=== PATIENT | female | born 1945 | race Caucasian/White ===

== ENCOUNTER → 2016-02-26 | Outpatient (CLI) | payer MEDICARE, OTHER ==
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
== END | disposition home or self-care (01) ==
LOC: RADXRMAIN 16:19
PROVIDERS: ATTEND Family Medicine
DX: M47.814 Spondylosis without myelopathy or radiculopathy, thoracic region (principal); M46.84 Other specified inflammatory spondylopathies, thoracic region; M41.84 Other forms of scoliosis, thoracic region
CPT/HCPCS: 72072

== ENCOUNTER → 2016-06-02 | Outpatient (CLI) | payer MEDICARE, OTHER ==
[~2016-06-02] MED LIST: DENOSUMAB 60 MG/ML 1 ML SYRINGE SQ ONE
[2016-06-02 11:10] VITALS: BP 132/60; PULSE 73; RESP 20; TEMP 98.3
== END | disposition home or self-care (01) ==
LOC: PROCWHC3 10:52
PROVIDERS: ATTEND Family Medicine
DX: M81.0 Age-related osteoporosis without current pathological fracture (principal)
CPT/HCPCS: 96372; J0897

== ENCOUNTER → 2016-07-07 | Outpatient (CLI) | payer MEDICARE, OTHER ==
--- NOTE | 2016-07-07 09:02 | NM ---
EXAMINATION TYPE: NM hepatobiliary w EF DATE OF EXAM: 07/07/2016 8:53 AM COMPARISON: 07/21/2015 HISTORY: Right upper quadrant TECHNIQUE: After the intravenous administration of 5.5 mCi Tc 99m Mebrofenin and 8 ounces of ensure p colby hepatobiliary scintigraphy is performed. Immediate images post injection. FINDINGS: There is satisfactory initial accumulation of tracer by the liver. The gallbladder is visualized wit hin 15 minutes. The small bowel activity is noted within 60 minutes. At one hour 8 ounces of oral e nsure plus is given to mimic CCK and gallbladder ejection fraction is calculated at 76 %, in the norm al range. Therefore there is no scintigraphic evidence of cystic or common bile duct obstruction to suggest acute cholecystitis or gallbladder dyskinesia. IMPRESSION: Exam is within normal limits.
== END | disposition home or self-care (01) ==
LOC: RADNMMAIN 06:58
PROVIDERS: ATTEND Family Medicine
DX: R10.11 Right upper quadrant pain (principal)
CPT/HCPCS: 78226; A9537

== ENCOUNTER → 2016-10-03 | Outpatient (CLI) | payer MEDICARE, OTHER ==
--- NOTE | 2016-10-03 13:52 | XR ---
Right knee HISTORY: Right knee pain 3 views of the right knee No comparisons Joint space loss, marginal spurring present in the medial compartment. The patella is high riding. Mani ne mineralization mildly reduced. Alignment is maintained. Marginal spurring also present at the oliver lla posteriorly. The IMPRESSION: Patella alexia, correlate to exclude patellar tendon disruption. Osteoarthritis. Osteopenia .
== END | disposition home or self-care (01) ==
LOC: RADXRMAIN 10:40
PROVIDERS: ATTEND Family Medicine
DX: M17.11 Unilateral primary osteoarthritis, right knee (principal); M85.88 Other specified disorders of bone density and structure, other site

== ENCOUNTER → 2016-12-23 | Outpatient (CLI) | payer MEDICARE, OTHER ==
--- NOTE | 2016-12-23 16:50 | XR ---
EXAMINATION TYPE: XR wrist complete RT DATE OF EXAM: 12/23/2016 COMPARISON: NONE HISTORY: Wrist pain TECHNIQUE: 4 views FINDINGS: There is moderate narrowing and spurring at the first carpometacarpal joint. I see no fract ure nor dislocation. Radiocarpal joint is intact. IMPRESSION: Moderate osteoarthritis at the first carpometacarpal joint. No sign of inflammatory arthr itis.
== END ==
LOC: RADXRMAIN 16:28
PROVIDERS: ATTEND Family Medicine
DX: M19.031 Primary osteoarthritis, right wrist (principal)

== ENCOUNTER → 2016-12-26 | Outpatient (CLI) | payer MEDICARE, OTHER ==
--- NOTE | 2016-12-27 11:57 | MM ---
Reason for exam: screening (asymptomatic). Last mammogram was performed 1 year ago. History: Patient is postmenopausal. Physical Findings: A clinical breast exam by your physician is recommended on an annual basis and results should be correlated with mammographic findings. MG 3D Screening Mammo W/Cad Bilateral CC and MLO view(s) were taken. Prior study comparison: December 25, 2015, bilateral MG 3d screening mammo w/cad. December 19, 2014, bilateral MG screening mammo w CAD. The breast tissue is extremely dense which could obscure a lesion on mammography. Finding: There are typically benign round, regional and diffuse/scattered calcifications in both breasts. There is no discrete abnormality. ASSESSMENT: Benign, BI-RAD 2 RECOMMENDATION: Routine screening mammogram of both breasts in 1 year.
== END | disposition home or self-care (01) ==
LOC: RADMAMWWP 11:16
PROVIDERS: ATTEND Family Medicine
DX: Z12.31 Encounter for screening mammogram for malignant neoplasm of breast (principal)
CPT/HCPCS: 77063; G0202

== ENCOUNTER 2017-06-07 14:21 | Emergency (ER) | payer MEDICARE, OTHER ==
[2017-06-07 14:49] VITALS: TEMP 98
[2017-06-07] MEDS ORDERED: SODIUM CHLORIDE 0.9% 500 ML IV STA (15:34)
[2017-06-07] MEDS ORDERED: RX INFO: IV CONTRAST WAS GIVEN 1 EACH MISC MISCELLANE PRN (15:59)
[2017-06-07 16:08] LABS: Basophils % (A) 1 %; Eosinophils # (A) 0.1 k/uL (0-0.7); Eosinophils % (A) 2 %; HCT 40.1 % (34.0-46.0); HGB 13.2 gm/dL (11.4-16.0); Lymphocytes % (A) 16 %; MCH 29.9 pg (25.0-35.0); MCHC 32.9 g/dL (31.0-37.0); MCV 90.8 fL (80.0-100.0); Mean Platelet Volume 7.6; Monocytes # (A) 0.5 k/uL (0-1.0); Monocytes % (A) 9 %; Neutrophils % (A) 69 %; Platelet Count 230 k/uL (150-450); RBC 4.42 m/uL (3.80-5.40); RDW 13.2 % (11.5-15.5); WBC 5.8 k/uL (3.8-10.6)
[2017-06-07 16:18] LABS: ALT 29 U/L (9-52); AST 21 U/L (14-36); Albumin 4.2 g/dL (3.5-5.0); Alkaline Phosphatase 52 U/L (38-126); Amylase 111 U/L (30-110); Anion Gap 13 mmol/L; Blood Urea Nitrogen 16 mg/dL (7-17); Calcium 9.3 mg/dL (8.4-10.2); Carbon Dioxide 26 mmol/L (22-30); Chloride 105 mmol/L (98-107); Glucose 134 mg/dL (74-99); Lipase 107 U/L (23-300); Potassium 3.8 mmol/L (3.5-5.1); Sodium 144 mmol/L (137-145); Total Bilirubin 0.3 mg/dL (0.2-1.3); Total Protein 6.7 g/dL (6.3-8.2)
[2017-06-07 16:22] LABS: Partial Thromboplastin Time 24.1 sec (22.0-30.0); Prothrombin Time 9.8 sec (9.0-12.0)
--- NOTE | 2017-06-07 17:03 | CT ---
EXAMINATION TYPE: CT abdomen pelvis w con DATE OF EXAM: 06/07/2017 COMPARISON: NONE HISTORY: Patient poor historian. Pain. CT DLP: 737 mGycm Automated exposure control for dose reduction was used. TECHNIQUE: Helical acquisition of images was performed from the lung bases through the pelvis. CONTRAST: Performed without Oral Contrast and with IV Contrast, patient injected with 100 mL of Isovue 300. FINDINGS: Lung bases are clear of consolidation. Heart size is normal. There is no pleural effusion. There is n o pericardial effusion. There is a small hiatal hernia. There are 2 small cysts in the right and left lobe of the liver that measure less than 1 cm. The bili melva tree is mildly enlarged. Gallbladder is not dilated. Pancreatic duct is large and measures 4.5 mm . The common bile duct measures 6 to 7 mm. There appears to be an unusually large pancreatic head but without evidence of a mass. The head extends laterally to the right side to the anterior aspect of t he right kidney. The location of the duodenum is not clear. There is no adrenal mass. Kidneys show satisfactory contrast opacification. There is no hydronephrosi s. There appears to be left renal parapelvic cysts. There is a 1 sign of air cortical cyst in the ant erior right kidney. The delayed images show no evidence of renal obstruction. There is minimal athero matous change in the abdominal aorta. There is no evidence of aneurysm. I see no retroperitoneal judd opathy. There is very little intra-abdominal fat. I see no evidence of a bowel obstruction. There is some retained fecal material in the right colon. Bladder distends smoothly. There is no evidence of a pelvic mass. Uterus is anteverted. There are spondylotic changes in the lumbar spine there is a mild retrolisthesis at L2-3. I see no spinal stenosis. There is no ascites. 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 D UODENUM IS THOUGHT TO BE ALSO IN THE RIGHT LATERAL POSITION. THERE IS MILD ECTASIA OF THE PANCREATIC DUCT AND THE COMMON BILE DUCT AND THE MILD OBSTRUCTION IS POSSIBLE. I DO NOT SEE AN OBSTRUCTING LESIO N. MRCP MIGHT BE USEFUL FOR FURTHER EVALUATION IF BILIARY PATHOLOGY IS SUSPECTED. SMALL HIATAL HERNIA.
[2017-06-07 17:11] VITALS: BP 157/72; PULSE 81; RESP 16
[2017-06-07 17:23] LABS: Appearance,Urine Clear (Clear); Bilirubin,Urine Negative (Negative); Blood,Urine Negative (Negative); Color,Urine Colorless; Glucose,Urine (UA) Negative (Negative); Ketones,Urine Negative (Negative); Leukocyte Esterase,Urine Negative (Negative); Nitrite,Urine Negative (Negative); PH, Urine 7.5 (5.0-8.0); Protein,Urine Negative (Negative); Specific Gravity,Urine 1.015 (1.001-1.035); Urobilinogen,Urine <2.0 mg/dL (<2.0)
--- NOTE | 2017-06-07 17:25 | ED ---
Abdominal Pain HPI - General Chief Complaint: Abdominal Pain Stated Complaint: Allergic reaction Time Seen by Provider: 06/07/17 15:30 Source: patient, RN notes reviewed Mode of arrival: wheelchair Limitations: no limitations - History of Present Illness Initial Comments: This is a 72-year-old female presents emergency department concerns of possible ALLERGIC reaction. Patient states that she received Prolin injection today with states is his third time she received this injection. She states that she developed some nausea 40 minutes after. She denies any chest pain shortness breath. She states she took her Carafate and which she takes for her ulcers and states it helped. She states that she has complaints of upper abdominal pressure and distention. She denies any diarrhea, constipation, fever, chills, headache, dizziness. Patient states that she sees Dr. Landin and GI for her stomach issues. - Related Data Home Medications Medication Instructions Recorded Confirmed Docusate [Colace] 200 mg PO HS 12/03/15 06/07/17 Lubiprostone [Amitiza] 24 mcg PO DAILY 12/03/15 06/07/17 Wheat Dextrin [Benefiber] 1 packet PO DAILY 12/03/15 06/07/17 Acetaminophen Tab [Tylenol] 500 mg PO Q6H PRN 06/02/16 06/07/17 Albuterol Sulfate [Proair Hfa] 1 - 2 puff INHALATION RT-QID PRN 06/02/16 Diclofenac Epolamine [Flector 1.3% 1 patch TRANSDERM DAILY 06/02/16 06/07/17 Patch] Lidocaine HCl [Aspercreme] 1 applic TOPICAL DAILY PRN 06/02/16 06/07/17 Menthol [Biofreeze] 1 applic TOPICAL DAILY PRN 06/02/16 06/07/17 Sucralfate [Carafate] 1 gm PO QID 06/02/16 06/07/17 sitaGLIPtin [Januvia] 100 mg PO DAILY 06/02/16 06/07/17 Blue Emu Cream 1 applic TOPICAL DAILY PRN 01/19/17 06/07/17 metFORMIN HCL ER [Glucophage Xr] 500 mg PO DAILY 01/19/17 06/07/17 Allergies Allergy/AdvReac Type Severity Reaction Status Date / Time moxifloxacin [From Avelox] AdvReac Nausea Verified 06/07/17 16:03 nitrofurantoin AdvReac Nausea Verified 06/07/17 16:03 Penicillins AdvReac Nausea Verified 06/07/17 16:03 Review of Systems ROS Statement: Those systems with pertinent positive or pertinent negative responses have been documented in the HPI. ROS Other: All systems not noted in ROS Statement are negative. Past Medical History Past Medical History: Asthma, Diabetes Mellitus, GERD/Reflux, Rheumatoid Arthritis (RA) Additional Past Medical History / Comment(s): stomach ulcers History of Any Multi-Drug Resistant Organisms: None Reported Past Surgical History: Orthopedic Surgery Additional Past Surgical History / Comment(s): epidural injections, Past Anesthesia/Blood Transfusion Reactions: No Reported Reaction Past Psychological History: No Psychological Hx Reported Smoking Status: Never smoker Past Alcohol Use History: None Reported Past Drug Use History: None Reported General Exam Limitations: no limitations General appearance: alert, in no apparent distress ENT exam: Present: normal exam, mucous membranes moist Neck exam: Present: normal inspection. Absent: tenderness, meningismus, lymphadenopathy Respiratory exam: Present: normal lung sounds bilaterally. Absent: respiratory distress, wheezes, rales, rhonchi, stridor Cardiovascular Exam: Present: regular rate, normal rhythm, normal heart sounds. Absent: systolic murmur, diastolic murmur, rubs, gallop, clicks GI/Abdominal exam: Present: soft, tenderness (Mild epigastric), normal bowel sounds. Absent: distended, guarding, rebound, rigid Back exam: Absent: CVA tenderness (R), CVA tenderness (L) Course Vital Signs 06/07/17 06/07/17 14:45 17:11 Temperature 98.0 F Pulse Rate 87 81 Respiratory 20 16 Rate Blood Pressure 149/70 157/72 O2 Sat by Pulse 97 97 Oximetry Medical Decision Making - Medical Decision Making 72-year-old female presented unresponsive for concerns for possible ALLERGIC reaction, abdominal pain and nausea. Patient has unremarkable CT she has not required any medications in the emergency department. CT shows some changes surrounding her pancreas region. Case is discussed with Dr. Wolfe patient will follow-up with Dr. Landin and Dr. Mcnair. Return parameters were discussed. - Lab Data Result diagrams: 06/07/17 15:56 06/07/17 15:56 Lab Results 06/07/17 06/07/17 06/07/17 Range/Units 15:56 15:56 15:56 WBC 5.8 (3.8-10.6) k/uL RBC 4.42 (3.80-5.40) m/uL Hgb 13.2 (11.4-16.0) gm/dL Hct 40.1 (34.0-46.0) % MCV 90.8 (80.0-100.0) fL MCH 29.9 (25.0-35.0) pg MCHC 32.9 (31.0-37.0) g/dL RDW 13.2 (11.5-15.5) % Plt Count 230 (150-450) k/uL Neutrophils % 69 % Lymphocytes % 16 % Monocytes % 9 % Eosinophils % 2 % Basophils % 1 % Neutrophils # 4.0 (1.3-7.7) k/uL Lymphocytes # 1.0 (1.0-4.8) k/uL Monocytes # 0.5 (0-1.0) k/uL Eosinophils # 0.1 (0-0.7) k/uL Basophils # 0.0 (0-0.2) k/uL PT 9.8 (9.0-12.0) sec INR 1.0 (<1.2) APTT 24.1 (22.0-30.0) sec Sodium 144 (137-145) mmol/L Potassium 3.8 (3.5-5.1) mmol/L Chloride 105 (98-107) mmol/L Carbon Dioxide 26 (22-30) mmol/L Anion Gap 13 mmol/L BUN 16 (7-17) mg/dL Creatinine 0.50 L (0.52-1.04) mg/dL Est GFR (CKD-EPI)AfAm >90 (>60 ml/min/1.73 sqM) Est GFR (CKD-EPI)NonAf >90 (>60 ml/min/1.73 sqM) Glucose 134 H (74-99) mg/dL Calcium 9.3 (8.4-10.2) mg/dL Total Bilirubin 0.3 (0.2-1.3) mg/dL AST 21 (14-36) U/L ALT 29 (9-52) U/L Alkaline Phosphatase 52 (38-126) U/L Total Protein 6.7 (6.3-8.2) g/dL Albumin 4.2 (3.5-5.0) g/dL Amylase 111 H (30-110) U/L Lipase 107 (23-300) U/L Disposition Clinical Impression: Abdominal pain Disposition: HOME SELF-CARE Condition: Stable Instructions: Abdominal Pain (ED) Additional Instructions: Please return to the Emergency Department if symptoms worsen or any other concerns. Is patient prescribed a controlled substance at d/c from ED?: No Referrals: Cooper Randall DO [Primary Care Provider] - 1-2 days Khai Landin MD [Medical Doctor] - 1-2 days Bi Amor MD [STAFF PHYSICIAN] - 1-2 days Time of Disposition: 17:25
== END 2017-06-07 17:56 | disposition home or self-care (01) ==
LOC: EC 14:21
DX: R10.13 Epigastric pain (principal); R14.0 Abdominal distension (gaseous); E11.9 Type 2 diabetes mellitus without complications; Z88.0 Allergy status to penicillin; Z88.1 Allergy status to other antibiotic agents; Z87.11 Personal history of peptic ulcer disease; Z79.84 Long term (current) use of oral hypoglycemic drugs; Z79.4 Long term (current) use of insulin; Z79.899 Other long term (current) drug therapy
CPT/HCPCS: 36415; 80053; 82150; 83690; 85025; 85610; 85730; 81003; 74177; 99284; Q9967

== ENCOUNTER → 2017-06-07 | Outpatient (CLI) | payer MEDICARE, OTHER ==
[~2017-06-07] MED LIST changes: +DENOSUMAB 60 MG/ML 1 ML SYRINGE SQ NR; -DENOSUMAB 60 MG/ML 1 ML SYRINGE SQ ONE
[2017-06-07 10:48] VITALS: BP 139/62; PULSE 73; RESP 16; TEMP 98.2
== END | disposition home or self-care (01) ==
LOC: PROCWHC3 10:37
PROVIDERS: ATTEND Family Medicine
DX: M81.0 Age-related osteoporosis without current pathological fracture (principal)
CPT/HCPCS: 96372

== ENCOUNTER → 2017-07-07 | Outpatient (CLI) | payer MEDICARE, OTHER ==
--- NOTE | 2017-07-07 13:06 | MR ---
MRCP HISTORY: Abnormal CT abdomen pelvis, R 93.8 Multiplanar multisequence imaging through the biliary system, three-dimensional reconstructions perfo rmed on an alternate workstation There is motion on the exam. Multiple cystic foci again noted within the liver. Gallbladder shows no stone. There is ectatic pancreatic duct in the head region, central biliary system also shows an ecta tic focus possibly due to local stenosis at the level of a fold of the common bile duct, no evident s tone. Left sided biliary system is somewhat more ectatic than the right, findings compatible with cho ledochal cyst. Scoliotic curvature present in the visualized spine. There is no evident pancreatic he ad mass. Cystic focus present in the kidney on the right. IMPRESSION: There is extensive motion on the exam. 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
== END | disposition home or self-care (01) ==
LOC: RADMRIMAIN 09:06
PROVIDERS: ATTEND Internal Medicine Gastroenterology
DX: K86.89 Other specified diseases of pancreas (principal)
CPT/HCPCS: 74181

== ENCOUNTER → 2017-09-27 | Outpatient (CLI) | payer MEDICARE, OTHER ==
--- NOTE | 2017-09-27 13:20 | XR ---
EXAMINATION TYPE: XR Hip Bilateral Complete DATE OF EXAM: 09/27/2017 COMPARISON: NONE HISTORY: Pain TECHNIQUE: 2 views submitted FINDINGS: There is no evidence of erosive change or acute fracture. Moderate concentric narrowing of the joint space on the right and mild narrowing on the left. IMPRESSION: 1. No evidence of acute fracture or dislocation. 2. Arthritic changes. If symptoms persist consider MRI.
== END | disposition home or self-care (01) ==
LOC: RADXRMAIN 11:51
PROVIDERS: ATTEND Family Medicine
DX: M16.0 Bilateral primary osteoarthritis of hip (principal)
CPT/HCPCS: 73521

== ENCOUNTER → 2017-10-06 | Outpatient (CLI) | payer MEDICARE, OTHER ==
--- NOTE | 2017-10-06 17:18 | XR ---
Right knee HISTORY: Right knee pain 3 views of the right knee Correlation prior exam 10/03/2016 Osteoarthritic changes are present. Marginal spurring present tricompartmentally. Patella shows yonatan l position. No evident joint effusion. IMPRESSION: Osteoarthritis.
== END | disposition home or self-care (01) ==
LOC: RADXRMAIN 15:17
PROVIDERS: ATTEND Family Medicine
DX: M17.11 Unilateral primary osteoarthritis, right knee (principal)

== ENCOUNTER → 2017-11-27 | Outpatient (CLI) | payer MEDICARE, OTHER ==
[~2017-11-27] MED LIST changes: -DENOSUMAB 60 MG/ML 1 ML SYRINGE SQ NR; +DENOSUMAB 60 MG/ML 1 ML SYRINGE SQ ONE
[2017-11-27 12:41] VITALS: BP 131/69; PULSE 80; RESP 16; TEMP 97.8
== END | disposition home or self-care (01) ==
LOC: PROCWHC3 12:17
PROVIDERS: ATTEND Family Medicine
DX: M81.0 Age-related osteoporosis without current pathological fracture (principal)
CPT/HCPCS: 96372; J0897

== ENCOUNTER → 2018-01-10 | Outpatient (CLI) | payer MEDICARE, OTHER ==
--- NOTE | 2018-01-12 12:15 | MM ---
Reason for exam: screening (asymptomatic). Last mammogram was performed 1 year ago. History: Patient is postmenopausal. Physical Findings: A clinical breast exam by your physician is recommended on an annual basis and results should be correlated with mammographic findings. MG 3D Screening Mammo W/Cad Bilateral CC and MLO view(s) were taken. Prior study comparison: December 26, 2016, bilateral MG 3d screening mammo w/cad. December 25, 2015, bilateral MG 3d screening mammo w/cad. The breast tissue is extremely dense which could obscure a lesion on mammography. There are benign appearing bilateral calcifications similar to priors. No suspicious abnormality. No significant changes when compared with prior studies. ASSESSMENT: Benign, BI-RAD 2 RECOMMENDATION: Routine screening mammogram of both breasts in 1 year.
== END ==
LOC: RADMAMWWP 13:41
PROVIDERS: ATTEND Family Medicine
DX: Z12.31 Encounter for screening mammogram for malignant neoplasm of breast (principal)
CPT/HCPCS: 77063; 77067

== ENCOUNTER → 2018-05-30 | Outpatient (CLI) | payer MEDICARE, OTHER ==
[2018-05-30 11:21] VITALS: BP 125/89; PULSE 80; RESP 16; TEMP 97.5
== END ==
LOC: PROCWHC3 11:07
PROVIDERS: ATTEND Family Medicine
DX: M81.0 Age-related osteoporosis without current pathological fracture (principal)
CPT/HCPCS: 96372; J0897

== ENCOUNTER → 2018-06-09 | Outpatient (CLI) | payer MEDICARE, OTHER ==
--- NOTE | 2018-06-09 14:15 | MR ---
EXAMINATION TYPE: MR lumbar spine wo con DATE OF EXAM: 06/09/2018 COMPARISON: CT lumbar spine 05/12/2018 HISTORY: LBP, LLE radiculopathy x 2-3 yrs TECHNIQUE: Multiplanar, multisequence images of the lumbar spine were acquired. L1-L2: Broad-based posterior disc bulge causes mild anterior mass effect on the thecal sac. There is some facet arthropathy. Some right-sided foraminal encroachment may be contributed by the scoliosis. No significant central stenosis. L2-L3: Minimal retrolisthesis L2-3 is noted, there is mild central stenosis contributed by facet arth ropathy and posterior broad-based disc bulge, endplate extension causing anterior mass effect on the thecal sac. There is some right-sided foraminal encroachment greater than left. L3-L4: Broad-based posterior disc bulge causes anterior mass effect on the thecal sac. Facet arthropa thy with hypertrophy ligamentum flavum causes posterior lateral mass effect on the thecal sac. No sig nificant central stenosis or foraminal encroachment. L4-L5: Hypertrophic changes at the facets causes posterior lateral mass effect on the thecal sac, the re is a broad-based posterior disc bulge resulting in a trefoil appearance of the thecal sac. Minimal anterolisthesis grade 1 at L4-5 contributes to cause some mild central stenosis. No significant fora stephani encroachment. L5-S1: Facet arthropathy changes with hypertrophy of the ligamentum flavum noted, there is broad-base d posterior disc bulge causing mild anterior mass effect on the thecal sac. No significant central st enosis or foraminal encroachment. Lumbar segments are intact. No paraspinal masses are identified. Conus medullaris has a normal appe arance. There is a scoliotic curvature present as noted on prior CT. L3 sclerotic lesion seen on CT s hows intermediate to low signal on T1-weighted images, increased signal on T2-weighted sequences and is indeterminate. IMPRESSION: Nonaggressive appearance to the lesion at the L3 vertebral body, follow-up could be performed to asse ss for stability. Multilevel degenerative disc disease, facet arthropathy, foraminal encroachment as described, there is a scoliosis.
== END ==
LOC: RADMRIMAIN 11:10
PROVIDERS: ATTEND Family Medicine
DX: M51.16 Intervertebral disc disorders with radiculopathy, lumbar region (principal); M46.96 Unspecified inflammatory spondylopathy, lumbar region; M41.9 Scoliosis, unspecified
CPT/HCPCS: 72148

== ENCOUNTER 2018-06-30 14:30 | Emergency (ER) | payer MEDICARE, OTHER ==
[2018-06-30 14:34] VITALS: RESP 18
--- NOTE | 2018-06-30 15:02 | ED ---
General Adult HPI <Jaxson Gamboa - Last Filed: 06/30/18 16:40> - General Source: patient, RN notes reviewed Mode of arrival: ambulatory Limitations: physical limitation <Axel Guidry - Last Filed: 06/30/18 18:33> - General Chief complaint: Nausea/Vomiting/Diarrhea Stated complaint: Constipated Time Seen by Provider: 06/30/18 14:39 - History of Present Illness Initial comments: 73-year-old female with a past medical history of asthma, diabetes, GERD, rheumatoid arthritis presents to the emergency department for a chief complaint of abdominal pain. Patient states that she feels constipated but she did have a small bowel movement earlier today. Patient states that she has had left lower quadrant pain since that time. States she feels like she has to have another bowel movement but cannot do so. Denies any nausea or vomiting. Denies any urinary symptoms. Denies any fevers or chills.Patient has no other complaints at this time including shortness of breath, chest pain, nausea or vomiting, headache, or visual changes. (Axel Guidry) - Related Data Home Medications Medication Instructions Recorded Confirmed Docusate [Colace] 200 mg PO HS 12/03/15 05/30/18 Acetaminophen Tab [Tylenol] 500 mg PO Q6H PRN 06/02/16 05/30/18 Albuterol Sulfate [Proair Hfa] 1 - 2 puff INHALATION RT-QID PRN 06/02/16 05/30/18 Diclofenac Epolamine [Flector 1.3% 1 patch TRANSDERM DAILY 06/02/16 05/30/18 Patch] Lidocaine HCl [Aspercreme] 1 applic TOPICAL DAILY PRN 06/02/16 05/30/18 Menthol [Biofreeze] 1 applic TOPICAL DAILY PRN 06/02/16 05/30/18 Sucralfate [Carafate] 1 gm PO QID 06/02/16 05/30/18 sitaGLIPtin [Januvia] 100 mg PO DAILY 06/02/16 05/30/18 Blue Emu Cream 1 applic TOPICAL DAILY PRN 01/19/17 05/30/18 metFORMIN HCL ER [Glucophage Xr] 500 mg PO DAILY 01/19/17 05/30/18 Lubiprostone [Amitiza] 24 mcg PO Q7D 05/12/18 05/30/18 Omeprazole [PriLOSEC] 20 mg PO DAILY PRN 05/12/18 05/30/18 Previous Rx's Medication Instructions Recorded Cyclobenzaprine [Flexeril] 10 mg PO TID PRN #15 tab 05/12/18 Allergies Allergy/AdvReac Type Severity Reaction Status Date / Time moxifloxacin [From Avelox] AdvReac Nausea Verified 06/30/18 14:34 nitrofurantoin AdvReac Nausea Verified 06/30/18 14:34 Penicillins AdvReac Nausea Verified 06/30/18 14:34 Review of Systems ROS Other: All systems not noted in ROS Statement are negative. <Jaxson Gamboa - Last Filed: 06/30/18 16:40> ROS Other: All systems not noted in ROS Statement are negative. <Axel Guidry - Last Filed: 06/30/18 18:33> ROS Statement: Those systems with pertinent positive or pertinent negative responses have been documented in the HPI. Past Medical History Past Medical History: Asthma, Diabetes Mellitus, GERD/Reflux, Rheumatoid Arthritis (RA) Additional Past Medical History / Comment(s): stomach ulcers. OSTEOPOROSIS. History of Any Multi-Drug Resistant Organisms: None Reported Past Surgical History: Orthopedic Surgery Additional Past Surgical History / Comment(s): epidural injections, Past Anesthesia/Blood Transfusion Reactions: No Reported Reaction Past Psychological History: No Psychological Hx Reported Smoking Status: Never smoker Past Alcohol Use History: None Reported Past Drug Use History: None Reported <Axel Guidry P - Last Filed: 06/30/18 18:33> General Exam Limitations: physical limitation General appearance: alert, in no apparent distress Head exam: Present: atraumatic, normocephalic, normal inspection Eye exam: Present: normal appearance, PERRL, EOMI. Absent: scleral icterus, conjunctival injection, periorbital swelling ENT exam: Present: normal exam, mucous membranes moist Neck exam: Present: normal inspection, full ROM. Absent: tenderness, meningismus, lymphadenopathy Respiratory exam: Present: normal lung sounds bilaterally. Absent: respiratory distress, wheezes, rales, rhonchi, stridor Cardiovascular Exam: Present: regular rate, normal rhythm, normal heart sounds. Absent: systolic murmur, diastolic murmur, rubs, gallop, clicks GI/Abdominal exam: Present: soft, tenderness (Left lower quadrant abdominal tenderness. No tenderness of the upper abdomen.), normal bowel sounds. Absent: distended, guarding, rebound, rigid Rectal exam: Present: normal inspection, normal rectal tone. Absent: fecal impaction (No fecal impaction noted) Back exam: Absent: CVA tenderness (R), CVA tenderness (L) Neurological exam: Present: alert, oriented X3, CN II-XII intact Psychiatric exam: Present: normal affect, normal mood <Axel Guidry - Last Filed: 06/30/18 18:33> Course <Jaxson Gamboa - Last Filed: 06/30/18 16:40> Vital Signs 06/30/18 14:32 Temperature 98.5 F Pulse Rate 94 Respiratory 18 Rate Blood Pressure 168/74 O2 Sat by Pulse 98 Oximetry - Reevaluation(s) Reevaluation #1: 06/30/18 16:40 SHARI supervision: I personally evaluate this case and do agree with the assessment and plan patient is evidence of constipation and lab work was reviewed no definite acute findings x-ray shows evidence of increased fecal burden. (Jaxson Finch) Medical Decision Making - Lab Data Result diagrams: 06/30/18 15:08 06/30/18 15:08 <Jaxson Gamboa - Last Filed: 06/30/18 16:40> - Lab Data Result diagrams: 06/30/18 15:08 06/30/18 15:08 <Axel Guidry - Last Filed: 06/30/18 18:33> - Medical Decision Making 73-year-old female presents to the emergency room for chief lab lower abdominal pain. States she does feel constipated although did have a small bowel movement yesterday. Patient is passing gas. Exam does reveal left lower quadrant tenderness without rebound or guarding. No upper abdominal tenderness. Rectal exam performed, no evidence of fecal impaction although there is soft stool noted in the rectum. CBC and CMP are unremarkable. Glucose is 232, patient is a type II diabetic. Urine is negative. CT shows extensive fecal burden which is consistent with prior CTs one year ago with mild ductal dilation although no evidence of obstruction. Small bowel feces sign throughout also indicative of overall increased transit time and ileus. Appearance of gastric wall thickening and edema. I did discuss this with patient she will follow up with primary care. No vomiting, tolerating oral intake. CT also shows a redemonstration of pancreatic and common bile duct prominence, periampullary mass is difficult to exclude. Also spoke with patient about this and she will follow up with primary care. Amylase and lipase are normal. Patient was given an enema and did have significant bowel movement, feeling much better at this time. Discussed following up for decreased transit time with primary care. Patient will continue to take her stool softener home and eat a high-fiber diet. She'll return here if she has any worsening symptoms. (Axel Guidry) - Lab Data Lab Results 06/30/18 06/30/18 06/30/18 Range/Units 15:08 15:08 Unknown WBC 5.5 (3.8-10.6) k/uL RBC 4.21 (3.80-5.40) m/uL Hgb 12.3 (11.4-16.0) gm/dL Hct 37.8 (34.0-46.0) % MCV 89.7 (80.0-100.0) fL MCH 29.3 (25.0-35.0) pg MCHC 32.7 (31.0-37.0) g/dL RDW 13.4 (11.5-15.5) % Plt Count 308 (150-450) k/uL Neutrophils % 71 % Lymphocytes % 15 % Monocytes % 9 % Eosinophils % 1 % Basophils % 1 % Neutrophils # 3.9 (1.3-7.7) k/uL Lymphocytes # 0.8 L (1.0-4.8) k/uL Monocytes # 0.5 (0-1.0) k/uL Eosinophils # 0.1 (0-0.7) k/uL Basophils # 0.0 (0-0.2) k/uL Sodium 137 (137-145) mmol/L Potassium 4.9 (3.5-5.1) mmol/L Chloride 106 (98-107) mmol/L Carbon Dioxide 24 (22-30) mmol/L Anion Gap 7 mmol/L BUN 12 (7-17) mg/dL Creatinine 0.35 L (0.52-1.04) mg/dL Est GFR (CKD-EPI)AfAm >90 (>60 ml/min/1.73 sqM) Est GFR (CKD-EPI)NonAf >90 (>60 ml/min/1.73 sqM) Glucose 232 H (74-99) mg/dL Calcium 9.2 (8.4-10.2) mg/dL Total Bilirubin 0.7 (0.2-1.3) mg/dL AST 24 (14-36) U/L ALT 24 (9-52) U/L Alkaline Phosphatase 48 (38-126) U/L Total Protein 7.0 (6.3-8.2) g/dL Albumin 4.2 (3.5-5.0) g/dL Amylase 62 (30-110) U/L Lipase 75 (23-300) U/L Urine Color Colorless Urine Appearance Clear (Clear) Urine pH 6.5 (5.0-8.0) Ur Specific [place] 1.001 (1.001-1.035) Urine Protein Negative (Negative) Urine Glucose (UA) Negative (Negative) Urine Ketones Negative (Negative) Urine Blood Negative (Negative) Urine Nitrite Negative (Negative) Urine Bilirubin Negative (Negative) Urine Urobilinogen <2.0 (<2.0) mg/dL Ur Leukocyte Esterase Small H (Negative) Urine WBC 1 (0-5) /hpf Ur Squamous Epith Cells <1 (0-4) /hpf Disposition <Jaxson Gamboa - Last Filed: 06/30/18 16:40> Is patient prescribed a controlled substance at d/c from ED?: No Time of Disposition: 18:23 <Axel Guidry - Last Filed: 06/30/18 18:33> Clinical Impression: Constipation Disposition: HOME SELF-CARE Condition: Good Instructions (If sedation given, give patient instructions): Constipation (ED), High Fiber Diet (ED) Additional Instructions: Please eat a diet high in fiber. Please continue to take your stool softener. Follow up with primary care for your CT results and constipation. Return to the ER if you have any worsening symptoms. Referrals: Cooper Randall DO [Primary Care Provider] - 1-2 days
[2018-06-30 15:28] LABS: Basophils % (A) 1 %; Eosinophils # (A) 0.1 k/uL (0-0.7); Eosinophils % (A) 1 %; HCT 37.8 % (34.0-46.0); HGB 12.3 gm/dL (11.4-16.0); Lymphocytes # (A) 0.8 k/uL (1.0-4.8); Lymphocytes % (A) 15 %; MCH 29.3 pg (25.0-35.0); MCHC 32.7 g/dL (31.0-37.0); MCV 89.7 fL (80.0-100.0); Mean Platelet Volume 6.9; Monocytes # (A) 0.5 k/uL (0-1.0); Monocytes % (A) 9 %; Neutrophils # (A) 3.9 k/uL (1.3-7.7); Neutrophils % (A) 71 %; Platelet Count 308 k/uL (150-450); RBC 4.21 m/uL (3.80-5.40); RDW 13.4 % (11.5-15.5); WBC 5.5 k/uL (3.8-10.6)
[2018-06-30 15:33] LABS: ALT 24 U/L (9-52); AST 24 U/L (14-36); Albumin 4.2 g/dL (3.5-5.0); Alkaline Phosphatase 48 U/L (38-126); Amylase 62 U/L (30-110); Anion Gap 7 mmol/L; Blood Urea Nitrogen 12 mg/dL (7-17); Calcium 9.2 mg/dL (8.4-10.2); Carbon Dioxide 24 mmol/L (22-30); Chloride 106 mmol/L (98-107); Glucose 232 mg/dL (74-99); Lipase 75 U/L (23-300); Potassium 4.9 mmol/L (3.5-5.1); Sodium 137 mmol/L (137-145); Total Bilirubin 0.7 mg/dL (0.2-1.3)
[2018-06-30 15:48] LABS: Appearance,Urine Clear (Clear); Bilirubin,Urine Negative (Negative); Blood,Urine Negative (Negative); Color,Urine Colorless; Glucose,Urine (UA) Negative (Negative); Ketones,Urine Negative (Negative); Leukocyte Esterase,Urine Small (Negative); Nitrite,Urine Negative (Negative); PH, Urine 6.5 (5.0-8.0); Protein,Urine Negative (Negative); Specific Gravity,Urine 1.001 (1.001-1.035); Squamous Epithelial Cell,Urine <1 /hpf (0-4); Urobilinogen,Urine <2.0 mg/dL (<2.0); WBC,Urine 1 /hpf (0-5)
--- NOTE | 2018-06-30 16:14 | CT ---
EXAMINATION TYPE: CT abdomen pelvis w con DATE OF EXAM: 06/30/2018 HISTORY: Constipation CT DLP: 447.9mGycm Automated Exposure Control for Dose Reduction was Utilized. CONTRAST: CT scan of the abdomen and pelvis is performed with IV Contrast, patient injected with 90 mL of Isovu e 300. COMPARISON: 06/07/2017 FINDINGS: LUNG BASES: No significant abnormality is appreciated. LIVER/GB: There are scattered too small to accurately characterize hypoattenuated hepatic lesions. No cholelithiasis is seen. PANCREAS: Pancreatic ductal prominence is redemonstrated. SPLEEN: No significant abnormality is seen. ADRENALS: No significant abnormality is seen. 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 Otherwise the kidneys enhance symmetrically. BOWEL: There is a large degree colonic fecal stasis with mild dilatation of the rectum. However the r emainder of the large and small bowel are nondilated. Small bowel feces sign is seen throughout the n early the entirety of the small bowel. UTERUS/ADNEXA: No gross abnormality seen. LYMPH NODES: Evaluation for adenopathy is markedly limited given lack of oral contrast and paucity of intra-abdominal fat as well as opposing bowel loops throughout the abdomen. No greater than 1cm abdo stephani or pelvic lymph nodes are appreciated. OSSEOUS STRUCTURES: Scoliosis and multilevel degenerative change of the spine is again noted. Retroli sthesis of L2 on L3. OTHER: Inguinal canals are patulous with underlying bowel abutting the patulous canals. Mild atherosc lerosis is seen of the abdominal aorta and its branches. IMPRESSION: 1. Extensive fecal burden as seen on the prior of 06/07/2017 with mild rectal dilatation although no e vidence of obstruction. Small bowel feces sign is seen throughout also indicative of overall increase d transit time and ileus. There is appearance of gastric wall thickening and edema and etiologies inc lude infiltrative process or gastritis. Small hiatal hernia. 2. Redemonstration of pancreatic and common bile ductal prominence as seen on the prior MRCP and CT o f 07/07/2017 and 06/07/2017 respectively. Periampullary mass is difficult to exclude.
[2018-06-30 18:47] VITALS: BP 143/66; PULSE 90; TEMP 98.3
== END 2018-06-30 18:47 | disposition home or self-care (01) ==
LOC: EC 14:30
DX: K59.00 Constipation, unspecified (principal); E11.9 Type 2 diabetes mellitus without complications; J45.909 Unspecified asthma, uncomplicated; K21.9 Gastro-esophageal reflux disease without esophagitis; M06.9 Rheumatoid arthritis, unspecified; Z79.899 Other long term (current) drug therapy; Z79.84 Long term (current) use of oral hypoglycemic drugs; Z88.0 Allergy status to penicillin; Z88.1 Allergy status to other antibiotic agents
CPT/HCPCS: 36415; 80053; 82150; 83690; 85025; 81001; 74177; 99284; Q9967

== ENCOUNTER 2018-07-12 08:03 | Emergency (ER) | payer MEDICARE, OTHER ==
[2018-07-12 08:15] VITALS: TEMP 97.4
[2018-07-12] MEDS ORDERED: ONDANSETRON 4 MG/2 ML VIAL IVP STA (08:59)
[2018-07-12] MEDS ORDERED: SODIUM CHLORIDE 0.9% 1,000 ML IV STA ×2 (08:59)
[2018-07-12] MEDS ORDERED: KETOROLAC 30 MG/ML 1 ML VIAL IVP STA (08:59)
[2018-07-12] MEDS ORDERED: MORPHINE SULFATE 4 MG/ML SYRINGE IV STA (08:59)
[2018-07-12 09:18] LABS: Basophils % (A) 1 %; Eosinophils % (A) 1 %; HCT 40.1 % (34.0-46.0); HGB 12.7 gm/dL (11.4-16.0); Lymphocytes # (A) 0.6 k/uL (1.0-4.8); Lymphocytes % (A) 15 %; MCH 28.9 pg (25.0-35.0); MCHC 31.7 g/dL (31.0-37.0); MCV 91.3 fL (80.0-100.0); Mean Platelet Volume 7.1; Monocytes # (A) 0.3 k/uL (0-1.0); Monocytes % (A) 9 %; Neutrophils # (A) 2.8 k/uL (1.3-7.7); Neutrophils % (A) 71 %; Platelet Count 179 k/uL (150-450); RDW 13.7 % (11.5-15.5)
[2018-07-12 09:30] LABS: Appearance,Urine Clear (Clear); Bilirubin,Urine Negative (Negative); Blood,Urine Negative (Negative); Color,Urine Colorless; Glucose,Urine (UA) Negative (Negative); Hyaline Casts,Urine 1 /lpf (0-2); Ketones,Urine Negative (Negative); Leukocyte Esterase,Urine Small (Negative); Mucus,Urine Rare /hpf; Nitrite,Urine Negative (Negative); PH, Urine 5.5 (5.0-8.0); Protein,Urine Negative (Negative); RBC,Urine 1 /hpf (0-5); Specific Gravity,Urine 1.006 (1.001-1.035); Squamous Epithelial Cell,Urine 4 /hpf (0-4); Urobilinogen,Urine <2.0 mg/dL (<2.0); WBC,Urine 2 /hpf (0-5)
[2018-07-12 09:30] LABS: ALT 30 U/L (9-52); AST 19 U/L (14-36); Albumin 4.2 g/dL (3.5-5.0); Alkaline Phosphatase 55 U/L (38-126); Amylase 43 U/L (30-110); Anion Gap 7 mmol/L; Blood Urea Nitrogen 14 mg/dL (7-17); Calcium 9.2 mg/dL (8.4-10.2); Carbon Dioxide 26 mmol/L (22-30); Chloride 105 mmol/L (98-107); Glucose 231 mg/dL (74-99); Lipase 35 U/L (23-300); Potassium 3.9 mmol/L (3.5-5.1); Sodium 138 mmol/L (137-145); Total Bilirubin 0.5 mg/dL (0.2-1.3); Total Protein 6.7 g/dL (6.3-8.2)
--- NOTE | 2018-07-12 10:10 | XR ---
EXAMINATION TYPE: XR KUB DATE OF EXAM: 07/12/2018 9:45 AM CLINICAL HISTORY: Left lower quadrant abdominal pain TECHNIQUE: Single upright image of the abdomen is obtained. COMPARISON: CT abdomen pelvis dated 06/30/2018 FINDINGS: Again there is an extensive colonic fecal burden. No dilated large or small bowel. There is an acute levoscoliosis of the thoracolumbar junction and extensive degenerative changes of the spine . Right greater than left femoral acetabular arthropathy is seen. Lung bases are clear. No suspicious consolidation within the abdomen or pelvis are seen. No pneumoperitoneum. IMPRESSION: There remains extensive fecal burden as seen on the prior CT of 06/30/2018. No dilated bow el, nonobstructive bowel gas pattern.
--- NOTE | 2018-07-12 10:16 | ED ---
Abdominal Pain HPI - General Chief Complaint: Abdominal Pain Stated Complaint: Abd Pain Time Seen by Provider: 07/12/18 08:37 Source: patient, RN notes reviewed, old records reviewed Mode of arrival: wheelchair Limitations: no limitations - History of Present Illness Initial Comments: Patient is a 73-year-old female present to member today with complaints of lower abdominal pain and a left-sided shooting pain for the past 2-3 days. She was seen in emergency department. So for similar complaints. At that time she's on have significant fecal burn. She received enema at that time had symptoms improve. She did have a hard stool today per she does report she has frequent habit of self disimpaction. Patient states that she has no other symptoms. Denies any fevers or chills. - Related Data Home Medications Medication Instructions Recorded Confirmed Docusate [Colace] 200 mg PO HS 12/03/15 07/12/18 Acetaminophen Tab [Tylenol] 500 mg PO Q6H PRN 06/02/16 07/12/18 Albuterol Sulfate [Proair Hfa] 1 - 2 puff INHALATION RT-QID PRN 06/02/16 07/12/18 Diclofenac Epolamine [Flector 1.3% 1 patch TRANSDERM DAILY 06/02/16 07/12/18 Patch] Lidocaine HCl [Aspercreme] 1 applic TOPICAL DAILY PRN 06/02/16 07/12/18 Menthol [Biofreeze] 1 applic TOPICAL DAILY PRN 06/02/16 07/12/18 Sucralfate [Carafate] 1 gm PO QID 06/02/16 07/12/18 sitaGLIPtin [Januvia] 100 mg PO DAILY 06/02/16 07/12/18 Blue Emu Cream 1 applic TOPICAL DAILY PRN 01/19/17 07/12/18 metFORMIN HCL ER [Glucophage Xr] 500 mg PO DAILY 01/19/17 07/12/18 Lubiprostone [Amitiza] 24 mcg PO Q7D 05/12/18 07/12/18 Omeprazole [PriLOSEC] 20 mg PO DAILY PRN 05/12/18 07/12/18 Previous Rx's Medication Instructions Recorded Sennosides/Docusate Sodium [Colace 1 each PO BID #10 tablet 07/12/18 2-in-1 Tablet] Allergies Allergy/AdvReac Type Severity Reaction Status Date / Time moxifloxacin [From Avelox] AdvReac Nausea Verified 07/12/18 08:34 nitrofurantoin AdvReac Nausea Verified 07/12/18 08:34 Penicillins AdvReac Nausea Verified 07/12/18 08:34 Review of Systems ROS Statement: Those systems with pertinent positive or pertinent negative responses have been documented in the HPI. ROS Other: All systems not noted in ROS Statement are negative. Past Medical History Past Medical History: Asthma, Diabetes Mellitus, GERD/Reflux, Rheumatoid Arthritis (RA) Additional Past Medical History / Comment(s): stomach ulcers. OSTEOPOROSIS. History of Any Multi-Drug Resistant Organisms: None Reported Past Surgical History: Orthopedic Surgery Additional Past Surgical History / Comment(s): epidural injections, Past Anesthesia/Blood Transfusion Reactions: No Reported Reaction Past Psychological History: No Psychological Hx Reported Smoking Status: Never smoker Past Alcohol Use History: None Reported Past Drug Use History: None Reported General Exam - General Exam Comments Initial Comments: This is a 73-year-old female. Alert and oriented. No significant distress. General: Well appearing, well nourished, in no distress. Oriented x 3, normal mood and affect . Ambulating without difficulty. Skin: Good turgor, no rash, unusual bruising or prominent lesions Hair: Normal texture and distribution. HEENT: Head: Normocephalic, atraumatic, no visible or palpable masses, depressions, or scaring. Eyes: Visual acuity intact, conjunctiva clear, sclera non-icteric, EOM intact, PERRL. Ears: EACs clear, TMs translucent & cone of light visualized. hearing intact. Nose: No external lesions, mucosa non-inflamed, septum and turbinates normal Mouth: Mucous membranes moist, no mucosal lesions. Teeth/Gums: No obvious caries or periodontal disease. No gingival inflammation or significant resorption. Pharynx: Mucosa non-inflamed, no tonsillar hypertrophy or exudate Neck: Supple, without lesions, bruits, or adenopathy, thyroid non-enlarged and non-tender Heart: No cardiomegaly or thrills; regular rate and rhythm, no murmur or gallop Lungs: Clear to auscultation and percussion Abdomen: Bowel sounds normal, and had some firmness and minimal tenderness over the left lower quadrant. Back: Spine normal without deformity or tenderness, no CVA tenderness Rectal: Normal sphincter tone, no hemorrhoids or masses palpable. No significant fecal impaction. Extremities: No amputations or deformities, cyanosis, edema or varicosities, peripheral pulses intact Musculoskeletal: Normal gait and station. No misalignment, asymmetry, crepitation, defects, tenderness, masses, effusions, decreased range of motion, instability, atrophy or abnormal strength or tone in the head, neck, spine, ribs, pelvis or extremities. Neurologic: CN 2-12 normal. Sensation to pain, touch, and proprioception normal. DTRs normal in upper and lower extremities. No pathologic reflexes. Psychiatric: Oriented X3, intact recent and remote memory, judgment and insight, normal mood and affect. Limitations: no limitations Course Vital Signs 07/12/18 07/12/18 08:13 10:13 Temperature 97.4 F L Pulse Rate 96 90 Respiratory 18 18 Rate Blood Pressure 135/73 129/68 O2 Sat by Pulse 99 98 Oximetry Medical Decision Making - Medical Decision Making Patient is a 73-year-old female presents emergency department today for evaluation complaints of left lower quadrant abdominal pain. Patient has had no fevers or chills Patient seen emergency department today last 2 weeks ago for constipation was given an enema. She states she is managed small bowel movement since that time, she often has to disimpact herself. On rectal exam she does cardozo ve no significant fecal rectal impaction this time. She is given enema did have a small bowel movement. I give the Patient magnesium citrate, she states she would like to go home to try to have a bowel movement. Her blood work was reviewed and unremarkable. Patient will be discharged at this time with close follow-up with PCP. Discussion is to take daily stool softeners as well. All questions answered return parameters were discussed. - Lab Data Result diagrams: 07/12/18 08:30 07/12/18 08:30 Lab Results 07/12/18 07/12/18 07/12/18 Range/Units 08:00 08:30 08:30 WBC 4.0 (3.8-10.6) k/uL RBC 4.40 (3.80-5.40) m/uL Hgb 12.7 (11.4-16.0) gm/dL Hct 40.1 (34.0-46.0) % MCV 91.3 (80.0-100.0) fL MCH 28.9 (25.0-35.0) pg MCHC 31.7 (31.0-37.0) g/dL RDW 13.7 (11.5-15.5) % Plt Count 179 (150-450) k/uL Neutrophils % 71 % Lymphocytes % 15 % Monocytes % 9 % Eosinophils % 1 % Basophils % 1 % Neutrophils # 2.8 (1.3-7.7) k/uL Lymphocytes # 0.6 L (1.0-4.8) k/uL Monocytes # 0.3 (0-1.0) k/uL Eosinophils # 0.0 (0-0.7) k/uL Basophils # 0.0 (0-0.2) k/uL Sodium 138 (137-145) mmol/L Potassium 3.9 (3.5-5.1) mmol/L Chloride 105 (98-107) mmol/L Carbon Dioxide 26 (22-30) mmol/L Anion Gap 7 mmol/L BUN 14 (7-17) mg/dL Creatinine 0.44 L (0.52-1.04) mg/dL Est GFR (CKD-EPI)AfAm >90 (>60 ml/min/1.73 sqM) Est GFR (CKD-EPI)NonAf >90 (>60 ml/min/1.73 sqM) Glucose 231 H (74-99) mg/dL Calcium 9.2 (8.4-10.2) mg/dL Total Bilirubin 0.5 (0.2-1.3) mg/dL AST 19 (14-36) U/L ALT 30 (9-52) U/L Alkaline Phosphatase 55 (38-126) U/L Total Protein 6.7 (6.3-8.2) g/dL Albumin 4.2 (3.5-5.0) g/dL Amylase 43 (30-110) U/L Lipase 35 (23-300) U/L Urine Color Colorless Urine Appearance Clear (Clear) Urine pH 5.5 (5.0-8.0) Ur Specific [place] 1.006 (1.001-1.035) Urine Protein Negative (Negative) Urine Glucose (UA) Negative (Negative) Urine Ketones Negative (Negative) Urine Blood Negative (Negative) Urine Nitrite Negative (Negative) Urine Bilirubin Negative (Negative) Urine Urobilinogen <2.0 (<2.0) mg/dL Ur Leukocyte Esterase Small H (Negative) Urine RBC 1 (0-5) /hpf Urine WBC 2 (0-5) /hpf Ur Squamous Epith Cells 4 (0-4) /hpf Hyaline Casts 1 (0-2) /lpf Urine Mucus Rare H (None) /hpf Disposition Clinical Impression: Constipation Disposition: HOME SELF-CARE Condition: Good Instructions (If sedation given, give patient instructions): Constipation (ED) Additional Instructions: Patient advised to take stool softeners daily, follow-up with a primary care physician. Return to the emergency department if any alarming signs or symptoms occur. Prescriptions: Sennosides/Docusate Sodium [Colace 2-in-1 Tablet] 1 each PO BID #10 tablet Is patient prescribed a controlled substance at d/c from ED?: No Referrals: Cooper Randall DO [Primary Care Provider] - 1-2 days Time of Disposition: 12:24
[2018-07-12] MEDS ORDERED: MAGNESIUM CITRATE 296 ML BOTTLE PO ONE (10:44)
[2018-07-12] MEDS ORDERED: NA PHOS,M-B/NA PHOS,DI-BA 133 ML ENEMA RECTAL STA (11:25)
[2018-07-12 12:51] VITALS: BP 130/78; PULSE 88; RESP 16
== END 2018-07-12 12:52 | disposition home or self-care (01) ==
LOC: EC 08:03
DX: K59.00 Constipation, unspecified (principal); J45.909 Unspecified asthma, uncomplicated; E11.9 Type 2 diabetes mellitus without complications; M06.9 Rheumatoid arthritis, unspecified; M81.0 Age-related osteoporosis without current pathological fracture; Z87.19 Personal history of other diseases of the digestive system; Z98.890 Other specified postprocedural states; Z79.1 Long term (current) use of non-steroidal anti-inflammatories (NSAID); Z79.84 Long term (current) use of oral hypoglycemic drugs; Z79.899 Other long term (current) drug therapy; Z88.0 Allergy status to penicillin; Z88.1 Allergy status to other antibiotic agents
CPT/HCPCS: 36415; 80053; 82150; 83690; 85025; 81001; 87086; 74018; 99284; 96374; 96375 ×2; 96361 ×3; J2270; J2405; J1885

== ENCOUNTER 2018-07-14 19:35 | Emergency (ER) | payer MEDICARE, OTHER ==
[2018-07-14 19:45] VITALS: RESP 18; TEMP 98.9
[2018-07-14 21:06] LABS: Basophils % (A) 1 %; Eosinophils # (A) 0.1 k/uL (0-0.7); Eosinophils % (A) 2 %; HCT 37.8 % (34.0-46.0); HGB 12.1 gm/dL (11.4-16.0); Lymphocytes % (A) 21 %; MCV 90.6 fL (80.0-100.0); Mean Platelet Volume 7.1; Monocytes # (A) 0.5 k/uL (0-1.0); Monocytes % (A) 9 %; Neutrophils # (A) 3.1 k/uL (1.3-7.7); Neutrophils % (A) 63 %; Platelet Count 171 k/uL (150-450); RBC 4.18 m/uL (3.80-5.40); RDW 13.7 % (11.5-15.5); WBC 4.9 k/uL (3.8-10.6)
[2018-07-14 21:20] LABS: ALT 31 U/L (9-52); AST 29 U/L (14-36); Albumin 4.2 g/dL (3.5-5.0); Alkaline Phosphatase 51 U/L (38-126); Anion Gap 7 mmol/L; Blood Urea Nitrogen 9 mg/dL (7-17); Calcium 8.8 mg/dL (8.4-10.2); Carbon Dioxide 21 mmol/L (22-30); Chloride 110 mmol/L (98-107); Glucose 149 mg/dL (74-99); Sodium 138 mmol/L (137-145); Total Bilirubin 0.5 mg/dL (0.2-1.3); Total Protein 6.9 g/dL (6.3-8.2)
[2018-07-14 21:29] LABS: Potassium 4.2 mmol/L (3.5-5.1)
--- NOTE | 2018-07-14 21:30 | XR ---
EXAMINATION TYPE: XR KUB DATE OF EXAM: 07/14/2018 8:51 PM CLINICAL HISTORY: Constipation and abdominal pain. TECHNIQUE: Two Upright KUB images of the abdomen are obtained. COMPARISON: Abdominal x-ray from [address] abdomen and pelvis from 2 weeks ago.. FINDINGS: Scattered gas is seen in non-distended small bowel loops. Gas and fecal material is seen in non-distended colon. Some prominence of fecal material throughout the colon remains present. No pneu moperitoneum is seen. No suspicious calcifications. Scoliotic curvature is redemonstrated. Moderate t o severe axial joint space loss right hip is again seen. IMPRESSION: Overall nonobstructive bowel gas pattern. Moderate diffuse colonic fecal stasis felt rem ains present.
[2018-07-14] MEDS ORDERED: DOCUSATE 283 MG/5 ML ENEMA RECTAL STA (22:01)
--- NOTE | 2018-07-14 23:26 | ED ---
General Adult HPI - General Chief complaint: Abdominal Pain Stated complaint: Constipated Time Seen by Provider: 07/14/18 19:50 Source: patient, RN notes reviewed, old records reviewed Mode of arrival: ambulatory Limitations: no limitations - History of Present Illness Initial comments: 73-year-old female patient past medical history including asthma, diabetes, GERD, rheumatoid arthritis presents to ED with constipation. Patient reports that this is a recurrent complaint. Patient was recently seen here 2 days ago for this problem. Patient states that she has not had a bowel movement last 2 days. Patient reports that she has had a sensation of abdominal fullness. Patient denies any other complaints. Systemic: Pt denies fatigue, myalgia, fever/chills, rash. Pt denies weakness, night sweats, weight loss. Neuro: Pt denies headache, visual disturbances, syncope or pre-syncope. HEENT: Pt denies ocular discharge or irritation, otalgia, rhinorrhea, pharyngitis or notable lymphadenopathy. Cardiopulmonary: Pt denies chest pain, SOB, heart palpitations, dyspnea on exertion. Abdominal/GI: Pt denies abdominal pain, n/v/d. : Pt denies dysuria, burning w/ urination, frequency/urgency. Denies new onset urinary or bowel incontinence. MSK: Pt denies myalgia, loss of strength or function in extremities. Neuro: Pt denies new onset weakness, paresthesias. - Related Data Home Medications Medication Instructions Recorded Confirmed Docusate [Colace] 200 mg PO HS 12/03/15 07/12/18 Acetaminophen Tab [Tylenol] 500 mg PO Q6H PRN 06/02/16 07/12/18 Albuterol Sulfate [Proair Hfa] 1 - 2 puff INHALATION RT-QID PRN 06/02/16 07/12/18 Diclofenac Epolamine [Flector 1.3% 1 patch TRANSDERM DAILY 06/02/16 07/12/18 Patch] Lidocaine HCl [Aspercreme] 1 applic TOPICAL DAILY PRN 06/02/16 07/12/18 Menthol [Biofreeze] 1 applic TOPICAL DAILY PRN 06/02/16 07/12/18 Sucralfate [Carafate] 1 gm PO QID 06/02/16 07/12/18 sitaGLIPtin [Januvia] 100 mg PO DAILY 06/02/16 07/12/18 Blue Emu Cream 1 applic TOPICAL DAILY PRN 01/19/17 07/12/18 metFORMIN HCL ER [Glucophage Xr] 500 mg PO DAILY 01/19/17 07/12/18 Lubiprostone [Amitiza] 24 mcg PO Q7D 05/12/18 07/12/18 Omeprazole [PriLOSEC] 20 mg PO DAILY PRN 05/12/18 07/12/18 Previous Rx's Medication Instructions Recorded Sennosides/Docusate Sodium [Colace 1 each PO BID #10 tablet 07/12/18 2-in-1 Tablet] Allergies Allergy/AdvReac Type Severity Reaction Status Date / Time moxifloxacin [From Avelox] AdvReac Nausea Verified 07/14/18 19:45 nitrofurantoin AdvReac Nausea Verified 07/14/18 19:45 Penicillins AdvReac Nausea Verified 07/14/18 19:45 Review of Systems ROS Statement: Those systems with pertinent positive or pertinent negative responses have been documented in the HPI. ROS Other: All systems not noted in ROS Statement are negative. Past Medical History Past Medical History: Asthma, Diabetes Mellitus, GERD/Reflux, Rheumatoid Arthritis (RA) Additional Past Medical History / Comment(s): stomach ulcers. OSTEOPOROSIS. History of Any Multi-Drug Resistant Organisms: None Reported Past Surgical History: Orthopedic Surgery Additional Past Surgical History / Comment(s): epidural injections, Past Anesthesia/Blood Transfusion Reactions: No Reported Reaction Past Psychological History: No Psychological Hx Reported Smoking Status: Never smoker Past Alcohol Use History: None Reported Past Drug Use History: None Reported General Exam - General Exam Comments Initial Comments: Constitutional: NAD, AOX3, Pt has pleasant affect. HEENT: NC/AT, trachea midline, neck supple, no lymphadenopathy. Posterior pharynx non erythematous, without exudates. External ears appear normal, without discharge. Mucous membranes moist. Eyes PERRLA, EOM intact. There is no scleral icterus. No pallor noted. Cardiopulmonary: RRR, no murmurs, rubs or gallops, no JVD noted. Lungs CTAB in anterior and posterior parekh. No peripheral edema. Abdominal exam: Abdomen soft and non-distended. Abdomen non-tender to palpation in all 4 quadrants. Bowel sounds active in LLQ. No hepatosplenomegaly. No ecchymosis Neuro: CN II-XII grossly intact. No nuchal rigidity. MSK: No posterior calf tenderness bilaterally, homans sign negative bilaterally. Posterior tibialis and radial pulse +2 bilaterally. Sensation intact in upper and lower extremities. Full active ROM in upper and lower extremities, 5/5 stregnth. Limitations: no limitations Course Vital Signs 07/14/18 19:40 Temperature 98.9 F Pulse Rate 100 Respiratory 18 Rate Blood Pressure 146/82 O2 Sat by Pulse 96 Oximetry Medical Decision Making - Medical Decision Making 73-year-old female patient past medical history including asthma, diabetes, GERD, rheumatoid arthritis presents to ED with constipation. Patient reports that this is a recurrent complaint. Patient was recently seen here 2 days ago for this problem. Patient states that she has not had a bowel movement last 2 days. Patient reports that she has had a sensation of abdominal fullness. Patient denies any other complaints. Patient has signs stable, afebrile. Physical exam did not display acute pathology. Laboratory Investigations reveal non-impressive CBC, CMP. KUB displayed nonobjective bowel gas pattern, moderate diffuse colonic fecal stasis. Patient was administered a Therevac. Patient did have a bowel movement ED. Patient discharged with follow-up with primary care provider in 1-2 days. Patient return to ER if condition worsens. Case discussed with Dr. Edge. - Lab Data Result diagrams: 07/14/18 20:44 07/14/18 20:44 Lab Results 07/14/18 07/14/18 Range/Units 20:44 20:44 WBC 4.9 (3.8-10.6) k/uL RBC 4.18 (3.80-5.40) m/uL Hgb 12.1 (11.4-16.0) gm/dL Hct 37.8 (34.0-46.0) % MCV 90.6 (80.0-100.0) fL MCH 29.0 (25.0-35.0) pg MCHC 32.0 (31.0-37.0) g/dL RDW 13.7 (11.5-15.5) % Plt Count 171 (150-450) k/uL Neutrophils % 63 % Lymphocytes % 21 % Monocytes % 9 % Eosinophils % 2 % Basophils % 1 % Neutrophils # 3.1 (1.3-7.7) k/uL Lymphocytes # 1.0 (1.0-4.8) k/uL Monocytes # 0.5 (0-1.0) k/uL Eosinophils # 0.1 (0-0.7) k/uL Basophils # 0.0 (0-0.2) k/uL Sodium 138 (137-145) mmol/L Potassium 4.2 (3.5-5.1) mmol/L Chloride 110 H (98-107) mmol/L Carbon Dioxide 21 L (22-30) mmol/L Anion Gap 7 mmol/L BUN 9 (7-17) mg/dL Creatinine 0.39 L (0.52-1.04) mg/dL Est GFR (CKD-EPI)AfAm >90 (>60 ml/min/1.73 sqM) Est GFR (CKD-EPI)NonAf >90 (>60 ml/min/1.73 sqM) Glucose 149 H (74-99) mg/dL Calcium 8.8 (8.4-10.2) mg/dL Total Bilirubin 0.5 (0.2-1.3) mg/dL AST 29 (14-36) U/L ALT 31 (9-52) U/L Alkaline Phosphatase 51 (38-126) U/L Total Protein 6.9 (6.3-8.2) g/dL Albumin 4.2 (3.5-5.0) g/dL Disposition Clinical Impression: Constipation Disposition: HOME SELF-CARE Condition: Stable Instructions (If sedation given, give patient instructions): Constipation (ED) Additional Instructions: Patient to adhere to previously discussed treatment plan and will take medication(s) as directed. Patient to follow up with PCP in 1-2 days. Patient to return to ED if symptoms do not improve. Follow up with primary care provider in 1-2 days. Return to ER condition worsens. Is patient prescribed a controlled substance at d/c from ED?: No Referrals: Cooper Randall DO [Primary Care Provider] - 1-2 days
[2018-07-15 06:53] VITALS: BP 133/65; PULSE 71
== END 2018-07-15 01:00 | disposition home or self-care (01) ==
LOC: EC 19:35
DX: K59.00 Constipation, unspecified (principal); E11.9 Type 2 diabetes mellitus without complications; J45.909 Unspecified asthma, uncomplicated; K21.9 Gastro-esophageal reflux disease without esophagitis; Z79.84 Long term (current) use of oral hypoglycemic drugs; Z79.899 Other long term (current) drug therapy; Z88.0 Allergy status to penicillin; Z88.1 Allergy status to other antibiotic agents
CPT/HCPCS: 36415; 74018; 80053; 85025; 99284

== ENCOUNTER → 2018-07-20 | Outpatient (CLI) | payer MEDICARE, OTHER ==
--- NOTE | 2018-07-21 15:56 | XR ---
EXAMINATION TYPE: XR KUB DATE OF EXAM: 07/20/2018 COMPARISON: 07/14/2018 HISTORY: Constipation TECHNIQUE: 2 views upright FINDINGS: There is no sign of intestinal obstruction or pneumoperitoneum. Fecal pattern is normal. Virgen ng bases are clear. There are no pathologic calcifications over the kidneys. IMPRESSION: Nonacute abdomen. No change.
== END ==
LOC: RADXRMAIN 15:59
PROVIDERS: ATTEND Family Medicine
DX: K59.00 Constipation, unspecified (principal)
CPT/HCPCS: 74018

== ENCOUNTER 2018-09-28 22:13 | Emergency (ER) | payer MEDICARE, OTHER ==
[2018-09-28 22:18] VITALS: BP 151/74; PULSE 81; RESP 18; TEMP 97.7
--- NOTE | 2018-09-28 22:40 | ED ---
Nausea/Vomiting/Diarrhea HPI - General Chief complaint: Nausea/Vomiting/Diarrhea Stated complaint: constipation Time Seen by Provider: 09/28/18 22:23 Source: patient Mode of arrival: ambulatory Limitations: no limitations - History of Present Illness Initial comments: 73-year-old female patient presents to the emergency department today for evaluation of frequent bowel movements. Patient states that she generally has constipation and does take stool softeners daily. States that she did do a suppository this morning. States that she started to have frequent soft bowel movements around 12:30 this afternoon. States she has had 5-6 episodes since then. States she did take an antidiarrheal medication but continued to have bowel movements or she presented here for further evaluation. Patient states that she did take her stool softeners today. She denies any abdominal pain, fever, or chills with this. Denies any nausea or vomiting. States she is tolerating food without difficulty. Patient denies any recent rash, shortness breath, chest pain, back pain, numbness, tingling, dizziness, weakness, hematuria, dysuria, urinary urgency, urinary frequency, headache, visual changes, or any other complaints. - Related Data Home Medications Medication Instructions Recorded Confirmed Docusate [Colace] 200 mg PO HS 12/03/15 07/12/18 Acetaminophen Tab [Tylenol] 500 mg PO Q6H PRN 06/02/16 07/12/18 Albuterol Sulfate [Proair Hfa] 1 - 2 puff INHALATION RT-QID PRN 06/02/16 07/12/18 Diclofenac Epolamine [Flector 1.3% 1 patch TRANSDERM DAILY 06/02/16 07/12/18 Patch] Lidocaine HCl [Aspercreme] 1 applic TOPICAL DAILY PRN 06/02/16 07/12/18 Menthol [Biofreeze] 1 applic TOPICAL DAILY PRN 06/02/16 07/12/18 Sucralfate [Carafate] 1 gm PO QID 06/02/16 07/12/18 sitaGLIPtin [Januvia] 100 mg PO DAILY 06/02/16 07/12/18 Blue Emu Cream 1 applic TOPICAL DAILY PRN 01/19/17 07/12/18 metFORMIN HCL ER [Glucophage Xr] 500 mg PO DAILY 01/19/17 07/12/18 Lubiprostone [Amitiza] 24 mcg PO Q7D 05/12/18 07/12/18 Omeprazole [PriLOSEC] 20 mg PO DAILY PRN 05/12/18 07/12/18 Previous Rx's Medication Instructions Recorded Sennosides/Docusate Sodium [Colace 1 each PO BID #10 tablet 07/12/18 2-in-1 Tablet] Allergies Allergy/AdvReac Type Severity Reaction Status Date / Time moxifloxacin [From Avelox] AdvReac Nausea Verified 09/28/18 22:17 nitrofurantoin AdvReac Nausea Verified 09/28/18 22:17 Penicillins AdvReac Nausea Verified 09/28/18 22:17 Review of Systems ROS Statement: Those systems with pertinent positive or pertinent negative responses have been documented in the HPI. ROS Other: All systems not noted in ROS Statement are negative. Past Medical History Past Medical History: Asthma, Diabetes Mellitus, GERD/Reflux, Rheumatoid Arthritis (RA) Additional Past Medical History / Comment(s): stomach ulcers. OSTEOPOROSIS. History of Any Multi-Drug Resistant Organisms: None Reported Past Surgical History: Orthopedic Surgery Additional Past Surgical History / Comment(s): epidural injections, Past Anesthesia/Blood Transfusion Reactions: No Reported Reaction Past Psychological History: No Psychological Hx Reported Smoking Status: Never smoker Past Alcohol Use History: None Reported Past Drug Use History: None Reported General Exam Limitations: no limitations General appearance: alert, in no apparent distress, other (This is a well- developed, well-nourished elderly female patient in no acute distress. Vital signs upon presentation are temperature 97.7F, pulse 81, respirations 18, blood pressure 151/74, pulse ox 99% on room air.) Eye exam: Present: normal appearance, PERRL, EOMI. Absent: scleral icterus, conjunctival injection, periorbital swelling ENT exam: Present: normal exam, normal oropharynx, mucous membranes moist Respiratory exam: Present: normal lung sounds bilaterally. Absent: respiratory distress, wheezes, rales, rhonchi, stridor Cardiovascular Exam: Present: regular rate, normal rhythm, normal heart sounds. Absent: systolic murmur, diastolic murmur, rubs, gallop, clicks GI/Abdominal exam: Present: soft, normal bowel sounds. Absent: distended, tenderness, guarding, rebound, rigid Neurological exam: Present: alert, oriented X3, CN II-XII intact Psychiatric exam: Present: normal affect, normal mood Skin exam: Present: warm, dry, intact, normal color. Absent: rash Course Vital Signs 09/28/18 22:14 Temperature 97.7 F Pulse Rate 81 Respiratory 18 Rate Blood Pressure 151/74 O2 Sat by Pulse 99 Oximetry Medical Decision Making - Medical Decision Making 73-year-old female patient presented to the emergency department today for evaluation of increased frequency and bowel movements. Patient admitted to taking a suppository this morning for constipation which prompted increase in bowel movements. She also took her two stool softeners today. Patient did take an antidiarrheal, but it did not slow bowel movements so she presented here. Patient is not nauseous or vomiting. Abdomen is soft and non-tender. She is afebrile. Symptoms are most likely related to misuse of laxatives. She is instructed to discontinue use of antidiarrheals and stool softeners. She is i nstructed to increase fluids. She is instructed to follow up with her primary care physician for recheck in 1-2 days. Return parameters were discussed in detail. She verbalizes understanding and agrees with this plan. Disposition Clinical Impression: Diarrhea Disposition: HOME SELF-CARE Condition: Good Instructions (If sedation given, give patient instructions): Acute Diarrhea (ED) Additional Instructions: Avoid taking stool softener until your bowel movements slow down. Do not take antidiarrheal medications unless bowel movements are frequent and watery. Follow up with your primary care physician for recheck in 1-2 days. Return to the emergency department for any new, worsening, or concerning symptoms. Is patient prescribed a controlled substance at d/c from ED?: No Referrals: Ursula Heller MD [REFERRING] - 1-2 days Time of Disposition: 22:39
== END 2018-09-28 23:07 | disposition home or self-care (01) ==
LOC: EC 22:13
DX: R19.7 Diarrhea, unspecified (principal); J45.909 Unspecified asthma, uncomplicated; E11.9 Type 2 diabetes mellitus without complications; K21.9 Gastro-esophageal reflux disease without esophagitis; M06.9 Rheumatoid arthritis, unspecified; Z79.1 Long term (current) use of non-steroidal anti-inflammatories (NSAID); Z79.84 Long term (current) use of oral hypoglycemic drugs; Z79.899 Other long term (current) drug therapy; Z88.1 Allergy status to other antibiotic agents; Z88.0 Allergy status to penicillin
CPT/HCPCS: 99283

== ENCOUNTER 2018-10-01 06:18 | Emergency (ER) | payer MEDICARE, OTHER ==
[2018-10-01 06:25] VITALS: RESP 16
[2018-10-01] MEDS ORDERED: SODIUM CHLORIDE 0.9% 500 ML 500 ML IV STA (06:38)
[2018-10-01 06:59] LABS: Basophils % (A) 0 %; Eosinophils # (A) 0.1 k/uL (0-0.7); Eosinophils % (A) 1 %; HCT 38.4 % (34.0-46.0); HGB 12.8 gm/dL (11.4-16.0); Lymphocytes # (A) 0.8 k/uL (1.0-4.8); Lymphocytes % (A) 15 %; MCH 30.2 pg (25.0-35.0); MCHC 33.3 g/dL (31.0-37.0); MCV 90.7 fL (80.0-100.0); Mean Platelet Volume 7.5; Monocytes # (A) 0.5 k/uL (0-1.0); Monocytes % (A) 11 %; Neutrophils # (A) 3.5 k/uL (1.3-7.7); Neutrophils % (A) 70 %; Platelet Count 259 k/uL (150-450); RBC 4.24 m/uL (3.80-5.40); RDW 14.8 % (11.5-15.5)
--- NOTE | 2018-10-01 06:59 | ED ---
General Adult HPI - General Source: patient, RN notes reviewed Mode of arrival: ambulatory Limitations: physical limitation <Axel Guidry - Last Filed: 10/01/18 08:51> <Jaxson Gamboa - Last Filed: 10/01/18 09:32> - General Chief complaint: Abdominal Pain Stated complaint: Diarrhea Time Seen by Provider: 10/01/18 06:26 - History of Present Illness Initial comments: 73-year-old female with a past medical history of asthma, diabetes, GERD presents to the emergency department for a chief complaint of diarrhea. States that she has had about 3-4 episodes of diarrhea per day. States that when she is having the diarrhea she has pain in her generalized abdomen but denies pain otherwise. States that she has started to take Amitiza over the past several weeks because of her chronic constipation. States that she has also taken enemas over the past couple days and stool softeners. Patient states she is not sure what to take at this time and would like a recommendation between hematochezia, stool softeners, and an enema. Patient has no other complaints at this time including shortness of breath, chest pain, nausea or vomiting, headache, or visual changes. (Axel Guidry) - Related Data Home Medications Medication Instructions Recorded Confirmed Docusate [Colace] 200 mg PO HS 12/03/15 10/01/18 Acetaminophen Tab [Tylenol] 500 mg PO Q6H PRN 06/02/16 10/01/18 Albuterol Sulfate [Proair Hfa] 1 - 2 puff INHALATION RT-QID PRN 06/02/1609/13 Diclofenac Epolamine [Flector 1.3% 1 patch TRANSDERM DAILY 06/02/16 10/01/18 Patch] Lidocaine HCl [Aspercreme] 1 applic TOPICAL DAILY PRN 06/02/16 10/01/18 Menthol [Biofreeze] 1 applic TOPICAL DAILY PRN 06/02/16 10/01/18 Sucralfate [Carafate] 1 gm PO QID 06/02/16 10/01/18 sitaGLIPtin [Januvia] 100 mg PO DAILY 06/02/16 10/01/18 Blue Emu Cream 1 applic TOPICAL DAILY PRN 01/19/17 10/01/18 metFORMIN HCL ER [Glucophage Xr] 500 mg PO BID 01/19/17 10/01/18 Lubiprostone [Amitiza] 24 mcg PO DAILY 05/12/18 10/01/18 Omeprazole [PriLOSEC] 20 mg PO DAILY PRN 05/12/18 10/01/18 Linagliptin [Tradjenta] 5 mg PO DAILY 10/01/18 10/01/18 Allergies Allergy/AdvReac Type Severity Reaction Status Date / Time moxifloxacin [From Avelox] AdvReac Nausea Verified 10/01/18 07:12 nitrofurantoin AdvReac Nausea Verified 10/01/18 07:12 Penicillins AdvReac Nausea Verified 10/01/18 07:12 Review of Systems ROS Other: All systems not noted in ROS Statement are negative. <Axel Guidry - Last Filed: 10/01/18 08:51> ROS Other: All systems not noted in ROS Statement are negative. <Jaxson Gamboa - Last Filed: 10/01/18 09:32> ROS Statement: Those systems with pertinent positive or pertinent negative responses have been documented in the HPI. Past Medical History Past Medical History: Asthma, Diabetes Mellitus, GERD/Reflux, Rheumatoid Arthritis (RA) Additional Past Medical History / Comment(s): stomach ulcers. OSTEOPOROSIS. History of Any Multi-Drug Resistant Organisms: None Reported Past Surgical History: Orthopedic Surgery Additional Past Surgical History / Comment(s): epidural injections, Past Anesthesia/Blood Transfusion Reactions: No Reported Reaction Past Psychological History: No Psychological Hx Reported Smoking Status: Never smoker Past Alcohol Use History: None Reported Past Drug Use History: None Reported <Axel Guidry - Last Filed: 10/01/18 08:51> General Exam Limitations: physical limitation General appearance: alert, in no apparent distress Head exam: Present: atraumatic, normocephalic, normal inspection Eye exam: Present: normal appearance, PERRL, EOMI. Absent: scleral icterus, conjunctival injection, periorbital swelling ENT exam: Present: normal exam, mucous membranes moist Neck exam: Present: normal inspection, full ROM. Absent: tenderness, meningismus, lymphadenopathy Respiratory exam: Present: normal lung sounds bilaterally. Absent: respiratory distress, wheezes, rales, rhonchi, stridor Cardiovascular Exam: Present: regular rate, normal rhythm, normal heart sounds. Absent: systolic murmur, diastolic murmur, rubs, gallop, clicks GI/Abdominal exam: Present: soft, normal bowel sounds. Absent: distended, tenderness (No tenderness noted of the abdomen.), guarding, rebound, rigid Neurological exam: Present: alert Psychiatric exam: Present: normal affect, normal mood <Axel Guidry - Last Filed: 10/01/18 08:51> Course <Jaxson Gamboa - Last Filed: 10/01/18 09:32> Vital Signs 10/01/18 10/01/18 10/01/18 06:21 07:15 09:28 Temperature 97.6 F 98.0 F Pulse Rate 76 83 80 Respiratory 16 16 16 Rate Blood Pressure 157/86 149/68 139/76 O2 Sat by Pulse 100 99 100 Oximetry - Reevaluation(s) Reevaluation #1: 10/01/18 09:31 PA supervision: I personally evaluate this case and did review all pertinent and imaging and lab work. I agree with the assessment and plan. (Jaxson Gamboa) Medical Decision Making - Lab Data Result diagrams: 10/01/18 06:48 10/01/18 06:48 <Axel Guidry - Last Filed: 10/01/18 08:51> - Lab Data Result diagrams: 10/01/18 06:48 10/01/18 06:48 <Jaxson Gamboa - Last Filed: 10/01/18 09:32> - Medical Decision Making 73-year-old female who chronically struggles with constipation presents for diarrhea. States she has had about 3-4 episodes of diarrhea per day. States that when she is having the diarrhea she has some generalized abdomen pain but denies pain otherwise. On exam abdomen is soft and nontender. CBC CMP unremarkable. Patient has a glucose of 29, history of diabetes. Given 500 and monos of fluid. Amylase and lipase somewhat elevated, 150 and 445 respectively. Patient has had an elevated amylase in the past. She denies any nausea or vomiting. CT exam on 06/30/2018 showed There was redemonstration of pancreatic and common bile ductal prominence. Patient was educated about this and told to f/u for this and have repeat lab work for this done by primary care. X-ray shows a moderate to large stool burden and, likely having overflow diarrhea. I did attempt to disimpact patient however no hard stool palpated. Patient was given a milk of molasses enema and did have a small to medium-sized bowel movement. Patient will continue to use her at home enemas as well as her Brian brandi which she has stopped using. She will follow up with primary care who has been facilitating this care for chronic constipation. She also has an appointment with Dr. Quick next month that she will follow up with. She will return if she has any worsening symptoms. (Axel Guidry) - Lab Data Lab Results 10/01/18 10/01/18 10/01/18 Range/Units 06:48 06:48 07:38 WBC 5.0 (3.8-10.6) k/uL RBC 4.24 (3.80-5.40) m/uL Hgb 12.8 (11.4-16.0) gm/dL Hct 38.4 (34.0-46.0) % MCV 90.7 (80.0-100.0) fL MCH 30.2 (25.0-35.0) pg MCHC 33.3 (31.0-37.0) g/dL RDW 14.8 (11.5-15.5) % Plt Count 259 (150-450) k/uL Neutrophils % 70 % Lymphocytes % 15 % Monocytes % 11 % Eosinophils % 1 % Basophils % 0 % Neutrophils # 3.5 (1.3-7.7) k/uL Lymphocytes # 0.8 L (1.0-4.8) k/uL Monocytes # 0.5 (0-1.0) k/uL Eosinophils # 0.1 (0-0.7) k/uL Basophils # 0.0 (0-0.2) k/uL Sodium 139 (137-145) mmol/L Potassium 3.7 (3.5-5.1) mmol/L Chloride 104 (98-107) mmol/L Carbon Dioxide 26 (22-30) mmol/L Anion Gap 9 mmol/L BUN 13 (7-17) mg/dL Creatinine 0.45 L (0.52-1.04) mg/dL Est GFR (CKD-EPI)AfAm >90 (>60 ml/min/1.73 sqM) Est GFR (CKD-EPI)NonAf >90 (>60 ml/min/1.73 sqM) Glucose 209 H (74-99) mg/dL Calcium 9.5 (8.4-10.2) mg/dL Magnesium 1.7 (1.6-2.3) mg/dL Total Bilirubin 0.4 (0.2-1.3) mg/dL AST 13 L (14-36) U/L ALT 29 (9-52) U/L Alkaline Phosphatase 54 (38-126) U/L Total Protein 6.6 (6.3-8.2) g/dL Albumin 4.0 (3.5-5.0) g/dL Amylase 158 H (30-110) U/L Lipase 445 H (23-300) U/L Urine Color Colorless Urine Appearance Clear (Clear) Urine pH 6.5 (5.0-8.0) Ur Specific [place] 1.003 (1.001-1.035) Urine Protein Negative (Negative) Urine Glucose (UA) Negative (Negative) Urine Ketones Negative (Negative) Urine Blood Negative (Negative) Urine Nitrite Negative (Negative) Urine Bilirubin Negative (Negative) Urine Urobilinogen <2.0 (<2.0) mg/dL Ur Leukocyte Esterase Negative (Negative) Disposition Is patient prescribed a controlled substance at d/c from ED?: No Time of Disposition: 08:55 <Axel Guidry - Last Filed: 10/01/18 08:51> <Jaxson Gamboa - Last Filed: 10/01/18 09:32> Clinical Impression: Constipation Disposition: HOME SELF-CARE Condition: Good Instructions (If sedation given, give patient instructions): Constipation (ED), High Fiber Diet (ED) Additional Instructions: Please continue bowel regimen at home. Please follow-up with your primary care provider as soon as possible. Make sure to have pancreatic enzymes repeated. If you have worsening symptoms such as nausea vomiting, severe abdominal pain, or unable to pass gas return immediately to the emergency department. Referrals: Cooper Randall DO [Primary Care Provider] - 1-2 days
--- NOTE | 2018-10-01 07:05 | XR ---
EXAMINATION TYPE: XR KUB DATE OF EXAM: 10/01/2018 CLINICAL DATA: 73-year-old female with abdominal pain, [facility] COMPARISON: 07/20/2018 FINDINGS: Supine imaging of the limited for assessment of free air. No dilated small bowel loops. Moderate to l arge stool burden seen throughout the abdomen. Multiple pelvic phlebolith. Levoconvex scoliosis of th e lumbar spine. Degenerative change at the right hip. IMPRESSION: Moderate to large stool burden. Correlate for constipation. Overall nonobstructive bowel gas pattern.
[2018-10-01 07:09] LABS: ALT 29 U/L (9-52); AST 13 U/L (14-36); African American GFR (CKD) >90 (>60 ml/min/1.73 sqM); Alkaline Phosphatase 54 U/L (38-126); Amylase 158 U/L (30-110); Anion Gap 9 mmol/L; Blood Urea Nitrogen 13 mg/dL (7-17); Calcium 9.5 mg/dL (8.4-10.2); Carbon Dioxide 26 mmol/L (22-30); Chloride 104 mmol/L (98-107); Glucose 209 mg/dL (74-99); Magnesium 1.7 mg/dL (1.6-2.3); Non-African American GFR(CKD) >90 (>60 ml/min/1.73 sqM); Potassium 3.7 mmol/L (3.5-5.1); Sodium 139 mmol/L (137-145); Total Bilirubin 0.4 mg/dL (0.2-1.3); Total Protein 6.6 g/dL (6.3-8.2)
[2018-10-01 08:25] LABS: Appearance,Urine Clear (Clear); Bilirubin,Urine Negative (Negative); Blood,Urine Negative (Negative); Color,Urine Colorless; Glucose,Urine (UA) Negative (Negative); Ketones,Urine Negative (Negative); Leukocyte Esterase,Urine Negative (Negative); Nitrite,Urine Negative (Negative); PH, Urine 6.5 (5.0-8.0); Protein,Urine Negative (Negative); Specific Gravity,Urine 1.003 (1.001-1.035); Urobilinogen,Urine <2.0 mg/dL (<2.0)
[2018-10-01 09:30] VITALS: BP 139/76; PULSE 80; TEMP 98
== END 2018-10-01 09:31 | disposition home or self-care (01) ==
LOC: EC 06:18
DX: K59.00 Constipation, unspecified (principal); R74.8 Abnormal levels of other serum enzymes; J45.909 Unspecified asthma, uncomplicated; E11.9 Type 2 diabetes mellitus without complications; K21.9 Gastro-esophageal reflux disease without esophagitis; Z88.0 Allergy status to penicillin; Z88.1 Allergy status to other antibiotic agents; Z79.1 Long term (current) use of non-steroidal anti-inflammatories (NSAID); Z79.84 Long term (current) use of oral hypoglycemic drugs; Z79.899 Other long term (current) drug therapy; Z87.39 Personal history of other diseases of the musculoskeletal system and connective tissue
CPT/HCPCS: 36415; 74018; 80053; 81003; 82150; 83690; 83735; 85025; 99284

== ENCOUNTER → 2018-10-19 | Outpatient (CLI) | payer MEDICARE, OTHER ==
--- NOTE | 2018-10-19 14:32 | US ---
EXAMINATION TYPE: US abdomen APPY DATE OF EXAM: 10/19/2018 COMPARISON: NONE CLINICAL HISTORY: R10.11 RUQ pain. RLQ pain APPENDIX. Is the appendix seen in its entirety from the proximal cecum to distal end: No Is the appendix compressible: Yes Does the appendix wall appear hypervascular: No Is an appendicolith present: no Is there inflammatory changes or free fluid present: No Appendix is not seen in its entirety due to overlying bowel gas. IMPRESSION: Only partial visualization of the appendix. The visualized portions appear compressible and unremarkable. No secondary signs of appendicitis/no free fluid or right lower quadrant adenopathy .
== END | disposition home or self-care (01) ==
LOC: RADUSWWP 13:54
PROVIDERS: ATTEND Family Medicine
DX: R10.11 Right upper quadrant pain (principal); Z88.2 Allergy status to sulfonamides; Z88.1 Allergy status to other antibiotic agents; Z88.0 Allergy status to penicillin; Z91.041 Radiographic dye allergy status
CPT/HCPCS: 76705

== ENCOUNTER 2018-11-09 06:54 | Day surgery (SDC) | payer MEDICARE, OTHER ==
[2018-11-07 11:50] VITALS: BMI 20.3
[~2018-11-09 06:54] MED LIST changes: -DENOSUMAB 60 MG/ML 1 ML SYRINGE SQ ONE; +LACTATED RINGERS 1,000 ML IV SCH
[2018-11-09 07:17] VITALS: TEMP 97.5
[2018-11-09] MEDS ORDERED: LIDOCAINE 1% 20 ML VIAL (10MG/ML) FOR IV START INTRADERMA ONE (07:24)
[2018-11-09] MEDS ORDERED: DEXAMETHASONE SOD PHOSPHATE 10 MG/ML 1 ML VIAL IV ONE (07:25)
[2018-11-09] MEDS ORDERED: ONDANSETRON 4 MG/2 ML VIAL IVP ONE (07:25)
[2018-11-09 07:26] LABS: Glucose,Whole Blood 105 mg/dL (75-99)
[2018-11-09] MEDS ORDERED: LIDOCAINE 1% INJ 10MG/ML (20 ML MDV) ONE (07:38)
[2018-11-09] MEDS ORDERED: PROPOFOL 10 MG/ML 20 ML VIAL IV ONE (07:38)
--- NOTE | 2018-11-09 09:20 | P.PCN ---
Date of Procedure: 11/09/18 Procedure(s) Performed: Brief history: Patient is a pleasant 73-year-old white female, scheduled for an elective upper endoscopy as well as colonoscopy as a part of evaluation of abdominal pain, change in bowel habits and intermittent nausea vomiting. Recent CT of abdomen and pelvis showed dilated rectum. Procedure performed: Esophagogastroduodenoscopy with biopsy Colonoscopy Preoperative diagnosis: Abdominal pain Change in bowel habits Weight loss Anesthesia: MAC Procedure: After informed consent was obtained from the patient was brought into the endoscopy unit and IV sedation was administered by anesthesia under continuous monitoring. Initially upper endoscopy was done. The Olympus GF 160 video endoscope was inserted inserted into the mouth and esophagus intubated without any difficulty and was gradually advanced into the stomach and duodenum and carefully examined. The bulb and second part of the duodenum appeared normal. The scope was then withdrawn into the stomach adequately insufflated with air and upon careful examination the antrum had mild gastritis and biopsies were d one from this area. The body, cardia and fundus appeared normal. The scope was then withdrawn into the esophagus. The GE junction was located at 40 cm to the incisors. Small sliding Hiatal hernia noted. It appeared regular with no erythema erosions or ulcerations. Rest of the esophagus appeared normal. Patient tolerated the procedure well. At this time the patient continued to remain sedation. Initial digital rectal examination was normal. Olympus CF 160 video colonoscope was then inserted into the rectum and gradually advanced to the cecum without any difficulty. Careful examination was performed as the scope was gradually being withdrawn. The prep was excellent. The cecum, ascending colon, transverse colon, descending colon, sigmoid colon and rectum appeared normal. Retroflexion was performed in the rectum and no lesions were noted. Scattered sigmoid diverticulosis seen. Patient tolerated the procedure well. Impression: 1. Upper endoscopy revealed small hiatal hernia and mild antral gastritis 2. Colonoscopy revealed scattered sigmoid diverticulosis but no evidence of colorectal neoplasia Recommendations: Findings of this examination were discussed with the patient as well as her family. She was advised to follow with the biopsy results. She will continue with Amitiza for the chronic constipation in addition to MiraLAX as needed. She will be seen in office in 3-4 weeks
[2018-11-09 09:22] VITALS: BP 123/69; PULSE 78; RESP 16
== END 2018-11-09 08:54 | disposition home or self-care (01) ==
LOC: ORWHC2ENDO 06:54
PROVIDERS: ATTEND Internal Medicine Gastroenterology
DX: K29.50 Unspecified chronic gastritis without bleeding (principal); K44.9 Diaphragmatic hernia without obstruction or gangrene; K57.30 Diverticulosis of large intestine without perforation or abscess without bleeding; Z88.0 Allergy status to penicillin; Z79.84 Long term (current) use of oral hypoglycemic drugs; Z79.899 Other long term (current) drug therapy; Z88.1 Allergy status to other antibiotic agents; J45.909 Unspecified asthma, uncomplicated; E11.9 Type 2 diabetes mellitus without complications; M06.9 Rheumatoid arthritis, unspecified; K21.9 Gastro-esophageal reflux disease without esophagitis
CPT/HCPCS: 88305; 45378; 43239; J1100; J2405; J2001; J2704

== ENCOUNTER → 2018-11-13 | Outpatient (CLI) | payer MEDICARE, OTHER ==
--- NOTE | 2018-11-13 18:08 | BD ---
EXAMINATION TYPE: Axial Bone Density DATE OF EXAM: 11/13/2018 COMPARISON: 09/10/2010 CLINICAL HISTORY: Height: 57 IN Weight: 89 LBS FRAX RISK QUESTIONS: History of Fracture in Adulthood: YES LT FOOT AGE 72 RISK FACTORS HISTORY OF: Family History of Osteoporosis: YES FATHER, BROTHERS (4), SISTERS(2) Active: MODERATE Diet low in dairy products/other sources of calcium: YES Postmenopausal woman: AGE 47 Lost more than 2 inches in height since high school: YES 4" MEDICATIONS: Osteoporosis Medications: Which medication: Prolia How Lon YEARS Additional Medications: PROLIA INJECTIONS EVERY 6 MONTHS, METFORMIN, PRILOSEC, FLECTOR PATCH, STOOL S OFTENER, AMITIZA, SUCRALFATER,TREDGENTA EXAM MEASUREMENTS: Bone mineral densitometry was performed using the ParasitX System. Bone mineral density as measured about the Lumbar spine is: ----- L1-L4(G/cm2): 1.247 T Score Values are as follows: ----- L2: -0.1 ----- L3: 1.6 ----- L4: 0.7 ----- L1-L4: 0.6 Bone mineral density has: Increased 6.9% since study of: 09/10/2010 Bone mineral density about the R hip (g/cm2): 0.845 Bone mineral density about the L hip (g/cm2): 0.797 T Score values are as follows: -----R Neck: -1.4 -----L Neck: -1.7 -----R Total: -1.3 -----L Total: -1.2 Bone mineral density has: Decreased -3.6% since study of: 09/10/2010 IMPRESSION: Osteopenia (T Score between -2.5 and -1). There is slightly increased risk of fracture and the patient may be considered for treatment. Re-Screen 2-5 years. NOTE: T-SCORE=SD OF THE YOUNG ADULT MEAN.
== END | disposition home or self-care (01) ==
LOC: RADBDWWP 10:34
PROVIDERS: ATTEND Family Medicine
DX: Z13.820 Encounter for screening for osteoporosis (principal); M85.80 Other specified disorders of bone density and structure, unspecified site
CPT/HCPCS: 77080

== ENCOUNTER → 2018-11-20 | Outpatient (CLI) | payer MEDICARE, OTHER ==
[2018-11-20 17:54] LABS: African American GFR (CKD) 106.3 (60.0-200.0); Albumin/Globulin Ratio 2.22 (1.60-3.17); BUN/Creat Ratio 18.33 Ratio (12.00-20.00); Calcium 8.4 mg/dL (8.7-10.3); Globulin 1.8 g/dL (1.6-3.3); Potassium 3.8 mmol/L (3.5-5.5); Total Bilirubin 0.5 mg/dL (0.2-1.2); Total Protein 5.8 g/dL (6.2-8.2)
[2018-11-20 17:55] LABS: Chol/HDL Ratio 2.29
== END | disposition home or self-care (01) ==
LOC: LABWHC1 08:17
PROVIDERS: ATTEND Internal Medicine Endocrinology, Diabetes & Metabolism
DX: E11.65 Type 2 diabetes mellitus with hyperglycemia (principal)
CPT/HCPCS: 36415; 80053; 80061; 82043; 82570; 83036; 84443

== ENCOUNTER → 2018-12-03 | Outpatient (CLI) | payer MEDICARE, OTHER ==
[~2018-12-03] MED LIST changes: +DENOSUMAB 60 MG/ML 1 ML SYRINGE SQ ONE; -LACTATED RINGERS 1,000 ML IV SCH
[2018-12-03 13:34] VITALS: BP 134/67; PULSE 86; RESP 18; TEMP 97.9
== END | disposition home or self-care (01) ==
LOC: PROCWHC3 13:27
PROVIDERS: ATTEND Family Medicine
DX: M81.0 Age-related osteoporosis without current pathological fracture (principal)
CPT/HCPCS: 96372; J0897

== ENCOUNTER 2018-12-11 00:19 | Emergency (ER) | payer MEDICARE, OTHER ==
[2018-12-11 00:35] VITALS: RESP 18
[2018-12-11 00:50] LABS: Appearance,Urine Clear (Clear); Bilirubin,Urine Negative (Negative); Blood,Urine Negative (Negative); Color,Urine Colorless; Glucose,Urine (UA) Negative (Negative); Ketones,Urine Negative (Negative); Leukocyte Esterase,Urine Negative (Negative); Nitrite,Urine Negative (Negative); Protein,Urine Negative (Negative); Specific Gravity,Urine 1.002 (1.001-1.035); Urobilinogen,Urine <2.0 mg/dL (<2.0)
--- NOTE | 2018-12-11 01:47 | XR ---
EXAMINATION TYPE: XR KUB DATE OF EXAM: 12/11/2018 COMPARISON: 10/01/2018 HISTORY: Abdominal pain TECHNIQUE: Single view upright FINDINGS: There is no sign of intestinal obstruction or pneumoperitoneum. Fecal pattern is fairly nor mal. There is no sign of a mass. Lung bases are clear. There are no pathologic calcifications over th e kidneys. There is lumbar levoscoliosis. IMPRESSION: Nonacute abdomen. There is decreased fecal material compared to old exam.
[2018-12-11 02:00] LABS: ALT 31 U/L (9-52); AST 22 U/L (14-36); African American GFR (CKD) >90 (>60 ml/min/1.73 sqM); Albumin 4.2 g/dL (3.5-5.0); Alkaline Phosphatase 63 U/L (38-126); Amylase 83 U/L (30-110); Anion Gap 8 mmol/L; Blood Urea Nitrogen 13 mg/dL (7-17); Calcium 9.3 mg/dL (8.4-10.2); Carbon Dioxide 25 mmol/L (22-30); Chloride 105 mmol/L (98-107); Glucose 221 mg/dL (74-99); Potassium 3.8 mmol/L (3.5-5.1); Sodium 138 mmol/L (137-145); Total Bilirubin 0.4 mg/dL (0.2-1.3)
[2018-12-11 02:03] LABS: Basophils % (A) 0 %; Eosinophils # (A) 0.1 k/uL (0-0.7); Eosinophils % (A) 1 %; HCT 38.7 % (34.0-46.0); HGB 12.9 gm/dL (11.4-16.0); Lymphocytes # (A) 0.9 k/uL (1.0-4.8); Lymphocytes % (A) 16 %; MCH 30.6 pg (25.0-35.0); MCHC 33.4 g/dL (31.0-37.0); MCV 91.8 fL (80.0-100.0); Mean Platelet Volume 6.2; Monocytes # (A) 0.5 k/uL (0-1.0); Monocytes % (A) 9 %; Neutrophils # (A) 3.9 k/uL (1.3-7.7); Neutrophils % (A) 71 %; Platelet Count 217 k/uL (150-450); RBC 4.21 m/uL (3.80-5.40); RDW 13.2 % (11.5-15.5); WBC 5.5 k/uL (3.8-10.6)
[2018-12-11] MEDS ORDERED: ACETAMINOPHEN TAB 500 MG TAB PO STA (02:30)
[2018-12-11 02:50] VITALS: BP 142/74; PULSE 84; TEMP 98
--- NOTE | 2018-12-11 02:52 | ED ---
Abdominal Pain HPI - General Chief Complaint: Abdominal Pain Stated Complaint: Abdominal Pain Time Seen by Provider: 12/11/18 01:12 Source: patient Mode of arrival: ambulatory Limitations: no limitations - History of Present Illness Initial Comments: 73-year-old female patient presents to the emergency department today for evaluation of right lower quadrant abdominal pain. Patient states the pain started earlier today. States she does have issues with chronic constipation and abdominal pain. States she did give herself an enema and had a large bowel movement but the pain persisted so she presented here for further evaluation. Patient denies any nausea or vomiting with this. Denies fever or chills. Denies any hematuria, dysuria, urinary frequency, urinary urgency. Patient denies any recent rash, shortness breath, chest pain, back pain, numbness, tingling, dizziness, weakness, headache, visual changes, or any other complaints. - Related Data Home Medications Medication Instructions Recorded Confirmed Docusate [Colace] 200 mg PO HS PRN 12/03/15 12/03/18 Acetaminophen Tab [Tylenol] 500 mg PO Q6H PRN 06/02/16 12/03/18 Albuterol Sulfate [Proair Hfa] 1 - 2 puff INHALATION RT-QID PRN 06/02/1612/03 Lidocaine HCl [Aspercreme] 1 applic TOPICAL DAILY PRN 06/02/16 12/03/18 Menthol [Biofreeze] 1 applic TOPICAL DAILY PRN 06/02/16 12/03/18 Sucralfate [Carafate] 1 gm PO QID 06/02/16 12/03/18 sitaGLIPtin [Januvia] 100 mg PO DAILY 06/02/16 12/03/18 Blue Emu Cream 1 applic TOPICAL DAILY PRN 01/19/17 12/03/18 metFORMIN HCL ER [Glucophage Xr] 500 mg PO BID 01/19/17 12/03/18 Lubiprostone [Amitiza] 24 mcg PO DAILY PRN 05/12/18 12/03/18 Omeprazole [PriLOSEC] 20 mg PO DAILY PRN 05/12/18 12/03/18 Allergies Allergy/AdvReac Type Severity Reaction Status Date / Time moxifloxacin [From Avelox] AdvReac Nausea Verified 12/03/18 13:31 nitrofurantoin AdvReac Nausea Verified 12/03/18 13:31 Penicillins AdvReac Nausea Verified 12/03/18 13:31 Review of Systems ROS Statement: Those systems with pertinent positive or pertinent negative responses have been documented in the HPI. ROS Other: All systems not noted in ROS Statement are negative. Past Medical History Past Medical History: Asthma, Diabetes Mellitus, GERD/Reflux, Rheumatoid Arthri tis (RA) Additional Past Medical History / Comment(s): stomach ulcers. OSTEOPOROSIS. History of Any Multi-Drug Resistant Organisms: None Reported Past Surgical History: Orthopedic Surgery Additional Past Surgical History / Comment(s): epidural injections, Past Anesthesia/Blood Transfusion Reactions: No Reported Reaction Past Psychological History: No Psychological Hx Reported Smoking Status: Never smoker Past Alcohol Use History: None Reported Past Drug Use History: None Reported - Past Family History Mother Family Medical History: No Reported History General Exam Limitations: no limitations General appearance: alert, in no apparent distress, other (Physical well- developed, well-nourished elderly female patient in no acute distress. Vital signs upon presentation are temperature 98.3F, pulse 94, respirations 18, blood pressure 148/83, pulse ox 99% on room air.) Eye exam: Present: normal appearance, PERRL, EOMI. Absent: scleral icterus, conjunctival injection, periorbital swelling ENT exam: Present: normal exam, normal oropharynx, mucous membranes moist Respiratory exam: Present: normal lung sounds bilaterally. Absent: respiratory distress, wheezes, rales, rhonchi, stridor Cardiovascular Exam: Present: regular rate, normal rhythm, normal heart sounds. Absent: systolic murmur, diastolic murmur, rubs, gallop, clicks GI/Abdominal exam: Present: soft, normal bowel sounds. Absent: distended, tenderness, guarding, rebound, rigid Neurological exam: Present: alert, oriented X3, CN II-XII intact Psychiatric exam: Present: normal affect, normal mood Skin exam: Present: warm, dry, intact, normal color. Absent: rash Course Vital Signs 12/11/18 12/11/18 00:30 02:49 Temperature 98.3 F 98 F Pulse Rate 94 84 Respiratory 18 18 Rate Blood Pressure 148/83 142/74 O2 Sat by Pulse 99 99 Oximetry Medical Decision Making - Medical Decision Making 73-year-old female patient presents to the emergency department today for evaluation of right lower quadrant abdominal pain. Physical examination revealed soft nontender abdomen. No CVA tenderness. Labs reviewed and were unremarkable. Normal white blood cell count. She is afebrile satisfactory vital signs. She'll be discharged home to follow-up with her primary care physician for recheck in 1-2 days. Return parameters discussed in detail. She verbalizes understanding and agrees with this plan. - Lab Data Result diagrams: 12/11/18 01:35 12/11/18 01:35 Lab Results 12/11/18 12/11/18 12/11/18 Range/Units 00:35 01:35 01:35 WBC 5.5 (3.8-10.6) k/uL RBC 4.21 (3.80-5.40) m/uL Hgb 12.9 (11.4-16.0) gm/dL Hct 38.7 (34.0-46.0) % MCV 91.8 (80.0-100.0) fL MCH 30.6 (25.0-35.0) pg MCHC 33.4 (31.0-37.0) g/dL RDW 13.2 (11.5-15.5) % Plt Count 217 (150-450) k/uL Neutrophils % 71 % Lymphocytes % 16 % Monocytes % 9 % Eosinophils % 1 % Basophils % 0 % Neutrophils # 3.9 (1.3-7.7) k/uL Lymphocytes # 0.9 L (1.0-4.8) k/uL Monocytes # 0.5 (0-1.0) k/uL Eosinophils # 0.1 (0-0.7) k/uL Basophils # 0.0 (0-0.2) k/uL Sodium 138 (137-145) mmol/L Potassium 3.8 (3.5-5.1) mmol/L Chloride 105 (98-107) mmol/L Carbon Dioxide 25 (22-30) mmol/L Anion Gap 8 mmol/L BUN 13 (7-17) mg/dL Creatinine 0.42 L (0.52-1.04) mg/dL Est GFR (CKD-EPI)AfAm >90 (>60 ml/min/1.73 sqM) Est GFR (CKD-EPI)NonAf >90 (>60 ml/min/1.73 sqM) Glucose 221 H (74-99) mg/dL Calcium 9.3 (8.4-10.2) mg/dL Total Bilirubin 0.4 (0.2-1.3) mg/dL AST 22 (14-36) U/L ALT 31 (9-52) U/L Alkaline Phosphatase 63 (38-126) U/L Total Protein 7.0 (6.3-8.2) g/dL Albumin 4.2 (3.5-5.0) g/dL Amylase 83 (30-110) U/L Lipase 56 (23-300) U/L Urine Color Colorless Urine Appearance Clear (Clear) Urine pH 6.0 (5.0-8.0) Ur Specific Paton 1.002 (1.001-1.035) Urine Protein Negative (Negative) Urine Glucose (UA) Negative (Negative) Urine Ketones Negative (Negative) Urine Blood Negative (Negative) Urine Nitrite Negative (Negative) Urine Bilirubin Negative (Negative) Urine Urobilinogen <2.0 (<2.0) mg/dL Ur Leukocyte Esterase Negative (Negative) - Radiology Data Radiology results: report reviewed, image reviewed KUB x-ray is obtained. Report was reviewed in its entirety. Impression by Dr. You shows nonacute abdomen. There is decreased a material compared to old exam. Disposition Clinical Impression: Abdominal pain Disposition: HOME SELF-CARE Condition: Good Instructions (If sedation given, give patient instructions): Abdominal Pain (ED) Additional Instructions: Increase fluids. Rest. Follow-up through primary care physician for recheck in 1-2 days. Return to the emergency department immediately for any new, worsening, or concerning symptoms. Is patient prescribed a controlled substance at d/c from ED?: No Referrals: Cooper Randall DO [Primary Care Provider] - 1-2 days Time of Disposition: 02:52
== END 2018-12-11 03:00 | disposition home or self-care (01) ==
LOC: EC 00:19
DX: R10.31 Right lower quadrant pain (principal); J45.909 Unspecified asthma, uncomplicated; E11.9 Type 2 diabetes mellitus without complications; K21.9 Gastro-esophageal reflux disease without esophagitis; Z79.84 Long term (current) use of oral hypoglycemic drugs; Z79.899 Other long term (current) drug therapy; Z88.0 Allergy status to penicillin; Z88.1 Allergy status to other antibiotic agents; Z87.19 Personal history of other diseases of the digestive system
CPT/HCPCS: 36415; 74018; 80053; 81003; 82150; 83690; 85025; 99284

== ENCOUNTER → 2019-03-06 | Outpatient (CLI) | payer MEDICARE, OTHER ==
--- NOTE | 2019-03-07 13:33 | MM ---
Reason for exam: screening (asymptomatic). Last mammogram was performed 1 year and 2 months ago. History: Patient is postmenopausal. Physical Findings: A clinical breast exam by your physician is recommended on an annual basis and results should be correlated with mammographic findings. MG 3D Screening Mammo W/Cad Bilateral CC and MLO view(s) were taken. Prior study comparison: January 10, 2018, bilateral MG 3d screening mammo w/cad. December 26, 2016, bilateral MG 3d screening mammo w/cad. The breast tissue is extremely dense which could obscure a lesion on mammography. No significant changes when compared with prior studies. ASSESSMENT: Benign, BI-RAD 2 RECOMMENDATION: Routine screening mammogram of both breasts in 1 year.
== END | disposition home or self-care (01) ==
LOC: RADMAMWWP 08:08
PROVIDERS: ATTEND Family Medicine
DX: Z12.31 Encounter for screening mammogram for malignant neoplasm of breast (principal)
CPT/HCPCS: 77063; 77067

== ENCOUNTER 2019-06-19 15:03 | Emergency (ER) | payer MEDICARE ==
[2019-06-19 15:09] VITALS: BP 147/72; PULSE 87; RESP 18; TEMP 97.9
--- NOTE | 2019-06-19 16:17 | ED ---
Recheck HPI - General Chief Complaint: Recheck/Abnormal Lab/Rx Stated Complaint: Infection Time Seen by Provider: 06/19/19 15:18 Source: patient Mode of arrival: ambulatory Limitations: no limitations - History of Present Illness Initial Comments: 74-year-old female patient presents to the emergency department today for evaluation of a wound to the left hand. Patient states that on Monday she cut her hand. States she was seen and evaluated at [facility]. States that they did not do any stitches but instructed her regarding wound care and discharged her. Patient comes in today wondering if she should've had stitches put in. The states that the area seems to be healing. She has been applying Neosporin ointment and keeping it clean. She denies any pain to the hand. Denies any swelling. States his been red but the redness is improving. She denies any drainage from the cut. Patient denies any headache, neck pain, back pain, chest pain, shortness of breath, dizziness, weakness, abdominal pain, nausea, vomiting, or difficulties with bowel movements or urination. - Related Data Home Medications Medication Instructions Recorded Confirmed Docusate [Colace] 200 mg PO HS PRN 12/03/15 12/03/18 Acetaminophen Tab [Tylenol] 500 mg PO Q6H PRN 06/02/16 12/03/18 Albuterol Sulfate [Proair Hfa] 1 - 2 puff INHALATION RT-QID PRN 06/02/16 12/03/18 Lidocaine HCl [Aspercreme] 1 applic TOPICAL DAILY PRN 06/02/16 12/03/18 Menthol [Biofreeze] 1 applic TOPICAL DAILY PRN 06/02/16 12/03/18 Sucralfate [Carafate] 1 gm PO QID 06/02/16 12/03/18 sitaGLIPtin [Januvia] 100 mg PO DAILY 06/02/16 12/03/18 Blue Emu Cream 1 applic TOPICAL DAILY PRN 01/19/17 12/03/18 metFORMIN HCL ER [Glucophage Xr] 500 mg PO BID 01/19/17 12/03/18 Lubiprostone [Amitiza] 24 mcg PO DAILY PRN 05/12/18 12/03/18 Omeprazole [PriLOSEC] 20 mg PO DAILY PRN 05/12/18 12/03/18 Allergies Allergy/AdvReac Type Severity Reaction Status Date / Time moxifloxacin [From Avelox] AdvReac Nausea Verified 06/19/19 15:09 nitrofurantoin AdvReac Nausea Verified 06/19/19 15:09 Penicillins AdvReac Nausea Verified 06/19/19 15:09 Review of Systems ROS Statement: Those systems with pertinent positive or pertinent negative responses have been documented in the HPI. ROS Other: All systems not noted in ROS Statement are negative. Past Medical History Past Medical History: Asthma, Diabetes Mellitus, GERD/Reflux, Rheumatoid Arthritis (RA) Additional Past Medical History / Comment(s): stomach ulcers. OSTEOPOROSIS. History of Any Multi-Drug Resistant Organisms: None Reported Past Surgical History: Orthopedic Surgery Additional Past Surgical History / Comment(s): epidural injections, Past Anesthesia/Blood Transfusion Reactions: No Reported Reaction Past Psychological History: No Psychological Hx Reported Smoking Status: Never smoker Past Alcohol Use History: None Reported Past Drug Use History: None Reported - Past Family History Mother Family Medical History: No Reported History General Exam Limitations: no limitations General appearance: alert, in no apparent distress, other (This is a well- developed, well-nourished adult female patient in no acute distress. Vital signs upon presentation are temperature is 97.9F, pulse 87, respirations 18, blood pressure 147/72, pulse ox 98% on room air.) Respiratory exam: Present: normal lung sounds bilaterally. Absent: respiratory distress, wheezes, rales, rhonchi, stridor Cardiovascular Exam: Present: regular rate, normal rhythm, normal heart sounds. Absent: systolic murmur, diastolic murmur, rubs, gallop, clicks Extremities exam: Present: full ROM, normal capillary refill, other (There is a tiny flap laceration measuring less than half centimeter to the left hand over the CP joint. There is mild surrounding erythema which patient states is improving. No drainage. No warmth, no swelling. Skin is otherwise pink, warm, dry. Cap refills less than 3 seconds. Radial pulses 2+ and equal b ilaterally.). Absent: normal inspection, tenderness, pedal edema, joint swelling, calf tenderness Neurological exam: Present: alert, oriented X3, CN II-XII intact Psychiatric exam: Present: normal affect, normal mood Skin exam: Present: warm, dry, intact, normal color. Absent: rash Course Vital Signs 06/19/19 15:04 Temperature 97.9 F Pulse Rate 87 Respiratory 18 Rate Blood Pressure 147/72 O2 Sat by Pulse 98 Oximetry Medical Decision Making - Medical Decision Making 74-year-old female patient presented to the emergency department today for evaluation of wound to the left hand. Physical examination reveals a small flap laceration with no signs or symptoms of infection. Patient was concerned he may need stitches however I explained to her that over 24 hours he would not do sutures. She is educated regarding wound care. She'll be discharged to follow up with the primary care physician for recheck in 1-2 days. Return parameters were discussed in detail. She verbalizes understanding and agrees with this plan. Disposition Clinical Impression: Open wound of left hand Disposition: HOME SELF-CARE Condition: Good Instructions (If sedation given, give patient instructions): Acute Wound Care (ED) Additional Instructions: Keep wound clean and dry. Cleanse twice daily with warm water and antibacterial soap. Continue to apply antibiotic ointment. Follow-up through primary care physician for recheck in 1-2 days. Return to the emergency department immediately for any new, worsening, or concerning symptoms. Is patient prescribed a controlled substance at d/c from ED?: No Referrals: Cooper Randall DO [Primary Care Provider] - 1-2 days Time of Disposition: 16:17
== END 2019-06-19 16:26 | disposition home or self-care (01) ==
LOC: EC 15:03
DX: S61.412A Laceration without foreign body of left hand, initial encounter (principal); J45.909 Unspecified asthma, uncomplicated; E11.9 Type 2 diabetes mellitus without complications; M81.0 Age-related osteoporosis without current pathological fracture; M06.9 Rheumatoid arthritis, unspecified; Z79.51 Long term (current) use of inhaled steroids; Z79.84 Long term (current) use of oral hypoglycemic drugs; Z79.899 Other long term (current) drug therapy; Z88.1 Allergy status to other antibiotic agents; Z88.0 Allergy status to penicillin; W45.8XXA Other foreign body or object entering through skin, initial encounter
CPT/HCPCS: 99282

== ENCOUNTER 2019-06-29 09:54 | Emergency (ER) | payer MEDICARE ==
[2019-06-29 10:04] VITALS: BP 113/66; PULSE 84; RESP 18; TEMP 98
--- NOTE | 2019-06-29 10:25 | ED ---
Recheck HPI - General Chief Complaint: Recheck/Abnormal Lab/Rx Stated Complaint: Constipated Time Seen by Provider: 06/29/19 10:06 Source: patient Mode of arrival: ambulatory Limitations: no limitations - History of Present Illness Initial Comments: 74-year-old feel presenting today for chief complaint of concern for constipation. Patient states that she felt as though she was slightly distended a few days prior she states however she had a very large bowel movement she was concerned she was still, constipated after that and proceed to give herself a daily enema for the past 2 days, and Monday. Patient denies any bloody or dark tarry stools. Patient denies any abdominal pain or vomiting. Patient denies any additional complaints. Patient states she feels she gets obsessed with her BM sometimes and checks her rectum by sticking her fingers into it. Patient has no additional complaints, upon arrival she appears well no distress. VS within acceptable limits. - Related Data Home Medications Medication Instructions Recorded Confirmed Docusate [Colace] 200 mg PO HS PRN 12/03/15 12/03/18 Acetaminophen Tab [Tylenol] 500 mg PO Q6H PRN 06/02/16 12/03/18 Albuterol Sulfate [Proair Hfa] 1 - 2 puff INHALATION RT-QID PRN 06/02/16 12/03/18 Lidocaine HCl [Aspercreme] 1 applic TOPICAL DAILY PRN 06/02/16 12/03/18 Menthol [Biofreeze] 1 applic TOPICAL DAILY PRN 06/02/16 12/03/18 Sucralfate [Carafate] 1 gm PO QID 06/02/16 12/03/18 sitaGLIPtin [Januvia] 100 mg PO DAILY 06/02/16 12/03/18 Blue Emu Cream 1 applic TOPICAL DAILY PRN 01/19/17 12/03/18 metFORMIN HCL ER [Glucophage Xr] 500 mg PO BID 01/19/17 12/03/18 Lubiprostone [Amitiza] 24 mcg PO DAILY PRN 05/12/18 12/03/18 Omeprazole [PriLOSEC] 20 mg PO DAILY PRN 05/12/18 12/03/18 Previous Rx's Medication Instructions Recorded Docusate [Colace] 100 mg PO DAILY 5 Days #5 capsule 06/29/19 Allergies Allergy/AdvReac Type Severity Reaction Status Date / Time moxifloxacin [From Avelox] AdvReac Nausea Verified 06/29/19 10:04 nitrofurantoin AdvReac Nausea Verified 06/29/19 10:04 Penicillins AdvReac Nausea Verified 06/29/19 10:04 Review of Systems ROS Statement: Those systems with pertinent positive or pertinent negative responses have been documented in the HPI. ROS Other: All systems not noted in ROS Statement are negative. Past Medical History Past Medical History: Asthma, Diabetes Mellitus, GERD/Reflux, Rheumatoid Arthritis (RA) Additional Past Medical History / Comment(s): stomach ulcers. OSTEOPOROSIS. History of Any Multi-Drug Resistant Organisms: None Reported Past Surgical History: Orthopedic Surgery Additional Past Surgical History / Comment(s): epidural injections, Past Anesthesia/Blood Transfusion Reactions: No Reported Reaction Past Psychological History: No Psychological Hx Reported Smoking Status: Never smoker Past Alcohol Use History: None Reported Past Drug Use History: None Reported - Past Family History Mother Family Medical History: No Reported History General Exam - General Exam Comments Initial Comments: General: The patient is awake and alert, in no distress Eye: +3 mm pupils are equal, round and reactive to light, extra-ocular movements are intact. No nystagmus. There is normal conjunctiva bilaterally. No signs of icterus. Cardiovascular: There is a regular rate and rhythm. No murmur, rub or gallop is appreciated. Respiratory: Lungs are clear to auscultation, respirations are non-labored, breath sounds are equal. No wheezes, stridor, rales, or rhonchi. Gastrointestinal: Soft, non-distended, non-tender abdomen without masses or organomegaly noted. There is no rebound or guarding present. Rectal exam, no stool ball, no blood/or melena noted. Musculoskeletal: Normal ROM, no tenderness. Strength 5/5. Sensation intact. Radial pulses equal bilaterally 2+. Neurological: A&O x 3. CN II-XII intact grossly, There are no obvious motor or sensory deficits. Coordination appears grossly intact. Speech is normal. Skin: Skin is warm and dry and no rashes or lesions are noted. Psychiatric: Cooperative, appropriate mood & affect Limitations: no limitations Course Vital Signs 06/29/19 09:58 Temperature 98 F Pulse Rate 84 Respiratory 18 Rate Blood Pressure 113/66 O2 Sat by Pulse 97 Oximetry Medical Decision Making - Medical Decision Making 74-year-old female presents today for chief complaint of constipation. KUB no acute process, non obstructive pattern. Patient abdominal and rectal exam benign. Recommended PCP f/u, discontinuation of self examinations/enemas for now. Prescribed stool softener. Patient case discussed with Dr. Siegel who is agreeable to discharge at this time. Disposition Clinical Impression: Large stool Disposition: HOME SELF-CARE Condition: Good Instructions (If sedation given, give patient instructions): Constipation (ED), High Fiber Diet (ED) Additional Instructions: Please use medication as discussed. Please follow-up with family doctor in the next 2 days. Please return to emergency room if the symptoms increase or worsen or for any other concerns. Prescriptions: Docusate [Colace] 100 mg PO DAILY 5 Days #5 capsule Is patient prescribed a controlled substance at d/c from ED?: No Referrals: Cooper Randall DO [Primary Care Provider] - 1-2 days Time of Disposition: 10:38
--- NOTE | 2019-06-29 10:31 | XR ---
EXAMINATION TYPE: XR KUB , ONE VIEW DATE OF EXAM ORDERED: 06/29/2019 HISTORY: pt suspects constipation. COMPARISON: Previous study dated 12/11/2018. FINDINGS: There is a moderate S-shaped scoliosis convex to the right knee thoracic region and to the left in the lumbar region. Lung bases are clear. Within the abdomen, the abdominal gas pattern is normal. There is no evidence of obstruction or free air. No unusual calcifications are seen. No unusual collection of feces is seen. There are degenerati ve changes in the right hip. IMPRESSION: NO ACUTE INTRA-ABDOMINAL ABNORMALITY.
== END 2019-06-29 10:41 | disposition home or self-care (01) ==
LOC: EC 09:54
DX: R19.5 Other fecal abnormalities (principal); E11.9 Type 2 diabetes mellitus without complications; K21.9 Gastro-esophageal reflux disease without esophagitis; J45.909 Unspecified asthma, uncomplicated; Z79.51 Long term (current) use of inhaled steroids; Z79.84 Long term (current) use of oral hypoglycemic drugs; Z79.899 Other long term (current) drug therapy; Z88.0 Allergy status to penicillin; Z88.1 Allergy status to other antibiotic agents
CPT/HCPCS: 74018; 99283

== ENCOUNTER 2019-07-01 19:13 | Emergency (ER) | payer MEDICARE ==
[2019-07-01 19:18] VITALS: BP 135/72; PULSE 94; RESP 18; TEMP 97.9
--- NOTE | 2019-07-01 19:28 | ED ---
Recheck HPI - General Chief Complaint: Recheck/Abnormal Lab/Rx Stated Complaint: Hemorroids Time Seen by Provider: 07/01/19 19:20 Source: patient Mode of arrival: ambulatory Limitations: no limitations - History of Present Illness Initial Comments: 74-year-old female presented for rectal pain. Patient states she discussed her rectal pain with her primary care provider today and was told to come to ER as they were closing. Patient denies any bloody stools she provide a stool sample that was brown and formed. Patient states that she gave herself another enema today patient appears obsessed with bowel movements as well as self JAMARI. Patient has no complaints of lightheadedness, dizzness, vomiting or diarrhea. patient has been having bowel movements daily with self enema. Remaining ROS (-) Patient appears well nontoxic. No distress. BP stable, HR WNL, well appearing. - Related Data Home Medications Medication Instructions Recorded Confirmed Docusate [Colace] 200 mg PO HS PRN 12/03/15 12/03/18 Acetaminophen Tab [Tylenol] 500 mg PO Q6H PRN 06/02/16 12/03/18 Albuterol Sulfate [Proair Hfa] 1 - 2 puff INHALATION RT-QID PRN 06/02/16 12/03/18 Lidocaine HCl [Aspercreme] 1 applic TOPICAL DAILY PRN 06/02/16 12/03/18 Menthol [Biofreeze] 1 applic TOPICAL DAILY PRN 06/02/16 12/03/18 Sucralfate [Carafate] 1 gm PO QID 06/02/16 12/03/18 sitaGLIPtin [Januvia] 100 mg PO DAILY 06/02/16 12/03/18 Blue Emu Cream 1 applic TOPICAL DAILY PRN 01/19/17 12/03/18 metFORMIN HCL ER [Glucophage Xr] 500 mg PO BID 01/19/17 12/03/18 Lubiprostone [Amitiza] 24 mcg PO DAILY PRN 05/12/18 12/03/18 Omeprazole [PriLOSEC] 20 mg PO DAILY PRN 05/12/18 12/03/18 Previous Rx's Medication Instructions Recorded Docusate [Colace] 100 mg PO DAILY 5 Days #5 capsule 06/29/19 Phenyleph/Pramoxin/Glycr/W.pet 1 applic RECTAL HS 7 Days #51 gm 07/01/19 [Preparation H Cream] Allergies Allergy/AdvReac Type Severity Reaction Status Date / Time moxifloxacin [From Avelox] AdvReac Nausea Verified 07/01/19 19:18 nitrofurantoin AdvReac Nausea Verified 07/01/19 19:18 Penicillins AdvReac Nausea Verified 07/01/19 19:18 Review of Systems ROS Statement: Those systems with pertinent positive or pertinent negative responses have been documented in the HPI. ROS Other: All systems not noted in ROS Statement are negative. Past Medical History Past Medical History: Asthma, Diabetes Mellitus, GERD/Reflux, Rheumatoid Arthritis (RA) Additional Past Medical History / Comment(s): stomach ulcers. OSTEOPOROSIS. History of Any Multi-Drug Resistant Organisms: None Reported Past Surgical History: Orthopedic Surgery Additional Past Surgical History / Comment(s): epidural injections, Past Anesthesia/Blood Transfusion Reactions: No Reported Reaction Past Psychological History: No Psychological Hx Reported Smoking Status: Never smoker Past Alcohol Use History: None Reported Past Drug Use History: None Reported - Past Family History Mother Family Medical History: No Reported History General Exam - General Exam Comments Initial Comments: General: The patient is awake and alert, in no distress, and does not appear acutely ill. Eye: Pupils are equal, round and reactive to light, extra-ocular movements are intact. No nystagmus. There is normal conjunctiva bilaterally. No signs of icterus. Gastrointestinal: Soft, non-distended, non-tender abdomen without masses or organomegaly noted. There is no rebound or guarding present. Rectal exam, no noted thrombosed hemorrhoids, external reveal pink, small flesh colored. Musculoskeletal: Normal ROM, no tenderness. Strength 5/5. Sensation intact. Radial pulses equal bilaterally 2+. Neurological: A&O x 3. CN II-XII intact grossly, There are no obvious motor or sensory deficits. Coordination appears grossly intact. Speech is normal. Skin: Skin is warm and dry and no rashes or lesions are noted. Psychiatric: Cooperative, appropriate mood & affect, normal judgment. Limitations: no limitations Course Vital Signs 07/01/19 19:14 Temperature 97.9 F Pulse Rate 94 Respiratory 18 Rate Blood Pressure 135/72 O2 Sat by Pulse 98 Oximetry Medical Decision Making - Medical Decision Making 74yo female presenting for possible hemorrhoids. No evidence of thrombosed hemorrhoids. Patient has no melanotic or bloody stools. COntinue to do self enem a despite recommendation to discontinue which could be attributed to patient pain. Provided preparation H for external hemorrhoids and recommended GI f/u for colonocopy and primary care f/u. Disposition Clinical Impression: Chronic rectal pain, External hemorrhoid Disposition: HOME SELF-CARE Condition: Good Instructions (If sedation given, give patient instructions): Hemorrhoids (ED) Additional Instructions: Please use medication as discussed. Please follow-up with family doctor in the next 2 days. Recommend colonoscopy routine outpatient. Please return to emergency room if the symptoms increase or worsen or for any other concerns. Prescriptions: Phenyleph/Pramoxin/Glycr/W.pet [Preparation H Cream] 1 applic RECTAL HS 7 Days #51 gm Is patient prescribed a controlled substance at d/c from ED?: No Referrals: Cooper Randall DO [Primary Care Provider] - 1-2 days Time of Disposition: 19:28
== END 2019-07-01 19:42 | disposition home or self-care (01) ==
LOC: EC 19:13
DX: K64.4 Residual hemorrhoidal skin tags (principal); G89.29 Other chronic pain; J45.909 Unspecified asthma, uncomplicated; E11.9 Type 2 diabetes mellitus without complications; K21.9 Gastro-esophageal reflux disease without esophagitis; M06.9 Rheumatoid arthritis, unspecified; M81.0 Age-related osteoporosis without current pathological fracture; Z79.51 Long term (current) use of inhaled steroids; Z79.84 Long term (current) use of oral hypoglycemic drugs; Z79.899 Other long term (current) drug therapy; Z88.0 Allergy status to penicillin; Z88.1 Allergy status to other antibiotic agents; Z87.19 Personal history of other diseases of the digestive system
CPT/HCPCS: 99282

== ENCOUNTER → 2019-08-15 | Outpatient (CLI) | payer MEDICARE ==
[2019-08-15 14:23] VITALS: BP 116/71; PULSE 90; RESP 16; TEMP 98.6
== END | disposition home or self-care (01) ==
LOC: PROCWHC3 14:11
PROVIDERS: ATTEND Family Medicine
DX: M81.0 Age-related osteoporosis without current pathological fracture (principal)
CPT/HCPCS: 96372; J0897

== ENCOUNTER 2019-10-31 15:39 | Emergency (ER) | payer MEDICARE ==
[2019-10-31 15:44] VITALS: BP 119/64; PULSE 88; RESP 18; TEMP 98.4
--- NOTE | 2019-10-31 16:12 | ED ---
Abdominal Pain HPI - General Source: patient Mode of arrival: ambulatory Limitations: no limitations <Bryan Preciado - Last Filed: 10/31/19 19:09> <Tabitha Moya - Last Filed: 11/01/19 18:31> - General Chief Complaint: Abdominal Pain Stated Complaint: Cant control bladder and bowels Time Seen by Provider: 10/31/19 16:11 - History of Present Illness Initial Comments: Patient is 74-year-old female with history of IBS presenting to the emergency room with a chief complaint of diarrhea. She reports 2 days ago she was constipated and went to [facility] when she was discharged with magnesium citrate. Patient reports several hours later she developed diarrhea which helped alleviate some of her symptoms. Patient states afterwards she became constipated again and used an enema this morning. She reports after the enema she developed profuse diarrhea. She reports using Pepto-Bismol but it is not helping. Patient states now she is having some incontinence due to the diarrhea. She denies any hematochezia. States it is somewhat difficult for her to alternate between opposite extremes. (Bryan Preciado) - Related Data Home Medications Medication Instructions Recorded Confirmed Docusate [Colace] 200 mg PO HS PRN 12/03/15 08/15/19 Acetaminophen Tab [Tylenol] 500 mg PO Q6H PRN 06/02/16 08/15/19 Albuterol Sulfate [Proair Hfa] 1 - 2 puff INHALATION RT-QID PRN 06/02/16 08/15/19 Lidocaine HCl [Aspercreme] 1 applic TOPICAL DAILY PRN 06/02/16 08/15/19 Menthol [Biofreeze] 1 applic TOPICAL DAILY PRN 06/02/16 08/15/19 Sucralfate [Carafate] 1 gm PO QID 06/02/16 08/15/19 Blue Emu Cream 1 applic TOPICAL DAILY PRN 01/19/17 08/15/19 metFORMIN HCL ER [Glucophage Xr] 500 mg PO BID 01/19/17 08/15/19 Lubiprostone [Amitiza] 24 mcg PO DAILY PRN 05/12/18 08/15/19 Omeprazole [PriLOSEC] 20 mg PO DAILY PRN 05/12/18 08/15/19 Stegluromet 1 tablet PO DAILY 08/15/19 08/15/19 Previous Rx's Medication Instructions Recorded Docusate [Colace] 100 mg PO DAILY 5 Days #5 capsule 06/29/19 Phenyleph/Pramoxin/Glycr/W.pet 1 applic RECTAL HS 7 Days #51 gm 07/01/19 [Preparation H Cream] Allergies Allergy/AdvReac Type Severity Reaction Status Date / Time moxifloxacin [From Avelox] AdvReac Nausea Verified 10/31/19 15:42 nitrofurantoin AdvReac Nausea Verified 10/31/19 15:42 Penicillins AdvReac Nausea Verified 10/31/19 15:42 Review of Systems ROS Other: All systems not noted in ROS Statement are negative. <Bryan Preciado - Last Filed: 10/31/19 19:09> ROS Other: All systems not noted in ROS Statement are negative. <Tabitha Moya - Last Filed: 11/01/19 18:31> ROS Statement: Those systems with pertinent positive or pertinent negative responses have been documented in the HPI. Past Medical History Past Medical History: Asthma, Diabetes Mellitus, GERD/Reflux, Rheumatoid Arthrit is (RA) Additional Past Medical History / Comment(s): stomach ulcers. OSTEOPOROSIS. History of Any Multi-Drug Resistant Organisms: None Reported Past Surgical History: Orthopedic Surgery Additional Past Surgical History / Comment(s): epidural injections, Past Anesthesia/Blood Transfusion Reactions: No Reported Reaction Past Psychological History: No Psychological Hx Reported Past Alcohol Use History: None Reported Past Drug Use History: None Reported - Past Family History Mother Family Medical History: No Reported History <Bryan Preciado - Last Filed: 10/31/19 19:09> General Exam Limitations: no limitations <Bryan Preciado - Last Filed: 10/31/19 19:09> Course Vital Signs 10/31/19 15:42 Temperature 98.4 F Pulse Rate 88 Respiratory 18 Rate Blood Pressure 119/64 O2 Sat by Pulse 99 Oximetry Medical Decision Making - Lab Data Result diagrams: 10/31/19 16:47 10/31/19 16:47 <Bryan Preciado - Last Filed: 10/31/19 19:09> - Lab Data Result diagrams: 10/31/19 16:47 10/31/19 16:47 <Tabitha Moya - Last Filed: 11/01/19 18:31> - Medical Decision Making Patient is 74-year-old female presenting to the emergency department with a chief complaint of abdominal pain. Patient has history of IBS with alternating episodes of constipation and diarrhea. This seems to be diarrhea today. Patient is nontender on the abdomen to palpation. No CVA tenderness. She does have some dry mucous membranes. BUN slightly elevated 29. UA is unremarkable aside from elevated glucose. She is diabetic. KUB shows moderate constipation but no signs of obstruction. She is passing gas. I advised the patient to follow with a GI specialist. Strict return parameters were thoroughly discussed the patient is understanding and agreeable. Case discussed with physician. (Bryan Preciado) I was available for consultation in the emergency department. The history and physical exam were done by the midlevel provider. I was consulted for this patients care. I reviewed the case with the midlevel provider and based on their presentation of the patient, I agree with the assessment, medical decision making and plan of care as documented. Chart was dictated using [employer] dictation software. Attempts were made to correct any dictation errors however some typographical errors may persist. Patient was seen during a national state of emergency due to the Covid-19 pandemic. (Tabitha Moya) - Lab Data Lab Results 10/31/19 10/31/19 10/31/19 Range/Units 16:47 16:47 17:33 WBC 4.8 (3.8-10.6) k/uL RBC 4.38 (3.80-5.40) m/uL Hgb 12.9 (11.4-16.0) gm/dL Hct 40.3 (34.0-46.0) % MCV 92.1 (80.0-100.0) fL MCH 29.5 (25.0-35.0) pg MCHC 32.0 (31.0-37.0) g/dL RDW 13.2 (11.5-15.5) % Plt Count 218 (150-450) k/uL Neutrophils % 71 % Lymphocytes % 12 % Monocytes % 12 % Eosinophils % 1 % Basophils % 1 % Neutrophils # 3.4 (1.3-7.7) k/uL Lymphocytes # 0.6 L (1.0-4.8) k/uL Monocytes # 0.6 (0-1.0) k/uL Eosinophils # 0.1 (0-0.7) k/uL Basophils # 0.0 (0-0.2) k/uL Sodium 136 L (137-145) mmol/L Potassium 4.1 (3.5-5.1) mmol/L Chloride 102 (98-107) mmol/L Carbon Dioxide 24 (22-30) mmol/L Anion Gap 10 mmol/L BUN 19 H (7-17) mg/dL Creatinine 0.44 L (0.52-1.04) mg/dL Est GFR (CKD-EPI)AfAm >90 (>60 ml/min/1.73 sqM) Est GFR (CKD-EPI)NonAf >90 (>60 ml/min/1.73 sqM) Glucose 228 H (74-99) mg/dL Calcium 9.2 (8.4-10.2) mg/dL Total Bilirubin 0.5 (0.2-1.3) mg/dL AST 30 (14-36) U/L ALT 31 (4-34) U/L Alkaline Phosphatase 59 (38-126) U/L Total Protein 6.8 (6.3-8.2) g/dL Albumin 4.2 (3.5-5.0) g/dL Lipase 72 (23-300) U/L Urine Color Colorless Urine Appearance Clear (Clear) Urine pH 6.5 (5.0-8.0) Ur Specific [place] 1.007 (1.001-1.035) Urine Protein Negative (Negative) Urine Glucose (UA) 4+ H (Negative) Urine Ketones Negative (Negative) Urine Blood Negative (Negative) Urine Nitrite Negative (Negative) Urine Bilirubin Negative (Negative) Urine Urobilinogen <2.0 (<2.0) mg/dL Ur Leukocyte Esterase Negative (Negative) Disposition Is patient prescribed a controlled substance at d/c from ED?: No Time of Disposition: 18:18 <Bryan Preciado - Last Filed: 10/31/19 19:09> <Tabitha Moya - Last Filed: 11/01/19 18:31> Clinical Impression: Diarrhea, Abdominal pain, Constipation Disposition: HOME SELF-CARE Condition: Stable Instructions (If sedation given, give patient instructions): Abdominal Pain (ED) Additional Instructions: Follow with a GI specialist. Follow a bananas, rice, applesauce and toast diet. Return to emergency department if symptoms worsen. Referrals: Cooper Randall DO [Primary Care Provider] - 1-2 days June Barillas MD [STAFF PHYSICIAN] - 1-2 days
[2019-10-31] MEDS ORDERED: SODIUM CHLORIDE 0.9% 1,000 ML IV STA (16:23)
[2019-10-31 16:54] LABS: Basophils % (A) 1 %; Eosinophils # (A) 0.1 k/uL (0-0.7); Eosinophils % (A) 1 %; HCT 40.3 % (34.0-46.0); HGB 12.9 gm/dL (11.4-16.0); Lymphocytes # (A) 0.6 k/uL (1.0-4.8); Lymphocytes % (A) 12 %; MCH 29.5 pg (25.0-35.0); MCV 92.1 fL (80.0-100.0); Mean Platelet Volume 7.5; Monocytes # (A) 0.6 k/uL (0-1.0); Monocytes % (A) 12 %; Neutrophils # (A) 3.4 k/uL (1.3-7.7); Neutrophils % (A) 71 %; Platelet Count 218 k/uL (150-450); RBC 4.38 m/uL (3.80-5.40); RDW 13.2 % (11.5-15.5); WBC 4.8 k/uL (3.8-10.6)
--- NOTE | 2019-10-31 17:46 | XR ---
EXAMINATION TYPE: XR KUB DATE OF EXAM: 10/31/2019 COMPARISON: 06/29/2019 HISTORY: Abdominal pain TECHNIQUE: Single view FINDINGS: A single view upright shows no evidence of free air. There is some retained fecal material in the large bowel. There is no evidence of a mass. There is mild lumbar levoscoliosis. IMPRESSION: Mild constipation. Nonacute abdomen. No adverse change.
[2019-10-31 17:50] LABS: ALT 31 U/L (4-34); AST 30 U/L (14-36); African American GFR (CKD) >90 (>60 ml/min/1.73 sqM); Albumin 4.2 g/dL (3.5-5.0); Alkaline Phosphatase 59 U/L (38-126); Anion Gap 10 mmol/L; Blood Urea Nitrogen 19 mg/dL (7-17); Calcium 9.2 mg/dL (8.4-10.2); Carbon Dioxide 24 mmol/L (22-30); Chloride 102 mmol/L (98-107); Glucose 228 mg/dL (74-99); Lipase 72 U/L (23-300); Non-African American GFR(CKD) >90 (>60 ml/min/1.73 sqM); Potassium 4.1 mmol/L (3.5-5.1); Sodium 136 mmol/L (137-145); Total Bilirubin 0.5 mg/dL (0.2-1.3); Total Protein 6.8 g/dL (6.3-8.2)
[2019-10-31 17:51] LABS: Appearance,Urine Clear (Clear); Bilirubin,Urine Negative (Negative); Blood,Urine Negative (Negative); Color,Urine Colorless; Glucose,Urine (UA) 4+ (Negative); Ketones,Urine Negative (Negative); Leukocyte Esterase,Urine Negative (Negative); Nitrite,Urine Negative (Negative); PH, Urine 6.5 (5.0-8.0); Protein,Urine Negative (Negative); Specific Gravity,Urine 1.007 (1.001-1.035); Urobilinogen,Urine <2.0 mg/dL (<2.0)
== END 2019-10-31 18:57 | disposition home or self-care (01) ==
LOC: EC 15:39
DX: K59.00 Constipation, unspecified (principal); K58.0 Irritable bowel syndrome with diarrhea; R79.89 Other specified abnormal findings of blood chemistry; E11.9 Type 2 diabetes mellitus without complications; J45.909 Unspecified asthma, uncomplicated; K21.9 Gastro-esophageal reflux disease without esophagitis; M06.9 Rheumatoid arthritis, unspecified; M81.0 Age-related osteoporosis without current pathological fracture; Z79.51 Long term (current) use of inhaled steroids; Z79.84 Long term (current) use of oral hypoglycemic drugs; Z79.899 Other long term (current) drug therapy; Z88.0 Allergy status to penicillin; Z88.1 Allergy status to other antibiotic agents
CPT/HCPCS: 36415; 74018; 80053; 81003; 83690; 85025; 96360; 96361; 99284

== ENCOUNTER → 2020-04-10 | Outpatient (CLI) | payer MEDICARE ==
[~2020-04-10] MED LIST changes: +DENOSUMAB 60 MG/ML 1 ML SYRINGE SQ NR; -DENOSUMAB 60 MG/ML 1 ML SYRINGE SQ ONE
[2020-04-10 13:59] VITALS: BP 152/77; PULSE 97; RESP 16; TEMP 97.9
== END | disposition home or self-care (01) ==
LOC: PROCWHC3 13:46
PROVIDERS: ATTEND Family Medicine
DX: M81.0 Age-related osteoporosis without current pathological fracture (principal)
CPT/HCPCS: 96372; J0897

== ENCOUNTER → 2020-04-10 | Outpatient (CLI) | payer MEDICARE ==
--- NOTE | 2020-04-14 08:54 | MM ---
Reason for exam: screening (asymptomatic). Last mammogram was performed 1 year and 1 month ago. History: Patient is postmenopausal. Physical Findings: A clinical breast exam by your physician is recommended on an annual basis and results should be correlated with mammographic findings. MG 3D Screening Mammo W/Cad Bilateral CC and MLO view(s) were taken. Prior study comparison: March 06, 2019, bilateral MG 3d screening mammo w/cad. January 10, 2018, bilateral MG 3d screening mammo w/cad. The breast tissue is extremely dense which could obscure a lesion on mammography. Stable regional punctate calcifications bilaterally. Oil cyst calcifications on the right. No significant changes when compared with prior studies. ASSESSMENT: Benign, BI-RAD 2 RECOMMENDATION: Routine screening mammogram of both breasts in 1 year. Patient should continue monthly self breast exams. A negative report should not preclude additional follow up of suspicious palpable abnormalities.
== END | disposition home or self-care (01) ==
LOC: RADMAMWWP 14:05
PROVIDERS: ATTEND Family Medicine
DX: Z12.31 Encounter for screening mammogram for malignant neoplasm of breast (principal); Z80.3 Family history of malignant neoplasm of breast
CPT/HCPCS: 77063; 77067

== ENCOUNTER → 2020-10-09 | Outpatient (CLI) | payer MEDICARE ==
[~2020-10-09] MED LIST changes: -DENOSUMAB 60 MG/ML 1 ML SYRINGE SQ NR; +DENOSUMAB 60 MG/ML 1 ML SYRINGE SQ ONE
[2020-10-09 10:16] VITALS: BP 122/58; PULSE 86; RESP 16; TEMP 98.4
== END ==
LOC: PROCWHC3 09:59
PROVIDERS: ATTEND Family Medicine
DX: M81.0 Age-related osteoporosis without current pathological fracture (principal)
CPT/HCPCS: 96372; J0897

== ENCOUNTER → 2020-12-18 | Outpatient (CLI) | payer MEDICARE ==
--- NOTE | 2020-12-18 15:19 | XR ---
Bilateral hips HISTORY:M25.551 M25.552 bilateral hip pain 2 views of each hip submitted Correlation to prior exam 09/27/2017 There is concentric narrowing of the joint space on the right, some mild marginal spurring is present bilaterally. Bone mineralization, joint spaces and alignment are stable. IMPRESSION: Mild osteoarthritic changes
== END | disposition home or self-care (01) ==
LOC: RADXRMAIN 09:26
PROVIDERS: ATTEND Family Medicine
DX: M16.0 Bilateral primary osteoarthritis of hip (principal)
CPT/HCPCS: 73521

== ENCOUNTER → 2021-04-15 | Outpatient (CLI) | payer MEDICARE ==
[~2021-04-15] MED LIST changes: +DENOSUMAB 60 MG/ML 1 ML SYRINGE SQ NR; -DENOSUMAB 60 MG/ML 1 ML SYRINGE SQ ONE
[2021-04-15 09:53] VITALS: BP 136/71; PULSE 82; RESP 16; TEMP 97.7
== END ==
LOC: PROCWHC3 09:24
PROVIDERS: ATTEND Family Medicine
DX: M81.0 Age-related osteoporosis without current pathological fracture (principal); Z88.1 Allergy status to other antibiotic agents; Z88.0 Allergy status to penicillin
CPT/HCPCS: 96372; J0897

== ENCOUNTER → 2021-10-19 | Outpatient (CLI) | payer MEDICARE ==
[2021-10-19 10:28] VITALS: BP 128/68; PULSE 105; RESP 16; TEMP 98.3
== END ==
LOC: PROCWHC3 10:04
PROVIDERS: ATTEND Family Medicine
DX: M81.0 Age-related osteoporosis without current pathological fracture (principal); Z88.0 Allergy status to penicillin; Z88.1 Allergy status to other antibiotic agents
CPT/HCPCS: 96372; J0897

== ENCOUNTER 2021-11-06 06:09 | Emergency (ER) | payer MEDICARE ==
[2021-11-06] MEDS ORDERED: ACETAMINOPHEN TAB 325 MG TAB PO STA (06:12)
--- NOTE | 2021-11-06 06:27 | ED ---
Fall HPI - General Chief Complaint: Fall Stated Complaint: fall Time Seen by Provider: 11/06/21 06:11 Source: patient, EMS, RN notes reviewed Mode of arrival: EMS Limitations: no limitations - History of Present Illness Initial Comments: This is a 76-year-old female who presents to the emergency department for a fall. She was using her walker to go to the bathroom this morning, when she lost her balance and fell backwards. She hit the back of her head and is currently complaining of pain to the head and right hip. She did not lose consciousness or have any dizziness prior to the fall. She is not taking any blood thinners. EMS did note a 2 inch laceration to the back of her head and bleeding was controlled by the time they arrived. Denies any fevers, chills, sore throat, cough, dyspnea, chest pain, palpitations, abdominal pain, nausea, vomiting, diarrhea, or back pain. MD Complaint: fall Fall From: standing When Fall Occurred: 1 hour [employer] Fall Witnessed: no Place Fall Occurred: home Loss of Consciousness: none Symptoms Prior to Fall: none Location: head, pelvis Context: tripped/slipped - Related Data Home Medications Medication Instructions Recorded Confirmed Docusate [Colace] 200 mg PO HS PRN 12/03/15 10/19/21 Acetaminophen Tab [Tylenol] 500 mg PO Q6H PRN 06/02/16 10/19/21 Albuterol Sulfate [Proair Hfa] 1 - 2 puff INHALATION RT-QID PRN 06/02/16 10/19/21 Menthol [Biofreeze] 1 applic TOPICAL DAILY PRN 06/02/16 10/19/21 Sucralfate [Carafate] 1 gm PO QID 06/02/16 10/19/21 lidocaine HCL [Aspercreme] 1 applic TOPICAL DAILY PRN 06/02/16 10/19/21 Blue Emu Cream 1 applic TOPICAL DAILY PRN 01/19/17 10/19/21 metFORMIN HCL ER [Glucophage Xr] 500 mg PO BID 01/19/17 10/19/21 Lubiprostone [Amitiza] 24 mcg PO DAILY PRN 05/12/18 10/19/21 Omeprazole [PriLOSEC] 20 mg PO DAILY PRN 05/12/18 10/19/21 Stegluromet 1 tablet PO DAILY 08/15/19 10/19/21 Acetaminophen Tab [Tylenol Tab] 1,000 mg PO Q6HR PRN 02/19/21 10/19/21 Albuterol Inhaler [Ventolin Hfa 2 puff INHALATION RT-Q6H PRN 02/19/21 10/19/21 Inhaler] Sucralfate [Carafate] 1 gm PO ACHS 02/19/21 10/19/21 metFORMIN HCL ER [Glucophage XR] 500 mg PO BID 02/19/21 10/19/21 Previous Rx's Medication Instructions Recorded Docusate [Colace] 100 mg PO DAILY 5 Days #5 capsule 06/29/19 Phenyleph/Pramoxin/Glycr/W.pet 1 applic RECTAL HS 7 Days #51 gm 07/01/19 [Preparation H Cream] Miconazole Nitrate [Miconazole 1 applic TOPICAL BID #30 gram 11/06/21 Nitrate 2%] Mupirocin 2% Oint [Bactroban 2% 1 applic TOPICAL TID #22 gm 11/06/21 Oint] Allergies Allergy/AdvReac Type Severity Reaction Status Date / Time moxifloxacin [From Avelox] AdvReac Nausea Verified 11/06/21 06:14 nitrofurantoin AdvReac Nausea Verified 11/06/21 06:14 Penicillins AdvReac Nausea Verified 11/06/21 06:14 Review of Systems ROS Statement: Those systems with pertinent positive or pertinent negative responses have been documented in the HPI. ROS Other: All systems not noted in ROS Statement are negative. Past Medical History Past Medical History: Asthma, Diabetes Mellitus, GERD/Reflux, Rheumatoid Arth ritis (RA) Additional Past Medical History / Comment(s): scoliosis History of Any Multi-Drug Resistant Organisms: None Reported Past Surgical History: Orthopedic Surgery Additional Past Surgical History / Comment(s): foot surgery, epidural shots Past Anesthesia/Blood Transfusion Reactions: No Reported Reaction Past Psychological History: No Psychological Hx Reported Smoking Status: Never smoker - Past Family History Mother Family Medical History: No Reported History General Exam Limitations: no limitations General appearance: alert, in no apparent distress Head exam: Present: normocephalic, other (4 cm laceration to the occiput. No active bleeding.) Neck exam: Present: normal inspection. Absent: tenderness, meningismus, lymphadenopathy Respiratory exam: Present: normal lung sounds bilaterally. Absent: respiratory distress, wheezes, rales, rhonchi, stridor Cardiovascular Exam: Present: regular rate, normal rhythm, normal heart sounds. Absent: systolic murmur, diastolic murmur, rubs, gallop, clicks Extremities exam: Present: other (Tenderness to palpation of the superior most aspect of the right femur. No obvious deformities. There is no shortening or rotation of the leg.) Neurological exam: Present: alert, oriented X3, CN II-XII intact Psychiatric exam: Present: normal affect, normal mood Skin exam: Present: warm, dry, other (7 cm area of raw skin on the right buttocks. There is no drainage or ulceration.) Course Vital Signs 11/06/21 06:10 Temperature 97.9 F Pulse Rate 93 Respiratory 22 Rate Blood Pressure 154/90 O2 Sat by Pulse 96 Oximetry Procedures - Laceration Laceration #1 Consent Obtained: verbal consent Indication: laceration Site: other (head) Size (cm): 4 Description: linear Depth: simple, single layer Sedation/Analgesia: none Size of Sutures: other (abelardo) Number of Sutures: 2 Medical Decision Making - Medical Decision Making This is a 76-year-old female who presents to the emergency department for a fall. Computed tomography scan of the brain and C-spine and x-ray of the right hip for obtained. Computed tomography scan revealed no acute irregularities and the c-collar was subsequently removed. She was given Tylenol and [place] in the emergency department. The laceration to the occiput was repaired with 2 abelardo. X-ray of the right hip obtained revealing no acute irregularities. Patient was able to ambulate prior to discharge. She also made note of an open area of skin near the buttocks. This is not an open wound that would require o ral antibiotics. Mupirocin was applied to the area and it was covered accordingly. This is most likely due to irritation, possibly from urine, as she does wear an incontinence pad. There could be a fungal or bacterial component to this. Prescription for miconazole and mupirocin ointment prescribed for the patient to apply twice daily for the next 1-2 weeks to see if that offers any improvement. Also instructed her to keep the area covered to prevent any further irritation. She can alternate with ibuprofen and Tylenol as needed for any pain. Also advised she apply ice to the head and hip for 15-20 minutes every 2-3 hours. She is instructed to return in 7-10 days for staple removal. Return precautions reviewed in depth, the patient is instructed to return to the emergency department with any new, worsening, or concerning symptoms. Patient verbalized understanding. This case was discussed in detail with the attending ED physician. Presentation, findings, and treatment plan discussed in detail as well. - Radiology Data Radiology results: report reviewed, image reviewed Disposition Clinical Impression: Laceration, Fall, Skin irritation Disposition: HOME SELF-CARE Instructions (If sedation given, give patient instructions): Fall Prevention for Older Adults (ED), Staple Care (ED), Hip Pain (ED) Additional Instructions: Return to the emergency department with any new, worsening, or concerning symptoms and in 7-10 days for removal of your abelardo. Continue to take Tylenol as needed for pain relief. You can apply ice to your hip and head for 15-20 minutes every 2-3 hours. Apply both creams to the affected area daily if you can and keep the area covered to prevent further irritation. Try to have someone help you change the dressing, or make sure you are laying down when you do it. If you are not able to change it daily because you do not have help, that is okay. Have your primary care provider reevaluate this area during your follow-up next week. Follow up with your primary care provider as scheduled next week. Prescriptions: Mupirocin 2% Oint [Bactroban 2% Oint] 1 applic TOPICAL TID #22 gm Miconazole Nitrate [Miconazole Nitrate 2%] 1 applic TOPICAL BID #30 gram Is patient prescribed a controlled substance at d/c from ED?: No Referrals: Cooper Randall DO [Primary Care Provider] - 1-2 days
[2021-11-06] MEDS ORDERED: HYDROcodone/APAP 5-325MG 1 EACH TAB PO STA (06:58)
--- NOTE | 2021-11-06 07:30 | XR ---
EXAMINATION TYPE: XR Hip Complete RT DATE OF EXAM: 11/06/2021 CLINICAL HISTORY: pain TECHNIQUE: AP and frogleg views of the right hip are obtained. COMPARISON: None. FINDINGS: There is no acute fracture/dislocation evident. Moderate degenerative joint space narrowin g. The overlying soft tissue appears unremarkable. IMPRESSION: 1. There is no acute fracture or dislocation. ICD 10 NO FRACTURE, INITIAL EVALUATION
--- NOTE | 2021-11-06 07:30 | CT ---
EXAMINATION TYPE: CT brain dhara hendrickson con DATE OF EXAM: 11/06/2021 COMPARISON: 02/19/2021 HISTORY: Fall CT DLP: 1202.[address] of the brain was performed. The ventricles, basal cisterns and sulci overlying the cerebral convexities demonstrate mild enlargem ent. There is no evidence for intracranial hemorrhage or sulcal effacement. There is decreased attenuatio n about the periventricular white matter and deep white matter of both cerebral hemispheres, compatib le with chronic small vessel ischemia. No mass effects are seen. If symptoms persist consider MRI. Osseous calvarium is intact. IMPRESSION: 1. Age related atrophic and chronic small vessel ischemic change without acute intracranial process seen at this time. CT Cervical Spine: Unenhanced CT of the cervical spine was performed with bone and soft tissue window settings submitted . Coronal and sagittal reconstruction is obtained. There is normal alignment and prevertebral soft tissues. No evidence for acute cervical fracture . Scattered degenerative disc disease and spondylosis. Biapical scarring. IMPRESSION: 1. No evidence for acute fracture or subluxation of the cervical spine.
[2021-11-06] MEDS ORDERED: BACITRACIN OINT 1 EACH PACKET TOPICAL ONE (07:45)
[2021-11-06 22:40] VITALS: BP 98/53; PULSE 88; RESP 18; TEMP 98
== END 2021-11-06 09:17 | disposition home or self-care (01) ==
LOC: EC 06:09
DX: S01.01XA Laceration without foreign body of scalp, initial encounter (principal); L98.9 Disorder of the skin and subcutaneous tissue, unspecified; M25.551 Pain in right hip; J45.909 Unspecified asthma, uncomplicated; E11.9 Type 2 diabetes mellitus without complications; K21.9 Gastro-esophageal reflux disease without esophagitis; M06.9 Rheumatoid arthritis, unspecified; Z79.84 Long term (current) use of oral hypoglycemic drugs; Z79.899 Other long term (current) drug therapy; Z88.1 Allergy status to other antibiotic agents; Z88.0 Allergy status to penicillin; W01.10XA Fall on same level from slipping, tripping and stumbling with subsequent striking against unspecified object, initial encounter; Y92.009 Unspecified place in unspecified non-institutional (private) residence as the place of occurrence of the external cause
CPT/HCPCS: 12002; 70450; 72125; 73502; 99284

== ENCOUNTER 2021-11-11 15:16 | Inpatient (IN) | payer MEDICARE ==
[2021-11-11] MEDS ORDERED: NITROGLYCERIN SL TABS 0.4 MG TAB SUBLINGUAL STA ×2 (15:48→16:30)
[2021-11-11] MEDS ORDERED: SODIUM CHLORIDE 0.9% 500 ML 500 ML IV STA (15:48)
[2021-11-11] MEDS ORDERED: KETOROLAC 15 MG/ML 1 ML VIAL IVP STA (16:03)
--- NOTE | 2021-11-11 16:04 | ED ---
General Adult HPI - General Chief complaint: Chest Pain Stated complaint: Chest Pain Time Seen by Provider: 11/11/21 15:17 Source: patient, EMS, RN notes reviewed, old records reviewed Mode of arrival: EMS Limitations: no limitations - History of Present Illness Initial comments: Patient is a 76-year-old female with past medical history remarkable for a nxiety, diverticulosis, asthma, diabetes, acid reflux who presents emergency Department complaining of chest pain. Patient states the chest pain began while she was on her way to the doctor's office approximately 2.5-3 hours prior to arrival. She states it started at approximately 12:30 or 1 PM. States it is substernal. Described as a pressure/squeezing sensation. Has not had that pain previously. States she was anxious but is uncertain if that is what caused it. Denies any shortness of breath with it. Endorses possible diaphoresis with the pain initially. Denies lightheadedness, blurry vision. Denies any fevers, chills. Has been having an increased nonproductive cough over the last few days as well. No fevers or sick contacts. Patient states over the last few days she has noticed that she is been having some mild left lower quadrant abdominal discomfort as well as diarrhea. Denies any urinary complaints. Denies any vaginal discharge or bleeding. States her stool is loose, brown and nonbloody. No nausea or vomiting. No history cardiac disease. No history of cardiac anant nts. Patient did receive aspirin as well as a nitro tablet by EMS. She states her pain is improved but is uncertain if it was the medications that caused it or time. - Related Data Home Medications Medication Instructions Recorded Confirmed Albuterol Inhaler [Ventolin Hfa 2 puff INHALATION RT-QID PRN 02/19/21 11/11/21 Inhaler] Sucralfate [Carafate] 1 gm PO ACHS 02/19/21 11/11/21 metFORMIN HCL ER [Glucophage XR] 500 mg PO QID 02/19/21 11/11/21 Atorvastatin [Lipitor] 20 mg PO DAILY 11/11/21 11/11/21 Cyclobenzaprine [Flexeril] 5 mg PO BID PRN 11/11/21 11/11/21 Diclofenac Sodium Gel [Voltaren 2 - 4 gm TOPICAL TID PRN 11/11/21 11/11/21 Gel] Estradiol Cream [Estrace Cream 1 gm VAGINAL TUTH 11/11/21 11/11/21 0.01%] Insulin Glargine/Lixisenatide 25 units SQ DAILY 11/11/21 11/11/21 [Soliqua 100 Unit-33 Mcg/ml Pen] Miconazole Nitrate [Miconazole 1 applic TOPICAL BID 11/11/21 11/11/21 Nitrate 2%] Mupirocin 2% Oint [Bactroban 2% 1 applic TOPICAL TID 11/11/21 11/11/21 Oint] Pioglitazone [Actos] 15 mg PO DAILY 11/11/21 11/11/21 Allergies Allergy/AdvReac Type Severity Reaction Status Date / Time moxifloxacin [From Avelox] AdvReac Nausea Verified 11/11/21 18:20 nitrofurantoin AdvReac Nausea Verified 11/11/21 18:20 Penicillins AdvReac Nausea Verified 11/11/21 18:20 Review of Systems ROS Statement: Those systems with pertinent positive or pertinent negative responses have been documented in the HPI. Review of Systems: CONST: Denies fever EYES: Denies blurry vision ENT: Denies nasal congestion C/V: Endorses chest pain RESP: Denies shortness of breath GI: Endorses left lower quadrant abdominal pain : Denies dysuria SKIN: Right Buttock pressure ulcer MSK: Denies joint pain. NEURO: Denies headache ROS Other: All systems not noted in ROS Statement are negative. Past Medical History Past Medical History: Asthma, Diabetes Mellitus, GERD/Reflux, Rheumatoid Arthritis (RA) Additional Past Medical History / Comment(s): scoliosis History of Any Multi-Drug Resistant Organisms: None Reported Past Surgical History: Orthopedic Surgery Additional Past Surgical History / Comment(s): foot surgery, epidural shots Past Anesthesia/Blood Transfusion Reactions: No Reported Reaction Past Psychological History: No Psychological Hx Reported Smoking Status: Never smoker - Past Family History Mother Family Medical History: No Reported History General Exam - General Exam Comments Initial Comments: General: Appears in no acute distress. HEAD: Normal with no signs of head trauma. EYES: PERRLA, EOMI, conjunctiva normal, no discharge. ENT: Hearing grossly intact, normal oropharynx. RESPIRATORY: Clear breath sounds bilaterally. No wheezes, rales, or rhonchi. C/V: Regular rate and rhythm. S1 and S2 auscultated, no edema, peripheral pulses 2+ and intact throughout. chest pain is nonreproducible on palpation. ABD: Abdomen is soft, nondistended. Mild tenderness to palpation in left lower quadrant. No guarding. No peritoneal signs. No rebound tenderness. EXT: Normal range of motion, no obvious deformity SKIN: Stage I to 2 pressure ulcer over the right buttock. Clean. No signs of infection. NEURO: Alert and oriented x 4. Cranial nerves II-XII intact. No focal sensory or strength deficits. Limitations: no limitations Course Vital Signs 11/11/21 11/11/21 11/11/21 15:19 15:59 16:09 Temperature 98 F Pulse Rate 83 81 94 Respiratory 16 17 15 Rate Blood Pressure 123/60 117/65 124/55 O2 Sat by Pulse 96 100 Oximetry 11/11/21 16:30 Temperature Pulse Rate 83 Respiratory 16 Rate Blood Pressure 121/59 O2 Sat by Pulse Oximetry Medical Decision Making - Medical Decision Making Based on the patient's presentation and physical exam, I'm concerned for possible cardiopulmonary etiology for her current symptoms. Cannot rule out intra-abdominal pathology with her history of diverticulosis, diarrhea, muscle quadrant abdominal pain as well. We will obtain abdominal as well as cardiovascular labs. EKG and chest x-ray will be obtained. CT will be obtained in the abdomen. Patient has already received treatment with 324 mg of aspirin from EMS en route to the hospital. She'll be administered additional nitro glycerin tablets to evaluate for an effect on her chest pain. Toradol will be administered for left lower quadrant abdominal pain after the nitro tablets.. She'll be given a small fluid bolus as well. She was in agreement with this kathleen n. Vital signs are within normal limits. EKG shows no signs of acute ischemia.Patient's chest x-ray shows a questionable pneumonia in the left medial lung base. Laboratory studies were remarkable for a normocytic anemia with hemoglobin of 11.0. Troponin is undetectable. Covid is negative. Urine is pending at this time. CT abdomen and pelvis was obtained and did not show any signs of acute intra-abdominal process. Patient does have findings concerning for a pneumonia in the left lung base. I updated the patient. Following 2 nitroglycerin tablets, she states that her pain in her chest is completely resolved. Cardiac workup otherwise is unremarkable. I did discuss with her that due to her response to nitro, as well as findings of pneumonia on exam, would like to admitted to the hospital for cardiac monitoring. She'll be started on a heparin drip at this time over concern for possible ACS as the cause of her chest pain. Cardiology will be consulted. She was in agreement this plan. Echo was ordered. She'll be started on antibiotics for her pneumonia, she is having mild congestion and mild cough. No fevers. She was in agreement this plan. Nitropaste was placed. I spoke with the admitting physician, Dr. Brown who accepted the patient. Patient was therefore admitted to a telemetry bed in stable condition. We will trend the troponin. Patient is requesting wound care consult for her noninfected decubitus ulcer, she does not have much help at home. Also social work consult was placed. - Lab Data Result diagrams: 11/11/21 16:12 11/11/21 16:12 Lab Results 11/11/21 11/11/21 11/11/21 Range/Units 16:12 16:12 16:12 WBC 5.1 (3.8-10.6) k/uL RBC 3.62 L (3.80-5.40) m/uL Hgb 11.0 L (11.4-16.0) gm/dL Hct 33.0 L (34.0-46.0) % MCV 91.1 (80.0-100.0) fL MCH 30.4 (25.0-35.0) pg MCHC 33.3 (31.0-37.0) g/dL RDW 12.9 (11.5-15.5) % Plt Count 347 (150-450) k/uL MPV 7.7 Neutrophils % (Manual) 74 % Lymphocytes % (Manual) 15 % Monocytes % (Manual) 11 % Neutrophils # (Manual) 3.77 (1.3-7.7) k/uL Lymphocytes # (Manual) 0.77 L (1.0-4.8) k/uL Monocytes # (Manual) 0.56 (0-1.0) k/uL Nucleated RBCs 0 (0-0) /100 WBC Manual Slide Review Performed RBC Morphology Normal PT 10.5 (9.0-12.0) sec INR 1.0 (<1.2) APTT 23.3 (22.0-30.0) sec Sodium 137 (137-145) mmol/L Potassium 3.6 (3.5-5.1) mmol/L Chloride 101 (98-107) mmol/L Carbon Dioxide 26 (22-30) mmol/L Anion Gap 10 mmol/L BUN 24 H (7-17) mg/dL Creatinine 0.50 L (0.52-1.04) mg/dL Est GFR (CKD-EPI)AfAm >90 (>60 ml/min/1.73 sqM) Est GFR (CKD-EPI)NonAf >90 (>60 ml/min/1.73 sqM) Glucose 197 H (74-99) mg/dL Plasma Lactic Acid Nate (0.7-2.0) mmol/L Calcium 9.0 (8.4-10.2) mg/dL Magnesium 1.7 (1.6-2.3) mg/dL Total Bilirubin 0.2 (0.2-1.3) mg/dL AST 25 (14-36) U/L ALT 38 H (4-34) U/L Alkaline Phosphatase 77 (38-126) U/L Troponin I (0.000-0.034) ng/mL NT-Pro-B Natriuret Pep pg/mL Total Protein 5.6 L (6.3-8.2) g/dL Albumin 3.1 L (3.5-5.0) g/dL Amylase 57 (30-110) U/L Lipase 89 (23-300) U/L Coronavirus (PCR) (Not Detectd) 11/11/21 11/11/21 11/11/21 Range/Units 16:12 16:12 16:12 WBC (3.8-10.6) k/uL RBC (3.80-5.40) m/uL Hgb (11.4-16.0) gm/dL Hct (34.0-46.0) % MCV (80.0-100.0) fL MCH (25.0-35.0) pg MCHC (31.0-37.0) g/dL RDW (11.5-15.5) % Plt Count (150-450) k/uL MPV Neutrophils % (Manual) % Lymphocytes % (Manual) % Monocytes % (Manual) % Neutrophils # (Manual) (1.3-7.7) k/uL Lymphocytes # (Manual) (1.0-4.8) k/uL Monocytes # (Manual) (0-1.0) k/uL Nucleated RBCs (0-0) /100 WBC Manual Slide Review RBC Morphology PT (9.0-12.0) sec INR (<1.2) APTT (22.0-30.0) sec Sodium (137-145) mmol/L Potassium (3.5-5.1) mmol/L Chloride (98-107) mmol/L Carbon Dioxide (22-30) mmol/L Anion Gap mmol/L BUN (7-17) mg/dL Creatinine (0.52-1.04) mg/dL Est GFR (CKD-EPI)AfAm (>60 ml/min/1.73 sqM) Est GFR (CKD-EPI)NonAf (>60 ml/min/1.73 sqM) Glucose (74-99) mg/dL Plasma Lactic Acid Nate (0.7-2.0) mmol/L Calcium (8.4-10.2) mg/dL Magnesium (1.6-2.3) mg/dL Total Bilirubin (0.2-1.3) mg/dL AST (14-36) U/L ALT (4-34) U/L Alkaline Phosphatase (38-126) U/L Troponin I <0.012 (0.000-0.034) ng/mL NT-Pro-B Natriuret Pep 79 pg/mL Total Protein (6.3-8.2) g/dL Albumin (3.5-5.0) g/dL Amylase (30-110) U/L Lipase (23-300) U/L Coronavirus (PCR) Not Detected (Not Detectd) 11/11/21 Range/Units 16:12 WBC (3.8-10.6) k/uL RBC (3.80-5.40) m/uL Hgb (11.4-16.0) gm/dL Hct (34.0-46.0) % MCV (80.0-100.0) fL MCH (25.0-35.0) pg MCHC (31.0-37.0) g/dL RDW (11.5-15.5) % Plt Count (150-450) k/uL MPV Neutrophils % (Manual) % Lymphocytes % (Manual) % Monocytes % (Manual) % Neutrophils # (Manual) (1.3-7.7) k/uL Lymphocytes # (Manual) (1.0-4.8) k/uL Monocytes # (Manual) (0-1.0) k/uL Nucleated RBCs (0-0) /100 WBC Manual Slide Review RBC Morphology PT (9.0-12.0) sec INR (<1.2) APTT (22.0-30.0) sec Sodium (137-145) mmol/L Potassium (3.5-5.1) mmol/L Chloride (98-107) mmol/L Carbon Dioxide (22-30) mmol/L Anion Gap mmol/L BUN (7-17) mg/dL Creatinine (0.52-1.04) mg/dL Est GFR (CKD-EPI)AfAm (>60 ml/min/1.73 sqM) Est GFR (CKD-EPI)NonAf (>60 ml/min/1.73 sqM) Glucose (74-99) mg/dL Plasma Lactic Acid Nate 0.9 (0.7-2.0) mmol/L Calcium (8.4-10.2) mg/dL Magnesium (1.6-2.3) mg/dL Total Bilirubin (0.2-1.3) mg/dL AST (14-36) U/L ALT (4-34) U/L Alkaline Phosphatase (38-126) U/L Troponin I (0.000-0.034) ng/mL NT-Pro-B Natriuret Pep pg/mL Total Protein (6.3-8.2) g/dL Albumin (3.5-5.0) g/dL Amylase (30-110) U/L Lipase (23-300) U/L Coronavirus (PCR) (Not Detectd) - EKG Data -: EKG Interpreted by Me EKG Comments: 12-lead Electrocardiogram Interpretation Note EKG was reviewed and interpreted by myself. 12-lead ECG performed at 1536 is interpreted by me as revealing normal sinus rhythm at a rate of 76 beats per minute. Corbin is normal. IN interval is 152 ms, QRS duration is 83 ms, QTc is 318 ms.. There were no ST or T wave abnormalities to suggest myocardial ischemia or injury. R wave progression across the precordium was satisfactory. By my interpretation this EKG is non-diagnostic for acute ischemia. Disposition Clinical Impression: Chest pain, Pneumonia, Sacral wound Disposition: ADMITTED IP TO THIS HOSP Condition: Stable Time of Disposition: 18:00
[2021-11-11 16:29] LABS: ALT 38 U/L (4-34); AST 25 U/L (14-36); African American GFR (CKD) >90 (>60 ml/min/1.73 sqM); Albumin 3.1 g/dL (3.5-5.0); Alkaline Phosphatase 77 U/L (38-126); Amylase 57 U/L (30-110); Anion Gap 10 mmol/L; Blood Urea Nitrogen 24 mg/dL (7-17); Carbon Dioxide 26 mmol/L (22-30); Chloride 101 mmol/L (98-107); Glucose 197 mg/dL (74-99); Lipase 89 U/L (23-300); Magnesium 1.7 mg/dL (1.6-2.3); Non-African American GFR(CKD) >90 (>60 ml/min/1.73 sqM); Potassium 3.6 mmol/L (3.5-5.1); Sodium 137 mmol/L (137-145); Total Bilirubin 0.2 mg/dL (0.2-1.3); Total Protein 5.6 g/dL (6.3-8.2)
[2021-11-11 16:31] LABS: Partial Thromboplastin Time 23.3 sec (22.0-30.0); Prothrombin Time 10.5 sec (9.0-12.0)
[2021-11-11 16:32] LABS: MCH 30.4 pg (25.0-35.0); MCHC 33.3 g/dL (31.0-37.0); MCV 91.1 fL (80.0-100.0); Mean Platelet Volume 7.7; Platelet Count 347 k/uL (150-450); RBC 3.62 m/uL (3.80-5.40); RDW 12.9 % (11.5-15.5); WBC 5.1 k/uL (3.8-10.6)
--- NOTE | 2021-11-11 16:55 | XR ---
EXAMINATION TYPE: XR chest 2V DATE OF EXAM: 11/11/2021 COMPARISON: NONE HISTORY: Shortness of breath TECHNIQUE: Frontal and lateral views of the chest are obtained. FINDINGS: Scattered senescent parenchymal changes noted. Hyperinflation compatible with COPD. Strandy density left medial lung base may reflect atelectasis or developing infiltrate. Small left-si ded effusion. Heart size is stable. Mediastinal structures are stable and grossly unremarkable. No evidence for hilar prominence. Degenerative changes dorsal spine. IMPRESSION: 1. Strandy density left medial lung base may reflect atelectasis or developing infiltrate. Small left -sided effusion.
[2021-11-11 17:24] LABS: Lymphocytes # (M) 0.77 k/uL (1.0-4.8); Monocytes # (M) 0.56 k/uL (0-1.0); Neutrophils # (M) 3.77 k/uL (1.3-7.7); Neutrophils % (M) 74 %; Nucleated Red Blood Cells 0 /100 WBC (0-0); Total Cells Counted 100
[2021-11-11 17:25] LABS: RBC Morphology Normal
--- NOTE | 2021-11-11 17:57 | CT ---
EXAMINATION TYPE: CT abdomen pelvis w con DATE OF EXAM: 11/11/2021 HISTORY: LLQ pain, diarrhea CT DLP: 462.1mGycm Automated Exposure Control for Dose Reduction was Utilized. CONTRAST: CT scan of the abdomen and pelvis is performed with IV Contrast, patient injected with 100 mL of Isovue 300. COMPARISON: 06/30/2018 FINDINGS: LUNG BASES: Throughout the visualized left lung base there are multifocal ill-defined opacities consi stent with a clinical diagnosis of multifocal bronchopneumonia. Would recommend follow-up until resol ution. LIVER/GB: No significant abnormality is appreciated. PANCREAS: No significant abnormality is seen. SPLEEN: No significant abnormality is seen. ADRENALS: No significant abnormality is seen. KIDNEYS AND URETERS AND BLADDER: No significant abnormality is seen. Moderate urinary bladder distent ion noted. BOWEL: The unopacified loops of bowel do not allow adequate visualization. No definite acute bowel pr ocess. However, diverticulitis can't be present in this setting. Would consider oral contrast and del ayed CT or x-ray imaging to follow the oral contrast transit. UTERUS/ADNEXA: No gross abnormality seen. LYMPH NODES: No greater than 1cm abdominal or pelvic lymph nodes are appreciated. OSSEOUS STRUCTURES: No significant abnormality is seen. OTHER: No acute vascular finding. IMPRESSION: 1. Prominent left lung base pneumonia pattern. 2. No definite acute abdominal process. However, bowel incontinence as above.
[2021-11-11] MEDS ORDERED: NITROGLYCERIN OINT 1 INCH/GM PACKET TOPICAL STA (17:58)
[2021-11-11] MEDS ORDERED: HEPARIN SODIUM 1,000 UN/ML (10ML VL) IV PRN (17:58)
[2021-11-11] MEDS ORDERED: HEPARIN SODIUM 1,000 UN/ML (10ML VL) IV ONE (17:58)
[2021-11-11] MEDS ORDERED: HEPARIN SOD,PORK IN 0.45% NACL 25,000 UNIT in 0.45% NACL 1 250ML.BAG IV SCH (18:00)
[2021-11-11] MEDS ORDERED: NALOXONE 0.4 MG/ML 1 ML VIAL IV PRN (18:02)
[2021-11-11 18:41] LABS: Appearance,Urine Clear (Clear); Bilirubin,Urine Negative (Negative); Blood,Urine Negative (Negative); Color,Urine Yellow; Glucose,Urine (UA) 2+ (Negative); Ketones,Urine Negative (Negative); Leukocyte Esterase,Urine Negative (Negative); Nitrite,Urine Negative (Negative); Protein,Urine Trace (Negative); Urobilinogen,Urine <2.0 mg/dL (<2.0)
[2021-11-11] MEDS ORDERED: ALBUTEROL NEBULIZED 2.5 MG/3 ML INHALATION PRN (18:46)
[2021-11-11] MEDS: SODIUM CHLORIDE 0.9% 1,000 ML IV SCH (18:57)
[2021-11-11] MEDS: AZITHROMYCIN 500 MG in SODIUM CHLORIDE 0.9% 250 ML IVPB SCH ×3 (20:48→23:30)
[2021-11-11] MEDS: metFORMIN 500 MG TAB PO SCH (23:30)
[2021-11-12] MEDS ORDERED: AMINOPHYLLINE 500 MG/20 ML VIAL IV PRN (08:52)
[2021-11-12] MEDS ORDERED: CAFFEINE CITRATE 60 MG/3 ML VIAL IV PRN (08:52)
[2021-11-12] MEDS ORDERED: REGADENOSON 0.4 MG/5 ML SYRINGE IV PRN (08:52)
[2021-11-12 09:18] LABS: INR 0.9 (<1.2); Partial Thromboplastin Time 25.3 sec (22.0-30.0); Prothrombin Time 10.1 sec (9.0-12.0)
--- NOTE | 2021-11-12 09:26 | P.CRDCN ---
History of Present Illness Consult date: 11/12/21 History of present illness: HISTORY OF PRESENT ILLNESS: This is a 76-year-old female with a past medical history significant for moderate aortic regurgitation, diabetes, aortic aneurysm, and chronic lower extremity edema. Patient follows in the office with Dr. Grady. We have been asked to see the patient in consultation for chest pain. Patient examined at the bedside. Patient reports she was at her PCP office yesterday when she developed chest pain. She states she has been having chest pain on and off for a couple days. It is non-exertional. She reports the pain is a pressure type sensation and also achy at times. She reports occasional radiation of the pain to the left arm and neck. She is chest pain free at the time of examination this morning. * EKG reveals sinus mechanism with no signs of acute ischemia * Chest xray: strandy density left medial lung base may reflect atelectasis or developing infiltrate. Small left-sided effusion * CT abdomen pelvis: Prominent left lung base pneumonia pattern. No definite acute abdominal process. * Laboratory data: WBC 5.1. Hemoglobin 11.0. Platelet count 347. Sodium 137. Potassium 3.6. BUN 24. Creatinine 0.5. Troponin negative 3. ProBNP 79. * Current home cardiac medications include Lipitor 20 mg daily * Most recent echocardiogram obtained in November 2020 revealed ejection fraction 55%, mild LVH, moderate aortic regurgitation, mild mitral regurgitation, mild tricuspid regurgitation * Patient underwent Lexiscan stress test in December 2019 with no reversible ischemia noted. * Cardiac catheterization history: No previous records REVIEW OF SYSTEMS: At the time of my exam: CONSTITUTIONAL: Denies fever or chills. HEENT: Denies blurred vision, vision changes, or eye pain. Denies hemoptysis CARDIOVASCULAR: Denies chest pain. Denies orthopnea. Denies PND. Denies palpitations RESPIRATORY: Denies shortness of breath. GASTROINTESTINAL: Denies abdominal pain. Denies nausea or vomiting. HEMATOLOGIC: Denies bleeding disorders. GENITOURINARY: Denies any blood in urine. SKIN: Denies pruitis. Denies rash. PHYSICAL EXAM: VITAL SIGNS: Reviewed. GENERAL: Well-developed in no acute distress. HEENT: Head is normocephalic. Pupils are equal, round. Sclerae anicteric. Mucous membranes of the mouth are moist. Neck supple. No JVD or thyromegaly LUNGS: Respirations even and unlabored. Lungs essentially clear to auscultation bilaterally. HEART: Regular rate and rhythm. S1 and S2 heard. ABDOMEN: Soft. Nondistended. Nontender. EXTREMITIES: Normal range of motion. No clubbing or cyanosis. Peripheral pulses intact. No lower extremity edema NEUROLOGIC: Awake and alert. Oriented x 3. ASSESSMENT: Chest pain, troponins negative 3 History of ascending aortic aneurysm Diabetes Hyperlipidemia Moderate aortic regurgitation PLAN: An acute coronary event has been ruled out Resume home cardiac medications Patient to undergo Ada scan stress test to assess for ischemia Further recommendations pending patient course Nurse practitioner note has been reviewed by physician. Signing provider agrees with the documented findings, assessment, and plan of care. Past Medical History Past Medical History: Asthma, Diabetes Mellitus, GERD/Reflux, Rheumatoid Arthritis (RA) Additional Past Medical History / Comment(s): scoliosis History of Any Multi-Drug Resistant Organisms: None Reported Past Surgical History: Orthopedic Surgery Additional Past Surgical History / Comment(s): foot surgery, epidural shots Past Anesthesia/Blood Transfusion Reactions: No Reported Reaction Past Psychological History: No Psychological Hx Reported Smoking Status: Never smoker - Past Family History Mother Family Medical History: No Reported History Medications and Allergies Home Medications Medication Instructions Recorded Confirmed Type Albuterol Inhaler [Ventolin Hfa 2 puff INHALATION RT-QID PRN 02/19/21 11/11/21 History Inhaler] Sucralfate [Carafate] 1 gm PO ACHS 02/19/21 11/11/21 History metFORMIN HCL ER [Glucophage XR] 500 mg PO QID 02/19/21 11/11/21 History Atorvastatin [Lipitor] 20 mg PO DAILY 11/11/21 11/11/21 History Cyclobenzaprine [Flexeril] 5 mg PO BID PRN 11/11/21 11/11/21 History Diclofenac Sodium Gel [Voltaren 2 - 4 gm TOPICAL TID PRN 11/11/21 11/11/21 History Gel] Estradiol Cream [Estrace Cream 1 gm VAGINAL TUTH 11/11/21 11/11/21 History 0.01%] Insulin Glargine/Lixisenatide 25 units SQ DAILY 11/11/21 11/11/21 History [Soliqua 100 Unit-33 Mcg/ml Pen] Miconazole Nitrate [Miconazole 1 applic TOPICAL BID 11/11/21 11/11/21 History Nitrate 2%] Mupirocin 2% Oint [Bactroban 2% 1 applic TOPICAL TID 11/11/21 11/11/21 History Oint] Pioglitazone [Actos] 15 mg PO DAILY 11/11/21 11/11/21 History Allergies Allergy/AdvReac Type Severity Reaction Status Date / Time moxifloxacin [From Avelox] AdvReac Nausea Verified 11/11/21 18:20 nitrofurantoin AdvReac Nausea Verified 11/11/21 18:20 Penicillins AdvReac Nausea Verified 11/11/21 18:20 Physical Exam Vitals: Vital Signs Temp Pulse Resp BP Pulse Ox 11/11/21 19:15 80 121/53 97 11/11/21 16:30 83 16 121/59 11/11/21 16:09 94 15 124/55 11/11/21 15:59 81 17 117/65 100 11/11/21 15:19 98 F 83 16 123/60 96 Intake and Output 11/11/21 11/12/21 11/12/21 22:59 06:59 14:59 Other: Weight 39.009 kg Results 11/11/21 16:12 11/11/21 16:12 Cardiac Enzymes 11/11/21 11/11/21 11/11/21 Range/Units 16:12 16:12 20:45 AST 25 (14-36) U/L Troponin I <0.012 <0.012 (0.000-0.034) ng/mL 11/12/21 Range/Units 00:34 AST (14-36) U/L Troponin I <0.012 (0.000-0.034) ng/mL Coagulation 11/11/21 11/12/21 Range/Units 16:12 00:34 PT 10.5 (9.0-12.0) sec APTT 23.3 26.7 (22.0-30.0) sec CBC 11/11/21 Range/Units 16:12 WBC 5.1 (3.8-10.6) k/uL RBC 3.62 L (3.80-5.40) m/uL Hgb 11.0 L (11.4-16.0) gm/dL Hct 33.0 L (34.0-46.0) % Plt Count 347 (150-450) k/uL Comprehensive Metabolic Panel 11/11/21 Range/Units 16:12 Sodium 137 (137-145) mmol/L Potassium 3.6 (3.5-5.1) mmol/L Chloride 101 (98-107) mmol/L Carbon Dioxide 26 (22-30) mmol/L BUN 24 H (7-17) mg/dL Creatinine 0.50 L (0.52-1.04) mg/dL Glucose 197 H (74-99) mg/dL Calcium 9.0 (8.4-10.2) mg/dL AST 25 (14-36) U/L ALT 38 H (4-34) U/L Alkaline Phosphatase 77 (38-126) U/L Total Protein 5.6 L (6.3-8.2) g/dL Albumin 3.1 L (3.5-5.0) g/dL Current Medications Generic Name Dose Route Start Last Admin Trade Name Freq PRN Reason Stop Dose Admin Acetaminophen 650 mg 11/11/21 18:02 Acetaminophen Tab 325 Mg Tab PO Q6HR PRN Mild Pain or Fever > 100.5 Albuterol Sulfate 2.5 mg 11/11/21 18:46 Albuterol Nebulized 2.5 Mg/3 Ml INHALATION RT-QID PRN Shortness Of Breath Atorvastatin Calcium 20 mg 11/12/21 09:00 Atorvastatin 20 Mg Tab PO DAILY ARLIN Cyclobenzaprine HCl 5 mg 11/11/21 18:46 Cyclobenzaprine 5 Mg Tab PO BID PRN Muscle Spasm Heparin Sodium (Porcine) 0 unit 11/11/21 17:58 Heparin Sodium 1,000 Un/Ml (10ml Vl) IV PER PROTOCOL PRN Low PTT Protocol Heparin Sodium/Sodium Chloride 250 mls @ 4.681 mls/hr 11/11/21 18:00 11/11/21 19:06 25,000 unit/ Sodium Chloride IV 12 units/kg/hr .Q24H ARLIN 4.681 mls/hr Administration Protocol 12 UNITS/KG/HR Ceftriaxone Sodium 2 gm/ 50 mls @ 100 mls/hr 11/11/21 18:30 11/11/21 18:57 Sodium Chloride IVPB 100 mls/hr Q24H ARLIN Administration Protocol Azithromycin 500 mg/ Sodium 250 mls @ 250 mls/hr 11/11/21 19:00 11/11/21 23 :30 Chloride IVPB 11/13/21 19:59 250 mls/hr Q24H ARLIN Administration Protocol Sodium Chloride 1,000 mls @ 100 mls/hr 11/11/21 18:15 11/11/21 18:57 Saline 0.9% IV 100 mls/hr .Q10H ARLIN Administration Metformin HCl 500 mg 11/11/21 22:00 11/11/21 23:30 Metformin 500 Mg Tab PO 500 mg QID ARLIN Administration Naloxone HCl 0.2 mg 11/11/21 18:02 Naloxone 0.4 Mg/Ml 1 Ml Vial IV Q2M PRN Opioid Reversal Non-Formulary Medication 25 units 11/12/21 09:00 Insulin Glargine/Lixisenatide [Soliqua 100 Unit-33 Mcg/Ml Pen] SQ DAILY ARLIN Intake and Output 11/11/21 11/12/21 11/12/21 22:59 06:59 14:59 Other: Weight 39.009 kg 11/11/21 16:12 11/11/21 16:12
--- NOTE | 2021-11-12 09:45 | P.CONS ---
History of Present Illness - Reason for Consult Consult date: 11/12/21 wound care - History of Present Illness This is a 76-year-old patient with a past medical history significant for asthma diabetes GERD rheumatoid arthritis. Patient is being seen in the ER for a nonhealing ulceration to the right buttocks. Patient states that she was utilizing a pain patch where she was putting tape onto secure the edges and skin was pulled off when she removed it. Patient has a nonhealing ulceration with fatty layer exposure to the right buttocks measuring approximately 2 x 3 x 0.1 cm Slough and nonviable tissue present to the wound bed with minimal granulation. The wound edges are attached to the wound base there is no tunneling or undermining noted. Review Of Systems: Constitutional: No fever, no chills, no night sweats. No weight change. No weakness, fatigue or lethargy. No daytime sleepiness. Integumentary:reports wounds, no lesions. No rash or pruritus. No unusual bruising. No change in hair or nails. Physical exam: General Appearance: Alert, cooperative, no distress, appears stated age. Skin: See HPI all other Skin color, texture, tugor normal, no rashes or lesions. Neurologic: Alert oriented x3 Assessment: 1. Nonhealing ulceration with fatty layer exposure right buttocks 2. Diabetes with skin ulceration Plan: 1. Apply triad and I will order some gauze to the site changing daily. Thank you for the consultation any questions please contact the wound care [facility] note has been reviewed and discussed with Dr. Bowden and the impression and plan of care has been directed as dictated. Past Medical History Past Medical History: Asthma, Diabetes Mellitus, GERD/Reflux, Rheumatoid Arthritis (RA) Additional Past Medical History / Comment(s): scoliosis History of Any Multi-Drug Resistant Organisms: None Reported Past Surgical History: Orthopedic Surgery Additional Past Surgical History / Comment(s): foot surgery, epidural shots Past Anesthesia/Blood Transfusion Reactions: No Reported Reaction Past Psychological History: No Psychological Hx Reported Smoking Status: Never smoker - Past Family History Mother Family Medical History: No Reported History Medications and Allergies Home Medications Medication Instructions Recorded Confirmed Type Albuterol Inhaler [Ventolin Hfa 2 puff INHALATION RT-QID PRN 02/19/21 11/11/21 History Inhaler] Sucralfate [Carafate] 1 gm PO ACHS 02/19/21 11/11/21 History metFORMIN HCL ER [Glucophage XR] 500 mg PO QID 02/19/21 11/11/21 History Atorvastatin [Lipitor] 20 mg PO DAILY 11/11/21 11/11/21 History Cyclobenzaprine [Flexeril] 5 mg PO BID PRN 11/11/21 11/11/21 History Diclofenac Sodium Gel [Voltaren 2 - 4 gm TOPICAL TID PRN 11/11/21 11/11/21 History Gel] Estradiol Cream [Estrace Cream 1 gm VAGINAL TUTH 11/11/21 11/11/21 History 0.01%] Insulin Glargine/Lixisenatide 25 units SQ DAILY 11/11/21 11/11/21 History [Soliqua 100 Unit-33 Mcg/ml Pen] Miconazole Nitrate [Miconazole 1 applic TOPICAL BID 11/11/21 11/11/21 History Nitrate 2%] Mupirocin 2% Oint [Bactroban 2% 1 applic TOPICAL TID 11/11/21 11/11/21 History Oint] Pioglitazone [Actos] 15 mg PO DAILY 11/11/21 11/11/21 History Allergies Allergy/AdvReac Type Severity Reaction Status Date / Time moxifloxacin [From Avelox] AdvReac Nausea Verified 11/11/21 18:20 nitrofurantoin AdvReac Nausea Verified 11/11/21 18:20 Penicillins AdvReac Nausea Verified 11/11/21 18:20 Physical Exam Vitals: Vital Signs Temp Pulse Pulse Resp BP BP Pulse Ox 11/12/21 08:57 97.8 F 72 18 136/71 98 11/11/21 19:15 80 121/53 97 11/11/21 16:30 83 16 121/59 11/11/21 16:09 94 15 124/55 11/11/21 15:59 81 17 117/65 100 11/11/21 15:19 98 F 83 16 123/60 96 Intake and Output 11/11/21 11/12/21 11/12/21 22:59 06:59 14:59 Other: Weight 39.009 kg 39.009 kg Results CBC & Chem 7: 11/11/21 16:12 11/11/21 16:12 Labs: Abnormal Lab Results - Last 24 Hours (Table) 11/11/21 11/11/21 11/11/21 Range/Units 16:12 16:12 Unknown RBC 3.62 L (3.80-5.40) m/uL Hgb 11.0 L (11.4-16.0) gm/dL Hct 33.0 L (34.0-46.0) % Lymphocytes # (Manual) 0.77 L (1.0-4.8) k/uL BUN 24 H (7-17) mg/dL Creatinine 0.50 L (0.52-1.04) mg/dL Glucose 197 H (74-99) mg/dL ALT 38 H (4-34) U/L Total Protein 5.6 L (6.3-8.2) g/dL Albumin 3.1 L (3.5-5.0) g/dL Ur Specific [place] 1.050 H (1.001-1.035) Urine Protein Trace H (Negative) Urine Glucose (UA) 2+ H (Negative) Assessment and Plan (1) Non-pressure chronic ulcer of buttock with fat layer exposed Current Visit: Yes Status: Acute Code(s): L98.412 - NON-PRESSURE CHRONIC ULCER OF BUTTOCK WITH FAT LAYER EXPOSED SNOMED Code(s): 067843339 (2) Type 2 diabetes mellitus with other skin ulcer Current Visit: Yes Status: Acute Code(s): E11.622 - TYPE 2 DIABETES MELLITUS WITH OTHER SKIN ULCER; L98.499 - NON-PRESSURE CHRONIC ULCER OF SKIN OF SITES W UNSP SEVERITY SNOMED Code(s): 777649586
[2021-11-12 10:30] LABS: Basophils # (A) 0.04 X 10*3/uL (0.00-0.10); Basophils % (A) 0.7 %; Eosinophils # (A) 0.09 X 10*3/uL (0.04-0.35); Eosinophils % (A) 1.5 %; HCT 36.9 % (37.2-46.3); HGB 11.7 g/dL (12.0-15.0); Immature Grans, Automated 0.3 %; Lymphocytes # (A) 0.92 X 10*3/uL (0.90-5.00); MCH 29.8 pg (27.0-32.0); MCHC 31.7 g/dL (32.0-37.0); MCV 94.1 fL (80.0-97.0); Mean Platelet Volume 9.9 fL (9.5-12.2); Monocytes # (A) 0.51 X 10*3/uL (0.20-1.00); Monocytes % (A) 8.3 %; NRBC Per 100 WBC 0 /100 WBCS (0.0-0.0); Neutrophils # (A) 4.54 X 10*3/uL (1.80-7.70); Neutrophils % (A) 74.2 %; Platelet Count 372 X 10*3/uL (140-440); RBC 3.92 X 10*6/uL (4.10-5.20); RDW 13.3 % (11.5-14.5); WBC 6.12 X 10*3/uL (4.50-10.00)
[2021-11-12 10:50] LABS: African American GFR (CKD) 118.9 (60.0-200.0); Anion Gap 11.1 mmol/L (10.00-18.00); BUN/Creat Ratio 33.25 Ratio (12.00-20.00); Blood Urea Nitrogen 13.3 mg/dL (9.0-27.0); Calcium 8.2 mg/dL (8.7-10.3); Carbon Dioxide 26.9 mmol/L (20.0-27.5); Non-African American GFR(CKD) 102.6 (60.0-200.0); Potassium 3.6 mmol/L (3.5-5.5)
[2021-11-12] MEDS: ACETAMINOPHEN TAB 325 MG TAB PO PRN ×2 (11:14→20:22)
[2021-11-12] MEDS: NON FORMULARY DRUG (Insulin Glargine/Lixisenatide [Soliqua 100 Unit-33 Mcg/Ml Pen] 3 ML In SQ SCH (11:48)
--- NOTE | 2021-11-12 13:00 | CA ---
Transthoracic Echo Report Name: Pamela Encinas Age: 76 Gender: F : 1945 Exam Date: 11/12/2021 08:28 Exam Location: [facility] Ht (in): 58 Wt (lb): 86 Ordering Physician: Carey Salmon Attending/Referring Phys: [id number], Viky [employer] Technician Tigist Coleman RDCS Procedure CPT: Indications: LV function Cardiac Hx: Technical Quality: Fair Contrast 1: Total Dose (mL): Contrast 2: Total Dose (mL): MEASUREMENTS (Male / Female) Normal Values 2D ECHO LV Diastolic Diameter PLAX 4.1 cm 4.2 - 5.9 / 3.9 - 5.3 cm LV Systolic Diameter PLAX 2.4 cm IVS Diastolic Thickness 1.1 cm 0.6 - 1.0 / 0.6 - 0.9 cm LVPW Diastolic Thickness 1.1 cm 0.6 - 1.0 / 0.6 - 0.9 cm LV Relative Wall Thickness 0.5 RV Internal Dim ED PLAX 3.4 cm LA Volume 38.1 cm??? 18 - 58 / 22 - 52 cm??? M-MODE Aortic Root Diameter MM 2.4 cm LA Systolic Diameter MM 3.0 cm LA Ao Ratio MM 1.2 AV Cusp Separation MM 1.8 cm DOPPLER AV Peak Velocity 117.9 cm/s AV Peak Gradient 5.6 mmHg AI Peak Velocity 352.3 cm/s AI Peak Gradient 49.6 mmHg AI Pressure Half Time 334.5 ms LVOT Peak Velocity 96.7 cm/s LVOT Peak Gradient 3.7 mmHg MV Area PHT 4.4 cm??? Mitral E Point Velocity 70.3 cm/s Mitral A Point Velocity 108.4 cm/s Mitral E to A Ratio 0.6 MV Deceleration Time 173.5 ms TR Peak Velocity 357.1 cm/s TR Peak Gradient 51.0 mmHg Right Ventricular Systolic Press 51.9 mmHg FINDINGS Left Ventricle Mildly increased left ventricular wall thickness. Normal left ventricular systolic function with no obvious regional wall motion abnormalities. Left ventricular ejection fraction is estimated at 55-60 %. Right Ventricle Mild right ventricular dilatation. Moderate to severe pulmonary hypertension. Right Atrium Normal right atrial size. Left Atrium Normal left atrial size. Mitral Valve Structurally normal mitral valve. Mild mitral annular calcification. Trace to mild mitral regurgitation. Aortic Valve Trileaflet aortic valve. [id number] aortic regurgitation. Aortic valve sclerosis. Tricuspid Valve Structurally normal tricuspid valve. [id number] tricuspid regurgitation. Pulmonic Valve Trace pulmonic regurgitation. Pericardium No pericardial effusion. Aorta Mildly dilated proximal ascending aorta (tube). CONCLUSIONS Normal left ventricular dimension and systolic function Trileaflet aortic valve with [id number] aortic insufficiency Previewed by: Dr. Rey Harden MD (Electronically Signed) Final Date: 12 November 2021 12:59
[2021-11-12 13:41] LABS: Glucose,Whole Blood 195 mg/dL (70-110)
[2021-11-12] MEDS: ATORVASTATIN 20 MG TAB PO SCH (13:43)
[2021-11-12] MEDS: metFORMIN 500 MG TAB PO SCH ×4 (13:43→22:19)
--- NOTE | 2021-11-12 13:53 | NM ---
EXAMINATION TYPE: NM stress lexiscan cardiolite DATE OF EXAM: 11/12/2021 COMPARISON: NONE HISTORY: Chest pain TECHNIQUE: After the intravenous administration of 9.7 mCi Tc 99m Sestamibi - Cardiolite resting SPE CT images acquired 55 minutes post injection. The patient received 0.4mg Lexiscan, 23 mCi Tc 99m Sestamibi - Stress images obtained 35 minutes post injection FINDINGS: Review of stress and rest SPECT images demonstrates decreased uptake along the inferior wall left joey tricle extending into the inferolateral and inferoseptal locations towards the apex. The horizontal long axis shows some questionable decreased uptake along the cardiac apex on stress as compared to re st images towards inferior wall not well demonstrated on additional imaging planes. Gated analysis s hows normal wall motion with an estimated left ventricular ejection fraction of 72 %. Gut activity is present on the exam. IMPRESSION: No definite scintigraphic evidence for reversible ischemia with findings described above noted in onl y one of the imaging planes. Findings consistent with previous infarct. Correlate with echocardiograp hic studies for elevated ejection fraction
[2021-11-12 17:48] LABS: Glucose,Whole Blood 266 mg/dL (70-110)
[2021-11-12] MEDS: SODIUM CHLORIDE 0.9% 1,000 ML IV SCH ×2 (18:13→18:14)
[2021-11-12] MEDS: HYDROPHILIC CREAM 180 GM TUBE TOPICAL SCH (18:13)
[2021-11-12] MEDS: AZITHROMYCIN 500 MG TAB PO SCH (20:22)
[2021-11-12 21:03] LABS: Glucose,Whole Blood 260 mg/dL (70-110)
[2021-11-13] MEDS: SODIUM CHLORIDE 0.9% 1,000 ML IV SCH ×3 (00:43→20:46)
[2021-11-13 08:30] LABS: Glucose,Whole Blood 257 mg/dL (70-110)
[2021-11-13] MEDS ORDERED: DEXTROSE 50% SYRINGE 50 ML IVP PRN ×2 (09:04)
[2021-11-13] MEDS ORDERED: LOPERAMIDE 2 MG CAP PO STA (09:07)
--- NOTE | 2021-11-13 09:16 | P.HPIM ---
History of Present Illness H&P Date: 11/12/21 Chief Complaint: Chest pain 76-year-old female with past medical history remarkable for anxiety, diverticulosis, asthma, diabetes, acid reflux who presents emergency Department complaining of chest pain. Patient states the chest pain began while she was on her way to the doctor's office approximately 2.5-3 hours prior to arrival. She states it started at approximately 12:30 or 1 PM. States it is substernal. Described as a pressure/squeezing sensation. Has not had that pain previously. States she was anxious but is uncertain if that is what caused it. Denies any shortness of breath with it. Endorses possible diaphoresis with the pain initially. Denies lightheadedness, blurry vision. Denies any fevers, chills. Has been having an increased nonproductive cough over the last few days as well. No fevers or sick contacts. Patient states over the last few days she has noticed that she is been having some mild left lower quadrant abdominal discomfort as well as diarrhea. Denies any urinary complaints. Denies any vaginal discharge or bleeding. States her stool is loose, brown and nonbloody. No nausea or vomiting. No history cardiac disease. No history of cardiac stents. Patient did receive aspirin as well as a nitro tablet by EMS. She states her pain is improved but is uncertain if it was the medications that caused it or time. * EKG reveals sinus mechanism with no signs of acute ischemia * Chest xray: strandy density left medial lung base may reflect atelectasis or developing infiltrate. Small left-sided effusion * CT abdomen pelvis: Prominent left lung base pneumonia pattern. No definite acute abdominal process. * Laboratory data: WBC 5.1. Hemoglobin 11.0. Platelet count 347. Sodium 137. Potassium 3.6. BUN 24. Creatinine 0.5. Troponin negative 3. ProBNP 79. Review of Systems REVIEW OF SYSTEMS: CONSTITUTIONAL: No fever, no malaise, no fatigue. HEENT: No recent visual problems or hearing problems. Denied any sore throat. CARDIOVASCULAR: chest pain PULMONARY: No shortness of breath, no cough, no hemoptysis. GASTROINTESTINAL: No diarrhea, no nausea, no vomiting, no abdominal pain. NEUROLOGICAL: No headaches, no weakness, no numbness. HEMATOLOGICAL: Denies any bleeding or petechiae. GENITOURINARY: Denies any burning micturition, frequency, or urgency. MUSCULOSKELETAL/RHEUMATOLOGICAL: Denies any joint pain, swelling, or any muscle pain. ENDOCRINE: Denies any polyuria or polydipsia. The rest of the 14-point review of systems is negative. Past Medical History Past Medical History: Asthma, Diabetes Mellitus, GERD/Reflux, Rheumatoid Arthritis (RA) Additional Past Medical History / Comment(s): scoliosis History of Any Multi-Drug Resistant Organisms: None Reported Past Surgical History: Orthopedic Surgery Additional Past Surgical History / Comment(s): foot surgery, epidural shots Past Anesthesia/Blood Transfusion Reactions: No Reported Reaction Past Psychological History: No Psychological Hx Reported Smoking Status: Never smoker - Past Family History Mother Family Medical History: No Reported History Medications and Allergies Home Medications Medication Instructions Recorded Confirmed Type Albuterol Inhaler [Ventolin Hfa 2 puff INHALATION RT-QID PRN 02/19/21 11/11/21 History Inhaler] Sucralfate [Carafate] 1 gm PO ACHS 02/19/21 11/11/21 History metFORMIN HCL ER [Glucophage XR] 500 mg PO QID 02/19/21 11/11/21 History Atorvastatin [Lipitor] 20 mg PO DAILY 11/11/21 11/11/21 History Cyclobenzaprine [Flexeril] 5 mg PO BID PRN 11/11/21 11/11/21 History Diclofenac Sodium Gel [Voltaren 2 - 4 gm TOPICAL TID PRN 11/11/21 11/11/21 History Gel] Estradiol Cream [Estrace Cream 1 gm VAGINAL TUTH 11/11/21 11/11/21 History 0.01%] Insulin Glargine/Lixisenatide 25 units SQ DAILY 11/11/21 11/11/21 History [Soliqua 100 Unit-33 Mcg/ml Pen] Miconazole Nitrate [Miconazole 1 applic TOPICAL BID 11/11/21 11/11/21 History Nitrate 2%] Mupirocin 2% Oint [Bactroban 2% 1 applic TOPICAL TID 11/11/21 11/11/21 History Oint] Pioglitazone [Actos] 15 mg PO DAILY 11/11/21 11/11/21 History Allergies Allergy/AdvReac Type Severity Reaction Status Date / Time moxifloxacin [From Avelox] AdvReac Nausea Verified 11/11/21 18:20 nitrofurantoin AdvReac Nausea Verified 11/11/21 18:20 Penicillins AdvReac Nausea Verified 11/11/21 18:20 Physical Exam Vitals: Vital Signs Temp Pulse Pulse Resp BP BP Pulse Ox 11/12/21 08:57 97.8 F 72 18 136/71 98 11/11/21 19:15 80 121/53 97 11/11/21 16:30 83 16 121/59 11/11/21 16:09 94 15 124/55 11/11/21 15:59 81 17 117/65 100 11/11/21 15:19 98 F 83 16 123/60 96 Intake and Output 11/11/21 11/12/21 11/12/21 22:59 06:59 14:59 Other: # Voids 1 Weight 39.009 kg 39.009 kg GENERAL: Well-developed in no acute distress. HEENT: Head is normocephalic. Pupils are equal, round. Sclerae anicteric. Mucous membranes of the mouth are moist. Neck supple. No JVD or thyromegaly LUNGS: Respirations even and unlabored. Lungs essentially clear to auscultation bilaterally. HEART: Regular rate and rhythm. S1 and S2 heard. ABDOMEN: Soft. Nondistended. Nontender. EXTREMITIES: Normal range of motion. No clubbing or cyanosis. Peripheral pulses intact. No lower extremity edema NEUROLOGIC: Awake and alert. Oriented x 3. Results CBC & Chem 7: 11/12/21 08:22 11/12/21 08:22 Labs: Abnormal Lab Results - Last 24 Hours (Table) 11/11/21 11/11/21 11/11/21 Range/Units 16:12 16:12 Unknown RBC 3.62 L (3.80-5.40) m/uL Hgb 11.0 L (11.4-16.0) gm/dL Hct 33.0 L (34.0-46.0) % MCHC (32.0-37.0) g/dL Lymphocytes # (Manual) 0.77 L (1.0-4.8) k/uL Sodium (135-145) mmol/L BUN 24 H (7-17) mg/dL Creatinine 0.50 L (0.52-1.04) mg/dL BUN/Creatinine Ratio (12.00-20.00) Ratio Glucose 197 H (74-99) mg/dL Calcium (8.7-10.3) mg/dL ALT 38 H (4-34) U/L Total Protein 5.6 L (6.3-8.2) g/dL Albumin 3.1 L (3.5-5.0) g/dL Ur Specific [place] 1.050 H (1.001-1.035) Urine Protein Trace H (Negative) Urine Glucose (UA) 2+ H (Negative) 11/12/21 11/12/21 Range/Units 08:22 08:22 RBC 3.92 L (3.80-5.40) m/uL Hgb 11.7 L (11.4-16.0) gm/dL Hct 36.9 L (34.0-46.0) % MCHC 31.7 L (32.0-37.0) g/dL Lymphocytes # (Manual) (1.0-4.8) k/uL Sodium 146 H (135-145) mmol/L BUN (7-17) mg/dL Creatinine 0.4 L (0.52-1.04) mg/dL BUN/Creatinine Ratio 33.25 H (12.00-20.00) Ratio Glucose 146 H (74-99) mg/dL Calcium 8.2 L (8.7-10.3) mg/dL ALT (4-34) U/L Total Protein (6.3-8.2) g/dL Albumin (3.5-5.0) g/dL Ur Specific [place] (1.001-1.035) Urine Protein (Negative) Urine Glucose (UA) (Negative) Assessment and Plan Assessment: 1. Chest pain rule out acute coronary syndrome - Patient will be admitted to telemetry; we will monitor EKG and trend troponin - Recent echocardiogram was completed and November 2020 which revealed EF of 55%, mild LVH, moderate aortic regurgitation, mild mitral regurgitation, mild tricuspid regurgitation; recommend repeat echocardiogram - We will continue with home statin therapy; aspirin - Consult cardiology for further recommendations 2. Mild hyponatremia; sodium at 146 upon admission; encouraged patient for increased oral intake; renal function is stable 3. Hyperglycemia without acidosis/diabetes mellitus; continue with home dose of insulin glargine; monitor Accu-Cheks every before meals and at bedtime with insulin sliding scale 4. Left Basilar pneumonia; patient remains on IV Rocephin and azithromycin; we will monitor CBC, CRP and pro-calcitonin 5. Asthma; not in exacerbation; continue with home inhaler therapy 6. History of rheumatoid arthritis; continue with volteran gel and muscle relaxers DVT Ppx; SCDs CODE STATUS; full code
[2021-11-13] MEDS: NON FORMULARY DRUG (Insulin Glargine/Lixisenatide [Soliqua 100 Unit-33 Mcg/Ml Pen] 3 ML In SQ SCH (09:29)
[2021-11-13] MEDS: ATORVASTATIN 20 MG TAB PO SCH (09:36)
[2021-11-13] MEDS: INSULIN ASPART (NovoLOG) 100 UNIT/ML VIAL SQ SCH ×4 (09:36→22:04)
[2021-11-13] MEDS: HYDROPHILIC CREAM 180 GM TUBE TOPICAL SCH (09:37)
[2021-11-13] MEDS: metFORMIN 500 MG TAB PO SCH (10:00)
[2021-11-13 11:12] LABS: Basophils % (A) 1 %; Eosinophils # (A) 0.1 k/uL (0-0.7); Eosinophils % (A) 1 %; HCT 39.9 % (34.0-46.0); HGB 12.4 gm/dL (11.4-16.0); Hypochromasia Slight; Lymphocytes # (A) 0.5 k/uL (1.0-4.8); Lymphocytes % (A) 9 %; MCHC 31.1 g/dL (31.0-37.0); Mean Platelet Volume 7.5; Monocytes # (A) 0.5 k/uL (0-1.0); Monocytes % (A) 9 %; Neutrophils # (A) 4.3 k/uL (1.3-7.7); Neutrophils % (A) 77 %; Platelet Count 335 k/uL (150-450); RBC 4.14 m/uL (3.80-5.40); RDW 12.8 % (11.5-15.5); WBC 5.6 k/uL (3.8-10.6)
[2021-11-13 11:25] LABS: African American GFR (CKD) >90 (>60 ml/min/1.73 sqM); Anion Gap 9 mmol/L; Blood Urea Nitrogen 11 mg/dL (7-17); Carbon Dioxide 25 mmol/L (22-30); Chloride 102 mmol/L (98-107); Glucose 357 mg/dL (74-99); Non-African American GFR(CKD) >90 (>60 ml/min/1.73 sqM); Potassium 3.7 mmol/L (3.5-5.1); Sodium 136 mmol/L (137-145)
[2021-11-13 11:31] LABS: MCV 96.4 fL (80.0-100.0)
[2021-11-13 12:20] LABS: Glucose,Whole Blood 328 mg/dL (70-110)
[2021-11-13 12:49] VITALS: BMI 18.6
[2021-11-13 17:13] LABS: Glucose,Whole Blood 364 mg/dL (70-110)
[2021-11-13] MEDS: AZITHROMYCIN 500 MG TAB PO SCH (20:45)
[2021-11-13] MEDS: ACETAMINOPHEN TAB 325 MG TAB PO PRN (20:45)
[2021-11-13 21:53] LABS: Glucose,Whole Blood 312 mg/dL (70-110)
[2021-11-14] MEDS: ACETAMINOPHEN TAB 325 MG TAB PO PRN ×2 (03:53→21:04)
[2021-11-14] MEDS: SODIUM CHLORIDE 0.9% 1,000 ML IV SCH ×2 (05:41→13:26)
[2021-11-14 08:12] LABS: Glucose,Whole Blood 265 mg/dL (70-110)
[2021-11-14] MEDS: INSULIN ASPART (NovoLOG) 100 UNIT/ML VIAL SQ SCH ×4 (09:12→23:51)
[2021-11-14] MEDS: ATORVASTATIN 20 MG TAB PO SCH (09:13)
[2021-11-14] MEDS: NON FORMULARY DRUG (Insulin Glargine/Lixisenatide [Soliqua 100 Unit-33 Mcg/Ml Pen] 3 ML In SQ SCH (09:13)
[2021-11-14] MEDS: HYDROPHILIC CREAM 180 GM TUBE TOPICAL SCH (09:13)
[2021-11-14 09:35] LABS: Basophils # (A) 0.03 X 10*3/uL (0.00-0.10); Basophils % (A) 0.5 %; Eosinophils # (A) 0.12 X 10*3/uL (0.04-0.35); Eosinophils % (A) 1.9 %; HCT 33.7 % (37.2-46.3); HGB 11.5 g/dL (12.0-15.0); Immature Grans, Automated 0.6 %; Lymphocytes # (A) 0.86 X 10*3/uL (0.90-5.00); Lymphocytes % (A) 13.6 %; MCHC 34.1 g/dL (32.0-37.0); MCV 90.8 fL (80.0-97.0); Mean Platelet Volume 10.1 fL (9.5-12.2); Monocytes # (A) 0.61 X 10*3/uL (0.20-1.00); Monocytes % (A) 9.7 %; NRBC Per 100 WBC 0 /100 WBCS (0.0-0.0); Neutrophils # (A) 4.66 X 10*3/uL (1.80-7.70); Neutrophils % (A) 73.7 %; Platelet Count 315 X 10*3/uL (140-440); RBC 3.71 X 10*6/uL (4.10-5.20); WBC 6.32 X 10*3/uL (4.50-10.00)
[2021-11-14 09:51] LABS: African American GFR (CKD) 121.2 (60.0-200.0); Anion Gap 10.4 mmol/L (10.00-18.00); BUN/Creat Ratio 43.39 Ratio (12.00-20.00); Blood Urea Nitrogen 16.4 mg/dL (9.0-27.0); Calcium 8.2 mg/dL (8.7-10.3); Carbon Dioxide 21.8 mmol/L (20.0-27.5); Non-African American GFR(CKD) 104.5 (60.0-200.0); Potassium 4.4 mmol/L (3.5-5.5)
--- NOTE | 2021-11-14 10:51 | P.PN ---
Subjective Progress Note Date: 11/13/21 Principal diagnosis: Chest pain; -acute coronary syndrome ruled out Hyponatremia Left basilar pneumonia Hyperglycemia 76-year-old female with past medical history remarkable for anxiety, diverticulosis, asthma, diabetes, acid reflux who presents emergency Department complaining of chest pain. Patient states the chest pain began while she was on her way to the doctor's office approximately 2.5-3 hours prior to arrival. She states it started at approximately 12:30 or 1 PM. States it is substernal. Described as a pressure/squeezing sensation. Has not had that pain previously. States she was anxious but is uncertain if that is what caused it. Denies any shortness of breath with it. Endorses possible diaphoresis with the pain initially. Denies lightheadedness, blurry vision. Denies any fevers, chills. Has been having an increased nonproductive cough over the last few days as well. No fevers or sick contacts. Patient states over the last few days she has noticed that she is been having some mild left lower quadrant abdominal discomfort as well as diarrhea. Denies any urinary complaints. Denies any vaginal discharge or bleeding. States her stool is loose, brown and nonbloody. No nausea or vomiting. No history cardiac disease. No history of cardiac stents. Patient did receive aspirin as well as a nitro tablet by EMS. She st ates her pain is improved but is uncertain if it was the medications that caused it or time. * EKG reveals sinus mechanism with no signs of acute ischemia * Chest xray: strandy density left medial lung base may reflect atelectasis or developing infiltrate. Small left-sided effusion * CT abdomen pelvis: Prominent left lung base pneumonia pattern. No definite acute abdominal process. * Laboratory data: WBC 5.1. Hemoglobin 11.0. Platelet count 347. Sodium 137. Potassium 3.6. BUN 24. Creatinine 0.5. Troponin negative 3. ProBNP 79. Objective - Vital Signs Vital signs: Vital Signs Temp 97.9 F 11/13/21 02:20 Pulse 81 11/13/21 02:20 Resp 18 11/13/21 02:20 BP 148/66 11/13/21 02:20 Pulse Ox 97 11/13/21 02:20 FiO2 21 11/12/21 19:35 Intake & Output 11/12/21 11/13/21 11/13/21 18:59 06:59 18:59 Weight 39.009 kg Other: Voiding Method Bedside Commode # Voids 1 4 - Exam GENERAL: Well-developed in no acute distress. HEENT: Head is normocephalic. Pupils are equal, round. Sclerae anicteric. Mucous membranes of the mouth are moist. Neck supple. No JVD or thyromegaly LUNGS: Respirations even and unlabored. Lungs essentially clear to auscultation bilaterally. HEART: Regular rate and rhythm. S1 and S2 heard. ABDOMEN: Soft. Nondistended. Nontender. EXTREMITIES: Normal range of motion. No clubbing or cyanosis. Peripheral pulses intact. No lower extremity edema NEUROLOGIC: Awake and alert. Oriented x 3. - Labs CBC & Chem 7: 11/14/21 06:09 11/14/21 06:09 Labs: Abnormal Lab Results - Last 24 Hours (Table) 11/12/21 11/12/21 11/12/21 Range/Units 08:22 08:22 13:40 RBC 3.92 L (4.10-5.20) X 10*6/uL Hgb 11.7 L (12.0-15.0) g/dL Hct 36.9 L (37.2-46.3) % MCHC 31.7 L (32.0-37.0) g/dL Sodium 146 H (135-145) mmol/L Creatinine 0.4 L (0.6-1.5) mg/dL BUN/Creatinine Ratio 33.25 H (12.00-20.00) Ratio Glucose 146 H (70-110) mg/dL POC Glucose (mg/dL) 195 H (70-110) mg/dL Calcium 8.2 L (8.7-10.3) mg/dL 11/12/21 11/12/21 11/13/21 Range/Units 17:46 21:02 08:29 RBC (4.10-5.20) X 10*6/uL Hgb (12.0-15.0) g/dL Hct (37.2-46.3) % MCHC (32.0-37.0) g/dL Sodium (135-145) mmol/L Creatinine (0.6-1.5) mg/dL BUN/Creatinine Ratio (12.00-20.00) Ratio Glucose (70-110) mg/dL POC Glucose (mg/dL) 266 H 260 H 257 H (70-110) mg/dL Calcium (8.7-10.3) mg/dL Microbiology - Last 24 Hours (Table) 11/11/21 19:00 Blood Culture - Preliminary Blood No Growth after 24 hours 11/11/21 19:15 Blood Culture - Preliminary Blood No Growth after 24 hours Assessment and Plan Assessment: 1. Chest pain rule out acute coronary syndrome - Patient will be admitted to telemetry; we will monitor EKG and trend troponin - Recent echocardiogram was completed and November 2020 which revealed EF of 55%, mild LVH, moderate aortic regurgitation, mild mitral regurgitation, mild tricuspid regurgitation; recommend repeat echocardiogram - We will continue with home statin therapy; aspirin - Consult cardiology for further recommendations 2. Mild hyponatremia; sodium at 146 upon admission; encouraged patient for increased oral intake; renal function is stable 3. Hyperglycemia without acidosis/diabetes mellitus; continue with home dose of insulin glargine; monitor Accu-Cheks every before meals and at bedtime with insulin sliding scale 4. Left Basilar pneumonia; patient remains on IV Rocephin and azithromycin; we will monitor CBC, CRP and pro-calcitonin 5. Asthma; not in exacerbation; continue with home inhaler therapy 6. History of rheumatoid arthritis; continue with volteran gel and muscle relaxers DVT Ppx; SCDs CODE STATUS; full code
[2021-11-14 12:19] LABS: Glucose,Whole Blood 251 mg/dL (70-110)
--- NOTE | 2021-11-14 14:41 | P.PN ---
Subjective Progress Note Date: 11/14/21 Principal diagnosis: Chest pain; -acute coronary syndrome ruled out Hyponatremia Left basilar pneumonia Hyperglycemia 76-year-old female with past medical history remarkable for anxiety, diverticulosis, asthma, diabetes, acid reflux who presents emergency Department complaining of chest pain. Patient states the chest pain began while she was on her way to the doctor's office approximately 2.5-3 hours prior to arrival. She states it started at approximately 12:30 or 1 PM. States it is substernal. Described as a pressure/squeezing sensation. Has not had that pain previously. States she was anxious but is uncertain if that is what caused it. Denies any shortness of breath with it. Endorses possible diaphoresis with the pain initially. Denies lightheadedness, blurry vision. Denies any fevers, chills. Has been having an increased nonproductive cough over the last few days as well. No fevers or sick contacts. Patient states over the last few days she has noticed that she is been having some mild left lower quadrant abdominal discomfort as well as diarrhea. Denies any urinary complaints. Denies any vaginal discharge or bleeding. States her stool is loose, brown and nonbloody. No nausea or vomiting. No history cardiac disease. No history of cardiac stents. Patient did receive aspirin as well as a nitro tablet by EMS. She st ates her pain is improved but is uncertain if it was the medications that caused it or time. * EKG reveals sinus mechanism with no signs of acute ischemia * Chest xray: strandy density left medial lung base may reflect atelectasis or developing infiltrate. Small left-sided effusion * CT abdomen pelvis: Prominent left lung base pneumonia pattern. No definite acute abdominal process. * Laboratory data: WBC 5.1. Hemoglobin 11.0. Platelet count 347. Sodium 137. Potassium 3.6. BUN 24. Creatinine 0.5. Troponin negative 3. ProBNP 79. 11/14/2021 Patient is seen and evaluated resting comfortably in bed; denies any specific complaints Vital signs are reviewed and remained stable Lab review shows a WBC of 6.3, hemoglobin of 11.5, sodium 136 count has involvement 4, blood glucose remains elevated above 250 Patient remains on IV antibiotics for community-acquired pneumonia; continues to complain of marked weakness; PT is consulted for evaluation for transition of ca re Objective - Vital Signs Vital signs: Vital Signs Temp 97.4 F L 11/14/21 08:00 Pulse 77 11/14/21 08:00 Resp 16 11/14/21 08:00 BP 115/70 11/14/21 08:00 Pulse Ox 97 11/14/21 08:00 FiO2 21 11/12/21 19:35 Intake & Output 11/13/21 11/14/21 11/14/21 18:59 06:59 18:59 Intake Total 476 Balance 476 Weight 39.009 kg Intake: Oral 476 Other: Voiding Method Bedside Commode # Voids 2 2 # Bowel Movements 4 - Exam GENERAL: Well-developed in no acute distress. HEENT: Head is normocephalic. Pupils are equal, round. Sclerae anicteric. Mucous membranes of the mouth are moist. Neck supple. No JVD or thyromegaly LUNGS: Respirations even and unlabored. Lungs essentially clear to auscultation bilaterally. HEART: Regular rate and rhythm. S1 and S2 heard. ABDOMEN: Soft. Nondistended. Nontender. EXTREMITIES: Normal range of motion. No clubbing or cyanosis. Peripheral pulses intact. No lower extremity edema NEUROLOGIC: Awake and alert. Oriented x 3. - Labs CBC & Chem 7: 11/14/21 06:09 11/14/21 06:09 Labs: Abnormal Lab Results - Last 24 Hours (Table) 11/13/21 11/13/21 11/13/21 Range/Units 10:32 10:32 10:32 RBC (4.10-5.20) X 10*6/uL Hgb (12.0-15.0) g/dL Hct (37.2-46.3) % Lymphocytes # 0.5 L (1.0-4.8) k/uL Sodium 136 L (137-145) mmol/L Creatinine 0.37 L (0.52-1.04) mg/dL BUN/Creatinine Ratio (12.00-20.00) Ratio Glucose 357 H (74-99) mg/dL POC Glucose (mg/dL) (70-110) mg/dL Calcium 8.0 L (8.4-10.2) mg/dL Procalcitonin 0.11 H (0.02-0.09) ng/mL 11/13/21 11/13/21 11/13/21 Range/Units 12:18 17:12 21:52 RBC (4.10-5.20) X 10*6/uL Hgb (12.0-15.0) g/dL Hct (37.2-46.3) % Lymphocytes # (1.0-4.8) k/uL Sodium (137-145) mmol/L Creatinine (0.52-1.04) mg/dL BUN/Creatinine Ratio (12.00-20.00) Ratio Glucose (74-99) mg/dL POC Glucose (mg/dL) 328 H 364 H 312 H (70-110) mg/dL Calcium (8.4-10.2) mg/dL Procalcitonin (0.02-0.09) ng/mL 11/14/21 11/14/21 11/14/21 Range/Units 06:09 06:09 08:11 RBC 3.71 L (4.10-5.20) X 10*6/uL Hgb 11.5 L (12.0-15.0) g/dL Hct 33.7 L (37.2-46.3) % Lymphocytes # 0.86 L (1.0-4.8) k/uL Sodium (137-145) mmol/L Creatinine 0.4 L (0.52-1.04) mg/dL BUN/Creatinine Ratio 43.39 H (12.00-20.00) Ratio Glucose 293 H (74-99) mg/dL POC Glucose (mg/dL) 265 H (70-110) mg/dL Calcium 8.2 L (8.4-10.2) mg/dL Procalcitonin (0.02-0.09) ng/mL Microbiology - Last 24 Hours (Table) 11/11/21 19:00 Blood Culture - Preliminary Blood No Growth after 48 hours 11/11/21 19:15 Blood Culture - Preliminary Blood No Growth after 48 hours Assessment and Plan Assessment: 1. Chest pain rule out acute coronary syndrome - Patient will be admitted to telemetry; we will monitor EKG and trend troponin - Recent echocardiogram was completed and November 2020 which revealed EF of 55%, mild LVH, moderate aortic regurgitation, mild mitral regurgitation, mild tricuspid regurgitation; recommend repeat echocardiogram - We will continue with home statin therapy; aspirin - Consult cardiology for further recommendations 2. Mild hyponatremia; sodium at 146 upon admission; encouraged patient for increased oral intake; renal function is stable 3. Hyperglycemia without acidosis/diabetes mellitus; continue with home dose of insulin glargine; monitor Accu-Cheks every before meals and at bedtime with insulin sliding scale 4. Left Basilar pneumonia; patient remains on IV Rocephin and azithromycin; we will monitor CBC, CRP and pro-calcitonin 5. Asthma; not in exacerbation; continue with home inhaler therapy 6. History of rheumatoid arthritis; continue with volteran gel and muscle relaxers DVT Ppx; SCDs CODE STATUS; full code
[2021-11-14 17:04] LABS: Glucose,Whole Blood 341 mg/dL (70-110)
[2021-11-14 20:47] LABS: Glucose,Whole Blood 483 mg/dL (70-110)
[2021-11-15] MEDS: ACETAMINOPHEN TAB 325 MG TAB PO PRN ×3 (04:50→22:54)
[2021-11-15] MEDS: SODIUM CHLORIDE 0.9% 1,000 ML IV SCH ×3 (04:51→21:34)
[2021-11-15 08:38] LABS: Glucose,Whole Blood 264 mg/dL (70-110)
[2021-11-15] MEDS: INSULIN ASPART (NovoLOG) 100 UNIT/ML VIAL SQ SCH ×4 (08:54→21:25)
[2021-11-15] MEDS: NON FORMULARY DRUG (Insulin Glargine/Lixisenatide [Soliqua 100 Unit-33 Mcg/Ml Pen] 3 ML In SQ SCH (10:48)
[2021-11-15] MEDS: ATORVASTATIN 20 MG TAB PO SCH (10:50)
[2021-11-15] MEDS: HYDROPHILIC CREAM 180 GM TUBE TOPICAL SCH (10:50)
[2021-11-15 13:16] LABS: Glucose,Whole Blood 352 mg/dL (70-110)
[2021-11-15 16:57] LABS: Glucose,Whole Blood 319 mg/dL (70-110)
[2021-11-15] MEDS ORDERED: INSULIN ASPART (NovoLOG) 100 UNIT/ML VIAL SQ SCH (17:30)
[2021-11-15] MEDS: CEFDINIR 300 MG CAP PO SCH (20:26)
[2021-11-15 21:02] LABS: Glucose,Whole Blood 265 mg/dL (70-110)
--- NOTE | 2021-11-16 02:40 | P.PN ---
Subjective Progress Note Date: 11/15/21 Principal diagnosis: Chest pain; -acute coronary syndrome ruled out Hyponatremia Left basilar pneumonia Hyperglycemia 76-year-old female with past medical history remarkable for anxiety, diverticulosis, asthma, diabetes, acid reflux who presents emergency Department complaining of chest pain. Patient states the chest pain began while she was on her way to the doctor's office approximately 2.5-3 hours prior to arrival. She states it started at approximately 12:30 or 1 PM. States it is substernal. Described as a pressure/squeezing sensation. Has not had that pain previously. States she was anxious but is uncertain if that is what caused it. Denies any shortness of breath with it. Endorses possible diaphoresis with the pain initially. Denies lightheadedness, blurry vision. Denies any fevers, chills. Has been having an increased nonproductive cough over the last few days as well. No fevers or sick contacts. Patient states over the last few days she has noticed that she is been having some mild left lower quadrant abdominal discomfort as well as diarrhea. Denies any urinary complaints. Denies any vaginal discharge or bleeding. States her stool is loose, brown and nonbloody. No nausea or vomiting. No history cardiac disease. No history of cardiac stents. Patient did receive aspirin as well as a nitro tablet by EMS. She states her pain is improved but is uncertain if it was the medications that caused it or time. * EKG reveals sinus mechanism with no signs of acute ischemia * Chest xray: strandy density left medial lung base may reflect atelectasis or developing infiltrate. Small left-sided effusion * CT abdomen pelvis: Prominent left lung base pneumonia pattern. No definite acute abdominal process. * Laboratory data: WBC 5.1. Hemoglobin 11.0. Platelet count 347. Sodium 137. Potassium 3.6. BUN 24. Creatinine 0.5. Troponin negative 3. ProBNP 79. 11/14/2021 Patient is seen and evaluated resting comfortably in bed; denies any specific complaints Vital signs are reviewed and remained stable Lab review shows a WBC of 6.3, hemoglobin of 11.5, sodium 136 count has involvement 4, blood glucose remains elevated above 250 Patient remains on IV antibiotics for community-acquired pneumonia; continues to complain of marked weakness; PT is consulted for evaluation for transition of care 11/15/2021 Patient is currently lying in the bed. Awake alert and oriented. Complains of soreness in the buttock ulcers. Wound care is following. No chest pain or shortness of breath. No nausea vomiting abdominal pain or diarrhea. Otherwise patient is still hyperglycemic and preprandial insulin was added. Continue with Levemir 25 units s daily. Patient has been afebrile. No cough or sputum production. Continue Omnicef 300 mg twice daily for possible pneumonia. PT OT is following and possible discharge to rehab. Laboratory data reviewed. Objective - Vital Signs Vital signs: Vital Signs Temp 98.6 F 11/15/21 15:00 Pulse 92 11/15/21 15:00 Resp 16 11/15/21 15:00 BP 104/62 11/15/21 15:00 Pulse Ox 96 11/15/21 15:00 FiO2 21 11/12/21 19:35 Intake & Output 11/15/21 11/15/21 11/16/21 06:59 18:59 06:59 Intake Total 1422 Balance 1422 Intake: Oral 1422 Other: Voiding Method Toilet Bedside Commode # Voids 3 1 - Exam - Exam GENERAL: Well-developed in no acute distress. HEENT: Head is normocephalic. Pupils are equal, round. Sclerae anicteric. Mucous membranes of the mouth are moist. Neck supple. No JVD or thyromegaly LUNGS: Respirations even and unlabored. Lungs essentially clear to auscultation bilaterally. HEART: Regular rate and rhythm. S1 and S2 heard. ABDOMEN: Soft. Nondistended. Nontender. EXTREMITIES: Normal range of motion. No clubbing or cyanosis. Peripheral pulses intact. No lower extremity edema NEUROLOGIC: Awake and alert. Oriented x 3. - Labs CBC & Chem 7: 11/14/21 06:09 11/14/21 06:09 Labs: Abnormal Lab Results - Last 24 Hours (Table) 11/15/21 11/15/21 11/15/21 Range/Units 08:36 13:15 16:56 POC Glucose (mg/dL) 264 H 352 H 319 H (70-110) mg/dL 11/15/21 Range/Units 21:01 POC Glucose (mg/dL) 265 H (70-110) mg/dL Microbiology - Last 24 Hours (Table) 11/11/21 19:15 Blood Culture - Preliminary Blood No Growth after 96 hours 11/11/21 19:00 Blood Culture - Preliminary Blood No Growth after 96 hours Assessment and Plan Assessment: 1. Chest pain ruled out acute coronary syndrome - Patient will be admitted to telemetry; we will monitor EKG and trend troponin - Recent echocardiogram was completed and November 2020 which revealed EF of 55%, mild LVH, moderate aortic regurgitation, mild mitral regurgitation, mild tricuspid regurgitation; recommend repeat echocardiogram - We will continue with home statin therapy; aspirin - s/p negative lexiscan scan test 2. Mild hypernatremia; sodium at 146 upon admission; encouraged patient for increased oral intake; renal function is stable 3. Hyperglycemia without acidosis/diabetes mellitus; continue with home dose of insulin glargine; monitor Accu-Cheks every before meals and at bedtime with insulin sliding scale 4. Left Basilar pneumonia; patient remains on IV Rocephin and azithromycin; changed to omnicef 5. Asthma; not in exacerbation; continue with home inhaler therapy 6. History of rheumatoid arthritis; continue with volteran gel and muscle relaxers DVT Ppx; SCDs CODE STATUS; full code PT/OT anticipate discharge to rehab Time with Patient: Greater than 30
[2021-11-16 07:35] LABS: Glucose,Whole Blood 288 mg/dL (70-110)
[2021-11-16] MEDS: INSULIN ASPART (NovoLOG) 100 UNIT/ML VIAL SQ SCH ×7 (08:39→21:04)
[2021-11-16 09:24] LABS: African American GFR (CKD) 118.9 (60.0-200.0); Anion Gap 9.4 mmol/L (10.00-18.00); BUN/Creat Ratio 44.25 Ratio (12.00-20.00); Blood Urea Nitrogen 17.7 mg/dL (9.0-27.0); Carbon Dioxide 22.6 mmol/L (20.0-27.5); Non-African American GFR(CKD) 102.6 (60.0-200.0); Potassium 4.3 mmol/L (3.5-5.5)
[2021-11-16 09:27] LABS: Basophils # (A) 0.03 X 10*3/uL (0.00-0.10); Basophils % (A) 0.5 %; Eosinophils # (A) 0.11 X 10*3/uL (0.04-0.35); Eosinophils % (A) 1.8 %; HCT 34.1 % (37.2-46.3); HGB 11.9 g/dL (12.0-15.0); Immature Grans, Automated 0.5 %; Lymphocytes # (A) 0.85 X 10*3/uL (0.90-5.00); Lymphocytes % (A) 13.5 %; MCH 31.6 pg (27.0-32.0); MCHC 34.9 g/dL (32.0-37.0); MCV 90.5 fL (80.0-97.0); Mean Platelet Volume 10.2 fL (9.5-12.2); Monocytes # (A) 0.56 X 10*3/uL (0.20-1.00); Monocytes % (A) 8.9 %; NRBC Per 100 WBC 0 /100 WBCS (0.0-0.0); Neutrophils % (A) 74.8 %; Platelet Count 337 X 10*3/uL (140-440); RBC 3.77 X 10*6/uL (4.10-5.20); RDW 13.2 % (11.5-14.5); WBC 6.28 X 10*3/uL (4.50-10.00)
[2021-11-16] MEDS: NON FORMULARY DRUG (Insulin Glargine/Lixisenatide [Soliqua 100 Unit-33 Mcg/Ml Pen] 3 ML In SQ SCH (09:32)
[2021-11-16] MEDS: HYDROPHILIC CREAM 180 GM TUBE TOPICAL SCH (09:56)
[2021-11-16] MEDS: ATORVASTATIN 20 MG TAB PO SCH (09:57)
[2021-11-16] MEDS: CEFDINIR 300 MG CAP PO SCH ×2 (09:57→20:26)
[2021-11-16 12:12] LABS: Glucose,Whole Blood 320 mg/dL (70-110)
--- NOTE | 2021-11-16 12:59 | P.PN ---
Subjective Progress Note Date: 11/16/21 76-year-old female with past medical history remarkable for anxiety, diverticulosis, asthma, diabetes, acid reflux who presents emergency Department complaining of chest pain. Patient states the chest pain began while she was on her way to the doctor's office approximately 2.5-3 hours prior to arrival. She states it started at approximately 12:30 or 1 PM. States it is substernal. Described as a pressure/squeezing sensation. Has not had that pain previously. States she was anxious but is uncertain if that is what caused it. Denies any shortness of breath with it. Endorses possible diaphoresis with the pain initially. Denies lightheadedness, blurry vision. Denies any fevers, chills. Has been having an increased nonproductive cough over the last few days as well. No fevers or sick contacts. Patient states over the last few days she has noticed that she is been having some mild left lower quadrant abdominal discomfort as well as diarrhea. Denies any urinary complaints. Denies any v aginal discharge or bleeding. States her stool is loose, brown and nonbloody. No nausea or vomiting. No history cardiac disease. No history of cardiac stents. Patient did receive aspirin as well as a nitro tablet by EMS. She states her pain is improved but is uncertain if it was the medications that caused it or time. * EKG reveals sinus mechanism with no signs of acute ischemia * Chest xray: strandy density left medial lung base may reflect atelectasis or developing infiltrate. Small left-sided effusion * CT abdomen pelvis: Prominent left lung base pneumonia pattern. No definite acute abdominal process. * Laboratory data: WBC 5.1. Hemoglobin 11.0. Platelet count 347. Sodium 137. Potassium 3.6. BUN 24. Creatinine 0.5. Troponin negative 3. ProBNP 79. 11/14/2021 Patient is seen and evaluated resting comfortably in bed; denies any specific complaints Vital signs are reviewed and remained stable Lab review shows a WBC of 6.3, hemoglobin of 11.5, sodium 136 count has involvement 4, blood glucose remains elevated above 250 Patient remains on IV antibiotics for community-acquired pneumonia; continues to complain of marked weakness; PT is consulted for evaluation for transition of care 11/15/2021 Patient is currently lying in the bed. Awake alert and oriented. Complains of soreness in the buttock ulcers. Wound care is following. No chest pain or shortness of breath. No nausea vomiting abdominal pain or diarrhea. Otherwise patient is still hyperglycemic and preprandial insulin was added. Continue with Levemir 25 units s daily. Patient has been afebrile. No cough or sputum production. Continue Omnicef 300 mg twice daily for possible pneumonia. PT OT is following and possible discharge to rehab. 11/16. Patient seen and examined. Vital signs stable. No acute issues overnight. Currently waiting on placement to rehab. Case discussed with nursing staff and case management REVIEW OF SYSTEMS: CONSTITUTIONAL: No fever, no malaise, no fatigue. CARDIOVASCULAR: No chest pain, orthopnea, PND, no palpitations, no syncope. PULMONARY: No shortness of breath, no cough, no hemoptysis. GASTROINTESTINAL: No diarrhea, no nausea, no vomiting, no abdominal pain. PHYSICAL EXAMINATION: GENERAL: The patient is alert and oriented x3, not in any acute distress. Well developed, well nourished. HEENT: Pupils are round and equally reacting to light. EOMI. No scleral icterus. No conjunctival pallor. Normocephalic, atraumatic. No pharyngeal erythema. No thyromegaly. CARDIOVASCULAR: S1 and S2 present. No murmurs, rubs, or gallops. PULMONARY: Chest is clear to auscultation, no wheezing or crackles. ABDOMEN: Soft, nontender, nondistended, normoactive bowel sounds. No palpable organomegaly. MUSCULOSKELETAL: No joint swelling or deformity. EXTREMITIES: No cyanosis, clubbing, or pedal edema. NEUROLOGICAL: Gross neurological examination did not reveal any focal deficits. SKIN: No rashes. Assessment and plan 1. Chest pain ruled out acute coronary syndrome - Patient will be admitted to telemetry; we will monitor EKG and trend troponin - Recent echocardiogram was completed and November 2020 which revealed EF of 55%, mild LVH, moderate aortic regurgitation, mild mitral regurgitation, mild tr icuspid regurgitation; recommend repeat echocardiogram - We will continue with home statin therapy; aspirin - s/p negative lexiscan scan test PT and OT recommended rehab, waiting on placement 2. Mild hypernatremia; monitor BMP 3. Hyperglycemia without acidosis/diabetes mellitus; continue with home dose of insulin glargine; monitor Accu-Cheks every before meals and at bedtime with insulin sliding scale 4. Left Basilar pneumonia; patient remains on IV Rocephin and azithromycin; changed to omnicef. Will complete 5-7 days of antibiotics PT and OT recommended rehab, waiting on placemen 5. Asthma; not in exacerbation; continue with home inhaler therapy 6. History of rheumatoid arthritis; continue with volteran gel and muscle relaxers Objective - Vital Signs Vital signs: Vital Signs Temp 98.1 F 11/16/21 07:00 Pulse 77 11/16/21 07:00 Resp 16 11/16/21 07:00 BP 145/70 11/16/21 07:00 Pulse Ox 97 11/16/21 07:00 FiO2 21 11/12/21 19:35 Intake & Output 11/15/21 11/16/21 11/16/21 18:59 06:59 18:59 Intake Total 1422 711 Balance 1422 711 Weight 39.009 kg Intake: Oral 1422 711 Other: Voiding Method Toilet # Voids 1 3 2 - Labs CBC & Chem 7: 11/16/21 05:20 11/16/21 05:20 Labs: Abnormal Lab Results - Last 24 Hours (Table) 11/15/21 11/15/21 11/15/21 Range/Units 13:15 16:56 21:01 RBC (4.10-5.20) X 10*6/uL Hgb (12.0-15.0) g/dL Hct (37.2-46.3) % Lymphocytes # (0.90-5.00) X 10*3/uL Sodium (135-145) mmol/L Anion Gap (10.00-18.00) mmol/L Creatinine (0.6-1.5) mg/dL BUN/Creatinine Ratio (12.00-20.00) Ratio Glucose (70-110) mg/dL POC Glucose (mg/dL) 352 H 319 H 265 H (70-110) mg/dL Calcium (8.7-10.3) mg/dL 11/16/21 11/16/21 11/16/21 Range/Units 05:20 05:20 07:33 RBC 3.77 L (4.10-5.20) X 10*6/uL Hgb 11.9 L (12.0-15.0) g/dL Hct 34.1 L (37.2-46.3) % Lymphocytes # 0.85 L (0.90-5.00) X 10*3/uL Sodium 133 L (135-145) mmol/L Anion Gap 9.40 L (10.00-18.00) mmol/L Creatinine 0.4 L (0.6-1.5) mg/dL BUN/Creatinine Ratio 44.25 H (12.00-20.00) Ratio Glucose 333 H (70-110) mg/dL POC Glucose (mg/dL) 288 H (70-110) mg/dL Calcium 8.0 L (8.7-10.3) mg/dL 11/16/21 Range/Units 12:11 RBC (4.10-5.20) X 10*6/uL Hgb (12.0-15.0) g/dL Hct (37.2-46.3) % Lymphocytes # (0.90-5.00) X 10*3/uL Sodium (135-145) mmol/L Anion Gap (10.00-18.00) mmol/L Creatinine (0.6-1.5) mg/dL BUN/Creatinine Ratio (12.00-20.00) Ratio Glucose (70-110) mg/dL POC Glucose (mg/dL) 320 H (70-110) mg/dL Calcium (8.7-10.3) mg/dL Microbiology - Last 24 Hours (Table) 11/11/21 19:15 Blood Culture - Preliminary Blood No Growth after 96 hours 11/11/21 19:00 Blood Culture - Preliminary Blood No Growth after 96 hours
--- NOTE | 2021-11-16 13:05 | CDI ---
Documentation Clarification Form Date: 11/16/2021 12:54:12 PM From: Ruba RinconSHABBIR suarez, CCDS Admit Date: 11/16/2021 07:27:00 AM Patient Name: Pamela Encinas Visit Number: [id number] Discharge Date: ATTENTION: The Clinical Documentation Specialists (CDI) and [facility] Coding Staff appreciate your assistance in clarifying documentation. Please respond to the clarification below the line at the bottom and electronically sign. The CDI & [facility] Coding staff will review the response and follow-up if needed. Please note: Queries are made part of the Legal Health Record. If you have any questions, please contact the author of this message via ITS. Dr. Maria Elena Brown: A Stage 1 to 2 Pressure Ulcer over the Right Buttock is documented in the 11/11 ED note. Per the Nursing Assessment of the Right Buttock Wound: Stage II Pressure Injury, Present on Admission. Additional clarification regarding the stage of the pressure ulcer is requested. History/Risk Factors per the 11/12 H/P: Anxiety, Diverticulosis, Asthma, DM, GERD, Rheumatoid Arthritis, Scoliosis. Clinical Indicators: Presented to the ED on 11/11 via EMS with Chest Pain, developed while on her way to a doctor appointment. Has had increased nonproductive cough for a few days. Mild left lower quadrant abdominal discomfort and diarrhea. Admit with Chest Pain, Pneumonia, Sacral Wound Pressure Injury documented by nursing as above with Optifoam dressing. Treatment 11/12: IV Heparin Drip, Wound Care Consulted, Triad, Nitro sl, IV Na Chl 500 mls @ 999 mls/hr q31M, I Toradol 15 mg x1, Nitro sl, IV Rocephin 50 mls @ 100 mls/hr q24H, IV Azithromycin 500 mg 250 mls @ 250 mls/hr q24H. Wound Care Consult Assessment: Nonhealing ulceration with fatty layer exposure right buttocks. DM with skin ulceration. Please clarify the stage of pressure ulcer, if known: [ ] Stage 1 Pressure Ulcer, Right Buttock [ x ] Stage 2 Pressure Ulcer, Right Buttock [ ] Unstageable Pressure ulcer, Right Buttock [ ] Other condition, please specify [ ] Unable to determine Template Last Revised: April 2020) MTDD
--- NOTE | 2021-11-16 13:14 | CDI ---
Documentation Clarification Form Date: 11/16/2021 01:07:00 PM From: Ruba Rincon CCS, CCDS Admit Date: 11/16/2021 07:27:00 AM Patient Name: Pamela Encinas Visit Number: [id number] Discharge Date: ATTENTION: The Clinical Documentation Specialists (CDI) and [facility] Coding Staff appreciate your assistance in clarifying documentation. Please respond to the clarification below the line at the bottom and electronically sign. The CDI & [facility] Coding staff will review the response and follow-up if needed. Please note: Queries are made part of the Legal Health Record. If you have any questions, please contact the author of this message via ITS. Dr. Maria Elena Brown: Per the 11/11 ED Note: Laboratory studies were unremarkable for a normocytic anemia with Hemoglobin 11.0. Additional specificity regarding the [type, acuity] of anemia is requested. History/Risk Factors per the 11/12 H/P: Anxiety, Diverticulosis, Asthma, DM, GERD, Rheumatoid Arthritis, Scoliosis. Clinical Indicators: Presented to the ED on 11/11 via EMS with Chest Pain, developed while on her way to a doctor appointment. Has had increased nonproductive cough for a few days. Mild left lower quadrant abdominal discomfort and diarrhea. Admit with Chest Pain, Pneumonia, Sacral Wound 11/11 VS: T 98, P 83, R 16, BP 123/60, PO 96 RA BMI: 18.6 LAB: Hemoglobin 11/11: 11.0. 11/12: 11.7. 11/13: 12.4. 11/14: 11.5. 12/17: 11.9 Hematocrit: 11/11: 33.0. 11/12: 36.9. 11/13: 39.9. 11/14: 33.7. 11/16: 34.1 Treatment 11/12: IV Heparin Drip, Wound Care Consulted, Triad, Nitro sl, IV Na Chl 500 mls @ 999 mls/hr q31M, I Toradol 15 mg x1, Nitro sl, IV Rocephin 50 mls @ 100 mls/hr q24H, IV Azithromycin 500 mg 250 mls @ 250 mls/hr q24H. Home meds: Glucophage, Carafate, Actos, Insulin sq, Flexeril, Lipitor, INH Albuterol Please clarify the type and acuity of anemia: [ ] Chronic blood loss anemia [ ] Hemolytic anemia [ ] Nutritional anemia [ ] Anemia of chronic disease [ x ] Unable to determine [ ] Other, please specify (Template Last Revised: March 2020) MTDD
--- NOTE | 2021-11-16 13:21 | CDI ---
Documentation Clarification Form Date: 11/16/2021 01:14:48 PM From: Ruba FoyRinconSHABBIR suarez, CCDS Admit Date: 11/16/2021 07:27:00 AM Patient Name: Pamela Encinas Visit Number: [id number] Discharge Date: ATTENTION: The Clinical Documentation Specialists (CDI) and [facility] Coding Staff appreciate your assistance in clarifying documentation. Please respond to the clarification below the line at the bottom and electronically sign. The CDI & [facility] Coding staff will review the response and follow-up if needed. Please note: Queries are made part of the Legal Health Record. If you have any questions, please contact the author of this message via ITS. Dr. Mickey Ruggiero: Asthma is documented in the 11/11 ED Note under the patient's Medical History ad in the 11/12 Wound Care and Cardiology Consults and in the 11/15 Attending Physician Progress Note as Asthma, not in exacerbation, continue with home Inhaler Therapy. Additional clarification regarding the type of asthma is requested. History/Risk Factors per the 11/12 H/P: Anxiety, Diverticulosis, Asthma, DM, GERD, Rheumatoid Arthritis, Scoliosis. Clinical Indicators: Presented to the ED on 11/11 via EMS with Chest Pain, developed while on her way to a doctor appointment. Has had increased nonproductive cough for a few days. Mild left lower quadrant abdominal discomfort and diarrhea. Admit with Chest Pain, Pneumonia, Sacral Wound 11/11 VS: T 98, P 83, R 16, BP 123/60, PO 96 RA BMI: 18.6 11/11 LAB: RBC 3.62, Hgb 11.0, Hct 33.0, Lymph 0.77; BUN 24, Creatinine 0.50, Glucose 197, ALT 38, Total Protein 5.6, Albumin 3.1. Treatment 11/12: IV Heparin Drip, Wound Care Consulted, Triad, Nitro sl, IV Na Chl 500 mls @ 999 mls/hr q31M, I Toradol 15 mg x1, Nitro sl, IV Rocephin 50 mls @ 100 mls/hr q24H, IV Azithromycin 500 mg 250 mls @ 250 mls/hr q24H, INH Ventolin 2.5 mg QID/prn. Home meds: Glucophage, Carafate, Actos, Insulin sq, Flexeril, Lipitor, INH Albuterol Please clarify the type and severity of asthma, if known: [ ] Extrinsic asthma [ ] without exacerbation [ ] Intrinsic asthma [ ] without exacerbation [ x ] Mild intermittent asthma [ ] without exacerbation [ ] Mild persistent asthma [ ] without exacerbation [ ] Moderate persistent asthma [ ] without exacerbation [ ] Other, please specify: [ ] Unable to determine (Template Last Revised: April 2020) MTDD
[2021-11-16] MEDS: CYCLOBENZAPRINE 5 MG TAB PO PRN (15:02)
[2021-11-16] MEDS: SODIUM CHLORIDE 0.9% 1,000 ML IV SCH (15:02)
[2021-11-16] MEDS: LOPERAMIDE 2 MG CAP PO PRN (16:01)
[2021-11-16 17:06] LABS: Glucose,Whole Blood 277 mg/dL (70-110)
[2021-11-16] MEDS: ACETAMINOPHEN TAB 325 MG TAB PO PRN (20:25)
[2021-11-16 20:26] LABS: Glucose,Whole Blood 307 mg/dL (70-110)
[2021-11-17] MEDS: ACETAMINOPHEN TAB 325 MG TAB PO PRN ×2 (02:05→15:09)
[2021-11-17] MEDS: CYCLOBENZAPRINE 5 MG TAB PO PRN (05:36)
[2021-11-17 07:53] LABS: Glucose,Whole Blood 283 mg/dL (70-110)
[2021-11-17] MEDS: INSULIN ASPART (NovoLOG) 100 UNIT/ML VIAL SQ SCH ×4 (08:11→13:01)
[2021-11-17 08:36] VITALS: RESP 18
[2021-11-17] MEDS: NON FORMULARY DRUG (Insulin Glargine/Lixisenatide [Soliqua 100 Unit-33 Mcg/Ml Pen] 3 ML In SQ SCH (08:50)
[2021-11-17] MEDS: CEFDINIR 300 MG CAP PO SCH (09:03)
[2021-11-17] MEDS: ATORVASTATIN 20 MG TAB PO SCH (09:03)
[2021-11-17] MEDS: HYDROPHILIC CREAM 180 GM TUBE TOPICAL SCH (09:03)
[2021-11-17] MEDS: LOPERAMIDE 2 MG CAP PO PRN (09:03)
[2021-11-17 09:17] LABS: Basophils # (A) 0.03 X 10*3/uL (0.00-0.10); Basophils % (A) 0.6 %; Eosinophils # (A) 0.12 X 10*3/uL (0.04-0.35); Eosinophils % (A) 2.5 %; HCT 34.1 % (37.2-46.3); HGB 11.4 g/dL (12.0-15.0); Immature Grans, Automated 0.2 %; Lymphocytes % (A) 18.8 %; MCH 30.7 pg (27.0-32.0); MCHC 33.4 g/dL (32.0-37.0); MCV 91.9 fL (80.0-97.0); Mean Platelet Volume 10.3 fL (9.5-12.2); Monocytes # (A) 0.47 X 10*3/uL (0.20-1.00); Monocytes % (A) 9.8 %; NRBC Per 100 WBC 0 /100 WBCS (0.0-0.0); Neutrophils # (A) 3.27 X 10*3/uL (1.80-7.70); Neutrophils % (A) 68.1 %; Platelet Count 339 X 10*3/uL (140-440); RBC 3.71 X 10*6/uL (4.10-5.20); RDW 13.5 % (11.5-14.5)
[2021-11-17 09:18] LABS: African American GFR (CKD) 118.9 (60.0-200.0); BUN/Creat Ratio 37.5 Ratio (12.00-20.00); Calcium 7.9 mg/dL (8.7-10.3); Non-African American GFR(CKD) 102.6 (60.0-200.0); Potassium 4.2 mmol/L (3.5-5.5)
[2021-11-17] MEDS: SODIUM CHLORIDE 0.9% 1,000 ML IV SCH (11:33)
[2021-11-17 11:59] LABS: Glucose,Whole Blood 403 mg/dL (70-110)
--- NOTE | 2021-11-17 12:04 | P.DS ---
Providers Date of admission: 11/16/21 07:27 Expected date of discharge: 11/17/21 Attending physician: Mickey Ruggiero Primary care physician: Cooper IsaacTonia [facility] Course: Discharge diagnoses; 1. Chest pain ruled out acute coronary syndrome - Recent echocardiogram was completed and November 2020 which revealed EF of 55%, mild LVH, moderate aortic regurgitation, mild mitral regurgitation, mild tricuspid regurgitation; recommend repeat echocardiogram - We will continue with home statin therapy; aspirin - s/p negative lexiscan scan test Being discharged to rehab in stable condition 2. Mild hypernatremia; resolved 3. Hyperglycemia without acidosis/diabetes mellitus; continue home regimen 4. Left Basilar pneumonia; patient remains on IV Rocephin and azithromycin; changed to omnicef. Patient completed 5 days of antibiotic. No need for antibiotics at discharge Being discharged to rehab in stable condition 5. Asthma; not in exacerbation; continue with home inhaler therapy 6. History of rheumatoid arthritis; continue with volteran gel and muscle relaxers Hospital course; 76-year-old female with past medical history remarkable for anxiety, diverticulosis, asthma, diabetes, acid reflux who presents emergency Department complaining of chest pain. Patient states the chest pain began while she was on her way to the doctor's office approximately 2.5-3 hours prior to arrival. She states it started at approximately 12:30 or 1 PM. States it is substernal. Described as a pressure/squeezing sensation. Has not had that pain previously. States she was anxious but is uncertain if that is what caused it. Denies any shortness of breath with it. Endorses possible diaphoresis with the pain initially. Denies lightheadedness, blurry vision. Denies any fevers, chills. Has been having an increased nonproductive cough over the last few days as well. No fevers or sick contacts. Patient states over the last few days she has noticed that she is been having some mild left lower quadrant abdominal discomfort as well as diarrhea. Denies any urinary complaints. Denies any vaginal discharge or bleeding. States her stool is loose, brown and nonbloody. No nausea or vomiting. No history cardiac disease. No history of cardiac stents. Patient did receive aspirin as well as a nitro tablet by EMS. She states her pain is improved but is uncertain if it was the medications that caused it or time. * EKG reveals sinus mechanism with no signs of acute ischemia * Chest xray: strandy density left medial lung base may reflect atelectasis or developing infiltrate. Small left-sided effusion * CT abdomen pelvis: Prominent left lung base pneumonia pattern. No definite acute abdominal process. * Laboratory data: WBC 5.1. Hemoglobin 11.0. Platelet count 347. Sodium 137. Potassium 3.6. BUN 24. Creatinine 0.5. Troponin negative 3. ProBNP 79. 11/14/2021 Patient is seen and evaluated resting comfortably in bed; denies any specific co mplaints Vital signs are reviewed and remained stable Lab review shows a WBC of 6.3, hemoglobin of 11.5, sodium 136 count has involvement 4, blood glucose remains elevated above 250 Patient remains on IV antibiotics for community-acquired pneumonia; continues to complain of marked weakness; PT is consulted for evaluation for transition of care 11/15/2021 Patient is currently lying in the bed. Awake alert and oriented. Complains of soreness in the buttock ulcers. Wound care is following. No chest pain or shortness of breath. No nausea vomiting abdominal pain or diarrhea. Otherwise patient is still hyperglycemic and preprandial insulin was added. Continue with Levemir 25 units s daily. Patient has been afebrile. No cough or sputum production. Continue Omnicef 300 mg twice daily for possible pneumonia. PT OT is following and possible discharge to rehab. 11/16. Patient seen and examined. Vital signs stable. No acute issues overnight. Currently waiting on placement to rehab. Case discussed with nursing staff and case management 11/17. Patient has been on antibiotics since 11/12/21. Patient has received more than 5 days of antibiotics for pneumonia. Will DC antibiotics at discharge. Being discharged to rehab in stable condition PHYSICAL EXAMINATION: GENERAL: The patient is alert and oriented x3, not in any acute distress. Cachectic HEENT: Pupils are round and equally reacting to light. EOMI. No scleral icterus. No conjunctival pallor. Normocephalic, atraumatic. No pharyngeal erythema. No thyromegaly. CARDIOVASCULAR: S1 and S2 present. No murmurs, rubs, or gallops. PULMONARY: Chest is clear to auscultation, no wheezing or crackles. ABDOMEN: Soft, nontender, nondistended, normoactive bowel sounds. No palpable organomegaly. MUSCULOSKELETAL: No joint swelling or deformity. EXTREMITIES: No cyanosis, clubbing, or pedal edema. NEUROLOGICAL: Gross neurological examination did not reveal any focal deficits. SKIN: No rashes. Patient Condition at Discharge: Stable Plan - Discharge Summary New Discharge Prescriptions: Continue metFORMIN HCL ER [Glucophage XR] 500 mg PO QID Cyclobenzaprine [Flexeril] 5 mg PO BID PRN PRN Reason: Muscle Spasm Diclofenac Sodium Gel [Voltaren Gel] 2 - 4 gm TOPICAL TID PRN PRN Reason: Pain Insulin Glargine/Lixisenatide [Soliqua 100 Unit-33 Mcg/ml Pen] 25 units SQ DAILY Pioglitazone [Actos] 15 mg PO DAILY Miconazole Nitrate [Miconazole Nitrate 2%] 1 applic TOPICAL BID Sucralfate [Carafate] 1 gm PO ACHS Albuterol Inhaler [Ventolin Hfa Inhaler] 2 puff INHALATION RT-QID PRN PRN Reason: Shortness Of Breath Atorvastatin [Lipitor] 20 mg PO DAILY Estradiol Cream [Estrace Cream 0.01%] 1 gm VAGINAL TUTH Mupirocin 2% Oint [Bactroban 2% Oint] 1 applic TOPICAL TID Discharge Medication List Albuterol Inhaler [Ventolin Hfa Inhaler] 2 puff INHALATION RT-QID PRN 02/19/21 [History] Sucralfate [Carafate] 1 gm PO ACHS 02/19/21 [History] metFORMIN HCL ER [Glucophage XR] 500 mg PO QID 02/19/21 [History] Atorvastatin [Lipitor] 20 mg PO DAILY 11/11/21 [History] Cyclobenzaprine [Flexeril] 5 mg PO BID PRN 11/11/21 [History] Diclofenac Sodium Gel [Voltaren Gel] 2 - 4 gm TOPICAL TID PRN 11/11/21 [History] Estradiol Cream [Estrace Cream 0.01%] 1 gm VAGINAL TUTH 11/11/21 [History] Insulin Glargine/Lixisenatide [Soliqua 100 Unit-33 Mcg/ml Pen] 25 units SQ DAILY 11/11/21 [History] Miconazole Nitrate [Miconazole Nitrate 2%] 1 applic TOPICAL BID 11/11/21 [History] Mupirocin 2% Oint [Bactroban 2% Oint] 1 applic TOPICAL TID 11/11/21 [History] Pioglitazone [Actos] 15 mg PO DAILY 11/11/21 [History] Follow up Appointment(s)/Referral(s): Cooper Randall DO [Primary Care Provider] - 1-2 days Discharge/Stand Alone Forms: Who Do I Call?, Assisted Living Facilities, Community Resources, Help In The Home Discharge Disposition: TRANSFER TO SNF/ECF
[2021-11-17] MEDS ORDERED: INSULN ASP PRT/INSULIN ASPART 100 UNIT/ML 10 ML VIAL SQ ONE (12:30)
--- NOTE | 2021-11-17 14:24 | CA ---
Lexiscan Nuclear Stress Test Report Name: Pamela Encinas Exam Date: 11/12/2021 12:10 Exam Location: [place] Stress Ht (in): 57 Wt (lb): 86 BSA: 1.26 Ordering Phys: JACOB Referring Phys: JACOB,, Technologist: Tommie Luna Age: 76 Gender: F : 1945 Procedure CPT: Indications: ICD-10 Codes: Patient History: CHEST PAIN, DIFFICULTY IN BREATHING, PALPITATIONS, NUMBNESS IN FACE/NECK, DIABETIC, Medications: Meds past 24 hrs: Pretest Chest Pain: STRESS TEST Lexiscan Protocol Exercise Duration (min:sec): 02:[address] Depressions (mm): Angina Score: Arrieta Score: Resting HR (bpm): 77 Peak HR (bpm): 109 Resting BP (mmHg): 121 / 60 Peak BP (mmHg): 125 / 62 MPHR: 146 Target HR: 124 % MPHR: 75 METS: 1.0 Total Dose: Peak Dose: Atropine: Double Product: 38536 BP Response: Stress Termination: Stress Symptoms: Stress Summary: ECG ANALYSIS Resting ECG: Stress ECG: CONCLUSIONS Nondiagnostic electrocardiogram stress testing Please follow-up on the Cardiolite portion Dr. Rey Harden MD (Electronically Signed) Final Date: 12 November 2021 17:56
[2021-11-17 15:32] VITALS: BP 122/68; PULSE 99; TEMP 98
== END 2021-11-17 15:35 | DRG 194 ==
LOC: EC 15:16 → 6NMEDSUR 18:16 → OBSVTOIN 11-16 07:27
PROVIDERS: ADMIT Internal Medicine; ATTEND Internal Medicine
DX: J18.9 Pneumonia, unspecified organism (principal); E87.0 Hyperosmolality and hypernatremia; E87.1 Hypo-osmolality and hyponatremia; J45.20 Mild intermittent asthma, uncomplicated; L89.312 Pressure ulcer of right buttock, stage 2; E11.65 Type 2 diabetes mellitus with hyperglycemia; E11.622 Type 2 diabetes mellitus with other skin ulcer; E78.5 Hyperlipidemia, unspecified; D64.9 Anemia, unspecified; I35.1 Nonrheumatic aortic (valve) insufficiency; K57.90 Diverticulosis of intestine, part unspecified, without perforation or abscess without bleeding; L98.412 Non-pressure chronic ulcer of buttock with fat layer exposed; M06.9 Rheumatoid arthritis, unspecified; I71.21 Aneurysm of the ascending aorta, without rupture; K21.9 Gastro-esophageal reflux disease without esophagitis; M41.9 Scoliosis, unspecified; Z20.822 Contact with and (suspected) exposure to COVID-19; Z79.4 Long term (current) use of insulin; Z79.84 Long term (current) use of oral hypoglycemic drugs; Z79.899 Other long term (current) drug therapy; Z71.3 Dietary counseling and surveillance; Z88.1 Allergy status to other antibiotic agents; Z88.0 Allergy status to penicillin; Z88.8 Allergy status to other drugs, medicaments and biological substances
CPT/HCPCS: 36415; 71046; 74177; 78452; 80048; 80053; 81003; 82150; 83605; 83690; 83735; 83880; 84145; 84484; 85025; 85610; 85730; 87040; 87493; 87635; 93005; 93017; 93306; 94760; 96361; 96365; 96366; 96368; 96375; 96376; 99285

== ENCOUNTER 2021-12-21 01:08 | Observation (INO) | payer MEDICARE ==
[2021-12-21] MEDS ORDERED: SODIUM CHLORIDE 0.9% 1,000 ML IV STA (01:33)
--- NOTE | 2021-12-21 01:34 | ED ---
Weakness HPI - General Chief complaint: Fall Stated complaint: Fall Time Seen by Provider: 12/21/21 01:31 Source: patient, EMS, RN notes reviewed, old records reviewed Mode of arrival: EMS Limitations: no limitations - History of Present Illness Initial comments: This is a 76-year-old female to the emergency department for evaluation. Patient presents today for evaluation of altered mental status. Fall. Weakness. Patient did fall hit her head complaining of head pain and neck pain hip pain. Patient states she's feeling very weak dehydrated, thirsty. MD Complaint: generalized weakness, lack of energy, difficulty walking -: hour(s) Location: generalized Severity: moderate Severity scale (1-10): 6 Consistency: constant Improves with: none Worsens with: none Context: trauma/injury (Patient did fall her head), history of similar Associated Symptoms: confusion, loss of appetite - Related Data Home Medications Medication Instructions Recorded Confirmed Albuterol Inhaler [Ventolin Hfa 2 puff INHALATION RT-QID PRN 02/19/21 11/11/21 Inhaler] Sucralfate [Carafate] 1 gm PO ACHS 02/19/21 11/11/21 metFORMIN HCL ER [Glucophage XR] 500 mg PO QID 02/19/21 11/11/21 Atorvastatin [Lipitor] 20 mg PO DAILY 11/11/21 11/11/21 Cyclobenzaprine [Flexeril] 5 mg PO BID PRN 11/11/21 11/11/21 Diclofenac Sodium Gel [Voltaren 2 - 4 gm TOPICAL TID PRN 11/11/21 11/11/21 Gel] Estradiol Cream [Estrace Cream 1 gm VAGINAL TUTH 11/11/21 11/11/21 0.01%] Insulin Glargine/Lixisenatide 25 units SQ DAILY 11/11/21 11/11/21 [Soliqua 100 Unit-33 Mcg/ml Pen] Miconazole Nitrate [Miconazole 1 applic TOPICAL BID 11/11/21 11/11/21 Nitrate 2%] Mupirocin 2% Oint [Bactroban 2% 1 applic TOPICAL TID 11/11/21 11/11/21 Oint] Pioglitazone [Actos] 15 mg PO DAILY 11/11/21 11/11/21 Allergies Allergy/AdvReac Type Severity Reaction Status Date / Time moxifloxacin [From Avelox] AdvReac Nausea Verified 11/11/21 18:20 nitrofurantoin AdvReac Nausea Verified 11/11/21 18:20 Penicillins AdvReac Nausea Verified 11/11/21 18:20 Review of Systems ROS Statement: Those systems with pertinent positive or pertinent negative responses have been documented in the HPI. ROS Other: All systems not noted in ROS Statement are negative. Past Medical History Past Medical History: Asthma, Diabetes Mellitus, GERD/Reflux, Rheumatoid Arthritis (RA) Additional Past Medical History / Comment(s): scoliosis History of Any Multi-Drug Resistant Organisms: None Reported Past Surgical History: Orthopedic Surgery Additional Past Surgical History / Comment(s): foot surgery, epidural shots Past Anesthesia/Blood Transfusion Reactions: No Reported Reaction Past Psychological History: No Psychological Hx Reported Smoking Status: Never smoker - Past Family History Mother Family Medical History: No Reported History General Exam General appearance: alert, in no apparent distress Head exam: Present: atraumatic, normocephalic, normal inspection Eye exam: Present: normal appearance, PERRL, EOMI. Absent: scleral icterus, conjunctival injection, periorbital swelling ENT exam: Present: normal exam, mucous membranes moist Neck exam: Present: normal inspection. Absent: tenderness, meningismus, lymphadenopathy Respiratory exam: Present: normal lung sounds bilaterally. Absent: respiratory distress, wheezes, rales, rhonchi, stridor Cardiovascular Exam: Present: regular rate, normal rhythm, normal heart sounds. Absent: systolic murmur, diastolic murmur, rubs, gallop, clicks GI/Abdominal exam: Present: soft, normal bowel sounds. Absent: distended, tenderness, guarding, rebound, rigid Extremities exam: Present: normal inspection, full ROM, normal capillary refill. Absent: tenderness, pedal edema, joint swelling, calf tenderness Back exam: Present: normal inspection Neurological exam: Present: alert, oriented X3, CN II-XII intact Psychiatric exam: Present: normal affect, normal mood Skin exam: Present: warm, dry, intact, normal color. Absent: rash Course Vital Signs 12/21/21 01:27 Temperature 98.4 F Pulse Rate 100 Respiratory 18 Rate Blood Pressure 145/73 O2 Sat by Pulse 95 Oximetry - Reevaluation(s) Reevaluation #1: 12/21/21 02:15 Medical records reviewed Reevaluation #2: 12/21/21 05:06 Patient informed results and questions answered Reevaluation #3: 12/21/21 05:06 Patient has adequate pain control Medical Decision Making - Medical Decision Making 76 female to the emergency department for evaluation patient Dese for evaluation regards to fall. Fall with mild forehead hematoma right hip contusion no acute medical injury otherwise. Dehydrated on exam feeling improved here in the ER patient can be discharged home - Lab Data Result diagrams: 12/21/21 01:51 12/21/21 01:51 Lab Results 12/21/21 12/21/21 12/21/21 Range/Units 01:51 01:51 01:51 WBC 7.9 (3.8-10.6) k/uL RBC 3.90 (3.80-5.40) m/uL Hgb 12.3 (11.4-16.0) gm/dL Hct 35.9 (34.0-46.0) % MCV 92.1 (80.0-100.0) fL MCH 31.5 (25.0-35.0) pg MCHC 34.2 (31.0-37.0) g/dL RDW 13.1 (11.5-15.5) % Plt Count 229 (150-450) k/uL MPV 7.8 Neutrophils % 81 % Lymphocytes % 8 % Monocytes % 8 % Eosinophils % 1 % Basophils % 0 % Neutrophils # 6.4 (1.3-7.7) k/uL Lymphocytes # 0.6 L (1.0-4.8) k/uL Monocytes # 0.6 (0-1.0) k/uL Eosinophils # 0.1 (0-0.7) k/uL Basophils # 0.0 (0-0.2) k/uL Sodium 135 L (137-145) mmol/L Potassium 4.0 (3.5-5.1) mmol/L Chloride 103 (98-107) mmol/L Carbon Dioxide 24 (22-30) mmol/L Anion Gap 8 mmol/L BUN 25 H (7-17) mg/dL Creatinine 0.29 L (0.52-1.04) mg/dL Est GFR (CKD-EPI)AfAm >90 (>60 ml/min/1.73 sqM) Est GFR (CKD-EPI)NonAf >90 (>60 ml/min/1.73 sqM) Glucose 198 H (74-99) mg/dL Calcium 8.6 (8.4-10.2) mg/dL Phosphorus 3.7 (2.5-4.5) mg/dL Magnesium 1.7 (1.6-2.3) mg/dL Total Bilirubin 0.6 (0.2-1.3) mg/dL AST 40 H (14-36) U/L ALT 53 H (4-34) U/L Alkaline Phosphatase 81 (38-126) U/L Troponin I <0.012 (0.000-0.034) ng/mL NT-Pro-B Natriuret Pep pg/mL Total Protein 6.3 (6.3-8.2) g/dL Albumin 3.8 (3.5-5.0) g/dL Urine Color Urine Appearance (Clear) Urine pH (5.0-8.0) Ur Specific [place] (1.001-1.035) Urine Protein (Negative) Urine Glucose (UA) (Negative) Urine Ketones (Negative) Urine Blood (Negative) Urine Nitrite (Negative) Urine Bilirubin (Negative) Urine Urobilinogen (<2.0) mg/dL Ur Leukocyte Esterase (Negative) Urine RBC (0-5) /hpf Urine WBC (0-5) /hpf Ur Squamous Epith Cells (0-4) /hpf Urine Bacteria (None) /hpf Urine Mucus (None) /hpf 12/21/21 12/21/21 Range/Units 01:51 03:40 WBC (3.8-10.6) k/uL RBC (3.80-5.40) m/uL Hgb (11.4-16.0) gm/dL Hct (34.0-46.0) % MCV (80.0-100.0) fL MCH (25.0-35.0) pg MCHC (31.0-37.0) g/dL RDW (11.5-15.5) % Plt Count (150-450) k/uL MPV Neutrophils % % Lymphocytes % % Monocytes % % Eosinophils % % Basophils % % Neutrophils # (1.3-7.7) k/uL Lymphocytes # (1.0-4.8) k/uL Monocytes # (0-1.0) k/uL Eosinophils # (0-0.7) k/uL Basophils # (0-0.2) k/uL Sodium (137-145) mmol/L Potassium (3.5-5.1) mmol/L Chloride (98-107) mmol/L Carbon Dioxide (22-30) mmol/L Anion Gap mmol/L BUN (7-17) mg/dL Creatinine (0.52-1.04) mg/dL Est GFR (CKD-EPI)AfAm (>60 ml/min/1.73 sqM) Est GFR (CKD-EPI)NonAf (>60 ml/min/1.73 sqM) Glucose (74-99) mg/dL Calcium (8.4-10.2) mg/dL Phosphorus (2.5-4.5) mg/dL Magnesium (1.6-2.3) mg/dL Total Bilirubin (0.2-1.3) mg/dL AST (14-36) U/L ALT (4-34) U/L Alkaline Phosphatase (38-126) U/L Troponin I (0.000-0.034) ng/mL NT-Pro-B Natriuret Pep 342 pg/mL Total Protein (6.3-8.2) g/dL Albumin (3.5-5.0) g/dL Urine Color Colorless Urine Appearance Clear (Clear) Urine pH 6.5 (5.0-8.0) Ur Specific [place] 1.011 (1.001-1.035) Urine Protein 1+ H (Negative) Urine Glucose (UA) 2+ H (Negative) Urine Ketones Negative (Negative) Urine Blood Negative (Negative) Urine Nitrite Negative (Negative) Urine Bilirubin Negative (Negative) Urine Urobilinogen <2.0 (<2.0) mg/dL Ur Leukocyte Esterase Trace H (Negative) Urine RBC <1 (0-5) /hpf Urine WBC 4 (0-5) /hpf Ur Squamous Epith Cells 1 (0-4) /hpf Urine Bacteria Rare H (None) /hpf Urine Mucus Rare H (None) /hpf - Radiology Data Radiology results: report reviewed (CT brain C-spine chest pelvis x-ray CT right femur negative for traumatic injury), image reviewed Disposition Clinical Impression: Fall, Traumatic hematoma of forehead, Pelvic contusion Disposition: HOME SELF-CARE Condition: Good Instructions (If sedation given, give patient instructions): Fall Prevention for Older Adults (ED) Is patient prescribed a controlled substance at d/c from ED?: No Referrals: Cooper Randall DO [Primary Care Provider] - 1-2 days Time of Disposition: 05:00
[2021-12-21 01:58] LABS: Basophils % (A) 0 %; Eosinophils # (A) 0.1 k/uL (0-0.7); Eosinophils % (A) 1 %; HCT 35.9 % (34.0-46.0); HGB 12.3 gm/dL (11.4-16.0); Lymphocytes # (A) 0.6 k/uL (1.0-4.8); Lymphocytes % (A) 8 %; MCH 31.5 pg (25.0-35.0); MCHC 34.2 g/dL (31.0-37.0); MCV 92.1 fL (80.0-100.0); Mean Platelet Volume 7.8; Monocytes # (A) 0.6 k/uL (0-1.0); Monocytes % (A) 8 %; Neutrophils # (A) 6.4 k/uL (1.3-7.7); Neutrophils % (A) 81 %; Platelet Count 229 k/uL (150-450); RDW 13.1 % (11.5-15.5); WBC 7.9 k/uL (3.8-10.6)
[2021-12-21 02:18] LABS: ALT 53 U/L (4-34); AST 40 U/L (14-36); African American GFR (CKD) >90 (>60 ml/min/1.73 sqM); Albumin 3.8 g/dL (3.5-5.0); Alkaline Phosphatase 81 U/L (38-126); Anion Gap 8 mmol/L; Blood Urea Nitrogen 25 mg/dL (7-17); Calcium 8.6 mg/dL (8.4-10.2); Carbon Dioxide 24 mmol/L (22-30); Chloride 103 mmol/L (98-107); Glucose 198 mg/dL (74-99); Magnesium 1.7 mg/dL (1.6-2.3); Non-African American GFR(CKD) >90 (>60 ml/min/1.73 sqM); Phosphorus 3.7 mg/dL (2.5-4.5); Sodium 135 mmol/L (137-145); Total Bilirubin 0.6 mg/dL (0.2-1.3); Total Protein 6.3 g/dL (6.3-8.2)
--- NOTE | 2021-12-21 03:08 | CT ---
EXAMINATION TYPE: CT brain dhara wo con DATE OF EXAM: 12/21/2021 COMPARISON: 11/06/2021 HISTORY: FALL Pain CT DLP: 1215.9 mGycm Automated exposure control for dose reduction was used. Images of the brain and cervical spine obtained with no contrast. Ventricles have normal size. There is no mass effect or midline shift. No sign of intracranial hemorr va. There is mild cerebral cortical atrophy. The calvarium is intact. There is some white matter hy podensity lateral right parietal lobe measuring 2 cm. There are small frontal scalp hematoma. The cervical vertebra have normal alignment. There is some spur formation in the mid and lower cervic al spine. No compression fracture. There is hypertrophic mild multilevel cervical facet arthropathy. The skull base is intact. There is normal aeration of the mastoid sinuses. IMPRESSION: Mild cerebral atrophy. No acute intracranial abnormality. Mild chronic small vessel ischemia in the r ight lateral parietal lobe. No change compared to old exam. Small frontal scalp hematoma. Cervical spondylotic changes which are more noticeable at T3-4 and C4-5. No fracture seen. No change compared to old exam.
--- NOTE | 2021-12-21 03:10 | XR ---
EXAMINATION TYPE: XR pelvis AP view DATE OF EXAM: 12/21/2021 COMPARISON: 11/06/2021 HISTORY: Pain TECHNIQUE: Single view FINDINGS: The pelvic ring appears intact. There is narrowing of the right hip joint space with spur f ormation of the acetabulum. No fracture seen. Sacroiliac joints are intact. IMPRESSION: There is osteoarthritis in the right hip joint without change. There is mild right femora l head deformity that could relate to chronic avascular necrosis. No change compared to old exam.
--- NOTE | 2021-12-21 03:12 | XR ---
EXAMINATION TYPE: XR chest 1V DATE OF EXAM: 12/21/2021 COMPARISON: 11/11/2021 HISTORY: Pain TECHNIQUE: FINDINGS: Heart is normal. Lungs are clear of infiltrate. No heart failure. There are no hilar masses . Costophrenic angles are clear. IMPRESSION: No active cardiopulmonary disease. Normal heart. No change.
[2021-12-21] MEDS ORDERED: MORPHINE SULFATE 2 MG/ML SYRINGE IVP STA (03:37)
[2021-12-21 03:50] LABS: Appearance,Urine Clear (Clear); Bacteria,Urine Rare /hpf; Bilirubin,Urine Negative (Negative); Blood,Urine Negative (Negative); Color,Urine Colorless; Glucose,Urine (UA) 2+ (Negative); Ketones,Urine Negative (Negative); Leukocyte Esterase,Urine Trace (Negative); Mucus,Urine Rare /hpf; Nitrite,Urine Negative (Negative); PH, Urine 6.5 (5.0-8.0); Protein,Urine 1+ (Negative); RBC,Urine <1 /hpf (0-5); Specific Gravity,Urine 1.011 (1.001-1.035); Squamous Epithelial Cell,Urine 1 /hpf (0-4); Urobilinogen,Urine <2.0 mg/dL (<2.0); WBC,Urine 4 /hpf (0-5)
--- NOTE | 2021-12-21 04:48 | CT ---
EXAMINATION TYPE: CT femur RT wo con DATE OF EXAM: 12/21/2021 COMPARISON: None HISTORY: Pain from fall CT DLP: 862.1 mGycm Automated exposure control for dose reduction was used. Images obtained from the mid ileum to the proximal tibia with no contrast. There is narrowing of the right hip joint space and spurring of the acetabulum and the femoral head. There is dilated urinary bladder. No sign of free fluid in the pelvis. The acetabulum is intact. The distal femur is intact. The patella is intact. No evidence of hip fracture. No pathologic fluid colle ction. No sign of a hematoma. No sign of knee joint effusion. IMPRESSION: There are some hypertrophic osteoarthritis in the right hip joint. There is some genu valgus deformit y. No femoral fracture seen. Dilated urinary bladder.
[2021-12-21] MEDS ORDERED: SODIUM CHLORIDE 0.9% 1,000 ML IV ONE (05:32)
--- NOTE | 2021-12-21 05:34 | ED ---
Medical Decision Making - Medical Decision Making 76 female to the emergency department originally came in for fall. Patient persistent weakness here in the ER unable to ambulate unable to stand. Patient will be admitted for observation and physical therapy and occupational therapy - Lab Data Result diagrams: 12/21/21 01:51 12/21/21 01:51 Lab Results 12/21/21 12/21/21 12/21/21 Range/Units 01:51 01:51 01:51 WBC 7.9 (3.8-10.6) k/uL RBC 3.90 (3.80-5.40) m/uL Hgb 12.3 (11.4-16.0) gm/dL Hct 35.9 (34.0-46.0) % MCV 92.1 (80.0-100.0) fL MCH 31.5 (25.0-35.0) pg MCHC 34.2 (31.0-37.0) g/dL RDW 13.1 (11.5-15.5) % Plt Count 229 (150-450) k/uL MPV 7.8 Neutrophils % 81 % Lymphocytes % 8 % Monocytes % 8 % Eosinophils % 1 % Basophils % 0 % Neutrophils # 6.4 (1.3-7.7) k/uL Lymphocytes # 0.6 L (1.0-4.8) k/uL Monocytes # 0.6 (0-1.0) k/uL Eosinophils # 0.1 (0-0.7) k/uL Basophils # 0.0 (0-0.2) k/uL Sodium 135 L (137-145) mmol/L Potassium 4.0 (3.5-5.1) mmol/L Chloride 103 (98-107) mmol/L Carbon Dioxide 24 (22-30) mmol/L Anion Gap 8 mmol/L BUN 25 H (7-17) mg/dL Creatinine 0.29 L (0.52-1.04) mg/dL Est GFR (CKD-EPI)AfAm >90 (>60 ml/min/1.73 sqM) Est GFR (CKD-EPI)NonAf >90 (>60 ml/min/1.73 sqM) Glucose 198 H (74-99) mg/dL Calcium 8.6 (8.4-10.2) mg/dL Phosphorus 3.7 (2.5-4.5) mg/dL Magnesium 1.7 (1.6-2.3) mg/dL Total Bilirubin 0.6 (0.2-1.3) mg/dL AST 40 H (14-36) U/L ALT 53 H (4-34) U/L Alkaline Phosphatase 81 (38-126) U/L Troponin I <0.012 (0.000-0.034) ng/mL NT-Pro-B Natriuret Pep pg/mL Total Protein 6.3 (6.3-8.2) g/dL Albumin 3.8 (3.5-5.0) g/dL Urine Color Urine Appearance (Clear) Urine pH (5.0-8.0) Ur Specific [place] (1.001-1.035) Urine Protein (Negative) Urine Glucose (UA) (Negative) Urine Ketones (Negative) Urine Blood (Negative) Urine Nitrite (Negative) Urine Bilirubin (Negative) Urine Urobilinogen (<2.0) mg/dL Ur Leukocyte Esterase (Negative) Urine RBC (0-5) /hpf Urine WBC (0-5) /hpf Ur Squamous Epith Cells (0-4) /hpf Urine Bacteria (None) /hpf Urine Mucus (None) /hpf 12/21/21 12/21/21 Range/Units 01:51 03:40 WBC (3.8-10.6) k/uL RBC (3.80-5.40) m/uL Hgb (11.4-16.0) gm/dL Hct (34.0-46.0) % MCV (80.0-100.0) fL MCH (25.0-35.0) pg MCHC (31.0-37.0) g/dL RDW (11.5-15.5) % Plt Count (150-450) k/uL MPV Neutrophils % % Lymphocytes % % Monocytes % % Eosinophils % % Basophils % % Neutrophils # (1.3-7.7) k/uL Lymphocytes # (1.0-4.8) k/uL Monocytes # (0-1.0) k/uL Eosinophils # (0-0.7) k/uL Basophils # (0-0.2) k/uL Sodium (137-145) mmol/L Potassium (3.5-5.1) mmol/L Chloride (98-107) mmol/L Carbon Dioxide (22-30) mmol/L Anion Gap mmol/L BUN (7-17) mg/dL Creatinine (0.52-1.04) mg/dL Est GFR (CKD-EPI)AfAm (>60 ml/min/1.73 sqM) Est GFR (CKD-EPI)NonAf (>60 ml/min/1.73 sqM) Glucose (74-99) mg/dL Calcium (8.4-10.2) mg/dL Phosphorus (2.5-4.5) mg/dL Magnesium (1.6-2.3) mg/dL Total Bilirubin (0.2-1.3) mg/dL AST (14-36) U/L ALT (4-34) U/L Alkaline Phosphatase (38-126) U/L Troponin I (0.000-0.034) ng/mL NT-Pro-B Natriuret Pep 342 pg/mL Total Protein (6.3-8.2) g/dL Albumin (3.5-5.0) g/dL Urine Color Colorless Urine Appearance Clear (Clear) Urine pH 6.5 (5.0-8.0) Ur Specific [place] 1.011 (1.001-1.035) Urine Protein 1+ H (Negative) Urine Glucose (UA) 2+ H (Negative) Urine Ketones Negative (Negative) Urine Blood Negative (Negative) Urine Nitrite Negative (Negative) Urine Bilirubin Negative (Negative) Urine Urobilinogen <2.0 (<2.0) mg/dL Ur Leukocyte Esterase Trace H (Negative) Urine RBC <1 (0-5) /hpf Urine WBC 4 (0-5) /hpf Ur Squamous Epith Cells 1 (0-4) /hpf Urine Bacteria Rare H (None) /hpf Urine Mucus Rare H (None) /hpf Disposition Clinical Impression: Fall, Traumatic hematoma of forehead, Pelvic contusion, Weakness, Dehydration Disposition: ADMITTED IP TO THIS HOSP Condition: Fair Instructions (If sedation given, give patient instructions): Fall Prevention for Older Adults (ED) Is patient prescribed a controlled substance at d/c from ED?: No Referrals: Cooper Randall DO [Primary Care Provider] - 1-2 days Time of Disposition: 05:30
[2021-12-21] MEDS ORDERED: DEXTROSE 50% SYRINGE 50 ML IVP PRN ×2 (10:59)
[2021-12-21] MEDS: ACETAMINOPHEN TAB 325 MG TAB PO PRN (12:24)
[2021-12-21] MEDS ORDERED: ALBUTEROL NEBULIZED 2.5 MG/3 ML INHALATION PRN (13:40)
[2021-12-21] MEDS: INSULIN ASPART (NovoLOG) 100 UNIT/ML VIAL SQ SCH ×3 (13:52→20:41)
[2021-12-21 13:53] LABS: Glucose,Whole Blood 66 mg/dL (70-110)
[2021-12-21 15:16] LABS: Glucose,Whole Blood 146 mg/dL (70-110)
[2021-12-21] MEDS ORDERED: HEPARIN SODIUM,PORCINE/PF 5,000 UNIT/0.5 ML SYRINGE SQ SCH (16:00)
[2021-12-21 20:10] LABS: Glucose,Whole Blood 382 mg/dL (70-110)
--- NOTE | 2021-12-21 20:34 | P.HPIM ---
History of Present Illness H&P Date: 12/21/21 Chief Complaint: fall Patient is a 76-year-old female with a known history of diabetes type 2 insulin- dependent, rheumatoid arthritis, scoliosis and asthma presents to ER by EMS due to altered mental status and generalized weakness and fall at home. Patient states that she went to the bathroom and slipped on the floor and had injury to the right frontal head. Patient was complaining of headache and neck pain when she presented to ER. Patient has been feeling weak and has been having difficulty walking recently. Patient is somewhat poor historian. Denied any fever or chills. No nausea vomiting or diarrhea. No abdominal pain. No cough or sputum production. No chest pain or shortness of breath. On admission blood pressure 144/73 pulse 100 respiration [address] head and cervical spine mild cerebral atrophy no acute intact abnormality. Mild chronic small vessel ischemia in the right lateral parietal lobe. No change compared to old exam. Small frontal scalp hematoma. Cervical spondylitic changes which are more noticeable at T3-4 and C4-C5. No fracture seen. No change compared to old exam. Chest x-ray showed no acute cardiopulmonary process. X-ray of the pelvis showed there is osteoarthritis in the right hip joint without change. There is mild right femoral head deformity that could relate to chronic avascular necrosis. No change compared to old exam. CT of the femur showed there is some hypertrophic osteoarthritis in the right hip. There is some genus valgus deformity. No femoral fracture seen. Dilated urinary bladder. Laboratory data showed WBC 7.9 hemoglobin 12.3 and platelets 229 Lymphocytes 0.6 Sodium 135 potassium 4.0 chloride 103 bicarb is 24 BUN 25 and creatinine 0.29 Blood sugar is 198 A1c 9.4 and magnesium 1.7. AST 40 ALT 53 and alk phos 81. proBNP 3 4010 troponin x3 negative. Urinalysis is negative for infection. Review of Systems Complete review of systems could not be obtained from the patient. Past Medical History Past Medical History: Asthma, Diabetes Mellitus, GERD/Reflux, Rheumatoid Arthritis (RA) Additional Past Medical History / Comment(s): scoliosis History of Any Multi-Drug Resistant Organisms: None Reported Past Surgical History: Orthopedic Surgery Additional Past Surgical History / Comment(s): foot surgery, epidural shots Past Anesthesia/Blood Transfusion Reactions: No Reported Reaction Past Psychological History: No Psychological Hx Reported Smoking Status: Never smoker - Past Family History Mother Family Medical History: No Reported History Medications and Allergies Home Medications Medication Instructions Recorded Confirmed Type Albuterol Inhaler [Ventolin Hfa 2 puff INHALATION RT-QID PRN 02/19/21 12/21/21 History Inhaler] Sucralfate [Carafate] 1 gm PO ACHS 02/19/21 12/21/21 History metFORMIN HCL ER [Glucophage XR] 500 mg PO QID 02/19/21 12/21/21 History Atorvastatin [Lipitor] 20 mg PO DAILY 11/11/21 12/21/21 History Cyclobenzaprine [Flexeril] 5 mg PO BID PRN 11/11/21 12/21/21 History Diclofenac Sodium Gel [Voltaren 2 - 4 gm TOPICAL TID PRN 11/11/21 12/21/21 History Gel] Estradiol Cream [Estrace Cream 1 gm VAGINAL TUTH 11/11/21 12/21/21 History 0.01%] Insulin Glargine/Lixisenatide 25 units SQ DAILY 11/11/21 12/21/21 History [Soliqua 100 Unit-33 Mcg/ml Pen] Pioglitazone HCl 30 mg PO DAILY 12/21/21 12/21/21 History Allergies Allergy/AdvReac Type Severity Reaction Status Date / Time moxifloxacin [From Avelox] AdvReac Nausea Verified 12/21/21 15:32 nitrofurantoin AdvReac Nausea Verified 12/21/21 15:32 Penicillins AdvReac Nausea Verified 12/21/21 15:32 Physical Exam Vitals: Vital Signs Temp Pulse Resp BP Pulse Ox 12/21/21 09:00 79 18 96 12/21/21 07:42 65 16 143/79 94 L 12/21/21 06:08 94 15 153/90 98 12/21/21 01:27 98.4 F 100 18 145/73 95 Intake and Output 12/20/21 12/21/21 12/21/21 22:59 06:59 14:59 Other: Weight 43.545 kg PHYSICAL EXAMINATION: Patient is lying in the bed comfortably,, awake alert and oriented, lethargic and generalized weakness... HEENT: Normocephalic. Neck is supple. Pupils reactive. Nostrils clear. Oral cavity is moist. Neck reveals no JVD, carotid bruits, or thyromegaly. CHEST EXAMINATION: Trachea is central. Symmetrical expansion. Bibasilar diminished sounds. No wheezing or rhonchi. Nonlabored breathing.. CARDIAC: Normal S1, S2 with no gallops. No murmurs ABDOMEN: Soft. Bowel sounds present. Nontender. No organomegaly. No abdominal bruits. Extremities: reveal no edema. No clubbing or cyanosis Neurologically awake, alert, oriented x3. Lethargic and weak. Able to move extremities while in bed. No focal deficits noted gross. Skin: No rash or skin lesions. Psychiatric: Coperative. Could not be assessed completely, Musculoskeletal: No joint swelling or deformity. Results CBC & Chem 7: 12/21/21 01:51 12/21/21 01:51 Labs: Abnormal Lab Results - Last 24 Hours (Table) 12/21/21 12/21/21 12/21/21 Range/Units 01:51 01:51 03:40 Lymphocytes # 0.6 L (1.0-4.8) k/uL Sodium 135 L (137-145) mmol/L BUN 25 H (7-17) mg/dL Creatinine 0.29 L (0.52-1.04) mg/dL Glucose 198 H (74-99) mg/dL AST 40 H (14-36) U/L ALT 53 H (4-34) U/L Urine Protein 1+ H (Negative) Urine Glucose (UA) 2+ H (Negative) Ur Leukocyte Esterase Trace H (Negative) Urine Bacteria Rare H (None) /hpf Urine Mucus Rare H (None) /hpf Assessment and Plan Assessment: Status post fall and traumatic hematoma of the forehead and pelvic contusion. Generalized weakness Medical debility and unable to ambulate without support. Hyperglycemia with uncontrolled diabetes type 2 insulin-dependent. Asthma not in exacerbation To modalities GERD Scoliosis Mild protein calorie malnutrition DVT prophylaxis Heparin subcu Plan: Patient is status post mechanical fall and in no focal neurologic acute deficit noted. Continue with IV hydration and Dosing for better blood sugar control. Continue with home medications and follow-up closely. GI and DVT prophylaxis. PT OT was consulted and possible discharge to rehab.. Time with Patient: Greater than 30
[2021-12-21] MEDS: HEPARIN SODIUM,PORCINE/PF 5,000 UNIT/0.5 ML SYRINGE SQ SCH (20:39)
[2021-12-21] MEDS: HYDROcodone/APAP 5-325MG 1 EACH TAB PO PRN (20:39)
[2021-12-21] MEDS: SUCRALFATE 1 GM TAB PO SCH (20:41)
[2021-12-21] MEDS: INSULIN DETEMIR (LEVEMIR) 100 UNIT/ML SYR SQ SCH (20:41)
[2021-12-21] MEDS ORDERED: SENNOSIDES 8.6 MG TAB PO PRN (22:06)
[2021-12-21] MEDS: ESTRADIOL 0.1 MG/GM VAGINAL CREAM 42.5 GM TUBE VAGINAL SCH (22:31)
--- NOTE | 2021-12-21 23:02 | US ---
EXAMINATION TYPE: US kidneys/renal and bladder DATE OF EXAM: 12/21/2021 COMPARISON: CT: 11/11/21 CLINICAL HISTORY: WILNER. WILNER Limited due to excessive bowel gas EXAM MEASUREMENTS: Right Kidney: 10.8 x 5.3 x 5.4 cm Left Kidney: Not vis Right Kidney: Mild hydro visualized, most likely due to full bladder Left Kidney: Not vis. Bladder: Distended with 976ml Bilateral Jets seen: Yes . IMPRESSION: There are bilateral ureteral jets but only the left-sided jet is documented. No renal obstruction. Th ere is a mild right-sided hydronephrosis. No renal atrophy. Left kidney not visualized.
[2021-12-22] MEDS: HYDROcodone/APAP 5-325MG 1 EACH TAB PO PRN ×2 (03:39→14:30)
[2021-12-22] MEDS: INSULIN ASPART (NovoLOG) 100 UNIT/ML VIAL SQ SCH ×4 (06:55→22:39)
[2021-12-22] MEDS: SUCRALFATE 1 GM TAB PO SCH ×4 (06:56→21:09)
[2021-12-22 06:57] LABS: Glucose,Whole Blood 63 mg/dL (70-110)
[2021-12-22 07:02] LABS: Glucose,Whole Blood 72 mg/dL (70-110)
[2021-12-22] MEDS ORDERED: NON FORMULARY DRUG (Insulin Glargine/Lixisenatide [Soliqua 100 Unit-33 Mcg/Ml Pen] 3 ML In SQ SCH (09:00)
[2021-12-22] MEDS: PIOGLITAZONE 30 MG TAB PO SCH (09:43)
[2021-12-22] MEDS: ATORVASTATIN 20 MG TAB PO SCH (09:44)
[2021-12-22] MEDS: ACETAMINOPHEN TAB 325 MG TAB PO PRN (09:45)
[2021-12-22] MEDS: HEPARIN SODIUM,PORCINE/PF 5,000 UNIT/0.5 ML SYRINGE SQ SCH ×2 (09:46→21:09)
[2021-12-22 11:30] LABS: Basophils # (A) 0.04 X 10*3/uL (0.00-0.10); Basophils % (A) 0.6 %; Eosinophils # (A) 0.13 X 10*3/uL (0.04-0.35); HCT 36.4 % (37.2-46.3); HGB 11.5 g/dL (12.0-15.0); Immature Grans, Automated 0.2 %; Lymphocytes # (A) 0.85 X 10*3/uL (0.90-5.00); Lymphocytes % (A) 13.3 %; MCH 29.6 pg (27.0-32.0); MCHC 31.6 g/dL (32.0-37.0); MCV 93.8 fL (80.0-97.0); Mean Platelet Volume 10.9 fL (9.5-12.2); NRBC Per 100 WBC 0 /100 WBCS (0.0-0.0); Neutrophils # (A) 4.65 X 10*3/uL (1.80-7.70); Neutrophils % (A) 72.9 %; Platelet Count 263 X 10*3/uL (140-440); RBC 3.88 X 10*6/uL (4.10-5.20); RDW 13.8 % (11.5-14.5); WBC 6.38 X 10*3/uL (4.50-10.00)
[2021-12-22 11:31] LABS: African American GFR (CKD) 118.9 (60.0-200.0); Blood Urea Nitrogen 19.4 mg/dL (9.0-27.0); Calcium 8.4 mg/dL (8.7-10.3); Carbon Dioxide 22.5 mmol/L (20.0-27.5); Chloride 109 mmol/L (96-109); Glucose 67 mg/dL (70-110); Non-African American GFR(CKD) 102.6 (60.0-200.0); Potassium 3.8 mmol/L (3.5-5.5); Sodium 141 mmol/L (135-145)
[2021-12-22 12:09] LABS: Glucose,Whole Blood 210 mg/dL (70-110)
[2021-12-22 17:42] LABS: Glucose,Whole Blood 272 mg/dL (70-110)
[2021-12-22] MEDS: TAMSULOSIN 0.4 MG CAP.ER.24H PO SCH (18:03)
[2021-12-22 22:14] LABS: Glucose,Whole Blood 403 mg/dL (70-110)
[2021-12-22] MEDS: CYCLOBENZAPRINE 5 MG TAB PO PRN (22:39)
[2021-12-22] MEDS: INSULIN DETEMIR (LEVEMIR) 100 UNIT/ML SYR SQ SCH (22:39)
[2021-12-23] MEDS: HYDROcodone/APAP 5-325MG 1 EACH TAB PO PRN (03:51)
[2021-12-23 06:15] LABS: Glucose,Whole Blood 71 mg/dL (70-110)
[2021-12-23] MEDS: INSULIN ASPART (NovoLOG) 100 UNIT/ML VIAL SQ SCH ×4 (06:15→20:38)
[2021-12-23] MEDS: SUCRALFATE 1 GM TAB PO SCH ×4 (06:30→20:39)
[2021-12-23 07:10] LABS: Glucose,Whole Blood 68 mg/dL (70-110)
[2021-12-23 07:32] LABS: Glucose,Whole Blood 73 mg/dL (70-110)
[2021-12-23 08:55] LABS: Basophils # (A) 0.03 X 10*3/uL (0.00-0.10); Basophils % (A) 0.4 %; Eosinophils # (A) 0.14 X 10*3/uL (0.04-0.35); HCT 34.1 % (37.2-46.3); HGB 11.1 g/dL (12.0-15.0); Immature Grans, Automated 0.3 %; Lymphocytes # (A) 1.09 X 10*3/uL (0.90-5.00); Lymphocytes % (A) 15.8 %; MCH 29.8 pg (27.0-32.0); MCHC 32.6 g/dL (32.0-37.0); MCV 91.7 fL (80.0-97.0); Mean Platelet Volume 10.9 fL (9.5-12.2); Monocytes # (A) 0.86 X 10*3/uL (0.20-1.00); Monocytes % (A) 12.5 %; NRBC Per 100 WBC 0 /100 WBCS (0.0-0.0); Neutrophils # (A) 4.76 X 10*3/uL (1.80-7.70); Platelet Count 263 X 10*3/uL (140-440); RBC 3.72 X 10*6/uL (4.10-5.20); RDW 13.9 % (11.5-14.5)
[2021-12-23] MEDS: ACETAMINOPHEN TAB 325 MG TAB PO PRN ×2 (08:55→20:38)
[2021-12-23 09:26] LABS: African American GFR (CKD) 118.9 (60.0-200.0); Anion Gap 10.5 mmol/L (10.00-18.00); Blood Urea Nitrogen 14.8 mg/dL (9.0-27.0); Calcium 8.5 mg/dL (8.7-10.3); Carbon Dioxide 24.5 mmol/L (20.0-27.5); Non-African American GFR(CKD) 102.6 (60.0-200.0); Potassium 3.6 mmol/L (3.5-5.5)
[2021-12-23] MEDS: PIOGLITAZONE 30 MG TAB PO SCH (09:26)
[2021-12-23] MEDS: metFORMIN 500 MG TAB PO SCH ×4 (09:26→21:03)
[2021-12-23] MEDS: ATORVASTATIN 20 MG TAB PO SCH (09:26)
[2021-12-23] MEDS: HEPARIN SODIUM,PORCINE/PF 5,000 UNIT/0.5 ML SYRINGE SQ SCH ×2 (09:29→20:39)
--- NOTE | 2021-12-23 11:00 | P.PN ---
Subjective Progress Note Date: 12/22/21 Patient is a 76-year-old female with a known history of diabetes type 2 insulin- dependent, rheumatoid arthritis, scoliosis and asthma presents to ER by EMS due to altered mental status and generalized weakness and fall at home. Patient states that she went to the bathroom and slipped on the floor and had injury to the right frontal head. Patient was complaining of headache and neck pain when she presented to ER. Patient has been feeling weak and has been having difficulty walking recently. Patient is somewhat poor historian. Denied any fever or chills. No nausea vomiting or diarrhea. No abdominal pain. No cough or sputum production. No chest pain or shortness of breath. On admission blood pressure 144/73 pulse 100 respiration [address] head and cervical spine mild cerebral atrophy no acute intact abnormality. Mild chronic small vessel ischemia in the right lateral parietal lobe. No change compared to old exam. Small frontal scalp hematoma. Cervical spondylitic changes which are more noticeable at T3-4 and C4-C5. No fracture seen. No change compared to old exam. Chest x-ray showed no acute cardiopulmonary process. X-ray of the pelvis showed there is osteoarthritis in the right hip joint without change. There is mild right femoral head deformity that could relate to chronic avascular necrosis. No change compared to old exam. CT of the femur showed there is some hypertrophic osteoarthritis in the right hip. There is some genus valgus deformity. No femoral fracture seen. Dilated urinary bladder. Laboratory data showed WBC 7.9 hemoglobin 12.3 and platelets 229 Lymphocytes 0.6 Sodium 135 potassium 4.0 chloride 103 bicarb is 24 BUN 25 and creatinine 0.29 Blood sugar is 198 A1c 9.4 and magnesium 1.7. AST 40 ALT 53 and alk phos 81. proBNP 3 4010 troponin x3 negative. Urinalysis is negative for infection. 12/22/2021 Patient is currently lying in bed. Awake alert and oriented. Patient is very weak and fragile. No complaints of chest pain or shortness of breath. Patient has been retaining urine and requiring straight catheterization. Patient was eventually placed on Nava catheter. Started on Flomax. Otherwise patient has been afebrile. No nausea vomiting or abdominal pain or diarrhea. Tolerating minimal oral intake. Laboratory data showed WBC 6.3 hemoglobin 11.5 and platelets 263 BUN 19.4 and creatinine 0.4 potassium 3.8 and blood sugar was 67 this morning. Will titrate down insulin dose. B12 813 and TSH 1.17. Patient has been afebrile. No cough or sputum production. PT OT and social work on board. Possible discharge to rehab. Current medications reviewed. Objective - Vital Signs Vital signs: Vital Signs Temp 98 F 12/22/21 15:00 Pulse 90 12/22/21 15:00 Resp 16 12/22/21 15:00 BP 129/62 12/22/21 15:00 Pulse Ox 97 12/22/21 15:00 FiO2 21 12/21/21 19:55 Intake & Output 12/21/21 12/22/21 12/22/21 18:59 06:59 18:59 Intake Total 120 Output Total 1230 1500 Balance -1230 -1380 Weight 43.545 kg 43.545 kg Intake: Oral 120 Output: Urine 1230 1500 Uretheral (Nava) 700 Other: Voiding Method Bedpan Bedpan Diaper Diaper External Catheter External Catheter # Voids 1 2 # Bowel Movements 1 0 - Exam PHYSICAL EXAMINATION: Patient is lying in the bed comfortably,, awake alert and oriented, lethargic and generalized weakness... HEENT: Normocephalic. Neck is supple. Pupils reactive. Nostrils clear. Oral cavity is moist. Neck reveals no JVD, carotid bruits, or thyromegaly. CHEST EXAMINATION: Trachea is central. Symmetrical expansion. Bibasilar diminished sounds. No wheezing or rhonchi. Nonlabored breathing.. CARDIAC: Normal S1, S2 with no gallops. No murmurs ABDOMEN: Soft. Bowel sounds present. Nontender. No organomegaly. No abdominal bruits. Extremities: reveal no edema. No clubbing or cyanosis Neurologically awake, alert, oriented x3. Lethargic and weak. Able to move extremities while in bed. No focal deficits noted gross. Skin: No rash or skin lesions. Psychiatric: Coperative. Could not be assessed completely, Musculoskeletal: No joint swelling or deformity. - Labs CBC & Chem 7: 12/23/21 05:20 12/23/21 05:20 Labs: Abnormal Lab Results - Last 24 Hours (Table) 12/21/21 12/21/21 12/22/21 Range/Units 01:51 20:08 05:51 RBC 3.88 L (4.10-5.20) X 10*6/uL Hgb 11.5 L (12.0-15.0) g/dL Hct 36.4 L (37.2-46.3) % MCHC 31.6 L (32.0-37.0) g/dL Lymphocytes # 0.85 L (0.90-5.00) X 10*3/uL Anion Gap (10.00-18.00) mmol/L Creatinine (0.6-1.5) mg/dL BUN/Creatinine Ratio (12.00-20.00) Ratio Glucose (70-110) mg/dL POC Glucose (mg/dL) 382 H (70-110) mg/dL Hemoglobin A1c 9.4 H (0.0-6.0) % Calcium (8.7-10.3) mg/dL 12/22/21 12/22/21 12/22/21 Range/Units 05:51 06:55 12:06 RBC (4.10-5.20) X 10*6/uL Hgb (12.0-15.0) g/dL Hct (37.2-46.3) % MCHC (32.0-37.0) g/dL Lymphocytes # (0.90-5.00) X 10*3/uL Anion Gap 9.50 L (10.00-18.00) mmol/L Creatinine 0.4 L (0.6-1.5) mg/dL BUN/Creatinine Ratio 48.50 H (12.00-20.00) Ratio Glucose 67 L (70-110) mg/dL POC Glucose (mg/dL) 63 L 210 H (70-110) mg/dL Hemoglobin A1c (0.0-6.0) % Calcium 8.4 L (8.7-10.3) mg/dL Assessment and Plan Assessment: Status post fall and traumatic hematoma of the forehead and pelvic contusion. Acute urinary retention Generalized weakness Medical debility and unable to ambulate without support. Hyperglycemia with uncontrolled diabetes type 2 insulin-dependent. Asthma not in exacerbation To modalities GERD Scoliosis Mild protein calorie malnutrition DVT prophylaxis Heparin subcu Plan: Patient is status post mechanical fall and in no focal neurologic acute deficit noted. Patient also developed acute urinary retention requiring Nava catheter today. Patient was retaining greater than 900 mL. Insulin Dosing for better blood sugar control. Currently on 25 units at bedtime Levemir. Also on pioglitazone and metformin at home. Continue with home medications and follow-up closely. GI and DVT prophylaxis. PT OT was consulted and possible discharge to rehab.. Time with Patient: Greater than 30
[2021-12-23 12:15] LABS: Glucose,Whole Blood 288 mg/dL (70-110)
[2021-12-23] MEDS: CYCLOBENZAPRINE 5 MG TAB PO PRN ×2 (14:34→20:45)
[2021-12-23 17:02] LABS: Glucose,Whole Blood 178 mg/dL (70-110)
[2021-12-23] MEDS: TAMSULOSIN 0.4 MG CAP.ER.24H PO SCH (18:19)
[2021-12-23 20:07] LABS: Glucose,Whole Blood 285 mg/dL (70-110)
[2021-12-23] MEDS: ESTRADIOL 0.1 MG/GM VAGINAL CREAM 42.5 GM TUBE VAGINAL SCH (20:40)
[2021-12-23] MEDS ORDERED: INSULIN DETEMIR (LEVEMIR) 100 UNIT/ML SYR SQ SCH (21:00)
--- NOTE | 2021-12-23 22:48 | P.PN ---
Subjective Progress Note Date: 12/23/21 Patient is a 76-year-old female with a known history of diabetes type 2 insulin- dependent, rheumatoid arthritis, scoliosis and asthma presents to ER by EMS due to altered mental status and generalized weakness and fall at home. Patient states that she went to the bathroom and slipped on the floor and had injury to the right frontal head. Patient was complaining of headache and neck pain when she presented to ER. Patient has been feeling weak and has been having difficulty walking recently. Patient is somewhat poor historian. Denied any fever or chills. No nausea vomiting or diarrhea. No abdominal pain. No cough or sputum production. No chest pain or shortness of breath. On admission blood pressure 144/73 pulse 100 respiration [address] head and cervical spine mild cerebral atrophy no acute intact abnormality. Mild chronic small vessel ischemia in the right lateral parietal lobe. No change compared to old exam. Small frontal scalp hematoma. Cervical spondylitic changes which are more noticeable at T3-4 and C4-C5. No fracture seen. No change compared to old exam. Chest x-ray showed no acute cardiopulmonary process. X-ray of the pelvis showed there is osteoarthritis in the right hip joint without change. There is mild right femoral head deformity that could relate to chronic avascular necrosis. No change compared to old exam. CT of the femur showed there is some hypertrophic osteoarthritis in the right hip. There is some genus valgus deformity. No femoral fracture seen. Dilated urinary bladder. Laboratory data showed WBC 7.9 hemoglobin 12.3 and platelets 229 Lymphocytes 0.6 Sodium 135 potassium 4.0 chloride 103 bicarb is 24 BUN 25 and creatinine 0.29 Blood sugar is 198 A1c 9.4 and magnesium 1.7. AST 40 ALT 53 and alk phos 81. proBNP 3 4010 troponin x3 negative. Urinalysis is negative for infection. 12/22/2021 Patient is currently lying in bed. Awake alert and oriented. Patient is very weak and fragile. No complaints of chest pain or shortness of breath. Patient has been retaining urine and requiring straight catheterization. Patient was eventually placed on Nava catheter. Started on Flomax. Otherwise patient has been afebrile. No nausea vomiting or abdominal pain or diarrhea. Tolerating minimal oral intake. Laboratory data showed WBC 6.3 hemoglobin 11.5 and platelets 263 BUN 19.4 and creatinine 0.4 potassium 3.8 and blood sugar was 67 this morning. Will titrate down insulin dose. B12 813 and TSH 1.17. Patient has been afebrile. No cough or sputum production. PT OT and social work on board. Possible discharge to rehab. 12/23/2021 Patient is currently resting in bed. Awake alert and oriented x3. Patient is cachectic and weak. No complaints of chest pain or shortness of breath. No nausea or vomiting abdominal pain. Nava cath was placed yesterday due to urinary retention. Continue with Flomax. No fever no chills. No headache or dizziness or lightheadedness. Patient was able to get up to the commode at bedside. PT OT on board and possible discharge to [facility] Laboratory data showed WBC 6.9 hemoglobin 11.1 and platelets 263 blood sugar was 59 this morning. Levemir dose will be reduced to 21 units and add preprandial insulin. Along with insulin sliding scale. B12 levels 813 folate 007 and TSH 1.17 within normal limits. Current medications reviewed. Objective - Vital Signs Vital signs: Vital Signs Temp 97.8 F 12/23/21 18:45 Pulse 97 12/23/21 18:45 Resp 17 12/23/21 18:45 BP 121/59 12/23/21 18:45 Pulse Ox 96 12/23/21 18:45 FiO2 21 12/21/21 19:55 Intake & Output 12/23/21 12/23/21 12/24/21 06:59 18:59 06:59 Intake Total 837 Output Total 1600 650 Balance -1600 187 Intake: Oral 837 Output: Urine 1600 650 Other: Voiding Method Bedpan Indwelling Catheter Indwelling Catheter Diaper External Catheter # Voids 2 # Bowel Movements 2 - Exam PHYSICAL EXAMINATION: Patient is lying in the bed comfortably,, awake alert and oriented, cachectic. generalized weakness... HEENT: Normocephalic. Neck is supple. Pupils reactive. Nostrils clear. Oral cavity is moist. Neck reveals no JVD, carotid bruits, or thyromegaly. CHEST EXAMINATION: Trachea is central. Symmetrical expansion. Bibasilar diminished sounds. No wheezing or rhonchi. Nonlabored breathing.. CARDIAC: Normal S1, S2 with no gallops. No murmurs ABDOMEN: Soft. Bowel sounds present. Nontender. No organomegaly. No abdominal bruits. Extremities: reveal no edema. No clubbing or cyanosis Neurologically awake, alert, oriented x3. . Able to move extremities while in bed. No focal deficits noted gross. Skin: No rash or skin lesions. Psychiatric: Coperative. Musculoskeletal: No joint swelling or deformity. - Labs CBC & Chem 7: 12/23/21 05:20 12/23/21 05:20 Labs: Abnormal Lab Results - Last 24 Hours (Table) 12/23/21 12/23/21 12/23/21 Range/Units 05:20 05:20 06:52 RBC 3.72 L (4.10-5.20) X 10*6/uL Hgb 11.1 L (12.0-15.0) g/dL Hct 34.1 L (37.2-46.3) % Creatinine 0.4 L (0.6-1.5) mg/dL BUN/Creatinine Ratio 37.00 H (12.00-20.00) Ratio Glucose 59 L (70-110) mg/dL POC Glucose (mg/dL) 68 L (70-110) mg/dL Calcium 8.5 L (8.7-10.3) mg/dL 12/23/21 12/23/21 12/23/21 Range/Units 12:13 16:50 20:05 RBC (4.10-5.20) X 10*6/uL Hgb (12.0-15.0) g/dL Hct (37.2-46.3) % Creatinine (0.6-1.5) mg/dL BUN/Creatinine Ratio (12.00-20.00) Ratio Glucose (70-110) mg/dL POC Glucose (mg/dL) 288 H 178 H 285 H (70-110) mg/dL Calcium (8.7-10.3) mg/dL Assessment and Plan Assessment: Status post fall and traumatic hematoma of the forehead and pelvic contusion. Acute urinary retention Generalized weakness Medical debility and unable to ambulate without support. Hyperglycemia with uncontrolled diabetes type 2 insulin-dependent. Asthma not in exacerbation To modalities GERD Scoliosis Mild protein calorie malnutrition DVT prophylaxis Heparin subcu Plan: Patient is status post mechanical fall and in no focal neurologic acute deficit noted. Patient also developed acute urinary retention requiring Nava catheter . Patient was retaining greater than 900 mL. Insulin Dosing for better blood sugar control. Currently on 21 units at bedtime Levemir. Also on pioglitazone and metformin at home. Continue with home medications and follow-up closely. GI and DVT prophylaxis. PT OT was consulted and possible discharge to rehab.. Time with Patient: Greater than 30
[2021-12-24] MEDS: HYDROcodone/APAP 5-325MG 1 EACH TAB PO PRN (02:59)
[2021-12-24] MEDS: SUCRALFATE 1 GM TAB PO SCH ×3 (06:51→17:27)
[2021-12-24 06:54] LABS: Glucose,Whole Blood 119 mg/dL (70-110)
[2021-12-24] MEDS: INSULIN ASPART (NovoLOG) 100 UNIT/ML VIAL SQ SCH ×7 (06:54→18:28)
[2021-12-24] MEDS: ATORVASTATIN 20 MG TAB PO SCH (09:24)
[2021-12-24] MEDS: PIOGLITAZONE 30 MG TAB PO SCH (09:24)
[2021-12-24] MEDS: metFORMIN 500 MG TAB PO SCH ×3 (09:25→17:25)
[2021-12-24] MEDS: HEPARIN SODIUM,PORCINE/PF 5,000 UNIT/0.5 ML SYRINGE SQ SCH (09:33)
[2021-12-24 10:36] VITALS: BMI 20.7
[2021-12-24 12:08] LABS: Glucose,Whole Blood 136 mg/dL (70-110)
--- NOTE | 2021-12-24 13:12 | P.DS ---
Providers Date of admission: 12/21/21 05:32 Expected date of discharge: 12/24/21 Attending physician: Jack Perry Primary care physician: Cooper Randall Hospital Course: Final diagnosis Status post fall and traumatic hematoma of the forehead and pelvic contusion. Acute urinary retention Generalized weakness Medical debility and unable to ambulate without support. Hyperglycemia with uncontrolled diabetes type 2 insulin-dependent. Asthma not in exacerbation Rheumatoid arthritis history GERD Scoliosis Mild protein calorie malnutrition DVT prophylaxis Heparin subcu Discharge disposition Patient is being discharged in a stable condition with guarded prognosis to [facility]. Patient will follow-up with Dr. Randall in the outpatient setting upon discharge. Patient is to follow-up with urology as scheduled. Total time taken is greater than 35 minutes. Hospital course This is a 76-year-old female who was recently admitted with weakness and altered mental status with falls and was being closely monitored. Patient was seen and evaluated and continue with significant weakness. Patient was evaluated by physical therapy recommending subacute rehab and patient is agreeable. Patient also having some urinary retention requiring an Nava recommend continue with as patient has been started on Flomax and may trial void once more mobile and if continues with retention recommend to continue with indwelling Nava catheter and outpatient follow-up with urology. She has a diabetic insulin-dependent recommend continue monitoring Accu-Cheks before meals and at bedtime and treat accordingly with pre-meal, sliding scale, and long acting. Currently no reports of chest pain, shortness of breath, or palpitations. Patient is afebrile. No reports of nausea or vomiting and patient is tolerating diet. Patient will be going to [facility] today. Guarded prognosis. Physical exam: Gen: This is a 76-year-old female awake, alert and oriented 3, thin built, cachectic, elderly appearing. HEENT: Head is atraumatic, normocephalic. Pupils equal, round. Sclerae is anicteric. Bruising noted of the forehead that appears to be healing NECK: Supple. No JVD. No lymphadenopathy. No thyromegaly. LUNGS: Clear to auscultation. No wheezes or rhonchi. No intercostal retractions. HEART: Regular rate and rhythm. No murmur. ABDOMEN: Soft. Bowel sounds are present. No masses. No tenderness. EXTREMITIES: No pedal edema. No calf tenderness. NEUROLOGICAL: Patient is awake, alert and oriented x3. Cranial nerves 2 through 12 are grossly intact. diffusely weak Please refer to medication reconciliation sheet for a list of medications. The impression and plan of care has been dictated by Jessica Sweeney, Nurse Practitioner as directed. Dr. Bahman MD I have performed a history and examination and MDM of this patient, discussed the same with the dictator, and agree with the dictator's assessment and plan as written ,documented as a scribe. Based on total visit time, I have performed more than 50% of the visit. Patient Condition at Discharge: Fair Plan - Discharge Summary Discharge Rx Participant: Yes New Discharge Prescriptions: New Insulin Detemir (Levemir) [Levemir] 21 unit SQ HS each Acetaminophen Tab [Tylenol] 650 mg PO Q6HR PRN tab PRN Reason: Fever And/ Or Pain Tamsulosin [Flomax] 0.4 mg PO PC-SUPPER cap Heparin Sodium,Porcine [Heparin Sodium] 5,000 unit SQ Q12HR #30 each HYDROcodone/APAP 5-325MG [[place] 5-325] 1 each PO Q6HR PRN #6 tab PRN Reason: Pain INSULIN ASPART (NovoLOG) [NovoLOG (formulary)] 4 unit SQ AC-TID each INSULIN ASPART (NovoLOG) [NovoLOG (formulary)] 0 unit SQ ACHS each Sennosides [Senokot] 8.6 mg PO BID PRN tab PRN Reason: Constipation Continue metFORMIN HCL ER [Glucophage XR] 500 mg PO QID Cyclobenzaprine [Flexeril] 5 mg PO BID PRN PRN Reason: Muscle Spasm Diclofenac Sodium Gel [Voltaren Gel] 2 - 4 gm TOPICAL TID PRN PRN Reason: Pain Pioglitazone HCl 30 mg PO DAILY Sucralfate [Carafate] 1 gm PO ACHS Albuterol Inhaler [Ventolin Hfa Inhaler] 2 puff INHALATION RT-QID PRN PRN Reason: Shortness Of Breath Atorvastatin [Lipitor] 20 mg PO DAILY Estradiol Cream [Estrace Cream 0.01%] 1 gm VAGINAL TUTH Discontinued Insulin Glargine/Lixisenatide [[place]iqua 100 Unit-33 Mcg/ml Pen] 25 units SQ DAILY Discharge Medication List Albuterol Inhaler [Ventolin Hfa Inhaler] 2 puff INHALATION RT-QID PRN 02/19/21 [History] Sucralfate [Carafate] 1 gm PO ACHS 02/19/21 [History] metFORMIN HCL ER [Glucophage XR] 500 mg PO QID 02/19/21 [History] Atorvastatin [Lipitor] 20 mg PO DAILY 11/11/21 [History] Cyclobenzaprine [Flexeril] 5 mg PO BID PRN 11/11/21 [History] Diclofenac Sodium Gel [Voltaren Gel] 2 - 4 gm TOPICAL TID PRN 11/11/21 [History] Estradiol Cream [Estrace Cream 0.01%] 1 gm VAGINAL TUTH 11/11/21 [History] Pioglitazone HCl 30 mg PO DAILY 12/21/21 [History] Acetaminophen Tab [Tylenol] 650 mg PO Q6HR PRN tab 12/24/21 [Rx] HYDROcodone/APAP 5-325MG [[place] 5-325] 1 each PO Q6HR PRN #6 tab 12/24/21 [Rx] Heparin Sodium,Porcine [Heparin Sodium] 5,000 unit SQ Q12HR #30 each 12/24/21 [Rx] INSULIN ASPART (NovoLOG) [NovoLOG (formulary)] 0 unit SQ ACHS each 12/24/21 [Rx] INSULIN ASPART (NovoLOG) [NovoLOG (formulary)] 4 unit SQ AC-TID each 12/24/21 [Rx] Insulin Detemir (Levemir) [Levemir] 21 unit SQ HS each 12/24/21 [Rx] Sennosides [Senokot] 8.6 mg PO BID PRN tab 12/24/21 [Rx] Tamsulosin [Flomax] 0.4 mg PO PC-SUPPER cap 12/24/21 [Rx] Follow up Appointment(s)/Referral(s): Cooper Randall DO [Primary Care Provider] - 1-2 days Sd Johnston MD [STAFF PHYSICIAN] - 1 Week Patient Instructions/Handouts: Fall Prevention for Older Adults (ED) Activity/Diet/Wound Care/Special Instructions: Patient [facility] [place] Activity as tolerated Continue monitoring blood sugars before meals and at bedtime and continue with breathing meal, sliding scale, and long acting NovoLog sliding scale 0-150 equals 0 units 151-200 equals 2 units 201-250 equals 4 units 251-300 equals 6 units 301-350 equals 8 units 351-400 equals 10 units Please notify provider if blood sugar is 400 or above Continue consistent carb diet Continue Glucerna 3 times a day with meals [place] Patient is to continue with indwelling Nava catheter and follow-up with urology outpatient for urinary retention may trial void once more mobile Follow-up primary care provider on discharge Discharge Disposition: TRANSFER TO SNF/ECF
[2021-12-24 13:53] VITALS: BP 106/64; PULSE 103; RESP 18; TEMP 98.1
[2021-12-24 17:00] LABS: Glucose,Whole Blood 186 mg/dL (70-110)
== END 2021-12-24 18:52 ==
LOC: EC 01:08 → 6NMEDSUR 05:32
PROVIDERS: ADMIT Hospitalist; ATTEND Hospitalist
DX: S00.03XA Contusion of scalp, initial encounter (principal); S70.01XA Contusion of right hip, initial encounter; S30.0XXA Contusion of lower back and pelvis, initial encounter; J45.909 Unspecified asthma, uncomplicated; M16.11 Unilateral primary osteoarthritis, right hip; M87.851 Other osteonecrosis, right femur; E11.65 Type 2 diabetes mellitus with hyperglycemia; K21.9 Gastro-esophageal reflux disease without esophagitis; M06.9 Rheumatoid arthritis, unspecified; M41.9 Scoliosis, unspecified; M47.813 Spondylosis without myelopathy or radiculopathy, cervicothoracic region; E44.1 Mild protein-calorie malnutrition; M21.061 Valgus deformity, not elsewhere classified, right knee; N13.30 Unspecified hydronephrosis; E86.0 Dehydration; R33.9 Retention of urine, unspecified; Z79.899 Other long term (current) drug therapy; Z20.822 Contact with and (suspected) exposure to COVID-19; Z79.84 Long term (current) use of oral hypoglycemic drugs; Z79.4 Long term (current) use of insulin; Z68.20 Body mass index [BMI] 20.0-20.9, adult; Z88.0 Allergy status to penicillin; Z88.1 Allergy status to other antibiotic agents; W01.0XXA Fall on same level from slipping, tripping and stumbling without subsequent striking against object, initial encounter; Y92.009 Unspecified place in unspecified non-institutional (private) residence as the place of occurrence of the external cause
CPT/HCPCS: 96361 ×3; 96372 ×4; 96374; 96375; 99285; 36415; 97530 ×4; 97163; 97167; 82747; 83880; 80053; 80048 ×2; 84443; 82607; 83735; 84100; 84484; 85025 ×3; 81001; 83036; 72170; 71045; 76770; 72125; 70450; 73700; G0378 ×4; U0003; U0005; J3360; J2270; J1644 ×4

== ENCOUNTER 2022-02-06 15:29 | Observation (INO) | payer MEDICARE ==
--- NOTE | 2022-02-06 16:11 | ED ---
General Adult HPI - General Chief complaint: Fall Stated complaint: Weakness Time Seen by Provider: 02/06/22 15:45 Source: patient, family, EMS Mode of arrival: EMS Limitations: physical limitation - History of Present Illness Initial comments: Patient presents to the ED by ambulance for evaluation with her brother and [id number] at bedside. Patient states that she has fallen about 4 times this month, and she is unsure why. Patient states that she most recently fell this morning, and she states that she landed on her right hip. Patient states that she has been having right hip pain since then. Patient states that she was seen at [facility] this morning, and she states that she had negative hip x- rays obtained at that time. Patient apparently signed herself out of the hospital this morning, and she states that she is unsure why she did that. Patient states that she has not fallen since then, but she continues to have right hip pain, and so she called for an ambulance to bring her to the hospital. Patient's brother states that the patient's family does not feel that she is safe by herself at home. Patient states that she is now willing to be admitted to the hospital for placement if needed. Patient denies any other injury or site of pain, fever or chills, headache injury, headache, LOC, focal numbness/weakness/neuro deficit, neck/back/upper extremity pain, chest pain, dyspnea, cough or cold symptoms, palpitations, dizziness, abdominal pain, nausea/vomiting/diarrhea, bloody or melanotic stool, dysuria or urinary symptoms, or any other symptoms or complaints. - Related Data Home Medications Medication Instructions Recorded Confirmed Albuterol Inhaler [Ventolin Hfa 2 puff INHALATION RT-QID PRN 02/19/21 12/21/21 Inhaler] Sucralfate [Carafate] 1 gm PO ACHS 02/19/21 12/21/21 metFORMIN HCL ER [Glucophage XR] 500 mg PO QID 02/19/21 12/21/21 Atorvastatin [Lipitor] 20 mg PO DAILY 11/11/21 12/21/21 Cyclobenzaprine [Flexeril] 5 mg PO BID PRN 11/11/21 12/21/21 Diclofenac Sodium Gel [Voltaren 2 - 4 gm TOPICAL TID PRN 11/11/21 12/21/21 Gel] Estradiol Cream [Estrace Cream 1 gm VAGINAL TUTH 11/11/21 12/21/21 0.01%] Pioglitazone HCl 30 mg PO DAILY 12/21/21 12/21/21 Insulin Glargine,Hum.rec.anlog 21 units SQ HS 02/06/22 02/06/22 [Lantus Solostar Pen] Insulin Lispro [humaLOG Kwikpen] 4 unit SQ AC-TID 02/06/22 02/06/22 Insulin Lispro [humaLOG Kwikpen] See Protocol SQ AC-TID 02/06/22 02/06/22 Previous Rx's Medication Instructions Recorded Acetaminophen Tab [Tylenol] 650 mg PO Q6HR PRN tab 12/24/21 Sennosides [Senokot] 8.6 mg PO BID PRN tab 12/24/21 Tamsulosin [Flomax] 0.4 mg PO PC-SUPPER cap 12/24/21 Allergies Allergy/AdvReac Type Severity Reaction Status Date / Time moxifloxacin [From Avelox] AdvReac Nausea Verified 02/06/22 19:44 nitrofurantoin AdvReac Nausea Verified 02/06/22 19:44 Penicillins AdvReac Nausea Verified 02/06/22 19:44 Review of Systems ROS Statement: Those systems with pertinent positive or pertinent negative responses have been documented in the HPI. ROS Other: All systems not noted in ROS Statement are negative. Past Medical History Past Medical History: Asthma, Diabetes Mellitus, GERD/Reflux, Rheumatoid Arthritis (RA) Additional Past Medical History / Comment(s): scoliosis History of Any Multi-Drug Resistant Organisms: None Reported Past Surgical History: Orthopedic Surgery Additional Past Surgical History / Comment(s): foot surgery, epidural shots Past Anesthesia/Blood Transfusion Reactions: No Reported Reaction Past Psychological History: No Psychological Hx Reported Smoking Status: Never smoker - Past Family History Mother Family Medical History: No Reported History General Exam Limitations: physical limitation General appearance: alert, in no apparent distress Head exam: Present: atraumatic, normocephalic Eye exam: Present: normal appearance, PERRL, EOMI ENT exam: Present: mucous membranes dry Neck exam: Present: other (Trachea is in midline). Absent: tenderness Respiratory exam: Present: normal lung sounds bilaterally. Absent: respiratory distress, wheezes, rales, rhonchi, stridor, chest wall tenderness Cardiovascular Exam: Present: regular rate, normal rhythm, normal heart sounds, other (Normal radial and dorsalis pedis pulses bilaterally) GI/Abdominal exam: Present: soft. Absent: distended, tenderness, guarding Extremities exam: Present: other (Pelvis is stable; right hip tenderness). Absent: pedal edema, calf tenderness Back exam: Absent: tenderness Neurological exam: Present: alert, oriented X3, CN II-XII intact. Absent: motor sensory deficit Psychiatric exam: Present: normal affect, normal mood Skin exam: Present: warm, dry, intact, normal color Course Vital Signs 02/06/22 02/06/22 15:34 18:01 Temperature 98.4 F Pulse Rate 93 92 Respiratory 20 19 Rate Blood Pressure 117/61 129/75 O2 Sat by Pulse 98 95 Oximetry - Reevaluation(s) Reevaluation #1: 02/06/22 19:40 Case, H&P, test results and ED management thus far were discussed with Dr. Brown. She accepts hospital admission. She has no further recommendations at this time. 02/06/22 19:44 Patient denies development of any new pain or symptoms while in the ED. Patient is aware of her test results, and she agrees with hospital admission at this time. Patient remains alert and breathing comfortably. EKG Findings - EKG Comments: EKG Findings:: ED physician interpretation: Normal sinus rhythm, occasional PACs, ventricular rate of 96 bpm, normal MD and QRS intervals, normal QT interval, normal axis, no ST or T-wave abnormality Medical Decision Making - Medical Decision Making Patient reports having multiple falls recently, and she presents to the ED today stating that she wishes to be admitted to the hospital for placement if necessary. Patient's only pain complaint is right hip pain, and her right hip x-rays are negative. Patient's LFTs are noted to be elevated on laboratory pedro luation. Patient denies having any abdominal pain, and she has no right upper quadrant abdominal tenderness on exam. Patient's gallbladder ultrasound does not show any definite abnormality. An acetaminophen level, hepatitis panel and lipase level have been ordered for further evaluation of the patient's elevated LFTs. Patient is also noted to be hyperglycemic, but she has a normal anion gap and is not acidotic. Patient has been treated with IV fluids in the ED. Will admit the patient to the hospital at this time for observation and further evaluation/management. Dr. Brown has accepted hospital admission. - Lab Data Result diagrams: 02/06/22 17:43 02/06/22 17:43 Lab Results 02/06/22 02/06/22 02/06/22 Range/Units 17:43 17:43 17:43 WBC 4.9 (3.8-10.6) k/uL RBC 3.74 L (3.80-5.40) m/uL Hgb 11.3 L (11.4-16.0) gm/dL Hct 34.2 (34.0-46.0) % MCV 91.4 (80.0-100.0) fL MCH 30.3 (25.0-35.0) pg MCHC 33.1 (31.0-37.0) g/dL RDW 13.7 (11.5-15.5) % Plt Count 296 (150-450) k/uL MPV 7.8 Neutrophils % 74 % Lymphocytes % 11 % Monocytes % 10 % Eosinophils % 1 % Basophils % 1 % Neutrophils # 3.6 (1.3-7.7) k/uL Lymphocytes # 0.5 L (1.0-4.8) k/uL Monocytes # 0.5 (0-1.0) k/uL Eosinophils # 0.0 (0-0.7) k/uL Basophils # 0.0 (0-0.2) k/uL PT 10.2 (9.0-12.0) sec INR 1.0 (<1.2) APTT 24.3 (22.0-30.0) sec Sodium 134 L (137-145) mmol/L Potassium 4.0 (3.5-5.1) mmol/L Chloride 105 (98-107) mmol/L Carbon Dioxide 25 (22-30) mmol/L Anion Gap 4 mmol/L BUN 23 H (7-17) mg/dL Creatinine 0.43 L (0.52-1.04) mg/dL Est GFR (CKD-EPI)AfAm >90 (>60 ml/min/1.73 sqM) Est GFR (CKD-EPI)NonAf >90 (>60 ml/min/1.73 sqM) Glucose 379 H (74-99) mg/dL Calcium 8.9 (8.4-10.2) mg/dL Total Bilirubin 0.3 (0.2-1.3) mg/dL AST 699 H (14-36) U/L ALT 722 H (4-34) U/L Alkaline Phosphatase 200 H (38-126) U/L Troponin I (0.000-0.034) ng/mL Total Protein 6.1 L (6.3-8.2) g/dL Albumin 3.3 L (3.5-5.0) g/dL Urine Color Urine Appearance (Clear) Urine pH (5.0-8.0) Ur Specific [place] (1.001-1.035) Urine Protein (Negative) Urine Glucose (UA) (Negative) Urine Ketones (Negative) Urine Blood (Negative) Urine Nitrite (Negative) Urine Bilirubin (Negative) Urine Urobilinogen (<2.0) mg/dL Ur Leukocyte Esterase (Negative) Urine RBC (0-5) /hpf Urine WBC (0-5) /hpf Urine Mucus (None) /hpf 02/06/22 02/06/22 Range/Units 17:43 18:00 WBC (3.8-10.6) k/uL RBC (3.80-5.40) m/uL Hgb (11.4-16.0) gm/dL Hct (34.0-46.0) % MCV (80.0-100.0) fL MCH (25.0-35.0) pg MCHC (31.0-37.0) g/dL RDW (11.5-15.5) % Plt Count (150-450) k/uL MPV Neutrophils % % Lymphocytes % % Monocytes % % Eosinophils % % Basophils % % Neutrophils # (1.3-7.7) k/uL Lymphocytes # (1.0-4.8) k/uL Monocytes # (0-1.0) k/uL Eosinophils # (0-0.7) k/uL Basophils # (0-0.2) k/uL PT (9.0-12.0) sec INR (<1.2) APTT (22.0-30.0) sec Sodium (137-145) mmol/L Potassium (3.5-5.1) mmol/L Chloride (98-107) mmol/L Carbon Dioxide (22-30) mmol/L Anion Gap mmol/L BUN (7-17) mg/dL Creatinine (0.52-1.04) mg/dL Est GFR (CKD-EPI)AfAm (>60 ml/min/1.73 sqM) Est GFR (CKD-EPI)NonAf (>60 ml/min/1.73 sqM) Glucose (74-99) mg/dL Calcium (8.4-10.2) mg/dL Total Bilirubin (0.2-1.3) mg/dL AST (14-36) U/L ALT (4-34) U/L Alkaline Phosphatase (38-126) U/L Troponin I <0.012 (0.000-0.034) ng/mL Total Protein (6.3-8.2) g/dL Albumin (3.5-5.0) g/dL Urine Color Light Yellow Urine Appearance Clear (Clear) Urine pH 5.5 (5.0-8.0) Ur Specific [place] 1.033 (1.001-1.035) Urine Protein 1+ H (Negative) Urine Glucose (UA) 4+ H (Negative) Urine Ketones Trace H (Negative) Urine Blood Negative (Negative) Urine Nitrite Negative (Negative) Urine Bilirubin Negative (Negative) Urine Urobilinogen <2.0 (<2.0) mg/dL Ur Leukocyte Esterase Negative (Negative) Urine RBC <1 (0-5) /hpf Urine WBC 1 (0-5) /hpf Urine Mucus Rare H (None) /hpf - Radiology Data Chest x-ray: There is some coarse pulmonary density suggestive of scarring. Normal heart. No adverse change compared to old exam. Right hip x-rays: Moderately severe osteoarthritis in the right hip joint. No fracture. Gallbladder ultrasound: Gallbladder not seen. No dilated ducts. No discrete liver mass. Disposition Clinical Impression: Multiple falls, Hyperglycemia, Elevated LFTs, Contusion of right hip, Osteoarthritis of right hip Disposition: ADMITTED IP TO THIS HOSP Condition: Stable Is patient prescribed a controlled substance at d/c from ED?: No Referrals: Cooper Randall DO [Primary Care Provider] - 1-2 days Time of Disposition: 19:40
--- NOTE | 2022-02-06 17:08 | XR ---
EXAMINATION TYPE: XR Hip Complete RT DATE OF EXAM: 02/06/2022 COMPARISON: NONE HISTORY: Pain TECHNIQUE: 2 view FINDINGS: There is moderate narrowing of the hip joint space. Acetabulum is intact. No evidence of hi p fracture. Right hemipelvis appears intact. IMPRESSION: Moderately severe osteoarthritis in the right hip joint. No fracture.
--- NOTE | 2022-02-06 17:31 | XR ---
EXAMINATION TYPE: XR chest 1V portable DATE OF EXAM: 02/06/2022 COMPARISON: 12/21/2021 HISTORY: Fall. TECHNIQUE: Single view FINDINGS: Heart is normal. Lungs are clear of consolidation. There are some coarse density at the lung apices. No pleural effusion. There are no hilar masses. No heart failure seen. Bony thorax is intact IMPRESSION: There is some coarse pulmonary density suggestive of scarring. Normal heart. No adverse c hange compared to old exam.
[2022-02-06 18:06] LABS: Partial Thromboplastin Time 24.3 sec (22.0-30.0); Prothrombin Time 10.2 sec (9.0-12.0)
[2022-02-06 18:08] LABS: ALT 722 U/L (4-34); AST 699 U/L (14-36); African American GFR (CKD) >90 (>60 ml/min/1.73 sqM); Albumin 3.3 g/dL (3.5-5.0); Alkaline Phosphatase 200 U/L (38-126); Anion Gap 4 mmol/L; Blood Urea Nitrogen 23 mg/dL (7-17); Calcium 8.9 mg/dL (8.4-10.2); Carbon Dioxide 25 mmol/L (22-30); Chloride 105 mmol/L (98-107); Glucose 379 mg/dL (74-99); Non-African American GFR(CKD) >90 (>60 ml/min/1.73 sqM); Sodium 134 mmol/L (137-145); Total Bilirubin 0.3 mg/dL (0.2-1.3); Total Protein 6.1 g/dL (6.3-8.2)
[2022-02-06] MEDS ORDERED: SODIUM CHLORIDE 0.9% 1,000 ML IV ONE (18:13)
[2022-02-06 18:23] LABS: Basophils % (A) 1 %; Eosinophils % (A) 1 %; HCT 34.2 % (34.0-46.0); HGB 11.3 gm/dL (11.4-16.0); Lymphocytes # (A) 0.5 k/uL (1.0-4.8); Lymphocytes % (A) 11 %; MCH 30.3 pg (25.0-35.0); MCHC 33.1 g/dL (31.0-37.0); MCV 91.4 fL (80.0-100.0); Mean Platelet Volume 7.8; Monocytes # (A) 0.5 k/uL (0-1.0); Monocytes % (A) 10 %; Neutrophils # (A) 3.6 k/uL (1.3-7.7); Neutrophils % (A) 74 %; Platelet Count 296 k/uL (150-450); RBC 3.74 m/uL (3.80-5.40); RDW 13.7 % (11.5-15.5); WBC 4.9 k/uL (3.8-10.6)
[2022-02-06 18:33] LABS: Appearance,Urine Clear (Clear); Bilirubin,Urine Negative (Negative); Blood,Urine Negative (Negative); Color,Urine Light Yellow; Glucose,Urine (UA) 4+ (Negative); Ketones,Urine Trace (Negative); Leukocyte Esterase,Urine Negative (Negative); Mucus,Urine Rare /hpf; Nitrite,Urine Negative (Negative); PH, Urine 5.5 (5.0-8.0); Protein,Urine 1+ (Negative); RBC,Urine <1 /hpf (0-5); Specific Gravity,Urine 1.033 (1.001-1.035); Urobilinogen,Urine <2.0 mg/dL (<2.0); WBC,Urine 1 /hpf (0-5)
--- NOTE | 2022-02-06 19:28 | US ---
EXAMINATION TYPE: US gallbladder DATE OF EXAM: 02/06/2022 COMPARISON: NONE CLINICAL HISTORY: Elevated LFTs. Elevated liver enzymes exam limited due to over lying bowel gas and patient unable to roll or hold breath. TECHNIQUE: Multiple sonographic images of the right upper quadrant are obtained. FINDINGS: EXAM MEASUREMENTS: Liver Length: 16.7 cm Gallbladder Wall: Obscured by bowel gas. CBD: .4 cm Right Kidney: 8.6 x 3.9 x 5.0 cm SHEET METAL APPRENTICE NOTES: Pancreas: Obscured by bowel gas Liver: Limited due to bowel gas Gallbladder: Not visualized due to bowel gas. Evidence for sonographic Mendiola's sign: No CBD: appears wnl Right Kidney: No hydronephrosis or masses seen IMPRESSION: Gallbladder not seen. No dilated ducts. No discrete liver mass.
[2022-02-06] MEDS ORDERED: NALOXONE 0.4 MG/ML 1 ML VIAL IV PRN (19:41)
[2022-02-06 20:26] LABS: Acetaminophen <10.0 ug/mL; Lipase 33 U/L (23-300)
[2022-02-07] MEDS: MORPHINE SULFATE 4 MG/ML SYRINGE IV PRN (06:30)
[2022-02-07] MEDS: SODIUM CHLORIDE 0.9% 1,000 ML IV SCH ×3 (06:46→18:05)
[2022-02-07 07:04] LABS: Glucose,Whole Blood 284 mg/dL (70-110)
[2022-02-07 09:34] LABS: Hepatitis A Antibody IgM Nonreactive (Nonreactive); Hepatitis B Core IgM Nonreactive (Nonreactive); Hepatitis B Surface Antigen Nonreactive (Nonreactive); Hepatitis C IgG Antibody Nonreactive (Nonreactive)
[2022-02-07] MEDS ORDERED: DEXTROSE 50% SYRINGE 50 ML IVP PRN ×2 (11:14)
[2022-02-07] MEDS ORDERED: SENNOSIDES 8.6 MG TAB PO PRN (11:16)
[2022-02-07] MEDS ORDERED: ALBUTEROL NEBULIZED 2.5 MG/3 ML INHALATION PRN (11:16)
[2022-02-07] MEDS ORDERED: INSULIN DETEMIR (LEVEMIR) 100 UNIT/ML SYR SQ ONE (11:18)
[2022-02-07 12:46] LABS: Glucose,Whole Blood 266 mg/dL (70-110)
[2022-02-07] MEDS: INSULIN ASPART (NovoLOG) 100 UNIT/ML VIAL SQ SCH ×5 (13:41→23:58)
[2022-02-07] MEDS: SUCRALFATE 1 GM TAB PO SCH ×3 (13:41→22:06)
[2022-02-07 14:01] LABS: Basophils # (A) 0.03 X 10*3/uL (0.00-0.10); Basophils % (A) 0.5 %; Eosinophils % (A) 1.8 %; HCT 33.2 % (37.2-46.3); HGB 10.8 g/dL (12.0-15.0); Immature Grans, Automated 0.2 %; Lymphocytes # (A) 0.84 X 10*3/uL (0.90-5.00); Lymphocytes % (A) 14.8 %; MCH 29.2 pg (27.0-32.0); MCHC 32.5 g/dL (32.0-37.0); MCV 89.7 fL (80.0-97.0); Mean Platelet Volume 10.4 fL (9.5-12.2); Monocytes # (A) 0.76 X 10*3/uL (0.20-1.00); Monocytes % (A) 13.4 %; NRBC Per 100 WBC 0 /100 WBCS (0.0-0.0); Neutrophils # (A) 3.92 X 10*3/uL (1.80-7.70); Neutrophils % (A) 69.3 %; Platelet Count 296 X 10*3/uL (140-440); RDW 14.6 % (11.5-14.5); WBC 5.66 X 10*3/uL (4.50-10.00)
[2022-02-07 14:07] LABS: African American GFR (CKD) 118.2 (60.0-200.0); Albumin 3.5 g/dL (3.8-4.9); Albumin/Globulin Ratio 1.63 (1.60-3.17); Anion Gap 9.2 mmol/L (10.00-18.00); BUN/Creat Ratio 32.19 Ratio (12.00-20.00); Blood Urea Nitrogen 13.1 mg/dL (9.0-27.0); Calcium 8.1 mg/dL (8.7-10.3); Carbon Dioxide 23.4 mmol/L (20.0-27.5); Globulin 2.2 g/dL (1.6-3.3); Potassium 3.8 mmol/L (3.5-5.5); Total Bilirubin 0.3 mg/dL (0.30-1.20); Total Protein 5.7 g/dL (6.2-8.2)
[2022-02-07 16:36] LABS: Glucose,Whole Blood 280 mg/dL (70-110)
[2022-02-07] MEDS: TAMSULOSIN 0.4 MG CAP.ER.24H PO SCH (18:05)
--- NOTE | 2022-02-07 21:16 | P.HPIM ---
History of Present Illness H&P Date: 02/07/22 Chief Complaint: Falls Patient is a 76-year-old female with known history of diabetes type 2 insulin- dependent, rheumatoid arthritis, GERD, asthma was brought to the hospital by EMS. Patient is currently living at assisted living facility. Apparently she has fallen about 4 times during this month for reasons not known. Patient was seen by her brother and [id number]. She most recently fell yesterday morning and landed on her right hip. Since then she has been having right hip pain. She was seen at [facility] and had negative x-rays of the hip at the time . Patient apparently signed out of the hospital. Patient continues to have right hip pain and called ambulance to bring her to the hospital. Patient's brother stated that family does not feel she is safe by herself at home. Patient otherwise denied any head injury. No fever no chills. No nausea vomiting or abdominal pain or diarrhea. No loss of consciousness. Denied any dizziness or lightheadedness. Denied any hematemesis or melena. No dysuria or hematuria. Hip x-ray showed moderate to severe osteoarthritis in the right hip joint. No fractures. Chest x-ray showed there is some coarse pulmonary density suggestive of scarring. Normal heart. No adverse change compared to old exam. Gallbladder ultrasound showed gallbladder not seen. No dilated ducts. No discrete liver mass. EKG showed sinus rhythm with occasional supraventricular premature complexes. Laboratory data showed WC 4.9 hemoglobin 11.3 and platelets 296 Sodium 134, potassium 4.0 chloride 105 bicarb is 25 BUN 23 and creatinine 0.43 blood sugar is 379 AST 69 and ALT 722 and alk phos 200 and bilirubin level is 0.3 Lipase level is 33 Urinalysis showed 1+ protein 4+ glucose and trace ketones. Acetaminophen level is less than 10 and hepatitis panel nonreactive. On admission blood pressure is 117/61 pulse 93 respiration 20 and pulse ox 98% on room air. Patient was recently discharged from hospital on 1111 2. Patient had 2D echocardiogram done 1 11/12/2021 showed normal left ventricular dimension and systolic function. Trileaflet aortic valve with mild to moderate aortic insufficiency. Patient has stress test which is nondiagnostic electrocardiogram stress testing. Lexiscan stress test showed no definite sc intigraphic evidence for reversible ischemia. Patient had CT head, cervical spine 12/21/[address] on 12/21/2021. Patient did have urine retention during this admission and advised to follow-up with urology as an outpatient. Review of Systems Constitutional: Patient denies any fever or chills . Patient does have generalized weakness and fatigue. Abdomen: Patient denied any nausea or vomiting or abd. pain Cardiovascular: Patient denies any chest pain or short of breath no palpitations. Respiratory: patient denied any cough . no sputum production. No shortness of breath Neurologic: Patient denied any numbness or tingling headache. Musculoskeletal: Patient denies any complaints of joint swelling or deformity. Complains of right hip pain. Skin: Negative Psychiatric: Negative Endocrine: No heat or cold intolerance. No recent weight gain. Genitourinary: No dysuria or hematuria. All other 14 point ROS negative except the above Past Medical History Past Medical History: Asthma, Diabetes Mellitus, GERD/Reflux, Rheumatoid Arthritis (RA) Additional Past Medical History / Comment(s): scoliosis History of Any Multi-Drug Resistant Organisms: None Reported Past Surgical History: Orthopedic Surgery Additional Past Surgical History / Comment(s): foot surgery, epidural shots Past Anesthesia/Blood Transfusion Reactions: No Reported Reaction Past Psychological History: No Psychological Hx Reported Smoking Status: Never smoker - Past Family History Mother Family Medical History: No Reported History Medications and Allergies Home Medications Medication Instructions Recorded Confirmed Type Albuterol Inhaler [Ventolin Hfa 2 puff INHALATION RT-QID PRN 02/19/21 02/06/22 History Inhaler] Sucralfate [Carafate] 1 gm PO ACHS 02/19/21 02/06/22 History metFORMIN HCL ER [Glucophage XR] 500 mg PO QID 02/19/21 02/06/22 History Atorvastatin [Lipitor] 20 mg PO DAILY 11/11/21 02/06/22 History Cyclobenzaprine [Flexeril] 5 mg PO BID PRN 11/11/21 02/06/22 History Diclofenac Sodium Gel [Voltaren 2 - 4 gm TOPICAL TID PRN 11/11/21 02/06/22 History Gel] Estradiol Cream [Estrace Cream 1 gm VAGINAL TUTH 11/11/21 02/06/22 History 0.01%] Pioglitazone HCl 30 mg PO DAILY 12/21/21 02/06/22 History Acetaminophen Tab [Tylenol] 650 mg PO Q6HR PRN tab 12/24/21 02/06/22 Rx Sennosides [Senokot] 8.6 mg PO BID PRN tab 12/24/21 02/06/22 Rx Tamsulosin [Flomax] 0.4 mg PO PC-SUPPER cap 12/24/21 02/06/22 Rx Insulin Glargine,Hum.rec.anlog 21 units SQ HS 02/06/22 02/06/22 History [Lantus Solostar Pen] Insulin Lispro [humaLOG Kwikpen] 4 unit SQ AC-TID 02/06/22 02/06/22 History Insulin Lispro [humaLOG Kwikpen] See Protocol SQ AC-TID 02/06/22 02/06/22 History Allergies Allergy/AdvReac Type Severity Reaction Status Date / Time moxifloxacin [From Avelox] AdvReac Nausea Verified 02/06/22 19:44 nitrofurantoin AdvReac Nausea Verified 02/06/22 19:44 Penicillins AdvReac Nausea Verified 02/06/22 19:44 Physical Exam Vitals: Vital Signs Temp Pulse Pulse Resp BP BP Pulse Ox 02/07/22 08:35 97.9 F 82 16 132/50 97 02/07/22 07:52 98.2 F 93 18 108/58 95 02/07/22 06:00 92 16 148/76 02/07/22 00:00 96 16 137/62 94 L 02/06/22 18:01 92 19 129/75 95 02/06/22 15:34 98.4 F 93 20 117/61 98 Intake and Output 02/06/22 02/07/22 02/07/22 22:59 06:59 14:59 Other: Weight 41.73 kg PHYSICAL EXAMINATION: Patient is lying in the bed in contracted position., no acute distress, awake alert and oriented.. Weak and lethargic. HEENT: Normocephalic. Neck is supple. Pupils reactive. Nostrils clear. Oral cavity is moist. Neck reveals no JVD, carotid bruits, or thyromegaly. CHEST EXAMINATION: Trachea is central. Symmetrical expansion. Lung parekh clear to auscultation and percussion. Bibasilar diminished sounds. CARDIAC: Normal S1, S2 with no gallops. No murmurs ABDOMEN: Soft. Bowel sounds present. Nontender. No right upper quadrant tenderness. No organomegaly. No abdominal bruits. Extremities: reveal no edema. No clubbing or cyanosis Neurologically awake, alert, oriented x3. Able to move extremities while in bed.. No gross focal deficits noted Skin: No rash or skin lesions. Psychiatric: Coperative. Nonsuicidal, Musculoskeletal: No joint swelling or deformity. Tenderness over the right hip. Results CBC & Chem 7: 02/07/22 07:03 02/07/22 07:03 Labs: Abnormal Lab Results - Last 24 Hours (Table) 02/06/22 02/06/22 02/06/22 Range/Units 17:43 17:43 18:00 RBC 3.74 L (3.80-5.40) m/uL Hgb 11.3 L (11.4-16.0) gm/dL Lymphocytes # 0.5 L (1.0-4.8) k/uL Sodium 134 L (137-145) mmol/L BUN 23 H (7-17) mg/dL Creatinine 0.43 L (0.52-1.04) mg/dL Glucose 379 H (74-99) mg/dL POC Glucose (mg/dL) (70-110) mg/dL AST 699 H (14-36) U/L ALT 722 H (4-34) U/L Alkaline Phosphatase 200 H (38-126) U/L Total Protein 6.1 L (6.3-8.2) g/dL Albumin 3.3 L (3.5-5.0) g/dL Urine Protein 1+ H (Negative) Urine Glucose (UA) 4+ H (Negative) Urine Ketones Trace H (Negative) Urine Mucus Rare H (None) /hpf 02/07/22 Range/Units 07:02 RBC (3.80-5.40) m/uL Hgb (11.4-16.0) gm/dL Lymphocytes # (1.0-4.8) k/uL Sodium (137-145) mmol/L BUN (7-17) mg/dL Creatinine (0.52-1.04) mg/dL Glucose (74-99) mg/dL POC Glucose (mg/dL) 284 H (70-110) mg/dL AST (14-36) U/L ALT (4-34) U/L Alkaline Phosphatase (38-126) U/L Total Protein (6.3-8.2) g/dL Albumin (3.5-5.0) g/dL Urine Protein (Negative) Urine Glucose (UA) (Negative) Urine Ketones (Negative) Urine Mucus (None) /hpf Thrombosis Risk Factor Assmnt - DVT/VTE Prophylaxis DVT/VTE Prophylaxis: Pharmacologic Prophylaxis ordered Assessment and Plan Assessment: Status post fall and complains of right hip pain. X-ray showed no evidence of fracture. Moderate to severe osteoarthrosis. History of multiple falls x4 during last couple of months. Medical debility and unable to ambulate without report Generalized weakness Dehydration and volume depletion. Hyperglycemia with uncontrolled diabetes type 2, A1c 7.9 Elevated liver enzymes. No complaints of right upper quadrant pain. History of cholecystectomy. Ultrasound showed CBD not dilated. Bilirubin level is not elevated. Hepatitis panel nonreactive. Hepatitis recent history of urinary retention and was placed on Nava catheter. Asthma not exacerbation History of bronchiolitis Scoliosis GERD Mild to moderate clinical malnutrition DVT prophylaxis subcu Plan: Patient will be continued on IV hydration with normal saline and continuous symptomatic management for pain. Follow-up liver enzymes. Ultrasound of the abdomen showed no ductal dilation. Chest x-ray and UA was done showed no evidence of infection. Orthostatic vitals were ordered.Patient had echocardiogram in October 2019 showed normal ejection fraction. Moderate aortic insufficiency. Lexiscan stress test showed no scintigraphic evidence of reversible ischemia at that time.. Patient will be started back on insulin low-dose and preprandial insulin along with sliding scale for better blood sugar control. Follow-up closely. Prognosis is guarded with further medical problems and comorbid conditions. Time with Patient: Greater than 30
[2022-02-07] MEDS: HEPARIN SODIUM,PORCINE/PF 5,000 UNIT/0.5 ML SYRINGE SQ SCH (22:14)
[2022-02-07 23:27] LABS: Glucose,Whole Blood 307 mg/dL (70-110)
[2022-02-07] MEDS: INSULIN DETEMIR (LEVEMIR) 100 UNIT/ML SYR SQ SCH (23:58)
[2022-02-08] MEDS: MORPHINE SULFATE 4 MG/ML SYRINGE IV PRN ×2 (04:56→19:48)
[2022-02-08] MEDS: SODIUM CHLORIDE 0.9% 1,000 ML IV SCH (06:21)
[2022-02-08 06:47] LABS: Glucose,Whole Blood 63 mg/dL (70-110)
[2022-02-08] MEDS: INSULIN ASPART (NovoLOG) 100 UNIT/ML VIAL SQ SCH ×7 (06:47→21:32)
[2022-02-08 07:03] LABS: Glucose,Whole Blood 75 mg/dL (70-110)
[2022-02-08] MEDS: SUCRALFATE 1 GM TAB PO SCH ×4 (07:03→19:45)
[2022-02-08] MEDS: CHOLECALCIFEROL 25 MCG (1000 IU) TABLET PO SCH (08:48)
[2022-02-08] MEDS: DICLOFENAC SODIUM GEL 100 GM TUBE TOPICAL PRN ×2 (08:49→19:44)
[2022-02-08] MEDS: HEPARIN SODIUM,PORCINE/PF 5,000 UNIT/0.5 ML SYRINGE SQ SCH ×2 (08:50→19:45)
[2022-02-08 10:25] LABS: Basophils # (A) 0.03 X 10*3/uL (0.00-0.10); Basophils % (A) 0.5 %; Eosinophils % (A) 1.5 %; HCT 31.2 % (37.2-46.3); HGB 10.3 g/dL (12.0-15.0); Immature Grans, Automated 0.2 %; Lymphocytes # (A) 0.83 X 10*3/uL (0.90-5.00); Lymphocytes % (A) 12.7 %; MCH 29.4 pg (27.0-32.0); MCV 89.1 fL (80.0-97.0); Mean Platelet Volume 10.2 fL (9.5-12.2); Monocytes # (A) 0.79 X 10*3/uL (0.20-1.00); Monocytes % (A) 12.1 %; NRBC Per 100 WBC 0 /100 WBCS (0.0-0.0); Neutrophils # (A) 4.75 X 10*3/uL (1.80-7.70); Platelet Count 271 X 10*3/uL (140-440); RDW 14.7 % (11.5-14.5); WBC 6.51 X 10*3/uL (4.50-10.00)
[2022-02-08 10:39] LABS: African American GFR (CKD) 149.4 (60.0-200.0); Albumin 3.3 g/dL (3.8-4.9); Albumin/Globulin Ratio 1.65 (1.60-3.17); Anion Gap 10.4 mmol/L (10.00-18.00); Blood Urea Nitrogen 11.6 mg/dL (9.0-27.0); Calcium 7.8 mg/dL (8.7-10.3); Carbon Dioxide 21.6 mmol/L (20.0-27.5); Non-African American GFR(CKD) 128.9 (60.0-200.0); Potassium 3.5 mmol/L (3.5-5.5); Total Bilirubin 0.4 mg/dL (0.30-1.20); Total Protein 5.3 g/dL (6.2-8.2)
[2022-02-08 12:48] LABS: Glucose,Whole Blood 217 mg/dL (70-110)
[2022-02-08] MEDS: ACETAMINOPHEN TAB 325 MG TAB PO PRN (13:03)
[2022-02-08] MEDS: FLUCONAZOLE IN NACL,ISO-OSM 100 MG in SALINE 1 50ML.BAG IVPB SCH (15:52)
[2022-02-08 17:11] LABS: Glucose,Whole Blood 275 mg/dL (70-110)
[2022-02-08] MEDS: TAMSULOSIN 0.4 MG CAP.ER.24H PO SCH (19:44)
[2022-02-08] MEDS: ESTRADIOL 0.1 MG/GM VAGINAL CREAM 42.5 GM TUBE VAGINAL SCH (19:57)
[2022-02-08 20:35] LABS: Glucose,Whole Blood 453 mg/dL (70-110)
--- NOTE | 2022-02-08 20:43 | XR ---
EXAMINATION TYPE: XR hand complete RT DATE OF EXAM: 02/08/2022 8:27 PM INDICATION: Patient age:Female; 76 years old; Reason for study: injury fall; COMPARISON: None TECHNIQUE: Frontal, lateral and oblique views of the right hand were obtained. FINDINGS: Degeneration changes most pronounced at the carpometacarpal joint of the first digit with o steophyte formation and joint space narrowing. No acute osseous pathology is identified. No evidenc e of soft tissue swelling. IMPRESSION: 1. No acute osseous pathology. 2. 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
[2022-02-08] MEDS: INSULIN DETEMIR (LEVEMIR) 100 UNIT/ML SYR SQ SCH (21:32)
[2022-02-09] MEDS: SODIUM CHLORIDE 0.9% 1,000 ML IV SCH ×2 (02:21→21:44)
[2022-02-09] MEDS: SUCRALFATE 1 GM TAB PO SCH ×4 (06:15→20:55)
[2022-02-09 06:16] LABS: Glucose,Whole Blood 188 mg/dL (70-110)
[2022-02-09] MEDS: INSULIN ASPART (NovoLOG) 100 UNIT/ML VIAL SQ SCH ×7 (06:38→20:56)
[2022-02-09] MEDS: FLUCONAZOLE IN NACL,ISO-OSM 100 MG in SALINE 1 50ML.BAG IVPB SCH (07:46)
[2022-02-09] MEDS: HEPARIN SODIUM,PORCINE/PF 5,000 UNIT/0.5 ML SYRINGE SQ SCH ×2 (07:47→20:55)
[2022-02-09] MEDS: CHOLECALCIFEROL 25 MCG (1000 IU) TABLET PO SCH (07:47)
[2022-02-09] MEDS: DICLOFENAC SODIUM GEL 100 GM TUBE TOPICAL PRN ×2 (07:50→20:56)
[2022-02-09 09:00] LABS: Basophils # (A) 0.03 X 10*3/uL (0.00-0.10); Basophils % (A) 0.4 %; Eosinophils # (A) 0.06 X 10*3/uL (0.04-0.35); Eosinophils % (A) 0.9 %; HCT 32.6 % (37.2-46.3); HGB 10.4 g/dL (12.0-15.0); Immature Grans, Automated 0.3 %; Lymphocytes # (A) 0.74 X 10*3/uL (0.90-5.00); Lymphocytes % (A) 10.6 %; MCH 29.3 pg (27.0-32.0); MCHC 31.9 g/dL (32.0-37.0); MCV 91.8 fL (80.0-97.0); Mean Platelet Volume 10.7 fL (9.5-12.2); Monocytes # (A) 0.87 X 10*3/uL (0.20-1.00); Monocytes % (A) 12.4 %; NRBC Per 100 WBC 0 /100 WBCS (0.0-0.0); Neutrophils # (A) 5.29 X 10*3/uL (1.80-7.70); Neutrophils % (A) 75.4 %; Platelet Count 278 X 10*3/uL (140-440); RBC 3.55 X 10*6/uL (4.10-5.20); RDW 14.6 % (11.5-14.5); WBC 7.01 X 10*3/uL (4.50-10.00)
[2022-02-09 09:33] LABS: African American GFR (CKD) 128.4 (60.0-200.0); Albumin 3.1 g/dL (3.8-4.9); Albumin/Globulin Ratio 1.47 (1.60-3.17); Anion Gap 11.5 mmol/L (10.00-18.00); BUN/Creat Ratio 40.69 Ratio (12.00-20.00); Blood Urea Nitrogen 12.9 mg/dL (9.0-27.0); Calcium 7.8 mg/dL (8.7-10.3); Carbon Dioxide 20.5 mmol/L (20.0-27.5); Globulin 2.1 g/dL (1.6-3.3); Non-African American GFR(CKD) 110.8 (60.0-200.0); Potassium 3.8 mmol/L (3.5-5.5); Total Bilirubin 0.3 mg/dL (0.30-1.20); Total Protein 5.2 g/dL (6.2-8.2)
[2022-02-09 12:09] LABS: Glucose,Whole Blood 428 mg/dL (70-110)
[2022-02-09] MEDS: ACETAMINOPHEN TAB 325 MG TAB PO PRN ×2 (12:38→21:02)
[2022-02-09] MEDS: predniSONE 10 MG TAB PO SCH (12:39)
[2022-02-09] MEDS: metFORMIN 500 MG TAB PO SCH ×3 (14:50→20:55)
[2022-02-09 16:43] LABS: Glucose,Whole Blood 294 mg/dL (70-110)
[2022-02-09] MEDS: TAMSULOSIN 0.4 MG CAP.ER.24H PO SCH (17:46)
[2022-02-09 20:41] LABS: Glucose,Whole Blood 350 mg/dL (70-110)
[2022-02-09] MEDS: INSULIN DETEMIR (LEVEMIR) 100 UNIT/ML SYR SQ SCH (20:55)
[2022-02-10 06:30] LABS: Glucose,Whole Blood 73 mg/dL (70-110)
[2022-02-10] MEDS: INSULIN ASPART (NovoLOG) 100 UNIT/ML VIAL SQ SCH ×7 (06:30→21:56)
[2022-02-10] MEDS: DICLOFENAC SODIUM GEL 100 GM TUBE TOPICAL PRN (06:33)
[2022-02-10] MEDS: SUCRALFATE 1 GM TAB PO SCH ×4 (06:34→21:57)
[2022-02-10 07:12] LABS: Glucose,Whole Blood 175 mg/dL (70-110)
[2022-02-10] MEDS: FLUCONAZOLE IN NACL,ISO-OSM 100 MG in SALINE 1 50ML.BAG IVPB SCH (08:21)
[2022-02-10] MEDS: HEPARIN SODIUM,PORCINE/PF 5,000 UNIT/0.5 ML SYRINGE SQ SCH ×2 (08:21→21:57)
[2022-02-10] MEDS: CHOLECALCIFEROL 25 MCG (1000 IU) TABLET PO SCH (08:22)
[2022-02-10] MEDS: metFORMIN 500 MG TAB PO SCH ×4 (08:22→21:57)
[2022-02-10] MEDS: ACETAMINOPHEN TAB 325 MG TAB PO PRN ×2 (08:22→21:57)
[2022-02-10] MEDS: predniSONE 10 MG TAB PO SCH (08:22)
[2022-02-10 08:30] LABS: Basophils # (A) 0.04 X 10*3/uL (0.00-0.10); Basophils % (A) 0.6 %; Eosinophils # (A) 0.08 X 10*3/uL (0.04-0.35); Eosinophils % (A) 1.2 %; HCT 31.3 % (37.2-46.3); HGB 10.1 g/dL (12.0-15.0); Immature Grans, Automated 0.4 %; Lymphocytes # (A) 1.05 X 10*3/uL (0.90-5.00); Lymphocytes % (A) 15.6 %; MCH 29.1 pg (27.0-32.0); MCHC 32.3 g/dL (32.0-37.0); MCV 90.2 fL (80.0-97.0); Mean Platelet Volume 10.7 fL (9.5-12.2); Monocytes # (A) 0.85 X 10*3/uL (0.20-1.00); Monocytes % (A) 12.6 %; NRBC Per 100 WBC 0 /100 WBCS (0.0-0.0); Neutrophils # (A) 4.69 X 10*3/uL (1.80-7.70); Neutrophils % (A) 69.6 %; Platelet Count 272 X 10*3/uL (140-440); RBC 3.47 X 10*6/uL (4.10-5.20); RDW 14.6 % (11.5-14.5); WBC 6.74 X 10*3/uL (4.50-10.00)
[2022-02-10 08:55] LABS: African American GFR (CKD) 130.7 (60.0-200.0); Albumin/Globulin Ratio 1.36 (1.60-3.17); Anion Gap 8.2 mmol/L (10.00-18.00); BUN/Creat Ratio 53.33 Ratio (12.00-20.00); Carbon Dioxide 21.8 mmol/L (20.0-27.5); Globulin 2.2 g/dL (1.6-3.3); Non-African American GFR(CKD) 112.8 (60.0-200.0); Potassium 3.4 mmol/L (3.5-5.5); Total Bilirubin 0.2 mg/dL (0.30-1.20); Total Protein 5.2 g/dL (6.2-8.2)
--- NOTE | 2022-02-10 11:07 | P.PN ---
Subjective Progress Note Date: 02/08/22 Patient is a 76-year-old female with known history of diabetes type 2 insulin- dependent, rheumatoid arthritis, GERD, asthma was brought to the hospital by EMS. Patient is currently living at assisted living facility. Apparently she has fallen about 4 times during this month for reasons not known. Patient was seen by her brother and [id number]. She most recently fell yesterday morning and landed on her right hip. Since then she has been having right hip pain. She was seen at [facility] and had negative x-rays of the hip at the time. Patient apparently signed out of the hospital. Patient continues to have right hip pain and called ambulance to bring her to the hospital. Patient's brother stated that family does not feel she is safe by herself at home. Patient otherwise denied any head injury. No fever no chills. No nausea vomiting or abdominal pain or diarrhea. No loss of consciousness. Denied any dizziness or lightheadedness. Denied any hematemesis or melena. No dysuria or hematuria. Hip x-ray showed moderate to severe osteoarthritis in the right hip joint. No fractures. Chest x-ray showed there is some coarse pulmonary density suggestive of scarring. Normal heart. No adverse change compared to old exam. Gallbladder ultrasound showed gallbladder not seen. No dilated ducts. No discrete liver mass. EKG showed sinus rhythm with occasional supraventricular premature complexes. Laboratory data showed WC 4.9 hemoglobin 11.3 and platelets 296 Sodium 134, potassium 4.0 chloride 105 bicarb is 25 BUN 23 and creatinine 0.43 blood sugar is 379 AST 69 and ALT 722 and alk phos 200 and bilirubin level is 0.3 Lipase level is 33 Urinalysis showed 1+ protein 4+ glucose and trace ketones. Acetaminophen level is less than 10 and hepatitis panel nonreactive. On admission blood pressure is 117/61 pulse 93 respiration 20 and pulse ox 98% on room air. Patient was recently discharged from hospital on 1111 2. Patient had 2D echocardiogram done 1 11/12/2021 showed normal left ventricular dimension and systolic function. Trileaflet aortic valve with mild to moderate aortic insufficiency. Patient has stress test which is nondiagnostic electrocardiogram stress testing. Lexiscan stress test showed no definite scintigraphic evidence for reversible ischemia. Patient had CT head, cervical spine 12/21/[address] on 12/21/2021. Patient did have urine retention during this admission and advised to follow-up with urology as an outpatient. 02/08/2022 Patient is currently lying in bed. Seems to be more awake and oriented. Complains of right hip pain and also right wrist pain. Patient is status post fall at home. Patient is afebrile. Blood pressure is 157/68 pulse 104 respiration 18 and pulse ox 97% on room air.. No complaints of chest pain or shortness or. Laboratory data showed WBC 6.4 hemoglobin 10.3 and platelets 271 Sodium 136 potassium 3.5 chloride 104 bicarb is 21.6 BUN 11.6 and creatinine 0.2 And liver enzymes are still elevated AST to 96 ALT 403 and alk phos 160. troponin level is 0.12. Right wrist x-ray was added. Current medications reviewed. Objective - Vital Signs Vital signs: Vital Signs Temp 97.2 F L 02/08/22 19:00 Pulse 104 H 02/08/22 19:00 Resp 17 02/08/22 19:00 BP 157/68 02/08/22 19:00 Pulse Ox 97 02/08/22 19:00 FiO2 Intake & Output 02/08/22 02/08/22 02/09/22 06:59 18:59 06:59 Intake Total 236 Output Total 900 Balance -664 Intake: Oral 236 Output: Urine 900 Other: # Voids 1 2 - Exam PHYSICAL EXAMINATION: Patient is lying in the bed in contracted position., no acute distress, awake alert and oriented.. Weak and lethargic. HEENT: Normocephalic. Neck is supple. Pupils reactive. Nostrils clear. Oral cavity is moist. Neck reveals no JVD, carotid bruits, or thyromegaly. CHEST EXAMINATION: Trachea is central. Symmetrical expansion. Lung parekh clear to auscultation and percussion. Bibasilar diminished sounds. CARDIAC: Normal S1, S2 with no gallops. No murmurs ABDOMEN: Soft. Bowel sounds present. Nontender. No right upper quadrant tenderness. No organomegaly. No abdominal bruits. Extremities: reveal no edema. No clubbing or cyanosis Neurologically awake, alert, oriented x3. Able to move extremities while in bed.. No gross focal deficits noted Skin: No rash or skin lesions. Psychiatric: Coperative. Nonsuicidal, Musculoskeletal: No joint swelling or deformity. Tenderness over the right hip. - Labs CBC & Chem 7: 02/10/22 05:32 02/10/22 05:32 Labs: Abnormal Lab Results - Last 24 Hours (Table) 02/07/22 02/08/22 02/08/22 Range/Units 23:26 06:37 06:37 RBC 3.50 L (4.10-5.20) X 10*6/uL Hgb 10.3 L (12.0-15.0) g/dL Hct 31.2 L (37.2-46.3) % RDW 14.7 H (11.5-14.5) % Lymphocytes # 0.83 L (0.90-5.00) X 10*3/uL Creatinine (0.6-1.5) mg/dL BUN/Creatinine Ratio (12.00-20.00) Ratio Glucose (70-110) mg/dL POC Glucose (mg/dL) 307 H (70-110) mg/dL Calcium (8.7-10.3) mg/dL AST (13-35) U/L ALT (8-44) U/L Alkaline Phosphatase (41-126) U/L Total Protein (6.2-8.2) g/dL Albumin (3.8-4.9) g/dL Procalcitonin 0.12 H (0.02-0.09) ng/mL 02/08/22 02/08/22 02/08/22 Range/Units 06:37 06:39 12:47 RBC (4.10-5.20) X 10*6/uL Hgb (12.0-15.0) g/dL Hct (37.2-46.3) % RDW (11.5-14.5) % Lymphocytes # (0.90-5.00) X 10*3/uL Creatinine 0.2 L (0.6-1.5) mg/dL BUN/Creatinine Ratio 58.00 H (12.00-20.00) Ratio Glucose 66 L (70-110) mg/dL POC Glucose (mg/dL) 63 L 217 H (70-110) mg/dL Calcium 7.8 L (8.7-10.3) mg/dL AST 296 H (13-35) U/L ALT 403 H (8-44) U/L Alkaline Phosphatase 160 H (41-126) U/L Total Protein 5.3 L (6.2-8.2) g/dL Albumin 3.3 L (3.8-4.9) g/dL Procalcitonin (0.02-0.09) ng/mL 02/08/22 02/08/22 Range/Units 17:10 20:34 RBC (4.10-5.20) X 10*6/uL Hgb (12.0-15.0) g/dL Hct (37.2-46.3) % RDW (11.5-14.5) % Lymphocytes # (0.90-5.00) X 10*3/uL Creatinine (0.6-1.5) mg/dL BUN/Creatinine Ratio (12.00-20.00) Ratio Glucose (70-110) mg/dL POC Glucose (mg/dL) 275 H 453 H (70-110) mg/dL Calcium (8.7-10.3) mg/dL AST (13-35) U/L ALT (8-44) U/L Alkaline Phosphatase (41-126) U/L Total Protein (6.2-8.2) g/dL Albumin (3.8-4.9) g/dL Procalcitonin (0.02-0.09) ng/mL Assessment and Plan Assessment: Status post fall and complains of right hip pain. X-ray showed no evidence of fracture. Moderate to severe osteoarthrosis. History of multiple falls x4 during last couple of months. Right wrist pain Medical debility and unable to ambulate without report Generalized weakness Dehydration and volume depletion. Hyperglycemia with uncontrolled diabetes type 2, A1c 7.9 Elevated liver enzymes. No complaints of right upper quadrant pain. History of cholecystectomy. Ultrasound showed CBD not dilated. Bilirubin level is not elevated. Hepatitis panel nonreactive. Hepatitis recent history of urinary retention and was placed on Nava catheter. Asthma not exacerbation History of bronchiolitis Scoliosis GERD Mild to moderate clinical malnutrition DVT prophylaxis subcu Plan: Patient will be continued on gentle IV hydration with normal saline and continuous symptomatic management for pain. Titration x-ray was ordered. Follow-up liver enzymes. Ultrasound of the abdomen showed no ductal dilation. Chest x-ray and UA was done showed no evidence of infection. Orthostatic vitals were ordered.could not be done patient is unable to stand by herself. Patient had echocardiogram in October 2019 showed normal ejection fraction. Moderate aortic insufficiency. Lexiscan stress test showed no scintigraphic evidence of reversible ischemia at that time.. Patient was started back on insulin low-dose and preprandial insulin along with sliding scale for better blood sugar control. Follow-up closely. Prognosis is guarded with further medical problems and comorbid conditions. Time with Patient: Greater than 30
--- NOTE | 2022-02-10 11:11 | P.PN ---
Subjective Progress Note Date: 02/09/22 Patient is a 76-year-old female with known history of diabetes type 2 insulin- dependent, rheumatoid arthritis, GERD, asthma was brought to the hospital by EMS. Patient is currently living at assisted living facility. Apparently she has fallen about 4 times during this month for reasons not known. Patient was seen by her brother and [id number]. She most recently fell yesterday morning and landed on her right hip. Since then she has been having right hip pain. She was seen at [facility], [place] and had negative x-rays of the hip at the time. Patient apparently signed out of the hospital. Patient continues to have right hip pain and called ambulance to bring her to the hospital. Patient's brother stated that family does not feel she is safe by herself at home. Patient otherwise denied any head injury. No fever no chills. No nausea vomiting or abdominal pain or diarrhea. No loss of consciousness. Denied any dizziness or lightheadedness. Denied any hematemesis or melena. No dysuria or hematuria. Hip x-ray showed moderate to severe osteoarthritis in the right hip joint. No fractures. Chest x-ray showed there is some coarse pulmonary density suggestive of scarring. Normal heart. No adverse change compared to old exam. Gallbladder ultrasound showed gallbladder not seen. No dilated ducts. No discrete liver mass. EKG showed sinus rhythm with occasional supraventricular premature complexes. Laboratory data showed WC 4.9 hemoglobin 11.3 and platelets 296 Sodium 134, potassium 4.0 chloride 105 bicarb is 25 BUN 23 and creatinine 0.43 blood sugar is 379 AST 69 and ALT 722 and alk phos 200 and bilirubin level is 0.3 Lipase level is 33 Urinalysis showed 1+ protein 4+ glucose and trace ketones. Acetaminophen level is less than 10 and hepatitis panel nonreactive. On admission blood pressure is 117/61 pulse 93 respiration 20 and pulse ox 98% on room air. Patient was recently discharged from hospital on 1111 2. Patient had 2D echocardiogram done 1 11/12/2021 showed normal left ventricular dimension and systolic function. Trileaflet aortic valve with mild to moderate aortic insufficiency. Patient has stress test which is nondiagnostic electrocardiogram stress testing. Lexiscan stress test showed no definite scintigraphic evidence for reversible ischemia. Patient had CT head, cervical spine 12/21/[address] on 12/21/2021. Patient did have urine retention during this admission and advised to follow-up with urology as an outpatient. 02/08/2022 Patient is currently lying in bed. Seems to be more awake and oriented. Complains of right hip pain and also right wrist pain. Patient is status post fall at home. Patient is afebrile. Blood pressure is 157/68 pulse 104 respiration 18 and pulse ox 97% on room air.. No complaints of chest pain or shortness or. Laboratory data showed WBC 6.4 hemoglobin 10.3 and platelets 271 Sodium 136 potassium 3.5 chloride 104 bicarb is 21.6 BUN 11.6 and creatinine 0.2 And liver enzymes are still elevated AST to 96 ALT 403 and alk phos 160. troponin level is 0.12. Right wrist x-ray was added. 02/09/2022 Patient is sitting in the chair today. Complains of right wrist pain which is slightly swollen and surrounding redness. Possible gouty arthritis suspected. X-ray was negative for any fractures. Patient was started on prednisone 40 mg daily. Patient also complains of right hip pain. Patient has been afebrile. Continued on gentle IV hydration Laboratory data showed BUN 12.9 and creatinine 0.3 calcium 7.8, AST 197 ALT 587 alk phos 213 and calcium 7.8., WBC 7.01 hemoglobin 10.4 and platelets 278. PTOT be continued and possible discharge to rehab. Current medications reviewed. Objective - Vital Signs Vital signs: Vital Signs Temp 97 F L 02/09/22 14:59 Pulse 92 02/09/22 14:59 Resp 16 02/09/22 14:59 BP 146/69 02/09/22 14:59 Pulse Ox 96 02/09/22 14:59 FiO2 Intake & Output 02/09/22 02/09/22 02/10/22 06:59 18:59 06:59 Intake Total 300 Output Total 600 300 Balance -600 0 Intake: Oral 300 Output: Urine 600 300 Other: Voiding Method Diaper Diaper Incontinent Incontinent External Catheter External Catheter # Voids 2 - Exam PHYSICAL EXAMINATION: Patient is lying in the bed in contracted position., no acute distress, awake alert and oriented.. Weak and lethargic. HEENT: Normocephalic. Neck is supple. Pupils reactive. Nostrils clear. Oral cavity is moist. Neck reveals no JVD, carotid bruits, or thyromegaly. CHEST EXAMINATION: Trachea is central. Symmetrical expansion. Lung parekh clear to auscultation and percussion. Bibasilar diminished sounds. CARDIAC: Normal S1, S2 with no gallops. No murmurs ABDOMEN: Soft. Bowel sounds present. Nontender. No right upper quadrant tenderness. No organomegaly. No abdominal bruits. Extremities: reveal no edema. No clubbing or cyanosis. Right wrist swelling and redness. Neurologically awake, alert, oriented x3. Able to move extremities while in bed.. No gross focal deficits noted Skin: No rash or skin lesions. Psychiatric: Coperative. Nonsuicidal, Musculoskeletal: No joint swelling or deformity. Tenderness over the right hip. - Labs CBC & Chem 7: 02/10/22 05:32 02/10/22 05:32 Labs: Abnormal Lab Results - Last 24 Hours (Table) 02/09/22 02/09/22 02/09/22 Range/Units 05:11 05:11 06:14 RBC 3.55 L (4.10-5.20) X 10*6/uL Hgb 10.4 L (12.0-15.0) g/dL Hct 32.6 L (37.2-46.3) % MCHC 31.9 L (32.0-37.0) g/dL RDW 14.6 H (11.5-14.5) % Lymphocytes # 0.74 L (0.90-5.00) X 10*3/uL Creatinine 0.3 L (0.6-1.5) mg/dL BUN/Creatinine Ratio 40.69 H (12.00-20.00) Ratio Glucose 147 H (70-110) mg/dL POC Glucose (mg/dL) 188 H (70-110) mg/dL Calcium 7.8 L (8.7-10.3) mg/dL AST 197 H (13-35) U/L ALT 587 H (8-44) U/L Alkaline Phosphatase 213 H (41-126) U/L Total Protein 5.2 L (6.2-8.2) g/dL Albumin 3.1 L (3.8-4.9) g/dL Albumin/Globulin Ratio 1.47 L (1.60-3.17) g/dL 02/09/22 02/09/22 02/09/22 Range/Units 11:43 16:40 20:35 RBC (4.10-5.20) X 10*6/uL Hgb (12.0-15.0) g/dL Hct (37.2-46.3) % MCHC (32.0-37.0) g/dL RDW (11.5-14.5) % Lymphocytes # (0.90-5.00) X 10*3/uL Creatinine (0.6-1.5) mg/dL BUN/Creatinine Ratio (12.00-20.00) Ratio Glucose (70-110) mg/dL POC Glucose (mg/dL) 428 H 294 H 350 H (70-110) mg/dL Calcium (8.7-10.3) mg/dL AST (13-35) U/L ALT (8-44) U/L Alkaline Phosphatase (41-126) U/L Total Protein (6.2-8.2) g/dL Albumin (3.8-4.9) g/dL Albumin/Globulin Ratio (1.60-3.17) g/dL Assessment and Plan Assessment: Status post fall and complains of right hip pain. X-ray showed no evidence of fracture. Moderate to severe osteoarthrosis. History of multiple falls x4 during last couple of months. Right wrist pain. Possible gouty arthritis. Medical debility and unable to ambulate without report Generalized weakness Dehydration and volume depletion. Hyperglycemia with uncontrolled diabetes type 2, A1c 7.9 Elevated liver enzymes. No complaints of right upper quadrant pain. History of cholecystectomy. Ultrasound showed CBD not dilated. Bilirubin level is not elevated. Hepatitis panel nonreactive. Hepatitis recent history of urinary retention and was placed on Nava catheter. Asthma not exacerbation History of bronchiolitis Scoliosis GERD Mild to moderate clinical malnutrition DVT prophylaxis subcu Plan: Patient will be continued on gentle IV hydration with normal saline and continuous symptomatic management for pain. Right wrist x-ray was ordered. No fractures noted. Follow-up liver enzymes. Ultrasound of the abdomen showed no ductal dilation. Chest x-ray and UA was done showed no evidence of infection. Orthostatic vitals were ordered.could not be done patient is unable to stand by herself. Patient had echocardiogram in October 2019 showed normal ejection fraction. Moderate aortic insufficiency. Lexiscan stress test showed no scintigraphic evidence of reversible ischemia at that time.. Patient was started back on insulin low-dose and preprandial insulin along with sliding scale for better blood sugar control. Follow-up closely. Prognosis is guarded with further medical problems and comorbid conditions. Time with Patient: Greater than 30
[2022-02-10 12:08] LABS: Glucose,Whole Blood 255 mg/dL (70-110)
[2022-02-10 17:25] LABS: Glucose,Whole Blood 526 mg/dL (70-110)
[2022-02-10 17:25] LABS: Glucose,Whole Blood 518 mg/dL (70-110)
[2022-02-10] MEDS ORDERED: INSULIN ASPART (NovoLOG) 100 UNIT/ML VIAL SQ ONE (17:33)
[2022-02-10] MEDS: TAMSULOSIN 0.4 MG CAP.ER.24H PO SCH (17:46)
[2022-02-10 20:09] LABS: Glucose,Whole Blood 327 mg/dL (70-110)
[2022-02-10] MEDS ORDERED: INSULIN DETEMIR (LEVEMIR) 100 UNIT/ML SYR SQ SCH (20:45)
[2022-02-10] MEDS: ESTRADIOL 0.1 MG/GM VAGINAL CREAM 42.5 GM TUBE VAGINAL SCH (21:57)
[2022-02-10] MEDS: SODIUM CHLORIDE 0.9% 1,000 ML IV SCH (22:06)
[2022-02-11] MEDS: ACETAMINOPHEN TAB 325 MG TAB PO PRN (03:02)
[2022-02-11 06:18] LABS: Glucose,Whole Blood 127 mg/dL (70-110)
[2022-02-11] MEDS: INSULIN ASPART (NovoLOG) 100 UNIT/ML VIAL SQ SCH ×6 (06:21→17:55)
[2022-02-11] MEDS: SUCRALFATE 1 GM TAB PO SCH ×3 (06:21→17:54)
[2022-02-11 07:29] VITALS: RESP 16
[2022-02-11 08:35] LABS: Basophils # (A) 0.03 X 10*3/uL (0.00-0.10); Basophils % (A) 0.4 %; Eosinophils % (A) 1.4 %; HCT 30.2 % (37.2-46.3); HGB 9.8 g/dL (12.0-15.0); Immature Grans, Automated 0.3 %; Lymphocytes # (A) 1.19 X 10*3/uL (0.90-5.00); Lymphocytes % (A) 16.5 %; MCH 28.8 pg (27.0-32.0); MCHC 32.5 g/dL (32.0-37.0); MCV 88.8 fL (80.0-97.0); Mean Platelet Volume 10.7 fL (9.5-12.2); Monocytes # (A) 0.81 X 10*3/uL (0.20-1.00); Monocytes % (A) 11.2 %; NRBC Per 100 WBC 0 /100 WBCS (0.0-0.0); Neutrophils # (A) 5.06 X 10*3/uL (1.80-7.70); Neutrophils % (A) 70.2 %; Platelet Count 294 X 10*3/uL (140-440); RDW 14.7 % (11.5-14.5); WBC 7.21 X 10*3/uL (4.50-10.00)
[2022-02-11] MEDS: HEPARIN SODIUM,PORCINE/PF 5,000 UNIT/0.5 ML SYRINGE SQ SCH (08:53)
[2022-02-11] MEDS: metFORMIN 500 MG TAB PO SCH ×3 (08:53→17:54)
[2022-02-11] MEDS: predniSONE 10 MG TAB PO SCH (08:54)
[2022-02-11] MEDS: CHOLECALCIFEROL 25 MCG (1000 IU) TABLET PO SCH (08:54)
[2022-02-11 09:02] LABS: African American GFR (CKD) 119.4 (60.0-200.0); Albumin/Globulin Ratio 1.52 (1.60-3.17); Anion Gap 9.9 mmol/L (10.00-18.00); BUN/Creat Ratio 52.41 Ratio (12.00-20.00); Blood Urea Nitrogen 20.7 mg/dL (9.0-27.0); Calcium 7.9 mg/dL (8.7-10.3); Carbon Dioxide 21.3 mmol/L (20.0-27.5); Potassium 3.8 mmol/L (3.5-5.5); Total Bilirubin 0.2 mg/dL (0.30-1.20); Total Protein 4.9 g/dL (6.2-8.2)
[2022-02-11] MEDS ORDERED: traMADol 50 MG TAB PO PRN (10:49)
[2022-02-11] MEDS ORDERED: KETOROLAC 15 MG/ML 1 ML VIAL IVP STA (10:50)
[2022-02-11] MEDS: FLUCONAZOLE IN NACL,ISO-OSM 100 MG in SALINE 1 50ML.BAG IVPB SCH (10:51)
[2022-02-11 11:18] VITALS: BMI 19.9
[2022-02-11 12:29] LABS: Glucose,Whole Blood 247 mg/dL (70-110)
--- NOTE | 2022-02-11 15:33 | P.DS ---
Providers Date of admission: 02/06/22 19:41 Expected date of discharge: 02/11/22 Attending physician: Maria Elena Brown MD Primary care physician: Cooper Randall [facility] Hospital Course: Final diagnosis Status post fall and complains of right hip pain. X-ray showed no evidence of fracture. Moderate to severe osteoarthrosis. History of multiple falls x4 during last couple of months. Right wrist pain. Possible gouty arthritis. Medical debility and unable to ambulate without report Generalized weakness Dehydration and volume depletion. Hyperglycemia with uncontrolled diabetes type 2, A1c 7.9 Elevated liver enzymes. No complaints of right upper quadrant pain. History of cholecystectomy. Ultrasound showed CBD not dilated. Bilirubin level is not elevated. Hepatitis panel nonreactive. Hepatitis recent history of urinary retention and was placed on Nava catheter. Asthma not exacerbation History of bronchiolitis Scoliosis GERD Mild to moderate clinical malnutrition DVT prophylaxis Discharge disposition Patient is being discharged in a stable condition with guarded prognosis to [facility]. Patient will follow-up with Dr. Randall in the outpatient setting upon discharge. Patient is to continue with current medications as prescribed. Patient also continue a quick prednisone taper. Total time taken is greater than 35 minutes. Hospital course This is a 76-year-old female who was recently admitted significant weakness increased falls and having right hip pain. Patient had negative x-rays initially up at a different hospital feeling she could go home although patient continued to be significantly weak having continued hip pain and also right wrist pain. X-rays were done of the right hand with no fractures noted. Recommend to Guevara wrap and elevate while at rest and patient continue with as needed tramadol and Tylenol for pain. Patient with uncontrolled hyperglycemia recommend continue current medication regimen and Accu-Cheks before meals and at bedtime and continue with consistent carb diet. Patient had some retention and will be following up with urology outpatient. Patient has been cleared and medically stable for discharge to [facility]. Currently no reports of chest pain, shortness of breath, or palpitations. Patient is afebrile. No reports of nausea or vomiting and patient is tolerating diet. Patient will be going to [facility] today. Physical exam: Gen: This is a 76-year-old female who is awake, alert and oriented, thin built, cachectic, elderly-appearing female HEENT: Head is atraumatic, normocephalic. Pupils equal, round. Sclerae is anicteric. NECK: Supple. No JVD. No lymphadenopathy. No thyromegaly. LUNGS: Clear to auscultation. No wheezes or rhonchi. No intercostal retractions. HEART: Regular rate and rhythm. No murmur. ABDOMEN: Soft. Bowel sounds are present. No masses. No tenderness. EXTREMITIES: No pedal edema. No calf tenderness. Right wrist swelling and redness has improved although continues to be tender on palpation NEUROLOGICAL: Patient is awake, alert and oriented x3. Cranial nerves 2 through 12 are grossly intact. Diffusely weak Please refer to medication reconciliation sheet for a list of medications. The impression and plan of care has been dictated by Jessica Sweeney, Nurse Practitioner as directed. MD Bruce I have performed a history and examination and MDM of this patient, discussed the same with the dictator, and agree with the dictator's assessment and plan as written ,documented as a scribe. Based on total visit time, I have performed more than 50% of the visit. Patient Condition at Discharge: Stable Plan - Discharge Summary New Discharge Prescriptions: New Fluconazole [Diflucan] 100 mg PO DAILY 4 Days #4 tab predniSONE 30 mg PO DAILY #18 tab Acetaminophen Tab [Tylenol] 650 mg PO Q6HR PRN tab PRN Reason: Fever And/ Or Pain Albuterol Nebulized [Ventolin Nebulized] 2.5 mg INHALATION RT-QID PRN ml PRN Reason: Shortness Of Breath Cholecalciferol [Vitamin D3 (25 Mcg = 1000 Iu)] 25 mcg PO DAILY tab Insulin Detemir (Levemir) [Levemir] 10 unit SQ HS each INSULIN ASPART (NovoLOG) [NovoLOG (formulary)] 0 unit SQ ACHS each traMADol HCl [Ultram] 50 mg PO BID PRN #6 tab PRN Reason: Pain Continue metFORMIN HCL ER [Glucophage XR] 500 mg PO QID Cyclobenzaprine [Flexeril] 5 mg PO BID PRN PRN Reason: Muscle Spasm Diclofenac Sodium Gel [Voltaren Gel] 2 - 4 gm TOPICAL TID PRN PRN Reason: Pain Pioglitazone HCl 30 mg PO DAILY Sucralfate [Carafate] 1 gm PO ACHS Albuterol Inhaler [Ventolin Hfa Inhaler] 2 puff INHALATION RT-QID PRN PRN Reason: Shortness Of Breath Atorvastatin [Lipitor] 20 mg PO DAILY Estradiol Cream [Estrace Cream 0.01%] 1 gm VAGINAL TUTH Tamsulosin [Flomax] 0.4 mg PO PC-SUPPER cap Sennosides [Senokot] 8.6 mg PO BID PRN tab PRN Reason: Constipation Insulin Lispro [humaLOG Kwikpen] 4 unit SQ AC-TID Discontinued Acetaminophen Tab [Tylenol] 650 mg PO Q6HR PRN tab PRN Reason: Fever And/ Or Pain Insulin Lispro [humaLOG Kwikpen] See Protocol SQ AC-TID Insulin Glargine,Hum.rec.anlog [Lantus Solostar Pen] 21 units SQ HS Discharge Medication List Albuterol Inhaler [Ventolin Hfa Inhaler] 2 puff INHALATION RT-QID PRN 02/19/21 [History] Sucralfate [Carafate] 1 gm PO ACHS 02/19/21 [History] metFORMIN HCL ER [Glucophage XR] 500 mg PO QID 02/19/21 [History] Atorvastatin [Lipitor] 20 mg PO DAILY 11/11/21 [History] Cyclobenzaprine [Flexeril] 5 mg PO BID PRN 11/11/21 [History] Diclofenac Sodium Gel [Voltaren Gel] 2 - 4 gm TOPICAL TID PRN 11/11/21 [History] Estradiol Cream [Estrace Cream 0.01%] 1 gm VAGINAL TUTH 11/11/21 [History] Pioglitazone HCl 30 mg PO DAILY 12/21/21 [History] Sennosides [Senokot] 8.6 mg PO BID PRN tab 12/24/21 [Rx] Tamsulosin [Flomax] 0.4 mg PO PC-SUPPER cap 12/24/21 [Rx] Insulin Lispro [humaLOG Kwikpen] 4 unit SQ AC-TID 02/06/22 [History] Acetaminophen Tab [Tylenol] 650 mg PO Q6HR PRN tab 02/11/22 [Rx] Albuterol Nebulized [Ventolin Nebulized] 2.5 mg INHALATION RT-QID PRN ml 02/11/22 [Rx] Cholecalciferol [Vitamin D3 (25 Mcg = 1000 Iu)] 25 mcg PO DAILY tab 02/11/22 [Rx] Fluconazole [Diflucan] 100 mg PO DAILY 4 Days #4 tab 02/11/22 [Rx] INSULIN ASPART (NovoLOG) [NovoLOG (formulary)] 0 unit SQ ACHS each 02/11/22 [Rx] Insulin Detemir (Levemir) [Levemir] 10 unit SQ HS each 02/11/22 [Rx] predniSONE 30 mg PO DAILY #18 tab 02/11/22 [Rx] traMADol HCl [Ultram] 50 mg PO BID PRN #6 tab 02/11/22 [Rx] Follow up Appointment(s)/Referral(s): Cooper Randall DO [Primary Care Provider] - 1-2 days Activity/Diet/Wound Care/Special Instructions: Patient is going to [facility] Activity as tolerated Continue consistent carb diet Continue to monitor Accu-Cheks before meals and at bedtime NovoLog sliding scale 0-150 equals 0 units 151-200 equals 2 units 201-250 equals 4 units 251-300 equals 6 units 301-350 equals 8 units 351-400 equals 10 units Please notify provider if blood sugar is 400 or above Continue with local wound care and frequent position changes Continue with sling and Guevara wrap in the right wrist and instructed the patient to elevate while at rest Follow-up primary care provider on discharge Discharge Disposition: TRANSFER TO SNF/ECF
[2022-02-11 15:42] VITALS: BP 149/66; PULSE 98; TEMP 97.5
[2022-02-11 17:17] LABS: Glucose,Whole Blood 426 mg/dL (70-110)
[2022-02-11] MEDS: TAMSULOSIN 0.4 MG CAP.ER.24H PO SCH (17:54)
== END 2022-02-11 18:49 ==
LOC: EC 15:29 → 6NMEDSUR 19:41
PROVIDERS: ADMIT Internal Medicine; ATTEND Internal Medicine
DX: S70.01XA Contusion of right hip, initial encounter (principal); M16.11 Unilateral primary osteoarthritis, right hip; E86.0 Dehydration; E11.65 Type 2 diabetes mellitus with hyperglycemia; M25.551 Pain in right hip; M25.531 Pain in right wrist; E46 Unspecified protein-calorie malnutrition; R53.1 Weakness; R74.01 Elevation of levels of liver transaminase levels; R26.2 Difficulty in walking, not elsewhere classified; K21.9 Gastro-esophageal reflux disease without esophagitis; J45.909 Unspecified asthma, uncomplicated; M06.9 Rheumatoid arthritis, unspecified; M41.9 Scoliosis, unspecified; I35.1 Nonrheumatic aortic (valve) insufficiency; R33.9 Retention of urine, unspecified; I49.1 Atrial premature depolarization; Z68.1 Body mass index [BMI] 19.9 or less, adult; W19.XXXA Unspecified fall, initial encounter; Z91.81 History of falling; Z79.84 Long term (current) use of oral hypoglycemic drugs; Z79.899 Other long term (current) drug therapy; Z79.4 Long term (current) use of insulin; Z88.0 Allergy status to penicillin; Z88.1 Allergy status to other antibiotic agents; Z90.49 Acquired absence of other specified parts of digestive tract; Z98.890 Other specified postprocedural states
CPT/HCPCS: 96361 ×4; 96365; 96366 ×2; 96372 ×4; 96375 ×2; 99285; 36415; 94760 ×3; 93005; 97530; 97162; 97167; 80053 ×6; 80074; 83690; 84484; 85025 ×6; 85610; 85730; 81001; 80143; 83036; 84145; 73502; 73130; 71045; 76705; G0378 ×6; J2270 ×2; J1450 ×3; J1885; J7512 ×3; J1644 ×4

== ENCOUNTER → 2022-12-26 | Outpatient (CLI) | payer MEDICARE ==
[2022-12-27 03:02] LABS: ALT 21 U/L (8-44); AST 15 U/L (13-35); Albumin 3.9 g/dL (3.8-4.9); Albumin/Globulin Ratio 1.62 Ratio (1.60-3.17); Alkaline Phosphatase 104 U/L (41-126); Blood Urea Nitrogen 23.6 mg/dL (9.0-27.0); Carbon Dioxide 23.2 mmol/L (21.6-31.8); Chloride 102 mmol/L (96-109); Globulin 2.4 g/dL (1.6-3.3); Glucose 51 mg/dL (70-110); Potassium 3.8 mmol/L (3.5-5.5); Sodium 142 mmol/L (135-145); Total Bilirubin <0.2 mg/dL (0.3-1.2); Total Protein 6.3 g/dL (6.2-8.2)
[2022-12-27 03:32] LABS: HCT 38.6 % (37.2-46.3); MCH 28.1 pg (27.0-32.0); MCHC 31.1 g/dL (32.0-37.0); MCV 90.4 FL (80.0-97.0); Mean Platelet Volume 10.9 FL (9.5-12.2); NRBC Per 100 WBC 0 X 10*3/uL (0.00-0.01); Platelet Count 359 X 10*3/uL (140-440); RBC 4.27 X 10*6/uL (4.10-5.20); RDW 15.2 % (11.5-14.5); WBC 7.52 X 10*3/uL (4.50-10.00)
== END | disposition home or self-care (01) ==
LOC: LABPAT 13:03
DX: Z01.818 Encounter for other preprocedural examination (principal); M16.11 Unilateral primary osteoarthritis, right hip; I51.7 Cardiomegaly; R94.31 Abnormal electrocardiogram [ECG] [EKG]
CPT/HCPCS: 80053; 83036; 85027; 87070; 93005

== ENCOUNTER → 2022-12-27 | Outpatient (CLI) | payer MEDICARE | END | disposition home or self-care (01) | LOC: LABPRL 07:26 | PROVIDERS: ATTEND Orthopaedic Surgery | DX: Z53.9 Procedure and treatment not carried out, unspecified reason (principal) ==

== ENCOUNTER → 2022-12-28 | Outpatient (CLI) | payer MEDICARE ==
[2022-12-28 12:03] LABS: Partial Thromboplastin Time 25.4 sec (22.0-30.0)
[2022-12-28 17:12] LABS: Appearance,Urine Clear (Clear); Bilirubin,Urine Negative (Negative); Blood,Urine Trace (Negative); Color,Urine Yellow (Yellow); Ketones,Urine Trace (Negative); Nitrite,Urine Negative (Negative)
[2022-12-28 17:56] LABS: Bacteria,Urine None Seen (None Seen); Calcium Oxalate Crystals,Urine Present (None Seen)
== END | disposition home or self-care (01) ==
LOC: LABPAT 10:06
PROVIDERS: ATTEND Orthopaedic Surgery
DX: Z01.812 Encounter for preprocedural laboratory examination (principal); M16.11 Unilateral primary osteoarthritis, right hip
CPT/HCPCS: 81001; 85610; 85730

== ENCOUNTER 2023-01-18 05:58 | Day surgery (SDC) | payer MEDICARE ==
[2023-01-18] MEDS ORDERED: SODIUM CHLORIDE 0.9% 1,000 ML in EMPTY BAG 1 BAG IV SCH (05:59)
[2023-01-18] MEDS ORDERED: ALPRAZolam 0.25 MG TAB PO PRN (05:59)
[2023-01-18] MEDS ORDERED: NITROGLYCERIN SL TABS 0.4 MG TAB SUBLINGUAL PRN (05:59)
[2023-01-18] MEDS ORDERED: ALPRAZolam 0.5 MG TAB PO PRN (05:59)
[2023-01-18 06:45] LABS: Glucose,Whole Blood 199 mg/dL (70-110)
[2023-01-18] MEDS ORDERED: SODIUM CHLORIDE 0.9% 1,000 ML IV ONE (06:51)
[2023-01-18] MEDS ORDERED: ASPIRIN 325 MG TAB PO ONE (07:00)
[2023-01-18 07:09] VITALS: RESP 16; TEMP 99
[2023-01-18] MEDS ORDERED: fentaNYL (PF) 50 MCG/ML 2 ML AMP ONE (07:35)
[2023-01-18] MEDS ORDERED: LIDOCAINE 1% INJ 10MG/ML (5 ML VIAL-PF) SQ ONE (07:37)
[2023-01-18] MEDS ORDERED: HEPARIN SODIUM 1,000 UN/ML (10ML VL) ONE (07:40)
[2023-01-18] MEDS ORDERED: MIDAZOLAM 2 MG/2 ML VIAL IVP ONE (07:42)
[2023-01-18] MEDS ORDERED: VERAPAMIL SYRINGE (5 MG/10 ML) INTRAARTER ONE (07:42)
[2023-01-18] MEDS ORDERED: fentaNYL (PF) 50 MCG/1 ML VIAL IVP ONE (07:42)
[2023-01-18] MEDS ORDERED: HEPARIN SODIUM 1,000 UN/ML (10ML VL) IV ONE (07:43)
[2023-01-18] MEDS ORDERED: IOPAMIDOL-370 100ML BTL INJ ONE (08:02)
--- NOTE | 2023-01-18 08:08 | P.CARDCATH ---
Description of Procedure: PROCEDURES PERFORMED: Left heart catheterization, bilateral coronary angiography, ultrasound guided arterial access INDICATION: Abnormal stress test CONSENT:I have discussed the risks, benefits and alternative therapies for the above-mentioned procedure and for both sedation/analgesia as well as necessary blood product administration, if indicated, as they pertain to this patient. The patient has indicated understanding and acceptance of the risks and procedures discussed. PROCEDURE: After the risks, benefits and alternatives of the above mentioned procedure explained in detail with the patient, informed consent was obtained. Patient was taken to the catheterization lab and prepped and draped in usual fashion. Ultrasound guidance was used to assess for arterial access. 1% lidocaine was used to anesthetize the right radial artery. A 6-Scottish sheath was placed in the right radial artery using modified Seldinger technique and ultrasound guidance. Left coronary angiography was performed with a 5-Scottish JL 3.5 catheter and right coronary angiography was performed with a 5-Scottish AR2 catheter in various views. A 5-Scottish AR2 catheter was inserted into the left ventricle and pressure measurements were obtained. The right radial sheath was removed and a TR band was placed with hemostasis achieved. The patient to lerated the procedure well. Patient was transported back to the post catheterization holding area in stable condition. Conscious Sedation: Patient was monitored under the direct supervision of myself for conscious sedation using Versed and fentanyl for a total duration of 15 minutes HEMODYNAMICS: Aortic: 132/78 LV: 128/5 LVEDP 12 SELECTIVE CORONARY ARTERIOGRAPHY: LEFT MAIN: The left main is a large caliber vessel which bifurcates into the LAD and circumflex. There is no significant stenosis. LEFT ANTERIOR DESCENDING CORONARY ARTERY: LAD is a large caliber vessel which wraps around to the apex. There are mild luminal irregularities of the mid LAD, 10-20%. LEFT CIRCUMFLEX CORONARY ARTERY: Left circumflex is a moderate caliber vessel without significant stenosis. The left circumflex is codominant supplying a PLV. RIGHT CORONARY ARTERY: The right coronary artery is a small caliber vessel which gives off a very small PDA and an acute marginal branch and is codominant. There is no significant stenosis. FINAL IMPRESSION: 1. Relatively normal coronary arteries other than mid LAD 10-20% stenosis. 2. Normal left sided filling pressures PLAN: 1. Aggressive risk factor modification per most recent ACC/AHA guidelines. 2. Follow-up in the office in 1-2 weeks.
[2023-01-18] MEDS ORDERED: ACETAMINOPHEN TAB 500 MG TAB PO ONE (11:30)
[2023-01-18 13:04] VITALS: BP 140/74; PULSE 84
== END 2023-01-18 11:41 | disposition home or self-care (01) ==
LOC: CATHCVL 05:58
PROVIDERS: ATTEND Internal Medicine
DX: I25.10 Atherosclerotic heart disease of native coronary artery without angina pectoris (principal); I10 Essential (primary) hypertension; E78.5 Hyperlipidemia, unspecified; E11.9 Type 2 diabetes mellitus without complications; I35.1 Nonrheumatic aortic (valve) insufficiency; Z79.899 Other long term (current) drug therapy; Z88.0 Allergy status to penicillin
CPT/HCPCS: 93458; 76937; J2250; J2001; J1644; Q9967; J3010